=== PATIENT | female | born 1940 | race Caucasian/White ===

== ENCOUNTER → 2017-10-01 | Day surgery (SDC) | payer OTHER ==
[2017-09-22 15:29] VITALS: Ht 163.8 cm; Wt 81.8 kg
[~2017-10-01] VITALS: Ht 163.8 cm; Wt 81.8 kg
[~2017-10-01] MED LIST: DEXAMETHASONE SOD INJ 4 MG/ML VIAL ONE; LIDOCAINE HCL 1% MPF 5 ML VIAL ONE; MELO-83 PO; MULT-506 PO; OXYB5TAB21 PO; RANI150T3 PO; VITA1TAB4 PO; VITBC PO
--- NOTE | 2017-10-01 08:01 | History & Physical Bridge - [place] ---
H&P Re-Evaluation Bridge Note: I have examined the patient, reviewed the History & Physical and in the interval since the performance of the History & Physical I have noted the following changes of clinical significance: No changes noted
--- NOTE | 2017-10-01 08:16 | Discharge Instructions-SurgCtr ---
Discharge Instructions Date of Service Oct 01, 2017. Visit Reason for Visit: Spinal Stenosis Discharge Discharge Diagnosis / Problem: same Discharge Goals Goal(s): Improve function Activity Recommendations Activity Limitations: resume your previous activity Anesthesia . Post Anesthesia Instructions: If you have had General Anesthesia or IV Sedation: * Do not drive today. * Resume driving when surgeon permits. * Do not make important decisions or sign legal documents today. * Call surgeon for: 1. Temperature elevations greater than 101 degrees F. 2. Uncontrollable pain. 3. Excessive bleeding. 4. Persistent nausea and vomiting. 5. Medication intolerance (nausea, vomiting or rash). * For nausea and vomiting use only clear liquids such as: tea, soda, bouillon until nausea subsides, then gradually increase diet as tolerated. * If you have any concerns or questions, call your surgeon's office. If physician is unavailable and it is an emergency, call 911 or go to the nearest emergency room. . Diet Recommendations Home Diet: no limitations Procedures Procedures Performed: L3-4 Epidural Steroid Injection Pending Studies Studies pending at discharge: no Medical Emergencies . Who to Call and When: Medical Emergencies: If at any time you feel your situation is an emergency, please call 911 immediately. . Non-Emergent Contact Non-Emergency issues call your: Primary Care Provider . . "Provider Documentation" section prepared by Efrain Pierson. .
--- NOTE | 2017-10-01 08:17 | [facility] Post Operative Brief Note ---
Immediate Operative Summary Operative Date Oct 01, 2017. Pre-Operative Diagnosis SPINAL STENOSIS Post-Operative Diagnosis SAME Procedure(s) Performed L3-[address] Phi ROGERS Junior Recruiter Surgeon(s) NONE Estimated Blood Loss 0 ML Findings Consistent with Post-Op Diagnosis Specimens NONE Drains None Anesthesia Type Local
[2017-10-01 08:18] VITALS: TEMP 36.3
[2017-10-01 08:35] VITALS: BP 168/84; PULSE 76; O2SAT 96
--- NOTE | 2017-10-01 10:42 | OPERATIVE REPORT ---
DATE OF OPERATION: 10/01/2017 PREOPERATIVE DIAGNOSIS: Stenosis, lumbar spine, L3-L4. POSTOPERATIVE DIAGNOSIS: Stenosis, lumbar spine L3-L4. PROCEDURE: Epidural steroid, L3-L4. DESCRIPTION OF PROCEDURE: Patient was taken to minor procedure room and placed prone, scrubbed, prepped and draped sterile. A 22-gauge Tuohy needle advanced to the epidural space at L3-L4. Air acceptance technique employed. 2 mL of dexamethasone injected without incident. There were no complications. She was discharged home. I attest to the content of the Intraoperative Record and any orders documented therein. Any exception s are noted below.
== END | disposition home or self-care (01) ==
LOC: X.SURG 06:44
PROVIDERS: ATTEND Orthopaedic Surgery Orthopaedic Surgery of the Spine
DX: M48.061 Spinal stenosis, lumbar region without neurogenic claudication (principal)

== ENCOUNTER → 2017-10-28 | Outpatient (CLI) | payer OTHER ==
[~2017-10-28] MED LIST changes: -DEXAMETHASONE SOD INJ 4 MG/ML VIAL ONE; -LIDOCAINE HCL 1% MPF 5 ML VIAL ONE
--- NOTE | 2017-10-28 10:26 | DIAGNOSTIC IMAGING REPORT ---
CHEST 2 VIEWS ROUTINE HISTORY: 77 years-old Female pat preoperative exam. No acute chest complaints COMPARISON: None available TECHNIQUE: PA and lateral views of the chest FINDINGS: Cardiomediastinal and hilar silhouettes are within normal limits. Calcification of the aorta. There is no pneumothorax, pleural effusion, focal airspace consolidation or overt pulmonary edema. Moderate sized hiatal hernia. Bones of the chest appear grossly intact. IMPRESSION: 1. No acute process. 2. Moderate sized hiatal hernia. The above report was generated using voice recognition software. It may contain grammatical, syntax or spelling errors. Electronically signed by: Myke French M.D. 10/28/2017 10:25 AM Dictated Date/Time: 10/28/2017 10:23 AM
[2017-10-28 10:39] LABS: BASO % 0.5 %; BASO ABS # 0.03 K/uL (0-0.2); EOS % 1.4 %; EOS ABS # 0.08 K/uL (0-0.5); HEMATOCRIT 36.2 % (37-47); HEMOGLOBIN 11.9 g/dL (12.0-16.0); IG# 0.01 K/uL (0.00-0.02); LYMPH % 30.4 %; LYMPH ABS # 1.73 K/uL (1.2-3.4); MEAN CELL VOLUME 86.8 fL (80-100); MEAN CORPUSCULAR HEMOGLOBIN 28.5 pg (25-34); MEAN CORPUSCULAR HGB CONC 32.9 g/dl (32-36); MONO % 5.4 %; MONO ABS # 0.31 K/uL (0.11-0.59); NEUT % 62.1 %; NEUT ABS # 3.54 K/uL (1.4-6.5); PLATELET COUNT 297 K/uL (130-400); RED CELL DISTRIBUTION WIDTH CV 13.6 % (11.5-14.5); RED CELL DISTRIBUTION WIDTH SD 43.3 fL (36.4-46.3)
[2017-10-28 10:44] LABS: INR 0.9 (0.9-1.1); PTT PATIENT 25.3 SECONDS (21.0-31.0)
[2017-10-28 10:47] LABS: BLOOD UREA NITROGEN 16 mg/dl (7-18); CALCIUM 8.7 mg/dl (8.5-10.1); CARBON DIOXIDE 28 mmol/L (21-32); GLUCOSE 97 mg/dl (70-99); SODIUM 140 mmol/L (136-145)
== END | disposition home or self-care (01) ==
LOC: C.CPL 09:12
PROVIDERS: ATTEND Orthopaedic Surgery Orthopaedic Surgery of the Spine
DX: Z01.810 Encounter for preprocedural cardiovascular examination (principal); Z01.811 Encounter for preprocedural respiratory examination; Z01.812 Encounter for preprocedural laboratory examination; K44.9 Diaphragmatic hernia without obstruction or gangrene

== ENCOUNTER 2021-10-25 11:11 | Observation (INO) ==
--- NOTE | 2021-09-18 11:50 | PAT Medication Instructions ---
Medication Instructions Date of Service September 18, 2021 Home Medications Medication Instructions Recorded multivitamin (Daily-Riley) 1 tab PO QAM #60 tabs 11/15/17 multivitamin (Daily-Riley) 1 tab PO QAM meloxicam 15 mg tablet 15 mg PO DAILY PRN acetaminophen 325 mg capsule (Tylenol) 325 mg PO Q8H PRN duloxetine 20 mg capsule,delayed release 20 mg PO BID gabapentin 600 mg tablet 300 mg PO HS ASK your surgeon for instructions meloxicam 15 mg tablet 15 mg PO DAILY PRN DO NOT take the morning of surgery multivitamin (Daily-Riley) 1 tab PO QAM Take morning of surgery With a small sip of water, OTHERWISE NOTHING TO EAT OR DRINK AFTER MIDNIGHT: acetaminophen 325 mg capsule (Tylenol) 325 mg PO Q8H PRN(if needed) duloxetine 20 mg capsule,delayed release 20 mg PO BID Take evening before surgery acetaminophen 325 mg capsule (Tylenol) 325 mg PO Q8H PRN(if needed) duloxetine 20 mg capsule,delayed release 20 mg PO BID gabapentin 600 mg tablet 300 mg PO HS Other Notes If you have any questions please call us at [phone] or [phone] or [phone] or [phone]
--- NOTE | 2021-09-24 08:52 | Anesthesiology Consultation ---
Date of Service September 24, 2021 Assessment & Plan (1) Encounter for pre-operative examination: Chart Review Chart Review: Acceptable Risk for Surgery (pending preop Covid testing results ) and Patient seen in Pre Admission Testing Per PAT appt on 09/24/21, patient denies any recent travel or large group activities. No known Covid positive exposures or Covid related symptoms. No known Covid infection in the past 90 days. Pt is vaccinated for Covid. Preop Covid testing scheduled 10/23/21 = will await results. Educated on importance of self quarantining, social distancing and wearing mask in public for the patient one week prior to surgery and after Covid testing done L3-4 laminectomy and fusion 11/12/17= Done under GA with Grade 2-3 view with MAC 3.0. ETT #7.0. Atraumatic. Smooth IV induction. Teaching & Discussion Pre-Anesthesia Teaching/Discussion Notes: Instructed NPO after midnight before surgery,except medications with 15 cc of water. Medication instructions provided according to the [facility] guidelines. History Surgery Operation Date: 10/25/21 11:20 Proposed Procedures p Left Anterior Total Hip Arthroplasty - Indra Piedra DO Height/Weight Height: 5 ft 2.5 in Weight: 77.9 kg Allergies Allergy/AdvReac Type Severity Reaction Status Date / Time No Known Allergies Allergy Verified 09/13/21 14:23 Medications Home Medications Medication Instructions Recorded Confirmed Last Taken multivitamin (Daily-Riley) 1 tab PO QAM #60 tabs 11/15/17 09/13/21 Unknown meloxicam 15 mg tablet 15 mg PO DAILY PRN Pain 03/12/20 09/13/21 Unknown acetaminophen 325 mg capsule 325 mg PO Q8H PRN Pain 09/13/21 09/13/21 Unknown (Tylenol) duloxetine 20 mg capsule,delayed 20 mg PO BID 09/13/21 09/13/21 Unknown release gabapentin 600 mg tablet 300 mg PO HS 09/13/21 09/13/21 Unknown clotrimazole See Rx Instructions .Route .COMPLEX 09/24/21 09/24/21 Unknown hydrocortisone 2.5 % topical See Rx Instructions .Route 09/24/21 09/24/21 Unknown ointment .COMPLEX PRN Rash nystatin 100,000 unit/mL oral See Rx Instructions .Route .COMPLEX 09/24/21 09/24/21 Unknown suspension Past Medical History Medical History (Updated 09/25/21 @ 08:33 by Lin Guerra PA-C) Chronic back pain Lumbar area- hx of lumbar fusion Gait instability Uses cane to ambulate - secondary to hip vs lumbar back pain GERD (gastroesophageal reflux disease) Well controlled and stable Lumbar facet joint syndrome Lumbar postlaminectomy syndrome Lumbar radiculopathy R L4-5 Myofascial pain Follows with pain management Thrush Oral thrush x 3 weeks (secondary to previous abx use). Following with PCP- using Nystatin rinse, clotrimazole lozenge, and salt water rinses- thrush slowly improving Pt will call if not resolved by DOS Urinary bladder incontinence Exercise / Class Metabolic Activity II 4-5 Yardwork/Stairs/Walk up hill (one flight of stairs- no chest pain or SOB ) Past Family History Family History Other No known health problems Past Surgical History Surgical History History of bilateral tubal ligation History of cataract surgery R/L History of colonoscopy History of tonsillectomy S/P lumbar fusion L2-4 Dr. Pierson 2018 Past Anesthesia History No Hx of Anesthesia Complications and No Family Hx of Anesthesia Complications History of PONV No Hx of PONV and No Hx of Motion Sickness Social History Smoking Status: Former smoker tobacco type: cigarettes Smoking cigarettes per day: 1ppd x 20 years Do You Dip or Chew Tobacco: No Smoking End Date: QUIT 1969 Hx Alcohol Use: No Alcohol type: wine alcohol intake frequency: holidays/special occasions only Hx Substance Use: No substance use type: other Substance Use Type Other:: CBD OIL (RARELY) Last Used Substance: Unknown Review of Systems Patient denies chest pain, shortness of breath, dyspnea on exertion, cough, wheezing, palpitations. No hx of seizures, stroke, VA, apnea/snoring. No hx of blood clots or blood transfusions Physical Exam Vital Signs VITALS BP 159/89 P 84 TEMP 98.4 SP02 95% RESP 16 Constitutional no acute distress ENMT Mouth: no TMJ clicking Thyromental Distance: > or= 3.5 Finger Breadths (3.5) Mallampati Class: III Upper and lower full dentures Neck neck extension not limited Respiratory normal respiratory effort; no respiratory distress Auscultation: lungs clear to auscultation bilaterally; no wheezes Cardiovascular Rate/Rhythm: regular rate and regular rhythm Heart Sounds: no murmur Vessels: no carotid bruit Musculoskeletal Spine: no pain with cervical ROM Extremities: extremities normal to inspection Psychiatric Orientation: alert Lab Results Anesthesia Preop Results Results Anesthesia Widget: WBC 6.98 K/ul (4.8-10.8) 09/24/21 Hgb 13.2 g/dl (12.0-16.0) 09/24/21 Hct 38.8 % (34.1-44.9) 09/24/21 Plt 293 K/uL (130-400) 09/24/21 Na 139 mmol/L (136-145) 09/24/21 K 3.9 mmol/L (3.5-5.1) 09/24/21 Cl 107 mmol/L (98-107) 09/24/21 CO2 25 mmol/L (21-32) 09/24/21 BUN 22 mg/dl (6-23) 09/24/21 Creat 0.62 mg/dl (0.6-1.2) 09/24/21 Glucose Level 100 mg/dl (70-99(Fasting)) H 09/24/21 PT 10.3 Seconds (9.0-12.0) 09/24/21 PTT 27.2 Seconds (21.0-31.0) 09/24/21 INR 1.0 (0.9-1.1) 09/24/21 Blood Type O Positive 09/24/21 Antibody Screen NEGATIVE 09/24/21 Testing Electrocardiogram Date: 09/24/21 Findings: + NSR @ (74bpm ) Normal EKG per cardio Chest X-Ray Date: 09/24/21 Findings: + NAD
--- NOTE | 2021-10-24 08:58 | History & Physical Report ---
Date of Service October 24, 2021 Assessment & Plan (1) Osteoarthritis of left hip: We will proceed with a left anterior total hip arthroplasty. Postoperatively she will be started on aspirin for DVT prophylaxis and kept overnight in the hospital for postoperative medical management. She plans to use [facility] physical therapy upon discharge. History of Present Illness Chief Complaint: Osteoarthritis of the left hip. Primary Care Provider: Efrain Carrasco MD Rebekah is an 81-year-old female who has been having a longstanding history of increasing and debilitating left hip pain. She has been treated with injections in the past, which offer her no real symptomatic relief. She has been using a cane just because the hip has been bothering her too much. Most of the pain is in the groin and radiates down to her thigh. She has had multiple x-rays, which do demonstrate severe osteoarthritis of the hip. After failing conservative treatment, she has elected to proceed with a left total hip arthroplasty. Allergies Allergy/AdvReac Type Severity Reaction Status Date / Time No Known Allergies Allergy Verified 09/13/21 14:23 Home Medications Medication Instructions Recorded Confirmed Type multivitamin (Daily-Riley tablet) 1 tab PO QAM #60 tabs 11/15/17 09/13/21 Rx meloxicam 15 mg tablet 15 mg PO DAILY PRN Pain 03/12/20 09/13/21 History acetaminophen 325 mg capsule 325 mg PO Q8H PRN Pain 09/13/21 09/13/21 History (Tylenol) duloxetine 20 mg capsule,delayed 20 mg PO BID 09/13/21 09/13/21 History release gabapentin 600 mg tablet 300 mg PO HS 09/13/21 09/13/21 History clotrimazole See Rx Instructions .Route .COMPLEX 09/24/21 09/24/21 History hydrocortisone 2.5 % topical See Rx Instructions .Route 09/24/21 09/24/21 History ointment .COMPLEX PRN Rash nystatin 100,000 unit/mL oral See Rx Instructions .Route .COMPLEX 09/24/21 09/24/21 History suspension Past Med/Surg History Medical History Chronic back pain Lumbar area- hx of lumbar fusion Gait instability Uses cane to ambulate - secondary to hip vs lumbar back pain GERD (gastroesophageal reflux disease) Well controlled and stable Lumbar facet joint syndrome Lumbar postlaminectomy syndrome Lumbar radiculopathy R L4-5 Myofascial pain Follows with pain management Thrush Oral thrush x 3 weeks (secondary to previous abx use). Following with PCP- using Nystatin rinse, clotrimazole lozenge, and salt water rinses- thrush slowly improving Pt will call if not resolved by DOS Urinary bladder incontinence Surgical History History of bilateral tubal ligation History of cataract surgery R/L History of colonoscopy History of tonsillectomy S/P lumbar fusion L2-4 Dr. Pierson 2018 Family History Other No known health problems Social History Smoking Status: Former smoker Cigarettes Per Day: 1ppd x 20 years; Second Hand Exposure: No; Hx Alcohol Use: No Hx Substance Use: No Preferred Language: Danish Communication Ability: Effective Visual Impairment: No Limitations Hearing Ability: Normal Foundry Molder Required: No Beliefs That Will Affect Care: None Current Living Situation: Alone current occupational status: retired Feels Safe at Home: Yes Assistive Devices: Cane, Denture - Upper, Denture - Lower and Glasses Review of Systems All systems reviewed & are unremarkable except as noted in HPI & below. Physical Exam On physical examination of the left hip, she has significant pain with range of motion of her hip. Her pain is mostly in her groin.. Constitutional WD/WN, vitals as above Eyes PERRL, conjunctivae normal, anicteric sclerae ENMT external ear and nose normal, oropharynx normal Neck trachea midline, no thyromegaly Respiratory normal respiratory effort, lungs clear to auscultation Cardiovascular RRR, no murmur, no edema Gastrointestinal (Abdomen) normal bowel sounds, soft, nontender, no hepatosplenomegaly Skin no rashes, warm and dry Psychiatric A+Ox3, euthymic affect Results & Data Results & Data Laboratory Results . Diagnostic Findings X-rays of the left hip show advanced osteoarthritis with joint space narrowing, osteophyte formation, and [id number] articulation. PG Care Time/CCT Total # of Minutes Spent Total Time Spent with Patient: Total time spent is greater than 50% in coordination of care (as documented) at patient's floor/unit and/or counseling patient: Coding Level of Care Code None Diagnoses Osteoarthritis of left hip M16.12
[~2021-10-25 11:11] MED LIST changes: +ACETAMINOPHEN 500 MG TAB PO SCH; +BUPIVACAINE 0.5 % 5 MG/1 ML PF 10ML VIAL ONE; +GABAPENTIN 300 MG CAP PO SCH; +Ketorolac (*for OR use only*) 30 MG, dexAMETHasone 4 MG, KETAMINE HCL (**OR use only) 1... INFIL SCH; +LR 500ML BOLUS, THEN 15ML/HR IV SCH; +LR 60ML/HR IV SCH; -MELO-83 PO; -MULT-506 PO; -OXYB5TAB21 PO; -RANI150T3 PO; +TRANEXAMIC ACID 1,000 MG **IV Intra-op IV SCH; +TRANEXAMIC ACID 1,000 MG **IV Pre-op IV SCH; -VITA1TAB4 PO; -VITBC PO; +ceFAZolin 2000MG 2,000 MG/15 ML SYR IV SCH; +dexAMETHasone 4 MG TAB PO SCH
--- NOTE | 2021-10-25 13:12 | History & Physical Bridge Note ---
Date of Service October 25, 2021 History & Physical Bridge Note I have examined the patient, reviewed the History & Physical and in the interval since the performance of the History & Physical I have noted the following changes of clinical significance: no changes noted
[2021-10-25] MEDS ORDERED: ePHEDrine sulfate 50 MG/ML AMP IV PRN (13:43)
[2021-10-25] MEDS ORDERED: ATROPINE SULFATE 0.1 MG/ML 10ML SYR IV PRN (13:43)
[2021-10-25] MEDS ORDERED: fentaNYL citrate 100 MCG/2 ML VIAL IV PRN (13:43)
[2021-10-25] MEDS ORDERED: ONDANSETRON INJ 2 MG/ML 2 ML VIAL IV PRN ×2 (13:43→18:18)
[2021-10-25] MEDS ORDERED: fentaNYL citrate 100 MCG/2 ML VIAL ONE (13:59)
[2021-10-25] MEDS ORDERED: MIDAZOLAM HCL 1 MG/ML 2ML VIAL ONE (14:04)
[2021-10-25] MEDS ORDERED: ORTHO JOINT ANESTHETIC ONE (14:10)
[2021-10-25] MEDS ORDERED: LIDOCAINE 2% MPF LOCAL 5 ML VIAL INFIL ONE (14:52)
[2021-10-25] MEDS ORDERED: PROPOFOL IV EMULSION 10 MG/ML 20 ML VIAL IV ONE ×2 (14:52→15:57)
[2021-10-25] MEDS ORDERED: ePHEDrine sulfate 50 MG/ML SYR ONE (15:57)
[2021-10-25] MEDS ORDERED: ONDANSETRON INJ 2 MG/ML 2 ML VIAL ONE (15:57)
--- NOTE | 2021-10-25 16:10 | Operative Report ---
PG Post Operative Report Pre & Post Diagnosis Operation Date: 10/25/21 14:15 Pre-Op Diagnosis: Osteoarthritis of left hip Post-Op Diagnosis: Osteoarthritis of left hip I identified the patient and participated in the time-out.: Yes Procedure Operation Date: 10/25/21 14:15 Actual Procedures p Left Anterior Total Hip Arthroplasty(Left) - Indra Piedra DO Surgeon Indra Piedra DO Transcript Clerk Indra Boucher PA-C Estimated Blood Loss 250 Findings Consistent with Post-Op Diagnosis Specimens Left femoral head Description of Procedure Implants used I used a ZimmerBiomet total hip arthroplasty system with a size 5 Standard offset Avenir Complete stem, a 52 mm G7 cup with a 25mm screw, an E1 polyethylene liner, a 36 mm ceramic head with a 0 neck. Rebekah arrived at the hospital for the above procedure. She was seen in the preoperative holding area and the operative extremity was identified and signed. She was given a spinal anesthetic, a preoperative antibiotic, and TXA. She was then taken back to the operating room and laid on the table in the supine position. She was given basic sedation. The operative leg was secured to a Puristst leg positioner. The hip was then prepped and draped in sterile fashion. A timeout was done and the patient and the operative extremity was properly identified. An anterior approach was used. Dissection was taken down through the fascia and the tensor muscle belly was retracted laterally and the rectus was retracted medially. The circumflex vessels were identified and ligated. The capsule was then incised and tagged for later repair. The femoral neck was then cut and the femoral head was removed. The acetabulum was exposed. Time was spent doing a complete circumferential labral release. Sequential reaming of the acetabulum up to a size 51 reamer was done. Final reamings were done under fluoroscopy to ensure appropriate version. A Biomet 52 mm G7 cup was then impacted into place. A single 25 mm screw was placed. The E1 polyethylene liner was then snapped into place. Surrounding soft tissues were then injected with 100 cc of an orthopedic pain control cocktail. The proximal femur was then exposed. Sequential broaching up to a size 5 broach was done. Off that broach a size 36 head with a 0 neck was trialed. The hip was reduced and fluoroscopic images showed anatomic alignment of the implants in acceptable length. The broach was removed. The final size 5 Avenir Complete stem was then impacted into place. A ceramic 36 mm head with a 0 neck was then impacted onto the stem and the hip was reduced. Final fluoroscopic images showed anatomic alignment of the hip. The capsule was then closed with #1 Vicryl suture. A dilute betadyne lavage was then done for 3 minutes. The joint was then irrigated with normal saline solution. The fascia was closed with #1 PDS suture. Skin was closed with 2-0 Vicryl, zaire, and a Silverlon dressing. She was then transferred to a hospital bed and taken to the post anesthesia care unit in stable condition. She tolerated the procedure well. Indra Boucher PA-C, was present for the entire procedure. He was critical for patient positioning, prepping, draping, retraction exposure, wound closure and application of sterile dressing. I attest to the content of the Intraoperative Record and any orders documented therein. Any exceptions are noted below.
--- NOTE | 2021-10-25 16:23 | Fluoroscopy Report ---
FL hip LT 1V CLINICAL HISTORY: Left anterior hip arthroplasty. COMPARISON STUDY: None. FLUOROSCOPY TIME: 25 seconds. FINDINGS: A single fluoroscopic spot image of the left hip demonstrates a left total hip arthroplasty . The hardware appears intact. No fracture or dislocation. IMPRESSION: Fluoroscopic assistance provided for left total hip arthroplasty. ACT 112: Negative or not required by law. Electronically signed by: Moreno Holliday M.D. 10/25/2021 4:22 PM
--- NOTE | 2021-10-25 17:59 | Anesthesiology Progress Note ---
Date of Service October 25, 2021 Anesthesia Post Procedure Vital Signs Vital Signs: Temp Pulse Resp BP Pulse Ox O2 Del Method 10/25/21 17:25 92 H 20 144/77 H 96 Room Air 10/25/21 16:55 81 23 124/63 97 Room Air 10/25/21 17:15 37.2 C 77 17 142/66 H 93 Room Air 10/25/21 17:05 37.2 C 82 30 H 131/70 95 Room Air 10/25/21 16:45 80 16 119/55 L 93 Room Air 10/25/21 16:35 36.7 C 80 13 120/73 94 Room Air 10/25/21 11:49 36.8 C 76 20 158/92 H 96 Room Air Transfer of Care Handoff Completed per policy Notes Mental Status: alert / awake / arousable Patient Amnestic to Procedure: Yes Nausea / Vomiting: adequately controlled Pain: adequately controlled Airway Patency, RR, SpO2: stable & adequate BP & HR: stable & adequate Hydration State: stable & adequate Neuraxial Anesthesia: was administered and sensory block is resolving Anesthetic Complications: no major complications apparent and Pt Satisfied with anesthetic care Notes: patient has a noted left eye subconjunctival hematoma. she has no pain or visual disturbance. no suspicion of a corneal abrasion. no treatment necessary.
[2021-10-25] MEDS ORDERED: bisacodyL 10 MG SUPP PR PRN (18:18)
[2021-10-25] MEDS ORDERED: oxyCODONE HCL IR 5 MG TAB (IMMEDIATE RELEASE) PO PRN (18:18)
[2021-10-25] MEDS ORDERED: MAGNESIUM HYDROXIDE SUSP 30 ML UDC PO PRN (18:18)
[2021-10-25] MEDS ORDERED: HYDROmorphone INJ 0.5 MG/0.5 ML SYR IV PRN (18:18)
[2021-10-25] MEDS ORDERED: HYDROCORTISONE 2.5% PRN (18:18)
[2021-10-25] MEDS ORDERED: METOCLOPRAMIDE HCL INJ 5 MG/ML 2 ML VIAL IV PRN (18:18)
[2021-10-25] MEDS ORDERED: NALOXONE HCL 0.4 MG/1 ML VIAL/CARP IV PRN (18:18)
--- NOTE | 2021-10-25 18:28 | XRay Report ---
AP PELVIS, CROSSTABLE LATERAL LEFT HIP History: Left total hip arthroplasty. Degenerative arthritis. Postop. FINDINGS: The patient is status post a left total hip arthroplasty. The hardware is intact. No fractu re or dislocation. Skin zaire are in place. IMPRESSION: Left total hip arthroplasty. No evidence for hardware complication. ACT 112: Negative or not required by law. Electronically signed by: Moreno Holliday M.D. 10/25/2021 6:27 PM
[2021-10-25] MEDS: SODIUM CHLORIDE 0.9% 1000ML 1,000 ML IV SCH (20:39)
[2021-10-25] MEDS: KETOROLAC TROMETHAMINE 15 MG/ML VIAL IV SCH (20:40)
[2021-10-25] MEDS: DULoxetine HCL 20 MG CAP PO SCH (20:44)
[2021-10-25] MEDS: NYSTATIN SUSP 500,000 U/5 ML UDC PO SCH (20:44)
[2021-10-25] MEDS: ASPIRIN 81 MG ECTAB PO SCH (20:44)
[2021-10-25] MEDS: DOCUSATE SODIUM 100 MG CAP PO SCH (20:44)
[2021-10-25] MEDS ORDERED: SENNA 8.6 MG TAB PO SCH (21:00)
[2021-10-25] MEDS: ACETAMINOPHEN 500 MG TAB PO SCH (21:00)
[2021-10-25] MEDS ORDERED: GABAPENTIN 300 MG CAP PO SCH (21:00)
[2021-10-25] MEDS: ceFAZolin 2000MG 2,000 MG/15 ML SYR IV SCH (22:14)
[2021-10-25] MEDS: CLOTRIMAZOLE 10 MG TROCHE BUCCAL SCH (22:14)
[2021-10-26] MEDS: KETOROLAC TROMETHAMINE 15 MG/ML VIAL IV SCH ×2 (02:16→08:40)
[2021-10-26] MEDS: ACETAMINOPHEN 500 MG TAB PO SCH (05:58)
[2021-10-26] MEDS: ceFAZolin 2000MG 2,000 MG/15 ML SYR IV SCH (05:58)
[2021-10-26] MEDS: CLOTRIMAZOLE 10 MG TROCHE BUCCAL SCH ×2 (06:02→12:22)
[2021-10-26] MEDS: SODIUM CHLORIDE 0.9% 1000ML 1,000 ML IV SCH (06:41)
[2021-10-26] MEDS ORDERED: dexAMETHasone 4 MG TAB PO SCH (08:00)
[2021-10-26] MEDS: ASPIRIN 81 MG ECTAB PO SCH (08:39)
[2021-10-26] MEDS: DOCUSATE SODIUM 100 MG CAP PO SCH (08:39)
[2021-10-26] MEDS: DULoxetine HCL 20 MG CAP PO SCH (08:40)
[2021-10-26] MEDS: NYSTATIN SUSP 500,000 U/5 ML UDC PO SCH (08:40)
[2021-10-26] MEDS ORDERED: MULTIVITAMIN TAB PO SCH (09:00)
[2021-10-26] MEDS ORDERED: NON-FORMULARY MEDICATION (Multivitamin [Daily-Vite] Tablet) PO SCH (09:00)
--- NOTE | 2021-10-26 11:34 | Orthopedic Progress Note ---
Date of Service October 26, 2021 Assessment & Plan (1) Status post left hip replacement: Overall she is doing fairly well. She was seen by physical therapy this morning for ambulation and range of motion exercises. She is on aspirin for DVT prophylaxis. [facility]. She will follow with orthopedics in 2 weeks. Heena Welch was seen and examined at bedside this morning. Overall she is doing fairly well. She is not having too much pain in the left hip. She was seen by physical therapy and it was a little slow and unsteady. She does live alone. She was hoping to go to rehab. She has no other complaints. . Review of Systems All systems reviewed & are unremarkable except as noted in HPI & below. Physical Exam On physical examination of the left hip, the dressing is clean and dry. Her leg is out full extension. She has active dorsiflexion plantarflexion of her left ankle. . Results & Data Results & Data Laboratory Results . Diagnostic Findings Postoperative x-rays of the left hip show the prosthesis to be in anatomic alignment without any evidence of fracture, education, or loosening . PG Care Time/CCT Total # of Minutes Spent Total Time Spent with Patient: Total time spent is greater than 50% in coordination of care (as documented) at patient's floor/unit and/or counseling patient: Coding Level of Care Code 81746 Post Operative Follow-Up Diagnoses Status post left hip replacement Z96.642
--- NOTE | 2021-10-26 11:36 | Discharge Summary ---
Date of Service October 26, 2021 Admission HPI (Per Admitting) Rebekah is an 81-year-old female who has been having a longstanding history of increasing and debilitating left hip pain. She has been treated with injections in the past, which offer her no real symptomatic relief. She has been using a cane just because the hip has been bothering her too much. Most of the pain is in the groin and radiates down to her thigh. She has had multiple x-rays, which do demonstrate severe osteoarthritis of the hip. After failing conservative treatment, she has elected to proceed with a left total hip arthroplasty. Admission Exam (Per Admitting) On physical examination of the left hip, she has significant pain with range of motion of her hip. Her pain is mostly in her groin.. Principal Diagnosis Same as "Discharge Diagnosis" noted below under Discharge Instructions. Discharge Exam On physical examination of the left hip, the dressing is clean and dry. Her leg is out full extension. She has active dorsiflexion plantarflexion of her left ankle. . Discharge Data Procedures Performed Operation Date: 10/25/21 14:15 Actual Procedures p Left Anterior Total Hip Arthroplasty(Left) - Indra Piedra DO Ordered Studies 10/25/21 14:15 FL hip LT 1V Routine Hospital Course (1) Status post left hip replacement: On October Rebekah arrived at [facility] and underwent a left hip replacement without complication..She had a spinal anesthetic was operatively she was started on aspirin for DVT prophylaxis and transferred to the general orthopedic floors. Her hospital course was uneventful. On postop day #1, her vital signs were stable and her pain was well controlled. She was able to participate well with physical therapy doing ambulation and range of motion exercises. [facility]. She will follow- up with orthopedics in 2 weeks. PG Care Time/CCT Total # of Minutes Spent Total Time Spent with Patient: Total time spent is greater than 50% in coordination of care (as documented) at patient's floor/unit and/or counseling patient: Discharge Plan Discharge Items Patient Disposition: Transfer Inpatient Rehab Fac Reason For Visit: DJD Left Hip Discharge Diagnosis: Left hip replacement Activity: Per Instructions section Non-emergency contact: Surgeon Call non-emergency contact if: your wound has increased redness and your wound has increased drainage Follow-up/Referrals: Efrain Carrasco MD [Primary Care Provider] - Diet: Regular Addtl Attending Provider Instructions: Activity and Therapy Recommendations: * If you are using [facility] then therapy will be provided at your home until they feel you have accomplished all of your goals. * If you are using [facility] then Physical Therapy will be provided until they feel you are ready to start Outpatient Physical Therapy. * If you are not using home therapy then Outpatient Physical Therapy should start about 3-5 days from your day of surgery. Therapy will last about 6-10 weeks * You were shown a series of exercises in the hospital. Do these exercises three times each day including the exercises you were shown in physical therapy. * Get up and walk several times each day.~ For the first four weeks, try not to stand or walk for more than one hour at a time. If you do stand or walk for more than one hour, you will not hurt anything, but your leg will likely swell.~~ * As you feel comfortable, you may change from the walker or crutches to a cane and~then to independent walking. Medications: * Narcotic You will likely be sent home from the hospital with a prescription for the narcotic pain medication that worked best throughout your stay. * Aspirin Most patients will be required to take Aspirin 81mg twice a day for 6 weeks after surgery. This is obtained [id number] and a prescription is not necessary. * Other medications may be prescribed for specific circumstances. If you have any questions, please call the office at . * Resume previous home medications unless otherwise instructed TEDs/Elastic Stockings: The white elastic stockings help limit swelling and prevent blood clots from forming in your legs. The more you wear them, the more they work. Wear them for six weeks. Dressing Care: Leave the Silverlon dressing in place for 7 days. After 7 days you may remove the dressing. If the incision is not draining then you may leave the zaire open to air. If there is a little bit of drainage or if the zaire are getting stuck on your clothing then cover the incision with a dry dressing. The zaire will be removed at your 2 week follow-up appointment. Showering: You may shower with the Silverlon dressing in place. Do not let the shower spray hit the dressing directly. Pat the Silverlon dressing dry. If the dressing becomes wet underneath, then simply remove the dressing. Keep the incision dry until you are 7 days out from the day of surgery. After 7 days you may remove the Silverlon dressing and shower with the zaire exposed. Let soapy water run over the zaire and pat them dry. Do not scrub or soak the incision. Things To Watch For: * Drainage from the incision site that occurs more than one week after your surgery. * Increased redness at the incision site. * Fever above 102 degrees Fahrenheit. * Unusual chest pain or shortness of breath. * Call [facility] at with any of the above problems Follow-Up Visit: Follow-up with Dr. Piedra's PA (Indra Boucher) 2-3 weeks after your day of surgery. He will remove your zaire and answer any questions. If you have any additional questions or concerns, Dr Piedra is usually in the office at the same time and will be available An appointment was probably scheduled when you signed-up for surgery in the office. If you have any questions call Office Instructions: More detailed instructions as well as Frequently Asked Questions were provided in a folder by our office when you signed-up for surgery. Please review these instructions when you get home. If you have any further questions or concerns, please feel free to call the office at [phone] Pending Studies at Discharge: No Stand-Alone Forms: My [facility], Smoking Cessation Skilled Items Patient informed of condition?: Yes DNR: No Discharge Level of Care: Acute rehab Communicable Disease: No Discharge Prognosis: Improving Lines: None Urinary Catheter: No Medications and DC Order Prescriptions: New oxycodone-acetaminophen 5-325 mg tablet 1 tab PO Q6H PRN (Reason: pain) Qty: 30 0RF aspirin 81 mg Tablet,Delayed Release (Dr/Ec) 81 mg PO BID 42 Days Qty: 84 0RF Continued meloxicam 15 mg tablet 15 mg PO DAILY PRN (Reason: Pain) multivitamin [Daily-Riley] Tablet 1 tab PO QAM Qty: 60 0RF gabapentin 600 mg tablet 300 mg PO HS duloxetine [Cymbalta] 20 mg Capsule,Delayed Release(Dr/Ec) 20 mg PO BID acetaminophen [Tylenol] 325 mg Capsule 325 mg PO Q8H PRN (Reason: Pain) nystatin 100,000 unit/mL Suspension See Rx Instructions .ROUTE .COMPLEX Rx Instructions: Swish and spit four times daily for thrush hydrocortisone 2.5 % Ointment See Rx Instructions .ROUTE .COMPLEX PRN (Reason: Rash) Rx Instructions: Uses PRN in groin area for rash clotrimazole See Rx Instructions .ROUTE .COMPLEX Rx Instructions: 1 lozenge five times daily Discharge Orders: Discharge Order (Routine); Ordered 10/26/21 Ordered By: Indra Piedra Admission Data Admit Date/Time: 10/25/21 16:29 Attending Provider: Indra Piedra Admit Provider: Indra Piedra Primary Care Provider: Efrain Carrasco Other Providers: [facility]
== END 2021-10-26 13:47 ==
LOC: 3E 11:11 → ASU 11:11

== ENCOUNTER 2023-06-01 12:08 | Inpatient (IN) ==
--- NOTE | 2023-06-01 12:31 | Emergency Department Note ---
History of Present Illness General Chief complaint: Chest Pain Stated complaint: chest pain, new onset afib Time Seen by Provider: 06/01/23 12:10 History of Present Illness 83-year-old female presents emergency department from [facility] office in which she was there because she has had cough cold congestion symptoms. Patient reportedly was found to be in a rapid heart rate possibly atrial fibrillation. Patient states that she was coughing up black sputum. Patient denies vomiting. Patient denies current chest pain or shortness of breath. Patient denies fever. There are no other mitigating or alleviating factors. Patient states that the cough started a few days prior. Home Medications Medication Instructions Recorded Confirmed Type multivitamin (Daily-Riley tablet) 1 tab PO QAM #60 tabs 11/15/17 01/28/23 Rx hydrocortisone 2.5 % topical See Rx Instructions .Route 09/24/21 01/28/23 History ointment .COMPLEX PRN Rash gabapentin 600 mg tablet 300 mg (1/2 x 600 mg) PO HS #45 11/18/21 01/28/23 Rx tabs cyclobenzaprine 5 mg tablet 5 mg PO TID PRN 01/01/23 01/28/23 History amlodipine 2.5 mg-benazepril 10 mg 1 cap PO DAILY 01/06/23 01/28/23 History capsule famotidine 20 mg tablet 20 mg PO DAILY 01/06/23 01/28/23 History meloxicam 15 mg tablet 15 mg PO DAILY Pain 01/06/23 01/28/23 History oxybutynin chloride 5 mg tablet 5 mg PO BID 01/06/23 01/28/23 History ranitidine HCl 150 mg capsule 150 mg PO DAILY 01/06/23 01/28/23 History tramadol 37.5 mg-acetaminophen 325 1 tab PO BID PRN 01/28/23 01/28/23 History mg tablet Allergies Allergy/AdvReac Type Severity Reaction Status Date / Time No Known Allergies Allergy Verified 01/28/23 14:42 Past Med/Surg History Medical History Spinal stenosis of lumbar region Leg length discrepancy Thrush Oral thrush x 3 weeks (secondary to previous abx use). Following with PCP- using Nystatin rinse, clotrimazole lozenge, and salt water rinses- thrush slowly improving Pt will call if not resolved by DOS Urinary bladder incontinence Myofascial pain Follows with pain management Gait instability Uses cane to ambulate - secondary to hip vs lumbar back pain Lumbar facet joint syndrome Lumbar postlaminectomy syndrome Lumbar radiculopathy R L4-5 Chronic back pain Lumbar area- hx of lumbar fusion GERD (gastroesophageal reflux disease) Well controlled and stable Surgical History S/P lumbar fusion L2-4 Dr. 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 Required: No Beliefs That Will Affect Care: None marital status: Single Current Living Situation: Alone current occupational status: retired Feels Safe at Home: Yes Assistive Devices: Cane, Raised Toilet Seat and Walker Review of Systems Constitutional: + body aches Respiratory: + cough Physical Exam Vital Signs Vital Signs - 24 hr 06/01/23 12:10 06/01/23 12:10 06/01/23 12:10 Temperature 36.4 C Temperature Source Oral Pulse Rate 133 H Pulse Rate [Apical] Pulse Rate from SpO2 Sensor Respiratory Rate 18 Respiratory Effort / Characteristics Non-Labored Spontaneous Respiratory Depth Normal Respiratory Pattern Regular Blood Pressure 157/89 H Blood Pressure [Right Arm] Blood Pressure Mean 111 Blood Pressure Mean [Right Arm] Blood Pressure Position Sitting Pulse Oximetry 91 91 Oxygen Delivery Method Room Air Room Air Room Air Sepsis Recent Fever Within 48 Hours No Sepsis New/Unexplained Change in Mental Status N/A Sepsis Action Taken by Nursing No Action Required 06/01/23 12:10 06/01/23 12:36 06/01/23 12:36 Temperature Temperature Source Pulse Rate 145 H 121 H Pulse Rate [Apical] Pulse Rate from SpO2 Sensor 109 H Respiratory Rate 26 H Respiratory Effort / Characteristics Respiratory Depth Respiratory Pattern Blood Pressure Blood Pressure [Right Arm] Blood Pressure Mean Blood Pressure Mean [Right Arm] Blood Pressure Position Pulse Oximetry 91 93 Oxygen Delivery Method Room Air Sepsis Recent Fever Within 48 Hours Sepsis New/Unexplained Change in Mental Status Sepsis Action Taken by Nursing 06/01/23 12:40 06/01/23 12:50 06/01/23 13:00 Temperature Temperature Source Pulse Rate 144 H 83 88 Pulse Rate [Apical] Pulse Rate from SpO2 Sensor 148 H 96 H 97 H Respiratory Rate 17 15 19 Respiratory Effort / Characteristics Respiratory Depth Respiratory Pattern Blood Pressure Blood Pressure [Right Arm] Blood Pressure Mean Blood Pressure Mean [Right Arm] Blood Pressure Position Pulse Oximetry 85 L 95 96 Oxygen Delivery Method Sepsis Recent Fever Within 48 Hours Sepsis New/Unexplained Change in Mental Status Sepsis Action Taken by Nursing 06/01/23 13:10 06/01/23 13:13 06/01/23 13:14 Temperature Temperature Source Pulse Rate 90 99 H Pulse Rate [Apical] 97 H Pulse Rate from SpO2 Sensor 85 101 H Respiratory Rate 17 18 18 Respiratory Effort / Characteristics Non-Labored Spontaneous Respiratory Depth Normal Respiratory Pattern Regular Blood Pressure Blood Pressure [Right Arm] 126/103 H Blood Pressure Mean Blood Pressure Mean [Right Arm] 110 Blood Pressure Position Pulse Oximetry 98 95 97 Oxygen Delivery Method Room Air Sepsis Recent Fever Within 48 Hours Sepsis New/Unexplained Change in Mental Status Sepsis Action Taken by Nursing 06/01/23 13:14 06/01/23 13:20 06/01/23 13:30 Temperature Temperature Source Pulse Rate 108 H 95 H Pulse Rate [Apical] Pulse Rate from SpO2 Sensor 102 H 108 H Respiratory Rate 17 28 H Respiratory Effort / Characteristics Respiratory Depth Respiratory Pattern Blood Pressure 126/103 H Blood Pressure [Right Arm] Blood Pressure Mean 108 Blood Pressure Mean [Right Arm] Blood Pressure Position Pulse Oximetry 96 89 L Oxygen Delivery Method Sepsis Recent Fever Within 48 Hours Sepsis New/Unexplained Change in Mental Status Sepsis Action Taken by Nursing 06/01/23 13:37 06/01/23 13:37 06/01/23 13:40 Temperature Temperature Source Pulse Rate 108 H 106 H Pulse Rate [Apical] Pulse Rate from SpO2 Sensor 93 H 111 H Respiratory Rate 18 24 Respiratory Effort / Characteristics Respiratory Depth Respiratory Pattern Blood Pressure 139/80 Blood Pressure [Right Arm] Blood Pressure Mean 93 Blood Pressure Mean [Right Arm] Blood Pressure Position Pulse Oximetry 95 95 Oxygen Delivery Method Sepsis Recent Fever Within 48 Hours Sepsis New/Unexplained Change in Mental Status Sepsis Action Taken by Nursing 06/01/23 13:46 06/01/23 13:46 06/01/23 13:50 Temperature Temperature Source Pulse Rate 113 H 105 H 102 H Pulse Rate [Apical] Pulse Rate from SpO2 Sensor 108 H 113 H Respiratory Rate 20 20 22 Respiratory Effort / Characteristics Respiratory Depth Respiratory Pattern Blood Pressure 124/68 Blood Pressure [Right Arm] Blood Pressure Mean 96 Blood Pressure Mean [Right Arm] Blood Pressure Position Pulse Oximetry 96 96 97 Oxygen Delivery Method Sepsis Recent Fever Within 48 Hours Sepsis New/Unexplained Change in Mental Status Sepsis Action Taken by Nursing 06/01/23 13:58 06/01/23 13:58 06/01/23 14:00 Temperature Temperature Source Pulse Rate 74 85 Pulse Rate [Apical] Pulse Rate from SpO2 Sensor 86 84 Respiratory Rate 23 21 Respiratory Effort / Characteristics Respiratory Depth Respiratory Pattern Blood Pressure 111/71 154/85 H Blood Pressure [Right Arm] Blood Pressure Mean 97 108 Blood Pressure Mean [Right Arm] Blood Pressure Position Pulse Oximetry 90 96 Oxygen Delivery Method Sepsis Recent Fever Within 48 Hours Sepsis New/Unexplained Change in Mental Status Sepsis Action Taken by Nursing GENERAL: Patient is awake alert in no acute distress patient is resting comfortably and showing no signs of anxiety EYES: The conjunctivae are clear. The pupils are round and reactive. EARS, NOSE, MOUTH AND THROAT: The nose is without any evidence of any deformity. Mucous membranes are moist. Tongue is midline. NECK: The neck is nontender and supple. RESPIRATORY: Normal respiratory effort is noted there is no evidence of wheezing rhonchi or rales CARDIOVASCULAR: Tachycardic GASTROINTESTINAL: The abdomen is soft. Abdomen is nontender. BACK: No midline tenderness or or step-off noted range of motion in flexion extension as well as rotation no signs of muscle spasm noted MUSCULOSKELETAL/EXTREMITIES: There is no evidence of gross deformity full range of motion is noted in the hips and shoulders. SKIN: There is no obvious evidence of any rash. There are no petechiae, pallor or cyanosis noted. NEUROLOGIC: Patient is awake alert and oriented x3 strength is symmetric Course Reevaluation(s) Reevaluation #1: Patient was started on IV Cardizem was given 2 boluses of IV Cardizem and a Cardizem drip. Patient is hemodynamically stable her heart rate on telemetry is in 5 blood pressures greater than 150 systolic Time: 14:44 Administered Medications Diltiazem HCl 125 mg/ Dextrose 125 mls @ 5 mls/hr IV .Q24H [facility]; Protocol Stop: 07/01/23 13:44 Last Admin: 06/01/23 13:55 Dose: 5 mg/hr, 5 mls/hr Documented By: TESSY Co-signed By: LAN Discontinued Medications Diltiazem HCl (Diltiazem Hcl 5 Mg/Ml 5 Ml Vial) 10 mg IV NOW STA Stop: 06/01/23 12:29 Last Admin: 06/01/23 12:43 Dose: 10 mg Documented By: CA Co-signed By: LAN Diltiazem HCl (Diltiazem Hcl 5 Mg/Ml 5 Ml Vial) 20 mg IV NOW STA Stop: 06/01/23 13:40 Last Admin: 06/01/23 13:55 Dose: 20 mg Documented By: TESSY Co-signed By: LAN Critical Care Time Critical Care Time: Yes Total Critical Care Time: 40 I have personally spent greater than 40 minutes of critical care time in the direct management of this patient. This includes bedside care, interpretation of diagnostic studies, and testing, discussion with consultants, patient, and family members, and other required patient management activities. These minutes are in excess of all separately billable procedures. Medical Decision Making Medical Records Attestation: I reviewed the patient's medical records. Home Medications Current Medication List: was personally reviewed by me Laboratory Data Attestation: I reviewed the patient's lab results. 06/01/23 12:40 06/01/23 12:40 Lab Results 06/01/23 06/01/23 Range/Units 12:40 Unknown WBC 15.06 H (4.8-10.8) K/ul RBC 4.59 (4.20-5.40) M/uL Hgb 12.5 (12.0-16.0) g/dl Hct 37.9 (37.0-47.0) % MCV 82.6 (80.0-100.0) fL MCH 27.2 (25.0-34.0) pg MCHC 33.0 (32.0-36.0) g/dL RDW Std Deviation 38.9 (36.4-46.3) fL RDW Coeff of Lisa 13.1 (11.5-14.5) % Plt Count 328 (130-400) K/uL MPV 10.7 (9.4-12.4) fL Immature Gran % (Auto) 0.7 % Neut % (Auto) 89.6 % Lymph % (Auto) 5.2 % Moca % (Auto) 4.2 % Eos % (Auto) 0.0 % Baso % (Auto) 0.3 % Neut # (Auto) 13.50 H (1.40-6.50) K/uL Lymph # (Auto) 0.79 L (1.20-3.40) K/uL Moca # (Auto) 0.63 H (0.11-0.59) K/uL Eos # (Auto) 0.00 (0.00-0.50) K/uL Baso # (Auto) 0.04 (0.00-0.20) K/uL Immature Gran # (Auto) 0.10 (0.01-0.20) K/uL Platelet Estimate Normal (Normal) PT 10.9 (9.0-12.0) Seconds INR 1.0 (0.9-1.1) APTT 22 (21-31) Seconds PTT Ratio 0.8 Sodium 138 (136-145) mmol/L Potassium 3.8 (3.5-5.1) mmol/L Chloride 103 (98-107) mmol/L Carbon Dioxide 23 (21-32) mmol/L Anion Gap 12 H (3-11) BUN 33 H (6-23) mg/dl Creatinine 0.86 (0.6-1.2) mg/dl Est Cr Clr Drug Dosing 46.3 ml/min Est GFR ( Amer) 71.9 ml/min Est GFR (Non-Af Amer) 62.0 ml/min BUN/Creatinine Ratio 38.4 H (10-20) Glucose 130 H (70-99(Fasting)) mg/dl Lactate 2.2 H* (0.4-2.0) mmol/L Calcium 9.3 (8.6-10.3) mg/dl Total Bilirubin 0.7 (0.2-1.0) mg/dl AST 11 L (13-39) U/L ALT 7 (7-52) U/L Alkaline Phosphatase 73 (34-104) U/L Troponin I High Sens 18.0 H (0-14) pg/ml Total Protein 7.1 (6.0-8.3) gm/dl Albumin 4.0 (3.4-5.0) gm/dl Globulin 3.1 (2.5-4.0) gm/dl Albumin/Globulin Ratio 1.3 (0.9-2) SARS-CoV-2 (PCR) NEGATIVE (Negative) Influenza Type A (PCR) Negative (Neg) Influenza Type B (PCR) Negative (Neg) RSV (RT-PCR) Negative (Neg) Imaging Data Attestation: I personally reviewed and interpreted this imaging study as follows: My Impression: Chest x-ray interpreted by me negative for infiltrate Radiologist's Impression: Chest X-Ray 06/01/23 12:10 SINGLE VIEW CHEST CLINICAL HISTORY: Atypical chest pain FINDINGS: An AP, portable, upright chest radiograph is compared to study dated 09/24/2021. A hiatal hernia is noted. The heart is enlarged noting atherosclerotic calcification of the thoracic aorta. The pulmonary vasculature is noncongested. Chronic interstitial thickening is similar to previous. There is bibasilar scarring/atelectasis. The lungs and pleural spaces are otherwise clear. No pneumothorax is seen. The skeletal structures are osteopenic. The bony thorax is grossly intact. Arthritic change is noted in the shoulders. Fusion hardware is partially visualized in the lumbar spine. IMPRESSION: 1. Cardiomegaly with no active disease in the chest. 2. Hiatal hernia. ACT 112: Negative or not required by law. Electronically signed by: Thuan Gold M.D. 06/01/2023 12:44 PM ECG Data Attestation: I personally reviewed and interpreted this ECG as follows: Additional Comments: EKG interpreted by me sinus tachycardia rate of 120, left bundle branch block, PACs, versus atrial fib with a rate of 120. There is no obvious ST segment elevation, there is a normal axis EKG #2 interpreted by me atrial fibrillation rate of 119, left bundle branch block, no obvious ST segment elevation or depression, left axis deviation is present MDM Narrative Medical decision making differential diagnosis includes bronchitis, upper respiratory tract infection, pneumonia, cardiac dysrhythmia, rapid A-fib, COVID, influenza Plan is to check labs, EKG, chest x-ray, give IV Cardizem I did review the report that solo had sent over regarding the patient's presentation to their office and their EKG with possible A-fib with a rate of 135 Impression & Plan Atrial fibrillation with rapid ventricular response Discharge Plan Visit Data Chief Complaint: Chest Pain Stated Complaint: chest pain, new onset afib ED Provider: David Villanueva Discharge Problem: Atrial fibrillation with rapid ventricular response Patient Disposition: Admitted As Inpatient Forms Stand Alone Forms: [facility] Prescriptions Prescriptions: No Action oxybutynin chloride 5 mg tablet 5 mg PO BID amlodipine-benazepril 2.5-10 mg capsule 1 cap PO DAILY famotidine 20 mg tablet 20 mg PO DAILY ranitidine HCl 150 mg capsule 150 mg PO DAILY meloxicam 15 mg tablet 15 mg PO DAILY tramadol-acetaminophen 37.5-325 mg tablet 1 tab PO BID PRN gabapentin 600 mg tablet 300 mg PO HS Qty: 45 1RF cyclobenzaprine 5 mg tablet 5 mg PO TID PRN multivitamin [Daily-Riley] Tablet 1 tab PO QAM Qty: 60 0RF hydrocortisone 2.5 % Ointment See Rx Instructions .ROUTE .COMPLEX PRN (Reason: Rash) Rx Instructions: Uses PRN in groin area for rash Referrals Referrals: Efrain Carrasco MD [Primary Care Provider] -
[2023-06-01] MEDS: dilTIAZem HCl 5 MG/ML 5 ML VIAL IV STA ×2 (12:43→13:55)
--- NOTE | 2023-06-01 12:46 | XRay Report ---
SINGLE VIEW CHEST CLINICAL HISTORY: Atypical chest pain FINDINGS: An AP, portable, upright chest radiograph is compared to study dated 09/24/2021. A hiatal he rnia is noted. The heart is enlarged noting atherosclerotic calcification of the thoracic aorta. The pulmonary vasculature is noncongested. Chronic interstitial thickening is similar to previous. There is bibasilar scarring/atelectasis. The lungs and pleural spaces are otherwise clear. No pneumothorax is seen. The skeletal structures are osteopenic. The bony thorax is grossly intact. Arthritic change is noted in the shoulders. Fusion hardware is partially visualized in the lumbar spine. IMPRESSION: 1. Cardiomegaly with no active disease in the chest. 2. Hiatal hernia. ACT 112: Negative or not required by law. Electronically signed by: Thuan Gold M.D. 06/01/2023 12:44 PM
[2023-06-01 13:21] LABS: Albumin Globulin Ratio 1.3 (0.9-2); BUN Creatinine Ratio 38.4 (10-20); Bilirubin,Total 0.7 mg/dl (0.2-1.0); Calcium 9.3 mg/dl (8.6-10.3); Creatinine Clr Calc Pharmacy 46.3 ml/min; Est GFR (African American) 71.9 ml/min; Globulin 3.1 gm/dl (2.5-4.0); Potassium 3.8 mmol/L (3.5-5.1); Total Protein 7.1 gm/dl (6.0-8.3)
[2023-06-01 13:26] LABS: Influenza A virus by PCR Negative (Neg); Influenza B virus by PCR Negative (Neg); RSV by PCR Negative (Neg); SARS CoV2 RNA(COVID-19) Ceph NEGATIVE (Negative)
[2023-06-01 13:28] LABS: Partial Thromboplastin Ratio 0.8; Partial Thromboplastin Time 22 Seconds (21-31); Prothrombin Time 10.9 Seconds (9.0-12.0)
[2023-06-01 13:34] LABS: Hematocrit (blood only) 37.9 % (37.0-47.0); Hemoglobin 12.5 g/dl (12.0-16.0); Mean Corpuscular Hemoglobin 27.2 pg (25.0-34.0); Mean Corpuscular Volume 82.6 fL (80.0-100.0); RDW Coefficient of Variation 13.1 % (11.5-14.5); RDW Standard Deviation 38.9 fL (36.4-46.3); Red Blood Count 4.59 M/uL (4.20-5.40); White Blood Count 15.06 K/ul (4.8-10.8)
[2023-06-01 13:40] LABS: Basophils # (auto) 0.04 K/uL (0.00-0.20); Basophils % (auto) 0.3 %; Immature Granulocytes % (auto) 0.7 %; Lymphocytes # (auto) 0.79 K/uL (1.20-3.40); Lymphocytes % (auto) 5.2 %; Mean Platelet Volume 10.7 fL (9.4-12.4); Monocytes # (auto) 0.63 K/uL (0.11-0.59); Monocytes % (auto) 4.2 %; Neutrophils % (auto) 89.6 %; Platelet Count 328 K/uL (130-400); Platelet Estimate Normal (Normal)
[2023-06-01] MEDS: dilTIAZem HCL 125 MG in DEXTROSE 5% 100 ML IV SCH (13:55)
--- NOTE | 2023-06-01 13:59 | Electrocardiogram Report ---
Test Reason : Blood Pressure : / mmHG Vent. Rate : 120 BPM Atrial Rate : 120 BPM P-R Int : 180 ms QRS Dur : 128 ms QT Int : 350 ms P-R-T Axes : 000 -09 174 degrees QTc Int : 494 ms Probable Sinus tachycardia with Premature supraventricular complexes and with occasional Premature ve ntricular complexes Left bundle branch block Abnormal ECG When compared with ECG of 24-SEP-2021 09:08, Premature ventricular complexes are now Present Premature supraventricular complexes are now Present Vent. rate has increased BY 46 BPM Left bundle branch block is now Present Confirmed by Mo Pearce ([id number]) on 06/01/2023 1:58:58 PM Referred By: Confirmed By:Mo Pearce
--- NOTE | 2023-06-01 14:05 | Electrocardiogram Report ---
Test Reason : Blood Pressure : / mmHG Vent. Rate : 119 BPM Atrial Rate : 000 BPM P-R Int : 000 ms QRS Dur : 130 ms QT Int : 310 ms P-R-T Axes : 000 -15 164 degrees QTc Int : 436 ms Atrial fibrillation with rapid ventricular response Left bundle branch block Abnormal ECG When compared with ECG of 01-JUN-2023 12:14, (unconfirmed) Atrial fibrillation has replaced Sinus rhythm Confirmed by Mo Pearce ([id number]) on 06/01/2023 2:04:42 PM Referred By: REFERRED SELF Confirmed By:Mo Pearce
--- NOTE | 2023-06-01 15:11 | History & Physical Report ---
Date of Service June 01, 2023 Assessment & Plan (1) Atrial fibrillation with rapid ventricular response: Plan: This is an 83 y/o female with HTN, urinary incontinence, and lumbar radiculopathy who was referred to the ED today from her PCP office after she was found to be in afib with RVR. Pt denies prior cardiac history including no prior history of atrial fibrillation to her knowledge. Her symptoms of MIRANDA seemed to start 2-3 days ago when she had one day of productive cough with black sputum. CTA negative for PE but shows ?bronchiolitis. Initially responded to 10 mg of dilitiazem with improved rate in the ED but then rate rebounded to the 120s so ED provider started patient on a diltiazem drip and referred patient for admission. - Admit to PCU - Continue diltiazem gtt, which pt is currently on - upon my assessment, pt is still in atrial fibrillation but rate in the 90s - [id number] Score of 4 so will start pt on a heparin gtt - Check ECHO (last outpatient in 2018) - Troponin minimally elevated on initial assessment, will repeat this afternoon - likely demand from the afib w/ RVR - Check TSH, Mg - Consult cardiology - will make pt NPO after midnight pending their evaluation (2) Spinal stenosis of lumbar region: Plan: Chronic, stable Continue outpatient regimen (3) Essential hypertension: Plan: Chronic, stable Hold outpatient regimen for now since on diltiazem gtt (4) GERD (gastroesophageal reflux disease): Plan: CT concerning for mild esophagitis - will change outpatient H2RA to a PPI Consider outpatient GI follow-up (5) Urinary bladder incontinence: Plan: Chronic, stable - follows with urology Continue outpatient med Plan Pt seen and reviewed with collaborating physician, Dr. Holly. Plan of care discussed and as outlined above. Code Status: Full Code DVT Prophylaxis: starting heparin gtt Phi Rhoades PA-C History of Present Illness Chief Complaint: sent from PCP office for new-onset atrial fibrillation with RVR Primary Care Provider: Efrain Carrasco MD This is an 83 y/o female with HTN, urinary incontinence, and lumbar radiculopathy who was referred to the ED today from her PCP office after she was found to be in afib with RVR. Pt presented to her PCP office with a complaint of cough productive of black sputum and mild MIRANDA so an EKG was completed with mentioned abnormality. Pt reports being in her usual state of health until three days ago when she developed a barking cough and choking sensation. She reports coughing up sputum all day that "looked like tar" but no bright blood. The cough resolved by the next day but she then developed a constant sharp pain under her right ribs that radiates across her lower chest to her left ribs. No other chest pain. She also developed dyspnea with even mild exertion such as walking from one room to another in her home. This is severe enough that she has to stop and rest to catch her breath. She denies palpitations, lightheadedness or syncope. She has noted orthopnea, has not been sleeping due to the pain. Notes fatigue but denies weakness or falls. She denies any prior history of atrial fibrillation or any other cardiac issues, has not seen cardiology before. Allergies Allergy/AdvReac Type Severity Reaction Status Date / Time No Known Allergies Allergy Verified 06/01/23 15:35 Home Medications Medication Instructions Recorded Confirmed Type amlodipine 2.5 mg-benazepril 10 mg 1 cap PO DAILY 01/06/23 06/01/23 History capsule famotidine 20 mg tablet 20 mg PO DAILY 01/06/23 06/01/23 History meloxicam 15 mg tablet 15 mg PO DAILY Pain 01/06/23 06/01/23 History oxybutynin chloride 5 mg tablet 5 mg PO BID 01/06/23 06/01/23 History alendronate 70 mg tablet 70 mg PO WK 06/01/23 06/01/23 History baclofen 10 mg tablet 5 mg PO BID Pain 06/01/23 06/01/23 History gabapentin 300 mg capsule 300 mg PO HS 06/01/23 06/01/23 History lifitegrast 5 % eye drops in a 1 drp ophthalmic (eye) AMPM PRN 06/01/23 06/01/23 History dropperette (Xiidra) NEEDED Past Med/Surg History Medical History (Updated 06/01/23 @ 17:01 by Karie Rhoades PA-C) Essential hypertension Spinal stenosis of lumbar region Leg length discrepancy Thrush Oral thrush x 3 weeks (secondary to previous abx use). Following with PCP- using Nystatin rinse, clotrimazole lozenge, and salt water rinses- thrush slowly improving Pt will call if not resolved by DOS Urinary bladder incontinence Myofascial pain Follows with pain management Gait instability Uses cane to ambulate - secondary to hip vs lumbar back pain Lumbar facet joint syndrome Lumbar postlaminectomy syndrome Lumbar radiculopathy R L4-5 Chronic back pain Lumbar area- hx of lumbar fusion GERD (gastroesophageal reflux disease) Well controlled and stable Surgical History S/P lumbar fusion L2-4 Dr. Pierson 2017 History of bilateral tubal ligation History of colonoscopy History of tonsillectomy History of cataract surgery R/L Family History (Updated 06/01/23 @ 15:55 by Karie Rhoades PA-C) Other No known health problems Denies family history of Diabetes Coronary heart disease Cancer Stroke Social History (Updated 06/01/23 @ 15:56 by Karie Rhoades PA-C) Smoking Status: Former smoker Cigarettes Per Day: 1ppd x 48 yrs; Smoking End Date: 2011; Second Hand Exposure: No; Do You Dip or Chew Tobacco: No; Tobacco Cessation Education Requested by Patient: No Hx Alcohol Use: No Hx Substance Use: No Preferred Language: Swedish Communication Ability: Effective Visual Impairment: No Limitations Hearing Ability: Normal Screener Perfumer Required: No Beliefs That Will Affect Care: None marital status: Single Current Living Situation: Alone current occupational status: retired Other Information That Helps Us Care for You: No Feels Safe at Home: Yes Safety Concerns: Feels Safe At This Time Assistive Devices: Cane, Denture - Upper, Denture - Lower and Glasses Review of Systems Review of Systems: All systems reviewed & are unremarkable except as noted in HPI & below Constitutional: + fatigue and + anorexia; no fever, no c hills and no sweats Eyes: no diplopia Ear, Nose, Mouth, Throat: + sore throat; no nasal congestion and n o nasal discharge Respiratory: + cough, + dyspnea on exertion and + spu georgiana production Cardiovascular: as per Subjective / HPI; no lightheadedness, no syncope and no edema Gastrointestinal: no abdominal pain, no nausea, no vomiting, no diarrhea/loose stools and no blood in stools Genitourinary: + urinary incontinence (chronic); no dys uria, no urinary frequency and no hematuria Musculoskeletal: + back pain Integumentary: no rash and no yellowing of the skin Neurologic: no generalized weakness, no dizziness and no headache(s) Physical Exam Physical Exam: General: awake, alert, NAD HEENT: PERRL, no scleral icterus, moist oral mucosa Neck: trachea midline Heart: irregularly irregular, rate ~96 Lungs: clear but diminished at the bases Abdomen: soft, NT, +BS Extremities: no pedal edema, radial pulses equal bilaterally Skin: no jaundice Neurologic: moving all extremities, no focal deficits, no confusion or dysarthria Results & Data Results & Data Vital Signs (Past 12 Hours) Vital Signs Temp Pulse Pulse Resp BP BP Pulse Ox 06/01/23 14:50 92 H 17 167/82 H 96 06/01/23 14:41 98 H 16 159/99 H 93 06/01/23 14:40 78 18 137/85 98 06/01/23 14:21 84 19 145/84 H 97 06/01/23 14:20 78 18 96 06/01/23 14:11 88 18 170/85 H 94 06/01/23 14:10 68 23 94 06/01/23 14:03 75 19 154/85 H 96 06/01/23 14:00 85 21 154/85 H 96 06/01/23 13:58 111/71 06/01/23 13:58 74 23 90 06/01/23 13:50 102 H 22 97 06/01/23 13:46 105 H 20 124/68 96 06/01/23 13:46 113 H 20 96 06/01/23 13:40 106 H 24 95 06/01/23 13:37 108 H 18 95 06/01/23 13:37 139/80 06/01/23 13:30 95 H 28 H 89 L 06/01/23 13:20 108 H 17 96 06/01/23 13:14 126/103 H 06/01/23 13:14 99 H 18 97 06/01/23 13:13 97 H 18 126/103 H 95 06/01/23 13:10 90 17 98 06/01/23 13:00 88 19 96 06/01/23 12:50 83 15 95 06/01/23 12:40 144 H 17 85 L 06/01/23 12:36 121 H 26 H 93 06/01/23 12:36 145 H 06/01/23 12:10 91 06/01/23 12:10 91 06/01/23 12:10 36.4 C 133 H 18 157/89 H 91 06/01/23 12:10 O2 Del Method 06/01/23 14:50 Room Air 06/01/23 14:41 Room Air 06/01/23 14:40 Room Air 06/01/23 14:21 Room Air 06/01/23 14:20 Room Air 06/01/23 14:11 Room Air 06/01/23 14:10 Room Air 06/01/23 14:03 06/01/23 14:00 06/01/23 13:58 06/01/23 13:58 06/01/23 13:50 06/01/23 13:46 06/01/23 13:46 06/01/23 13:40 06/01/23 13:37 06/01/23 13:37 06/01/23 13:30 06/01/23 13:20 06/01/23 13:14 06/01/23 13:14 06/01/23 13:13 Room Air 06/01/23 13:10 06/01/23 13:00 06/01/23 12:50 06/01/23 12:40 06/01/23 12:36 06/01/23 12:36 06/01/23 12:10 Room Air 06/01/23 12:10 Room Air 06/01/23 12:10 Room Air 06/01/23 12:10 Room Air Laboratory Results Laboratory Results - last 24 hr 06/01/23 06/01/23 06/01/23 12:40 14:43 Unknown WBC 15.06 H RBC 4.59 Hgb 12.5 Hct 37.9 MCV 82.6 MCH 27.2 MCHC 33.0 RDW Std Deviation 38.9 RDW Coeff of Lisa 13.1 Plt Count 328 MPV 10.7 Immature Gran % (Auto) 0.7 Neut % (Auto) 89.6 Lymph % (Auto) 5.2 Parke % (Auto) 4.2 Eos % (Auto) 0.0 Baso % (Auto) 0.3 Neut # (Auto) 13.50 H Lymph # (Auto) 0.79 L Parke # (Auto) 0.63 H Eos # (Auto) 0.00 Baso # (Auto) 0.04 Immature Gran # (Auto) 0.10 Platelet Estimate Normal PT 10.9 INR 1.0 APTT 22 PTT Ratio 0.8 Sodium 138 Potassium 3.8 Chloride 103 Carbon Dioxide 23 Anion Gap 12 H BUN 33 H Creatinine 0.86 Est Cr Clr Drug Dosing 46.3 Est GFR ( Amer) 71.9 Est GFR (Non-Af Amer) 62.0 BUN/Creatinine Ratio 38.4 H Glucose 130 H Lactate 2.2 H* Pending Calcium 9.3 Total Bilirubin 0.7 AST 11 L ALT 7 Alkaline Phosphatase 73 Troponin I High Sens 18.0 H Total Protein 7.1 Albumin 4.0 Globulin 3.1 Albumin/Globulin Ratio 1.3 SARS-CoV-2 (PCR) NEGATIVE Influenza Type A (PCR) Negative Influenza Type B (PCR) Negative RSV (RT-PCR) Negative Diagnostic Findings Chest X-Ray 06/01/23 12:10 SINGLE VIEW CHEST CLINICAL HISTORY: Atypical chest pain FINDINGS: An AP, portable, upright chest radiograph is compared to study dated 09/24/2021. A hiatal hernia is noted. The heart is enlarged noting atherosclerotic calcification of the thoracic aorta. The pulmonary vasculature is noncongested. Chronic interstitial thickening is similar to previous. There is bibasilar scarring/atelectasis. The lungs and pleural spaces are otherwise clear. No pneumothorax is seen. The skeletal structures are osteopenic. The bony thorax is grossly intact. Arthritic change is noted in the shoulders. Fusion hardware is partially visualized in the lumbar spine. IMPRESSION: 1. Cardiomegaly with no active disease in the chest. 2. Hiatal hernia. ACT 112: Negative or not required by law. Electronically signed by: Thuan Gold M.D. 06/01/2023 12:44 PM Chest CTA 06/01/23 13:34 CT ANGIOGRAPHY OF THE CHEST, PULMONARY EMBOLUS PROTOCOL CLINICAL HISTORY: Shortness of breath. COMPARISON STUDY: Chest radiograph September 24, 2021 and chest radiograph performed earlier today. TECHNIQUE: Following IV administration of 104 mL of Optiray, helical axial images of the chest were obtained utilizing the pulmonary embolus protocol. Maximal intensity projections and sagittal and coronal reformats were viewed on an independent 3D workstation. IV contrast was administered without complication. Automated exposure control was utilized for the study. A dose lowering technique was utilized adhering to the principles of ALARA. CT DOSE: 426.15 mGy.cm FINDINGS: No pulmonary emboli are identified. There is no pneumothorax. Small left and trace right pleural effusions are present. Subpleural opacities favor atelectasis. A few tiny nodules within the right upper lobe measure up to 5 mm. No acute fractures within the bony thorax are noted. There is mild cardiomegaly and moderate coronary artery calcification. Trace pericardial fluid is noted. A large hiatal hernia with intrathoracic stomach is noted. There is wall thickening of the distal esophagus with mild adjacent stranding. Visualized portions of the upper abdomen are unremarkable. IMPRESSION: 1. No pulmonary emboli identified. 2. Large hiatal hernia with intrathoracic stomach. Mild wall thickening of the distal esophagus with adjacent stranding favors esophagitis. 3. Small left and trace right pleural effusions. 4. A few small right upper lobe nodules which measure up to 5 mm. These favor a mild infectious process such as bronchiolitis. A chest CT in 6 months to ensure resolution is recommended. ACT 112: Negative or not required by law. Electronically signed by: Orlin Patten M.D. 06/01/2023 3:57 PM Medications Administered Diltiazem HCl 125 mg/ Dextrose 125 mls @ 5 mls/hr IV .Q24H [facility]; Protocol Stop: 07/01/23 13:44 Last Admin: 06/01/23 13:55 Dose: 5 mg/hr, 5 mls/hr Documented By: TESSY Co-signed By: LAN Discontinued Medications Diltiazem HCl (Diltiazem Hcl 5 Mg/Ml 5 Ml Vial) 10 mg IV NOW STA Stop: 06/01/23 12:29 Last Admin: 06/01/23 12:43 Dose: 10 mg Documented By: CA Co-signed By: LAN Diltiazem HCl (Diltiazem Hcl 5 Mg/Ml 5 Ml Vial) 20 mg IV NOW STA Stop: 06/01/23 13:40 Last Admin: 06/01/23 13:55 Dose: 20 mg Documented By: TESSY Co-signed By: LAN Supervising Physician Co-Signing Physician Notes Patient was seen and examined independently at bedside. Chart reviewed. Case discussed with Karie Rhoades PA-C and agree with the documentation above. In summary, this is a 83 year old female sent from the PCP office for newly diagnosed A fib with RVR. Started on cardizem drip and bolus with improvement. Labs reviewed, CXR and CTA chest reviewed personally. No PE, no PNA, electrolytes normal, TSH normal. WBC 15. Trop minimally elevated. Admit to PCU on tele on cardizem drip, start on heparin drip, get echo, follow up on TSH. Patient has converted to NSR during my encounter. Will start on lopressor. Can likely discontinue cardizem drip if remains in NSR. Noted to have hypertension per RN for which will resume lisinopril. Cardio consulted for further recommendations. On exam General: Lying comfortably in bed, not in distress, on room air HEENT: EOMI, BRAYDON, MMM Chest: Clear breath sounds bilaterally, no wheezes or crackles CVS: Regular, normal heart rate Abdomen: Soft, non tender, not distended, normal bowel sounds Neuro: Awake, alert, oriented, conversing well, non focal Extremities: No cyanosis, clubbing or edema (2) Spinal stenosis of lumbar region Neurogenic claudication status: with neurogenic claudication Qualified Code(s): M48.062 - Spinal stenosis, lumbar region with neurogenic claudication (4) GERD (gastroesophageal reflux disease) Esophagitis bleeding: unspecified whether hemorrhage Esophagitis presence: with esophagitis Qualified Code(s): K21.00 - Gastro-esophageal reflux disease with esophagitis, without bleeding (5) Urinary bladder incontinence Urinary Incontinence type: urinary incontinence without sensory awareness Qualified Code(s): N39.42 - Incontinence without sensory awareness
[2023-06-01] MEDS: OPTIRAY 350 500ml IV ONE (15:17)
--- NOTE | 2023-06-01 15:59 | CT Scan Report ---
CT ANGIOGRAPHY OF THE CHEST, PULMONARY EMBOLUS PROTOCOL CLINICAL HISTORY: Shortness of breath. COMPARISON STUDY: Chest radiograph September 24, 2021 and chest radiograph performed earlier today. TECHNIQUE: Following IV administration of 104 mL of Optiray, helical axial images of the chest were o btained utilizing the pulmonary embolus protocol. Maximal intensity projections and sagittal and cor onal reformats were viewed on an independent 3D workstation. IV contrast was administered without co mplication. Automated exposure control was utilized for the study. A dose lowering technique was ut ilized adhering to the principles of ALARA. CT DOSE: 426.15 mGy.cm FINDINGS: No pulmonary emboli are identified. There is no pneumothorax. Small left and trace right p leural effusions are present. Subpleural opacities favor atelectasis. A few tiny nodules within the r ight upper lobe measure up to 5 mm. No acute fractures within the bony thorax are noted. There is mil d cardiomegaly and moderate coronary artery calcification. Trace pericardial fluid is noted. A large hiatal hernia with intrathoracic stomach is noted. There is wall thickening of the distal esophagus w ith mild adjacent stranding. Visualized portions of the upper abdomen are unremarkable. IMPRESSION: 1. No pulmonary emboli identified. 2. Large hiatal hernia with intrathoracic stomach. Mild wall thickening of the distal esophagus with adjacent stranding favors esophagitis. 3. Small left and trace right pleural effusions. 4. A few small right upper lobe nodules which measure up to 5 mm. These favor a mild infectious proce ss such as bronchiolitis. A chest CT in 6 months to ensure resolution is recommended. ACT 112: Negative or not required by law. Electronically signed by: Orlin Patten M.D. 06/01/2023 3:57 PM
[2023-06-01] MEDS ORDERED: Heparin IV Adult Wt-Based Low-Dose *NO* INITIAL Bolus Protocol IV STA (16:21)
[2023-06-01] MEDS: HEPARIN SODIUM/DEXTROSE 25,000 UNITS/500 ML BAG IV SCH (17:10)
[2023-06-01 17:19] LABS: Magnesium 2.4 mg/dl (1.7-2.4)
[2023-06-01 17:25] LABS: Troponin I High Sensitivity 27.2 pg/ml (0-14)
[2023-06-01 17:34] LABS: Thyroid Stimulating Hormone 0.627 uIu/ml (0.300-4.500)
[2023-06-01] MEDS ORDERED: ACETAMINOPHEN 325 MG TAB PO PRN (17:57)
[2023-06-01] MEDS ORDERED: hydrALAZINE HCL 20 MG/ML VIAL IV PRN (19:49)
--- OUTSIDE RECORDS SUMMARY | 2023-06-01 20:02 | External Medical Summary | Summary of Care ---
Author Name Unknown Organization [facility] Address [address] [place] [address] Phone [phone] Care Team Providers Care Bar Host/Hostess Name Role Phone Danilo CHARLES MD, Efrain Wheeler Primary Care Provider [phone] Reason for Visit * Reason Onset Date Comments FYI 04/24/2023 Encounter Details Date Type Department Care Team (Late st Contact Info) Description 04/24/2023 Telephone Orthopaedics Spine Surgery, [facility] [address] [facility] [place] [address] Bandar Baker MD [address] [place] [address] Allergies No known active allergiesdocumented as of this encounter (statuses as of 04/24/2023) Medications Medication Sig Dispensed Refills Start Date End Date Status MULTIVITAMIN/MINERA L FORMULA OR TABS 30 0 12/24/2001 Active zoster vac recomb adjuvanted (SHINGRIX) 50 MCG/0.5ML injection Inject 0.5 mL into a large muscle now and repeat dose in 60 to 180 days 1 Each 1 12/09/2018 Active Gabapentin 300 MG Oral Capsule (Neurontin) Take 1 Capsule by mouth at bedtime. 0 Active Clotrimazole 1 % External Cream (Lotrimin) 0 09/24/2021 Active Fluticasone Propionate 50 MCG/ACT Nasal Suspension (Flonase)Indication s:Dysfunction of left eustachian tube Administer 2 Sprays into each nostril in the morning. 16 g 3 03/07/2022 Active Xiidra 5 % Ophthalmic Solution (Lifitegrast) Instill into eye. 0 Acti ve amLODIPine Besy-Benazepril HCl 2.5-10 MG Oral Capsule (Lotrel) TAKE 1 CAPSULE BY MOUTH EVERY DAY IN THE MORNING Strength: 2.5-10 MG 90 Capsule 1 06/25/2022 Active Alendronate Sodium 70 MG Oral Tablet (Fosamax)Indication s:Age related osteoporosis, unspecified pathological fracture presence Take 1 Tablet by mouth once a week. with 8 oz. water 30 minutes before first meal of the day. Remain upright for 30 min after taking tablet. 12 Tablet 3 07/11/2022 Active Fesoterodine Fumarate ER 8 MG Oral Tablet Extended Release 24 Hour (Toviaz) Take 1 Tablet by mouth in the morning. 30 Tablet 3 08/12/2022 Active Additional Information Patient not taking.Reported on 01/20/2023 B-12 500 MCG Oral Tablet Take by mouth. 0 Active Oxybutynin Chloride 5 MG Oral Tablet (Ditropan) Take 0.5 Tablets by mouth 2 times a day in the morning and at bedtime. 90 Tablet 3 09/20/2022 Active Incontinence Supplies Dispense one large box or container, medium weight incontinence pad. Use as instructed. 24 Each 11 11/17/2022 Active Meloxicam 15 MG Oral Tablet (Mobic) TAKE 1 TABLET BY MOUTH EVERY DAY IN THE MORNING FOR PAIN 90 Tablet 0 02/23/2023 Active Fluconazole 150 MG Oral Tablet (Diflucan) 1 tab every 5 days 3 Tablet 0 03/25/2023 Active Famotidine 20 MG Oral Tablet (Pepcid)Indications :Hoarseness of voice TAKE 1 TABLET BY MOUTH EVERYDAY AT BEDTIME 90 Tablet 1 04/08/2023 Active Baclofen 10 MG Oral Tablet (Lioresal)Indicatio ns:Acute right-sided low back pain with right-sided sciatica 1/2 to 1 tablet by mouth as needed for pain 3 x daily 30 Tablet 0 04/08/2023 Active Nystatin 893141 UNIT/ML Mouth/Throat Suspension Take by mouth 4 times a day. .COMPLEX Strength: 100,000 UNIT/ML 60 mL 1 04/07/2023 Active documented as of this encounter (statuses as of 04/24/2023) Active Problems Problem Noted Date Diagnosed Date HTN, goal below 140/90 11/08/2021 Trochanteric bursitis 12/09/2018 BMI 35-39 ISOLATED (SEE ACTUAL BMI) 08/20/2009 Overview: Per Obesity Protocol, #19 ADVANCE DIRECTIVE INFORMATION 10/24/2004 Overview: No, Advance Directive brochure given to patient. documented as of this encounter (statuses as of 04/24/2023) Resolved Problems Problem Noted Date Diagnosed Date Resolved Date 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 Overview: villous tissue repeat colonoscopy in 6 months Esophagitis 02/10/2019 Overview: ICD-10 update of inactive term documented as of this encounter (statuses as of 04/24/2023) Immunizations Name Administration Dates Next Due COVID-19 mRNA, LNP-s, No Pre serve, 2-Dose Series (Moderna) 05/03/2020,04/04/2020 COVID-19, mRNA, LNP-s, PF, B ooster, 100mcg/0.5mg (Moderna) 06/10/2021,01/08/2021 H1N1 2009 Influenza, IM 03/22/2009 HEP A - Hepatitis A (Adult > 18 yrs) 03/14/2008, 10/19/2007 Pneumococcal Conjugate Vacc, 13 Valent (Prevnar) 05/08/2014 Pneumococcal Polysaccharide PPV23 (Pneumovax) 06/19/2006 Season Influenza, Quad, PF, Adjuvanted, 65+ Yrs, IM (FLUAD) 01/24/2020 Seasonal Influenza, PF, 6 M & above, IM , (FluLaval or Fluzone) 12/09/2018,11/24/2017,02/09/2017 Seasonal Influenza, Quadriva lent Hd (Fluzone Hd) 11/13/2022,11/08/2021,11/27/2020 Seasonal Influenza, Quadriva lent, No Preserve, IM 12/22/2015,12/23/2014 Seasonal Influenza, Split, I IV3, With Preserve, Inj 12/10/2013,11/20/2012,11/22/2011,12/17,01/27/2009,12/16/2007,12/23/2006 ,12/31/2005 TD, Preservative Free 09/19/2009 TDAP (age 10 and older)(Boostrix) 10/09/2021 Varicella Zoster Vaccine (Adult) 06/02/2007 documented as of this encounter Social History Tobacco Use Types Packs/Day Years Used Date Smoking Tobacco: Former Cigarettes 1 20 1 - 12/16/1996 Smokeless Tobacco: Never Alcohol Use Standard Drinks/Week Comments Not Currently 0 (1 standard drink = 0.6 oz pur e alcohol) PHQ-2 Answer Date Recorded PHQ Adult Total Score 0 08/13/2022 Hunger Vital Sign Answer Date Recorded Within the past 12 months, y ou worried that your food would run out before you got the money to buy more. Never true 08/14/19 23 Within the past 12 months, t he food you bought just didn't last and you didn't have money to get more. Never true 08/13/2022 Sex and Gender Information Value Date Recorded Sex Assigned at Female 02/23/2019 9:03 AM EST Gender Identity Female 02/23/2019 9:03 AM EST Sexual Orientation Straight 08/06/2021 10 :19 AM EDT Job Start Date Occupation Industry Not on file Not on file Not on file documented as of this encounter Miscellaneous Notes * Telephone Encounter - Gudelia Castanon LPN - 04/24/2023 2:51 PM EST New Referring physician:Lola Christopher HPI: Back Which side extremity: right side, had left hip replacement Injury and date:no Onset, progress and duration: several yrs Balance problems:walker or cane for stability Bladder or bowel disturbances:no Hand dominance for cervical and hand function:right Workman compensation/ Litigation/ Recreation Attendant Supervisor: Spine investigations done and date: Xray:02/18/2019 MRI:07/27/2017 CT scan: EMG/ NCV:no Spine treatment so far: Medications: meloxicam, gabapentin,baclofen Physical therapy within last year:no Chiropractor therapy:no Brace use:yes Pain management and Spinal epidural injections:[facility] in the past Dr. Smith and Dr. Boss Spine surgery - Surgeon and year:Dr. 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 documented in this encounter Plan of Treatment Upcoming Encounters Date Type Department Care Team (Late st Contact Info) Description 05/01/2023 1:30 PM EST Office Visit Orthopaedics Spine Surgery, [facility] Maguire [address] [place] [address] Bandar Baker MD [address] [place] [address] 05/27/2023 10:15 AM EDT Telemedicine Urology Noah Ramos [address] [place] [address] Ronan Cain MD [address] [place] [address] 7, Telemed [facility] Urology Ex Rm [address] [place] [address] 08/24/2023 10:30 AM EDT Nurse Only Ancillary [facility] [address] [facility] [place] [address] Im, Nurse Annual Wellness [facility] [address] [place] [address] 09/24/2023 8:40 AM EDT Office Visit Family Practice [facility] [place] [address] [facility] [place] [address] DaniloEfrain earl III, MD [address] [facility] [place] [address] Health Maintenance Due Date Last Done Comments Albumin/Creatinine Ratio 1958 Zoster Vaccines (2 of 3) 07/28/2007 06/02/2007 GFR 11/03/2022 11/03/2021, 10/08, 04/12/2018, Additional history exists Depression Screening 08/14/2023 08/13/2022 DXA Scan 09/03/2028 09/03/2021, 08/08, 05/01/2014, Additional history exists DTaP,Tdap,and Td Vaccines (2 - Td or Tdap) 10/10/2031 10/09/2021, 09/19/2009, 09/04/1999 Pneumococcal Vaccine: 65+ Years Completed 05/08/2014, 06/19/2006 Influenza Vaccine (FLU shot) Completed 09/2022, 11/08/2021, 11/27/2020, Additional history exists COVID-19 Vaccine Completed 12/02/2022, 06/2021, 01/08/2021, Additional history exists GARDASIL-HPV IMMUNIZATION SERIES Aged Out No longer eligible based on patient's age to complete this topic Hepatitis B Aged Out No longer eligi ble based on patient's age to complete this topic MENINGOCOCCAL (MENACTRA/MENVEO) Aged Out No longer eligible based on patient's age to complete this topic documented as of this encounter Medical Devices Not on filedocumented as of this encounter Advance Directives Documents on File Type Date Recorded Patient Auto Brake Technician Expl anation Power of Recreation Attendant Supervisor 05/23/2021 POWER OF A TTORNEY Care Teams Bar Host/Hostess Relationship Specialty Start Date End Date Efrain Carrasco III, MD [address] [place] [address] PCP - General 12/20/99 documented as of this encounter
--- OUTSIDE RECORDS SUMMARY | 2023-06-01 20:02 | External Medical Summary | Summary of Care ---
Author Name Unknown Organization [facility] Address [address] [place] [address] Phone [phone] Care Team Providers Care Bark Press Operator Name Role Phone Danilo CHARLES MD, John E Primary Care Provider [phone] Encounter Details Date Type Department Care Team (Late st Contact Info) Description 03/25/2023 8:40 AM EST Office Visit Family Practice [facility] [address] [facility] [place] [address] Efrain Carrasco III, MD [address] [place] [address] HTN, goal below 140/90*; Abnormal ankle brachial index (PAULA); Thrush Allergies No known active allergiesdocumented as of this encounter (statuses as of 03/29/2023) Medications Medication Sig Dispensed Refills Start Date End Date Status MULTIVITAMIN/MINE RAL FORMULA OR TABS 30 0 12/24/2001 Active [...] Active Fluticasone Propionate 50 MCG/ACT Nasal Suspension (Flonase)Indicati ons:Dysfunction of left eustachian tube Administer 2 Sprays into each nostril in the morning. 16 g 3 03/07/2022 Active Xiidra 5 % Ophthalmic Solution (Lifitegrast) Instill into eye. 0 Acti ve amLODIPine Besy-Benazepril HCl 2.5-10 MG Oral Capsule (Lotrel) TAKE 1 CAPSULE BY MOUTH EVERY DAY IN THE MORNING Strength: 2.5-10 MG 90 Capsule 1 06/25/2022 Active Alendronate Sodium 70 MG Oral Tablet (Fosamax)Indicati ons:Age related osteoporosis, unspecified pathological fracture presence Take 1 Tablet by mouth once a week. with 8 oz. water 30 minutes before first meal of the day. Remain upright for 30 min after taking tablet. 12 Tablet 3 07/11/2022 Active Famotidine 20 MG Oral Tablet (Pepcid)Indicatio ns:Hoarseness of voice Take 1 Tablet by mouth at bedtime. 90 Tablet 1 08/05/2022 Active Additional Information Patient not taking.Reported on 01/20/2023 Fesoterodine Fumarate ER 8 MG Oral Tablet Extended Release 24 Hour (Toviaz) Take 1 Tablet by mouth in the morning. 30 Tablet 3 08/12/2022 Active Additional Information Patient not taking.Reported on 01/20/2023 B-12 500 MCG Oral Tablet Take by mouth. 0 Active Baclofen 10 MG Oral Tablet (Lioresal)Indicat ions:Acute right-sided low back pain with right-sided sciatica 1/2 to 1 tablet by mouth as needed for pain 3 x daily 30 Tablet 0 09/17/2022 Active Oxybutynin Chloride 5 MG Oral Tablet [...] FOR PAIN 90 Tablet 0 02/23/2023 Active Nystatin 093741 UNIT/ML Mouth/Throat Suspension .COMPLEX Strength: 100,000 UNIT/ML 60 mL 1 03/25/2023 Active Fluconazole 150 MG Oral Tablet (Diflucan) 1 tab every 5 days 3 Tablet 0 03/25/2023 Active predniSONE 10 MG Oral Tablet (Deltasone)Indica tions:Spinal stenosis of lumbar region, unspecified whether neurogenic claudication present Take 5 tabs for 2 days, 4 tabs for 2 days, 3 tabs for 2 days, 2 tabs for 2 days 1 tab for 2 days 30 Tablet 0 01/22/2023 4 Discontinue d(Patient preference/ discontinua tion) Doxycycline Hyclate 100 MG Oral CapsuleIndication s:Cellulitis of foot Take 1 Capsule by mouth in the morning and 1 Capsule before bedtime. Until gone.. 20 Capsule 0 01/22/2023 4 Discontinue d(Patient preference/ discontinua tion) Nystatin 002714 UNIT/ML Mouth/Throat Suspension .COMPLEX Strength: 100,000 UNIT/ML 60 mL 1 02/09/2023 4 Discontinue d(Refill) documented as of this encounter (statuses as of 03/29/2023) Active Problems Problem Noted Date Diagnosed Date HTN, goal below 140/90 11/08/2021 Trochanteric bursitis 12/09/2018 BMI 35-39 ISOLATED (SEE ACTUAL BMI) 08/20/2009 Overview: Per Obesity Protocol, #19 ADVANCE DIRECTIVE INFORMATION 10/24/2004 Overview: No, Advance Directive brochure given to patient. documented as of this encounter (statuses as of 03/29/2023) Resolved Problems Problem Noted Date Diagnosed Date Resolved Date 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 Overview: villous tissue repeat colonoscopy in 6 months Esophagitis 02/10/2019 Overview: ICD-10 update of inactive term documented as of this encounter (statuses as of 03/29/2023) Immunizations Name Administration Dates Next Due COVID-19 [...] Date Smoking Tobacco: Former Cigarettes 1 20 Q uit: 12/16/1996 Smokeless Tobacco: Never Tobacco Cessation:Counseling Given: Not Answered Alcohol Use Standard Drinks/Week Comments Not Currently [...] on file documented as of this encounter Last Filed Vital Signs Vital Sign Reading Time Taken Comments Blood Pressure 132/79 03/25/2023 8:34 AM EST Pulse 80 03/25/2023 8:34 AM EST Temperature 37.7 C (99.9 F) 03/25/2023 8:34 AM ES T Respiratory Rate 16 03/25/2023 8:34 AM EST Oxygen Saturation - - Inhaled Oxygen Concentration - - Weight 74.4 kg (164 lb) 03/25/2023 8:34 AM EST Height - - Body Mass Index 29.06 09/17/2022 9:43 AM EDT documented in this encounter Progress Notes * Danilo CHARLES, Efrain Wheeler MD - 03/25/2023 9:04 AM EST Subjective: Rebekah Leiva is a 83 year old female. No chief complaint on file. HPI: Follow up hypertension history of thrush given nystatin last month seems to help symptoms somehas a hoarseness a burning sensation back of her throat also had ankle brachial reflexes done suggesting significant problems in her right extremity does have chronic back pain seeing spinal surgery some days she can have no issues with walking others pain radiating down her right leg denies chest pain shortness of breath no bleeding urine or bowels PMH: Patient Active Problem List Diagnosis Code ADVANCE DIRECTIVE INFORMATION BMI 35-39 ISOLATED (SEE ACTUAL BMI) E66.9 Trochanteric bursitis M70.60 HTN, goal below 140/90 I10 Current Outpatient Medications Medication Sig Dispense Refill Nystatin 928977 UNIT/ML Mouth/Throat Suspension .COMPLEX Strength: 100,000 UNIT/ML 60 mL 1 Fluconazole 150 MG Oral Tablet (Diflucan) 1 tab every 5 days 3 Tablet 0 MULTIVITAMIN/MINERAL FORMULA OR TABS 30 0 zoster vac recomb adjuvanted (SHINGRIX) 50 MCG/0.5ML injection Inject 0.5 mL into a large muscle now and repeat dose in 60 to 180 days 1 Each 1 Gabapentin 300 MG Oral Capsule (Neurontin) Take 1 Capsule by mouth at bedtime. Clotrimazole 1 % External Cream (Lotrimin) Fluticasone Propionate 50 MCG/ACT Nasal Suspension (Flonase) Administer 2 Sprays into each nostril in the morning. 16 g 3 Xiidra 5 % Ophthalmic Solution (Lifitegrast) Instill into eye. amLODIPine Besy-Benazepril HCl 2.5-10 MG Oral Capsule (Lotrel) TAKE 1 CAPSULE BY MOUTH EVERY DAY INTHE MORNING Strength: 2.5-10 MG 90 Capsule 1 Alendronate Sodium 70 MG Oral Tablet (Fosamax) Take 1 Tablet by mouth once a week. with 8 oz. water30 minutes before first meal of the day. Remain upright for 30 min after taking tablet. 12 Tablet 3 Famotidine 20 MG Oral Tablet (Pepcid) Take 1 Tablet by mouth at bedtime. (Patient not taking: Reported on 01/20/2023) 90 Tablet 1 Fesoterodine Fumarate ER 8 MG Oral Tablet Extended Release 24 Hour (Toviaz) Take 1 Tablet by mouth in the morning. (Patient not taking: Reported on 01/20/2023) 30 Tablet 3 B-12 500 MCG Oral Tablet Take by mouth. Baclofen 10 MG Oral Tablet (Lioresal) 1/2 to 1 tablet by mouth as needed for pain 3 x daily 30 Tablet 0 Oxybutynin Chloride 5 MG Oral Tablet (Ditropan) Take 0.5 Tablets by mouth 2 times a day in the morning and at bedtime. 90 Tablet 3 Incontinence Supplies Dispense one large box or container, medium weight incontinence pad. Use as instructed. 24 Each 11 Meloxicam 15 MG Oral Tablet (Mobic) TAKE 1 TABLET BY MOUTH EVERY DAY IN THE MORNING FOR PAIN 90 Tablet 0 No current facility-administered medications for this visit. Review of patient's allergies indicates: No Known Allergies Past Medical History: Diagnosis Date Benign neoplasm of colon 08/28/06 villous tissue repeat colonoscopy in 6 months Benign neoplasm of colon 12/27/10 one polyp. 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 path--adenomatous tissue--repeat in 3 yrs COLONOSCOPY, DIAGNOSTIC (RECTUM) 03/19/2001 Colonoscopy Transverse colon polyps, polypectomy. Tubular adenoma x 2. Negative for malignancy. COLONOSCOPY, DIAGNOSTIC (RECTUM) 01/18/2014 adenomatous polyp, repeat 5 yrs/COLONOSCOPY FLEXIBLE PROXIMAL DIAGNOSTIC performed by Jacky Otoole MD at ENDOSCOPY [facility] COLONOSCOPY, DIAGNOSTIC (RECTUM) 01/25/2019 adenomatous polyps, diverticulosis/COLONOSCOPY FLEXIBLE PROXIMAL DIAGNOSTIC performed by Jacky Otoole MD at ENDOSCOPY [facility] LUMBAR / SACRAL EPIDURAL, SINGLE LEVEL 08/24/2017 INJECTION TRANSFORAMINAL EPIDURAL LUMBAR OR SACRAL performed by Alcon Nye, at OR [facility] MAMMOGRAM - BILATERAL 07/07/2006 birad code 1, negative [place] TOTAL HIP ARTHROPLASTY Left 10/2021 REMOVE CATARACT, INSERT LENS PROSTH 08/20/[address] CHO REMOVE CATARACT, INSERT LENS PROSTH REMOVE TONSILS & ADENOIDS, UNDER 12 Tonsillectomy/Adenoids,<12 Y/O SPINAL FUSION, LUMBAR, COMBINED 2018 L234 Objective: The patient is a 83 year old female BP 132/79 | Pulse 80 | Temp 37.7 C (99.9 F) | Resp 16 | Wt 74.4 kg (164 lb) | BMI 29.06 kg/m | BSA 1.82 m General: alert, healthy, and no distress Eye Exam: PERRLA, extraocular movements intact, conjunctiva are pink and non- injected, sclera clear Oropharynx: no exudate, no erythema, lips, buccal mucosa, and tongue normal, and mucous membranes are moist Heart: regular rate & rhythm, no murmur, and no gallops Lungs: lungs clear to auscultation Extremities: no edema, no clubbing, no cyanosis ASSESSMENT: I10 HTN, goal below 140/90 (primary encounter diagnosis) R68.89 Abnormal ankle brachial index (PAULA) B37.0 Thrush PLAN: Repeat ankle-brachial index refill nystatin will also add Diflucan need follow- up ENT possibly EGD if symptoms persisting RSV vaccine discussed CBC lipids comprehensive panel pending Follow up in 6 month(s). Efrain Carrasco III, MD * Bushra Lu RN - 03/25/2023 8:32 AM EST Pt has residual symptoms from thrush. Voice hoarseness and bumps on back of tongue. Lower back tightness. Hard to walk 7 or8 out of 10. documented in this encounter Plan of Treatment Upcoming Encounters Date Type Department Care Team (Late st Contact Info) Description 03/30/2023 11:30 AM EST Imaging Vascular Lab, [facility] 2nd Floor, [place] [address] [facility] [place] [address] 04/07/2023 3:00 PM EST Imaging Radiology [facility] 1st [facility], [place] [address] [facility] [place] [address] 05/01/2023 1:30 PM EST Office Visit Orthopaedics Spine Surgery, Juvenal CoelloeNoah [address] [place] [address] Bandar Baker MD [address] [place] [address] 05/27/2023 10:15 AM EDT Telemedicine Urology Noah Ramos [address] [place] [address] Ronan Cain MD [address] [place] [address] 7, Telemed [facility] Urology Ex Rm [address] [facility] [place] [address] 08/24/2023 10:30 AM EDT Nurse Only Ancillary [facility] [place] [address] [facility] [place] [address] Im, Nurse Annual Wellness [facility] [address] [facility] [place] [address] 09/24/2023 8:40 AM EDT Office Visit Family Practice [facility] [place] [address] [facility] [place] [address] Efrain Carrasco III, MD [address] [facility] [place] [address] Scheduled Orders Name Type Priority Associated Diagnoses Orde r Schedule 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) Medical Imaging Routine Abnormal ankle brachial index (PAULA) Ordered: 03/25/2023 Health Maintenance Due Date Last Done Comments [...] Not on filedocumented as of this encounter Visit Diagnoses Diagnosis HTN, goal below 140/90- Primary Unspecified essential hypertension Abnormal ankle brachial index (PAULA) Thrush Candidiasis of mouth documented in this encounter Advance Directives Documents on File Type Date Recorded 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
--- OUTSIDE RECORDS SUMMARY | 2023-06-01 20:02 | External Medical Summary | Summary of Care ---
Author Name Unknown Organization [facility] Address [address] [place] [address] Phone [phone] Care Team Providers Care Law Firm Administrator Name Role Phone Danilo CHARLES MD, John E Primary Care Provider [phone] Encounter Details Date Type Department Care Team (Late st Contact Info) Description 03/25/2023 8:40 AM EST Office Visit Family Practice [facility] [address] [place] [address] Efrain Carrasco III, MD [address] [place] [address] HTN, goal below 140/90*; Abnormal ankle brachial index (PAULA); Thrush Allergies No known active allergiesdocumented as of this encounter (statuses as of 04/09/2023) Medications Medication Sig Dispensed Refills Start Date End Date Status MULTIVITAMIN/MIN ERAL FORMULA OR TABS 30 0 2 Active zoster vac recomb adjuvanted (SHINGRIX) 50 MCG/0.5ML injection Inject 0.5 mL into a large muscle now and repeat dose in 60 to 180 days 1 Each 1 9 Active Gabapentin 300 MG Oral Capsule (Neurontin) Take 1 Capsule by mouth at bedtime. 0 Active Clotrimazole 1 % External Cream (Lotrimin) 0 2 Active Fluticasone Propionate 50 MCG/ACT Nasal Suspension (Flonase)Indicat ions:Dysfunction of left eustachian tube Administer 2 Sprays into each nostril in the morning. 16 g 3 2 Active Xiidra 5 % Ophthalmic Solution (Lifitegrast) Instill into eye. 0 Active amLODIPine Besy-Benazepril HCl 2.5-10 MG Oral Capsule (Lotrel) TAKE 1 CAPSULE BY MOUTH EVERY DAY IN THE MORNING Strength: 2.5-10 MG 90 Capsule 1 3 Active Alendronate Sodium 70 MG Oral Tablet (Fosamax)Indicat ions:Age related osteoporosis, unspecified pathological fracture presence Take 1 Tablet by mouth once a week. with 8 oz. water 30 minutes before first meal of the day. Remain upright for 30 min after taking tablet. 12 Tablet 3 3 Active Fesoterodine Fumarate ER 8 MG Oral Tablet Extended Release 24 Hour (Toviaz) Take 1 Tablet by mouth in the morning. 30 Tablet 3 3 Active Additional Information Patient not taking.Reported on 01/20/2023 B-12 500 MCG Oral Tablet Take by mouth. 0 Active Oxybutynin Chloride 5 MG Oral Tablet (Ditropan) Take 0.5 Tablets by mouth 2 times a day in the morning and at bedtime. 90 Tablet 3 3 Active Incontinence Supplies Dispense one large box or container, medium weight incontinence pad. Use as instructed. 24 Each 11 3 Active Meloxicam 15 MG Oral Tablet (Mobic) TAKE 1 TABLET BY MOUTH EVERY DAY IN THE MORNING FOR PAIN 90 Tablet 0 3 Active Fluconazole 150 MG Oral Tablet (Diflucan) 1 tab every 5 days 3 Tablet 0 4 Active Famotidine 20 MG Oral Tablet (Pepcid)Indicati ons:Hoarseness of voice Take 1 Tablet by mouth at bedtime. 90 Tablet 1 3 04/08/19 24 Discontinued Baclofen 10 MG Oral Tablet (Lioresal)Indica tions:Acute right-sided low back pain with right-sided sciatica 1/2 to 1 tablet by mouth as needed for pain 3 x daily 30 Tablet 0 3 04/07/19 24 Discontinued(Re fill) predniSONE 10 MG Oral Tablet (Deltasone)Indic ations:Spinal stenosis of lumbar region, unspecified whether neurogenic claudication present Take 5 tabs for 2 days, 4 tabs for 2 days, 3 tabs for 2 days, 2 tabs for 2 days 1 tab for 2 days 30 Tablet 0 3 03/25/19 24 Discontinued(Pa tient preference/disc ontinuation) Doxycycline Hyclate 100 MG Oral CapsuleIndicatio ns:Cellulitis of foot Take 1 Capsule by mouth in the morning and 1 Capsule before bedtime. Until gone.. 20 Capsule 0 3 03/25/19 24 Discontinued(Pa tient preference/disc ontinuation) Nystatin 086957 UNIT/ML Mouth/Throat Suspension .COMPLEX Strength: 100,000 UNIT/ML 60 mL 1 3 03/25/19 24 Discontinued(Re fill) Nystatin 595483 UNIT/ML Mouth/Throat Suspension .COMPLEX Strength: 100,000 UNIT/ML 60 mL 1 4 04/07/19 24 Discontinued(Re fill) documented as of this encounter (statuses as of 04/09/2023) Active Problems Problem Noted Date Diagnosed Date HTN, goal below 140/90 11/08/2021 Trochanteric bursitis 12/09/2018 BMI 35-39 ISOLATED (SEE ACTUAL BMI) 08/20/2009 Overview: Per Obesity Protocol, #19 ADVANCE DIRECTIVE INFORMATION 10/24/2004 Overview: No, Advance Directive brochure given to patient. documented as of this encounter (statuses as of 04/09/2023) Resolved Problems Problem Noted Date Diagnosed Date Resolved Date 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 Overview: villous tissue repeat colonoscopy in 6 months Esophagitis 02/10/2019 Overview: ICD-10 update of inactive term documented as of this encounter (statuses as of 04/09/2023) Immunizations Name Administration Dates Next Due COVID-19 [...] documented in this encounter Progress Notes * Efrain Carrasco III, MD - 03/25/2023 9:04 AM EST Subjective: [...] Outpatient Medications Medication Sig Dispense Refill Nystatin 537183 UNIT/ML Mouth/Throat Suspension .COMPLEX Strength: 100,000 UNIT/ML [...] 5 yrs/COLONOSCOPY FLEXIBLE PROXIMAL DIAGNOSTIC performed by Jcaky Otoole MD at ENDOSCOPY [facility] COLONOSCOPY, DIAGNOSTIC (RECTUM) 01/25/2019 adenomatous polyps, diverticulosis/COLONOSCOPY FLEXIBLE PROXIMAL DIAGNOSTIC performed by Jacky Otoole MD at ENDOSCOPY [facility] LUMBAR / SACRAL EPIDURAL, SINGLE LEVEL 08/24/2017 INJECTION TRANSFORAMINAL EPIDURAL LUMBAR OR SACRAL performed by Alcon Nye DO at OR [facility] MAMMOGRAM - BILATERAL 07/07/2006 birad code 1, negative NE TOTAL HIP ARTHROPLASTY Left 10/2021 REMOVE CATARACT, [...] out of 10. documented in this encounter Miscellaneous Notes * Result Encounter Note - Efrain Carrasco III, MD - 03/30/2023 12:41 PM EST Calcific changes blood vessels right lower leg but overall circulation seems okay no medication changes * Result Encounter Note - Efrain Carrasco III, MD - 03/30/2023 12:40 PM EST Calcific changes in the right lower extremity artery but blood flow seems good no medication changes documented in this encounter Plan of Treatment Upcoming Encounters Date Type Department Care Team (Late st Contact Info) Description 05/01/2023 1:30 PM EST Office Visit Orthopaedics Spine Surgery, Noah Maguire [address] [place] [address] [place] [address] Bandar Baker MD [address] [place] [address] [place] [address] 05/27/2023 10:15 AM EDT Telemedicine Urology Noah Ramos [address] [place] [address] [place] [address] Ronan Cain MD [address] [place] [address] [place] [address] 7, Telemed [facility] Urology Ex Rm [address] [place] [address] 08/24/2023 10:30 AM EDT [facility] [place] [address] [facility] [place] [address] Im, Nurse Annual Wellness [facility] [address] [place] [address] 09/24/2023 8:40 AM EDT Office Visit Family Practice [facility] [address] [place], [place] [address] Efrain Carrasco III, MD [address] [place] [address] Health Maintenance Due Date Last Done Comments [...] Not on filedocumented as of this encounter Procedures Procedure Name Priority Date/Time Associated Diagnosis Comments 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) Routine 03/30/2023 12:10 PM EST Abnormal ankle brachial index (PAULA) documented in this encounter Results * 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) (03/30/2023 12:10 PM EST) Anatomical Region Laterality Modality Extremity, Ankle, Vascular, Lower Extremity, Fito t Ultrasound Impressions 03/30/2023 12:28 PM EST : PAULA at rest is calcific on the right and 1.0 on the left. For the right lower extremity: The actual ankle brachial index could not be calculated due to medial calcinosis. Lower extremity Doppler Evaluation is normal at rest with no evidence of significant arterial occlusive disease. Great toe pressure is 132. PPG tracing of the great toe has good amplitude. For the left lower extremity: Lower extremity Doppler Evaluation is normal at rest with no evidence of significant arterial occlusive disease. Great toe pressure is 92. PPG tracing of the great toe has good amplitude. Narrative 03/30/2023 12:28 PM EST VASCULAR LAB RESULTS DATE OF EXAMINATION: 03/30/23 INDICATION: ab paula This is an interpretation of an exam performed at [facility]. PHYSICIAN REPORT: ANKLE BRACHIAL INDEX OF THE LOWER EXTREMITIES Immediately before proceeding with the vascular lab procedure reported below, the identity of the patient, the correct exam and the correct procedural site were identified. Continuous wave doppler and appropriate size pressure cuffs were utilized during the examination. Findings: The right and left brachial artery blood pressures are 172 mmHg and 172 mmHg respectively. On the right, the posterior tibial artery waveform is triphasic and has an amplitude which is excellent. . The right dorsalis pedis artery waveform is triphasic and has an amplitude which is good. The right peroneal artery waveform is monophasic and has an amplitude which is decreased. The tibial pressures were non-compressible. On the left, the posterior tibial artery waveform is triphasic and has an amplitude which is excellent. . The left dorsalis pedis artery waveform is triphasic and has an amplitude which is excellent. . The left peroneal artery waveform is biphasic and has an amplitude which is good. The tibial pressures range from 172 mmHg to non-compressible. Efrain Carrasco III, MD RAD VASCULAR documented in this encounter Visit Diagnoses Diagnosis HTN, goal below 140/90- Primary Unspecified essential hypertension Abnormal ankle brachial index (PAULA) Thrush Candidiasis of mouth documented in this encounter Advance Directives Documents on File Type Date Recorded Patient Ratings Analyst Expl anation Power of Electrical Drafter 05/23/2021 POWER OF A TTORNEY Care Teams Law Firm Administrator Relationship Specialty Start Date End Date Efrain Carrasco III, MD [address] [facility] [address] PCP - General 12/20/99 documented as of this encounter"
--- OUTSIDE RECORDS SUMMARY | 2023-06-01 20:02 | External Medical Summary | Summary of Care ---
Author Name Unknown Organization [facility] Address [address] [place] [facility] [place] [address] Phone [phone] Care Team Providers Care Pediatric Geneticist Name Role Phone Danilo CHARLES MD, Caitlin Wheeler Primary Care Provider [phone] Reason for Visit * Reason Comments Follow Up Encounter Details Date Type Department Care Team (Late st Contact Info) Description 05/27/2023 10:15 AM EDT Telemedicine Urology Noah Ramos [address] [place] [address] [place] [address] Ronan Cain MD [address] [place] [address] [place] [address] 7, Telemed [facility] Urology Ex Rm [address] [place] [address] Urinary incontinence without sensory awareness* Allergies No known active allergiesdocumented as of this encounter (statuses as of 05/27/2023) Medications Medication Sig Dispensed Refills Start Date End Date Status MULTIVITAMIN/MINE RAL FORMULA OR TABS 30 0 2 Active [...] taking tablet. 12 Tablet 3 3 Active B-12 500 MCG Oral Tablet Take by [...] 4 Active Famotidine 20 MG Oral Tablet (Pepcid)Indicatio ns:Hoarseness of voice TAKE 1 TABLET BY MOUTH EVERYDAY AT BEDTIME 90 Tablet 1 4 Active Baclofen 10 MG Oral Tablet (Lioresal)Indicat ions:Acute right-sided low back pain with right-sided sciatica 1/2 to 1 tablet by mouth as needed for pain 3 x daily 30 Tablet 0 4 Active Nystatin 776760 UNIT/ML Mouth/Throat Suspension Take by mouth 4 times a day. .COMPLEX Strength: 100,000 UNIT/ML 60 mL 1 4 Active methylPREDNISolon e 4 MG Oral Tablet Therapy Pack (Medrol Dosepack) follow package directions 21 Tablet 0 4 Active Fesoterodine Fumarate ER 8 MG Oral Tablet Extended Release 24 Hour (Toviaz) Take 1 Tablet by mouth in the morning. 30 Tablet 3 3 05/27/19 24 Discontinued documented as of this encounter (statuses as of 05/27/2023) Active Problems Problem Noted Date Diagnosed Date HTN, goal below 140/90 11/08/2021 Trochanteric bursitis 12/09/2018 BMI 35-39 ISOLATED (SEE ACTUAL BMI) 08/20/2009 Overview: Per Obesity Protocol, #19 ADVANCE DIRECTIVE INFORMATION 10/24/2004 Overview: No, Advance Directive brochure given to patient. documented as of this encounter (statuses as of 05/27/2023) Resolved Problems Problem Noted Date Diagnosed Date Resolved Date 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 Overview: villous tissue repeat colonoscopy in 6 months Esophagitis 02/10/2019 Overview: ICD-10 update of inactive term documented as of this encounter (statuses as of 05/27/2023) Immunizations Name Administration Dates Next Due COVID-19 [...] on file documented as of this encounter Progress Notes * Ronan Cain MD - 05/27/2023 10:55 AM EDT [id number] PCP: CAITLIN CEDILLO III [place] [address] [phone] Patient location: CLINIC. I was in a different facility from the patient. After connecting through televideo, patient was verified with two unique identifiers. Patient (or authorized legal account manager sales representative) was then informed that this was a Telemedicine visit and being conducted confidentially over secure lines. My office door was closed. No one else was in the room with me. Patient acknowledged consent and understanding of privacy and security of the Telemedicine visit, and gave permission to have a telemedicine presenter stay in the room in order to assist with the history and to conduct the exam as needed. I informed the patient that I have reviewed their record in [facility] and presented the opportunity for them to ask any questions regarding the visit today. The patient agreed to participate. Rebekah Leiva is a 83 year old female, who presents for 6 month f/u of her voiding. She is usinga single safety pad, pleased with her voiding. It seems she is on monotherapy with oxybutynin provided by PMD. She is not using Toviaz. She denies hematuria or UTI since her last visits. She is late for visit due to mechanical difficulties with her car and its mud flap coming loose on the drive in. Urinary incontinence: Presented to Urology April 2022. Patient is being seen for urinary incontinence. Problem has been present for years. Severity is high. Problem is about the same. Urinary incontinence is without awareness. They are using 2 pads a day, soaked. They have used oxybutynin, stopped. Symptoms improved with solifenacin 10 mg. Unimproved with caffeine cessation. Patient notes chronic back issues. Cystoscopy July 2022 demonstrates no stress urinary incontinence, trabeculated bladder. Myrbetriq added July 2022 - overly expensive. Toviaz substituted with improvement at 8 mg, stopped. Currently using oxybutynin with good effect.. Current Outpatient Medications Medication Sig Dispense Refill MULTIVITAMIN/MINERAL FORMULA OR TABS 30 0 zoster [...] min after taking tablet. 12 Tablet 3 Fesoterodine Fumarate ER 8 MG Oral Tablet Extended Release 24 Hour (Toviaz) Take 1 Tablet by mouth in the morning. (Patient not taking: Reported on 01/20/2023) 30 Tablet 3 B-12 500 MCG Oral Tablet Take by mouth. Oxybutynin Chloride 5 MG Oral Tablet (Ditropan) [...] THE MORNING FOR PAIN 90 Tablet 0 Fluconazole 150 MG Oral Tablet (Diflucan) 1 tab every 5 days 3 Tablet 0 Famotidine 20 MG Oral Tablet (Pepcid) TAKE 1 TABLET BY MOUTH EVERYDAY AT BEDTIME 90 Tablet 1 Baclofen 10 MG Oral Tablet (Lioresal) 1/2 to 1 tablet by mouth as needed for pain 3 x daily 30 Tablet 0 Nystatin 192986 UNIT/ML Mouth/Throat Suspension Take by mouth 4 times a day. .COMPLEX Strength: 100,000 UNIT/ML 60 mL 1 methylPREDNISolone 4 MG Oral Tablet Therapy Pack (Medrol Dosepack) follow package directions 21 Tablet 0 No current facility-administered medications for this visit. Review of patient's allergies indicates: No Known Allergies Social History: Social History Tobacco Use Smoking status: Former Current packs/day: 0.00 Average packs/day: 1 pack/day for 20.0 years (20.0 ttl pk-yrs) Types: Cigarettes Start date: 12/16/1976 Quit date: 12/16/1996 Years since quittin.4 Smokeless tobacco: Never Substance Use Topics Alcohol use: Not Currently Vaping/E-Cigarette Use Vaping/E-Cigarette Use Never User Vaping/E-Cigarette Substances Nicotine No Other No Flavoring No THC No Cannabidiol (CBD) No Vaping/E-Cigarette Devices Disposable No Pre-filled or Refillable Cartridge No Refillable Tank No Pre-filled Pod No Family History Problem Relation Age of Onset No Past Hx Father Mental Disorder Mother suicide Cancer Brother lymphoma No Known Problems Son Past Surgical History: Procedure Laterality Date COLONOSCOPY [...] performed by Jacky Otoole MD at ENDOSCOPY [facility] COLONOSCOPY, DIAGNOSTIC (RECTUM) 01/25/2019 adenomatous polyps, diverticulosis/COLONOSCOPY FLEXIBLE PROXIMAL DIAGNOSTIC performed by Jacky Otoole MD at ENDOSCOPY [facility] LUMBAR / SACRAL EPIDURAL, SINGLE LEVEL 08/24/2017 INJECTION TRANSFORAMINAL EPIDURAL LUMBAR OR SACRAL performed by Alcon Nye DO at OR [facility] MAMMOGRAM - BILATERAL 07/07/2006 birad code 1, negative ME TOTAL HIP ARTHROPLASTY Left 10/2021 REMOVE CATARACT, INSERT LENS PROSTH 08/20/[address] CHO REMOVE CATARACT, INSERT LENS PROSTH REMOVE TONSILS & ADENOIDS, UNDER 12 Tonsillectomy/Adenoids,<11 Y/O SPINAL FUSION, LUMBAR, COMBINED 2018 L234 Past Medical History: Diagnosis Date Benign neoplasm of colon 08/28/06 villous tissue repeat colonoscopy in 6 months Benign neoplasm of colon 12/27/10 one polyp. 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 Constitutional: General: She is not in acute distress. Appearance: Normal appearance. She is not ill-appearing or toxic-appearing. HENT: Head: Normocephalic and atraumatic. Right Ear: External ear normal. Left Ear: External ear normal. Nose: Nose normal. Mouth/Throat: Mouth: Mucous membranes are moist. Eyes: Extraocular Movements: Extraocular movements intact. Pulmonary: Effort: Pulmonary effort is normal. No respiratory distress. Abdominal: General: There is no distension. Skin: Coloration: Skin is not pale. Neurological: Mental Status: She is alert and oriented to person, place, and time. Psychiatric: Behavior: Behavior normal. Thought Content: Thought content normal. Impression/Plan: 83 yo female with improved LUTS. Patient is satisfied with her current voiding. Has refills be of primary care physician. We are quite pleased with her improvement. Patient is offered 6-12 month follow-up, opts for the former. Patient vocalizes good understanding of the treatment plan. Above content is personally reviewed. Ronan Cain MD 10:55 AM 05/27/2023 documented in this encounter Nursing Notes * Brittney Montelongo LPN - 05/27/2023 10:49 AM EDT 6 month ret. Patient presents alone. Symptoms improved. Taking oxybutynin documented in this encounter Plan of Treatment Upcoming Encounters Date Type Department Care Team (Late st Contact Info) Description 08/24/2023 10:30 AM EDT Nurse Only Ancillary [facility] [address] [facility] [place] [address] Im, Nurse Annual Wellness [facility] [address] [place] [address] 09/24/2023 8:40 AM EDT Office Visit Family Practice [facility] [place] [address] [place] [address] TelfairCaitlin earl III, MD [address] [facility] [place] [address] 11/24/2023 10:30 AM EDT Office Visit Urology, [facility] [address] [place] [address] Ronan Cain MD [address] [facility] [place] [address] [place] [address] Health Maintenance Due Date Last Done Comments [...] as of this encounter Visit Diagnoses Diagnosis Urinary incontinence without sensory awareness- Primary Incontinence without sensory awareness documented in this encounter Advance Directives Documents on File Type Date Recorded Patient Spa Coordinator Expl anation Power of Outpatient Dietitian 05/23/2021 POWER OF A TTORNEY Care Teams Pediatric Geneticist Relationship Specialty Start Date End Date Caitlin Cedillo III, MD [address] [place] [address] PCP - General 12/20/99 documented as of this encounter
--- OUTSIDE RECORDS SUMMARY | 2023-06-01 20:02 | External Medical Summary | Summary of Care ---
Author Name Unknown Organization [facility] Address [address] [place] [address] Phone [phone] Care Team Providers Care Technical Systems Architect Name Role Phone Danilo CHARLES MD, Efrain Wheeler Primary Care Provider [phone] Encounter Details Date Type Department Care Team (Latest Contact Info) Description 01/14/2023 2:35 PM EST - 01/14/2023 11:59 PM EST Hospital Encounter Radiology Film File [address] [place] [address] Discharge Disposition: Home - Self Care Allergies No known active allergiesdocumented as of this encounter (statuses as of 05/08/2023) Medications Medication Sig Dispensed Refills Start Date [...] as instructed. 24 Each 11 11/17/2022 Active documented as of this encounter (statuses as of 05/08/2023) Active Problems Problem Noted Date Diagnosed Date HTN, goal below 140/90 11/08/2021 Trochanteric bursitis 12/09/2018 BMI 35-39 ISOLATED (SEE ACTUAL BMI) 08/20/2009 Overview: Per Obesity Protocol, #19 ADVANCE DIRECTIVE INFORMATION 10/24/2004 Overview: No, Advance Directive brochure given to patient. documented as of this encounter (statuses as of 05/08/2023) Resolved Problems Problem Noted Date Diagnosed Date Resolved Date 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 Overview: villous tissue repeat colonoscopy in 6 months Esophagitis 02/10/2019 Overview: ICD-10 update of inactive term documented as of this encounter (statuses as of 05/08/2023) Immunizations Name Administration Dates Next Due COVID-19 [...] on file documented as of this encounter Plan of Treatment Upcoming Encounters Date Type Department Care Team (Late st Contact Info) Description 05/27/2023 10:15 AM EDT Telemedicine Urology Noah Ramos [address] [place] [address] [place] [address] Ronan Cain MD [address] [place] [address] [place] [address] 7, Telemed [facility] Urology Ex Rm [address] [place] [address] 08/24/2023 10:30 AM EDT Nurse Only Ancillary [facility] Lizz [address] [place] [address] Im, Nurse Annual Wellness [address] [place] [address] 09/24/2023 8:40 AM EDT Office Visit Family Practice [facility] [address] [place] [address] Efrain Carrasco III, MD [address] [facility] [place] [address] Health Maintenance Due Date Last Done Comments [...] Procedure Name Priority Date/Time Associated Diagnosis Comments RADIOLOGY EXAM - GENERAL RAD (IMAGES ONLY,NO REPORT) Routine 01/14/2023 2:35 PM EST documented in this encounter Results * RADIOLOGY EXAM - GENERAL RAD (IMAGES ONLY,NO REPORT) (01/14/2023 2:35 PM EST) 01/14/2023 2:32 PM EST Narrative Scheduling, Silent - 05/07/2023 12:45 PM EST This is an imaging study not interpreted or resulted by a [facility] or [address] contracted radiologist. Bandar Baker MD RADIOLOGY (RAD GENERAL) documented in this encounter Advance Directives Documents on File Type Date Recorded Patient Passenger Flagman Expl anation Power of Lead Enterprise Architect 05/23/2021 POWER OF A TTORNEY Care Teams Technical Systems Architect Relationship Specialty Start Date End Date Efrain Carrasco III, MD [address] [place] [address] PCP - General 12/20/99 documented as of this encounter
--- OUTSIDE RECORDS SUMMARY | 2023-06-01 20:02 | External Medical Summary | Summary of Care ---
Author Name Unknown Organization [facility] Address [address] [place] [address] Phone [phone] Care Team Providers Care Laboratory Apparatus Glass Grinder Name Role Phone Danilo CHARLES MD, John E Primary Care Provider [phone] Reason for Visit * Reason Onset Date Comments Medication Problem 04/07/2023 Encounter Details Date Type Department Care Team (Late st Contact Info) Description 04/07/2023 Telephone Family Practice [facility] [address] [facility] [place] [address] Efrain Carrasco III, MD 200 [place] [address] Medication Problem Allergies No known active allergiesdocumented as of this encounter (statuses as of 04/07/2023) Medications Medication Sig Dispensed Refills Start Date [...] 5 days 3 Tablet 0 03/25/2023 Active Nystatin 997811 UNIT/ML Mouth/Throat Suspension Take by mouth 4 times a day. .COMPLEX Strength: 100,000 UNIT/ML 60 mL 1 04/07/2023 Active Nystatin 456747 UNIT/ML Mouth/Throat Suspension .COMPLEX Strength: 100,000 UNIT/ML 60 mL 1 03/25/2023 4 Discontinue d(Refill) documented as of this encounter (statuses as of 04/07/2023) Active Problems Problem Noted Date Diagnosed Date HTN, goal below 140/90 11/08/2021 Trochanteric bursitis 12/09/2018 BMI 35-39 ISOLATED (SEE ACTUAL BMI) 08/20/2009 Overview: Per Obesity Protocol, #19 ADVANCE DIRECTIVE INFORMATION 10/24/2004 Overview: No, Advance Directive brochure given to patient. 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 Please send new Rx. documented in this encounter Plan of Treatment Upcoming Encounters Date Type Department Care Team (Late st Contact Info) Description 04/07/2023 3:00 PM EST Imaging Radiology [address], [address] [place] [address] 05/01/2023 1:30 PM EST Office Visit Orthopaedics Spine Surgery, [address], [place] [address] [place] [address] Bandar Baker MD [address] [place] [place] [address] 05/27/2023 10:15 AM EDT Telemedicine Urology [place] [address] [place] [address] [place] [address] Ronan Cain MD [address] [place] [address] [place] [address] 7, Telemed [facility] Urology [address] [place] [address] 08/24/2023 10:30 AM EDT Nurse Only Ancillary [facility] [address] [facility] [place] [address] Im, Nurse Annual Wellness [facility] [address] [facility] [place] [address] 09/24/2023 8:40 AM EDT Office Visit Family Practice [facility] [place] [address] [facility] [place] [address] Efrain Carrasco III, MD [address] [facility] [place] [address] Health Maintenance Due Date Last Done Comments [...] Documents on File Type Date Recorded Patient Cashier Host/Hostess Expl anation Power of Stone Gang Sawyer 05/23/2021 POWER OF A TTORNEY Care Teams Laboratory Apparatus Glass Grinder Relationship Specialty Start Date End Date Efrain Carrasco III, MD 200 [place] [address] PCP - General 12/20/99 documented as of this encounter
--- OUTSIDE RECORDS SUMMARY | 2023-06-01 20:02 | External Medical Summary | Summary of Care ---
Author Name Unknown Organization [facility] [address] [address] Phone [phone] Care Team Providers Care Adhesive Bandage Making Operator Name Role Phone Danilo CHARLES MD, Efrain Wheeler Primary Care Provider [phone] Encounter Details Date Type Department Care Team (Late st Contact Info) Description 01/14/2023 Orders Only Orthopaedics Spine Surgery, [place] [address] [place] [address] Bandar Baker MD [address] [place] [id number] Allergies No known active allergiesdocumented as of this encounter (statuses as of 05/07/2023) Medications Medication Sig Dispensed Refills Start Date [...] as of this encounter (statuses as of 05/07/2023) Active Problems Problem Noted Date Diagnosed Date HTN, goal below 140/90 11/08/2021 Trochanteric bursitis 12/09/2018 BMI 35-39 ISOLATED (SEE ACTUAL BMI) 08/20/2009 Overview: Per Obesity Protocol, #19 ADVANCE DIRECTIVE INFORMATION 10/24/2004 Overview: No, Advance Directive brochure given to patient. 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: villous tissue repeat colonoscopy in 6 months Esophagitis 02/10/2019 Overview: ICD-10 update of inactive term documented as of this encounter (statuses as of 05/07/2023) Immunizations Name Administration Dates Next Due COVID-19 [...] [address] [place] [address] [place] [address] Ronan Cain MD [address] [place] [address] [place] [address] 7, Telemed [facility] Urology [address] [place] [address] 08/24/2023 10:30 AM EDT Nurse Only Ancillary [facility] 200 [facility] [place] [address] Im, Nurse Annual Wellness [facility] [address] [facility] [place] [address] 09/24/2023 8:40 AM EDT Office Visit Family Practice [facility] [place] [address] [facility] [place] [address] Efrain Carrasco III, MD 200 [facility] [place] [address] Health Maintenance Due Date Last Done Comments [...] interpreted or resulted by a [facility] or [facility] contracted radiologist. Bandar Baker MD RADIOLOGY (RAD GENERAL) documented in this encounter Advance Directives Documents on File Type Date Recorded Patient Foreign Student Adviser Teacher Expl anation Power of Sales Project Engineer 05/23/2021 POWER OF A TTORNEY Care Teams Adhesive Bandage Making Operator Relationship Specialty Start Date End Date Efrain Carrasco III, MD 200 [facility] [address] PCP - General 12/20/99 documented as of this encounter
--- OUTSIDE RECORDS SUMMARY | 2023-06-01 20:02 | External Medical Summary | Summary of Care ---
Author Name Unknown Organization [facility] Address [address] [place] [address] Phone [phone] Care Team Providers Care Director Long Term Care Name Role Phone Danilo CHARLES MD, John E Primary Care Provider [phone] Reason for Visit * Reason Onset Date Comments Medication Problem 04/07/2023 Encounter Details Date Type Department Care Team (Late st Contact Info) Description 04/07/2023 Telephone Family Practice [facility] 200 [place] [address] Efrain Carrasco III, MD 200 [place] [address] Medication Problem Allergies No known active allergiesdocumented as of this encounter (statuses as of 04/10/2023) Medications Medication Sig Dispensed Refills Start Date [...] 5 days 3 Tablet 0 4 Active Nystatin 376811 UNIT/ML Mouth/Throat Suspension Take by mouth 4 times a day. .COMPLEX Strength: 100,000 UNIT/ML 60 mL 1 4 Active Famotidine 20 MG Oral Tablet (Pepcid)Indicati ons:Hoarseness of voice Take 1 Tablet by mouth at bedtime. 90 Tablet 1 3 04/08/19 24 Discontinued Baclofen 10 MG Oral Tablet (Lioresal)Indica tions:Acute right-sided low back pain with right-sided sciatica 1/2 to 1 tablet by mouth as needed for pain 3 x daily 30 Tablet 0 3 04/07/19 24 Discontinued(Re fill) Nystatin 544324 UNIT/ML Mouth/Throat Suspension .COMPLEX Strength: 100,000 UNIT/ML 60 mL 1 4 04/07/19 24 Discontinued(Re fill) documented as of this encounter (statuses as of 04/10/2023) Active Problems Problem Noted Date Diagnosed Date HTN, goal below 140/90 11/08/2021 Trochanteric bursitis 12/09/2018 BMI 35-39 ISOLATED (SEE ACTUAL BMI) 08/20/2009 Overview: Per Obesity Protocol, #19 ADVANCE DIRECTIVE INFORMATION 10/24/2004 Overview: No, Advance Directive brochure given to patient. 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 Please send new Rx. documented in this encounter Plan of Treatment Upcoming Encounters Date Type Department Care Team (Late st Contact Info) Description 05/01/2023 1:30 PM EST Office Visit Orthopaedics Spine Surgery, [place] [address] [place] [id number] Bandar Baker MD [address] [place] [address] [place] [address] 05/27/2023 10:15 AM EDT Telemedicine Urology [place] [address] [place] [address] [place] [address] Ronan Cain MD [address] [place] [address] [place] [address] 7, Telemed [facility] Urology [address] [place] [address] 08/24/2023 10:30 AM EDT Nurse Only Ancillary [facility] [address] [place] [address] Im, Nurse Annual Wellness [facility] [address] [place] [address] 09/24/2023 8:40 AM EDT Office Visit Family Practice [facility] [address] [facility] [place] [address] ComalEfrain earl III, MD [address] [facility] [place] [address] Health Maintenance Due Date Last Done Comments [...] Documents on File Type Date Recorded Patient Storage Consultant Expl anation Power of Chief Service Dispatcher 05/23/2021 POWER OF A TTORNEY Care Teams Director Long Term Care Relationship Specialty Start Date End Date Efrain Carrasco III, MD [address] [place] [address] PCP - General 12/20/99 documented as of this encounter
--- OUTSIDE RECORDS SUMMARY | 2023-06-01 20:02 | External Medical Summary | Summary of Care ---
Author Name Unknown Organization [facility] Address [address] [place] [facility] [place] [address] Phone [phone] Care Team Providers Care Junior Accounting Clerk Name Role Phone Mamadou CHARLES MD, John E Primary Care Provider [phone] Reason for Visit * Reason Comments eRx-Medication Refill Encounter Details Date Type Department Care Team (Late st Contact Info) Description 04/06/2023 Refill Family Practice [facility] [address] [facility] [place] [address] Caitlin Cedillo III, MD [address] [facility] [place] [address] Hoarseness of voice; Acute right-sided low back pain with right-sided sciatica Allergies No known active allergiesdocumented as of this encounter (statuses as of 04/08/2023) Medications Medication Sig Dispensed Refills Start Date [...] MG Oral Tablet (Pepcid)Indicati ons:Hoarseness of voice TAKE 1 TABLET BY MOUTH EVERYDAY AT BEDTIME 90 Tablet 1 4 Active Baclofen 10 MG Oral Tablet (Lioresal)Indica tions:Acute right-sided low back pain with right-sided sciatica 1/2 to 1 tablet by mouth as needed for pain 3 x daily 30 Tablet 0 4 Active Famotidine 20 MG Oral Tablet (Pepcid)Indicati ons:Hoarseness of voice Take 1 Tablet by mouth at bedtime. 90 Tablet 1 3 04/08/19 24 Discontinued Baclofen 10 MG Oral Tablet (Lioresal)Indica tions:Acute right-sided low back pain with right-sided sciatica 1/2 to 1 tablet by mouth as needed for pain 3 x daily 30 Tablet 0 3 04/07/19 24 Discontinued(Re fill) Nystatin 019090 UNIT/ML Mouth/Throat Suspension .COMPLEX Strength: 100,000 UNIT/ML 60 mL 1 4 04/07/19 24 Discontinued(Re fill) documented as of this encounter (statuses as of 04/08/2023) Active Problems Problem Noted Date Diagnosed Date HTN, goal below 140/90 11/08/2021 Trochanteric bursitis 12/09/2018 BMI 35-39 ISOLATED (SEE ACTUAL BMI) 08/20/2009 Overview: Per Obesity Protocol, #19 ADVANCE DIRECTIVE INFORMATION 10/24/2004 Overview: No, Advance Directive brochure given to patient. 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: villous tissue repeat colonoscopy in 6 months Esophagitis 02/10/2019 Overview: ICD-10 update of inactive term documented as of this encounter (statuses as of 04/08/2023) Immunizations Name Administration Dates Next Due COVID-19 [...] encounter Miscellaneous Notes * Telephone Encounter - Caitlin Cedillo III, MD - 04/08/2023 7:21 AM ESTSigned Prescriptions: Disp Refills Famotidine 20 MG Oral Tablet (Pepcid) 90 Tab*1 Sig: TAKE 1 TABLET BY MOUTH EVERYDAY AT BEDTIMEAuthorizing Provider: CAITLIN CEDILLO III Baclofen 10 MG Oral Tablet (Lioresal) 30 Tab*0 Si/2 to 1 tablet by mouth as needed for pain 3 x dailyAuthorizing Provider: MAMADOU III, CAITLIN E * Telephone Encounter - Caitlin Cedillo III, MD - 04/08/2023 7:21 AM ESTSigned Prescriptions: Disp Refills Famotidine 20 MG Oral Tablet (Pepcid) 90 Tab*1 Sig: TAKE 1 TABLET BY MOUTH EVERYDAY AT BEDTIMEAuthorizing Provider: CAITLIN CEDILLO III Baclofen 10 MG Oral Tablet (Lioresal) 30 Tab*0 Si/2 to 1 tablet by mouth as needed for pain 3 x dailyAuthorizing Provider: CAITLIN CEDILLO III * Telephone Encounter - Isaura Albrecht [facility] - 04/07/2023 5:03 PM EST Pending Prescriptions: Disp Refills Famotidine 20 MG Oral Tablet (Pepcid) 90 Tab*1 Sig: TAKE 1 TABLET BY MOUTH EVERYDAY AT BEDTIME Baclofen 10 MG Oral Tablet (Lioresal) 30 Tab*0 Si/2 to 1 tablet by mouth as needed for pain 3 x daily * Telephone Encounter - Cyn Roland LPN - 04/07/2023 2:24 PM EST Pending Prescriptions: Disp Refills Famotidine 20 MG Oral Tablet (Pepcid) 90 Tab*1 Sig: TAKE 1 TABLET BY MOUTH EVERYDAY AT BEDTIME Baclofen 10 MG Oral Tablet (Lioresal) 30 Tab*0 Si/2 to 1 tablet by mouth as needed for pain 3 x daily * Telephone Encounter - Lynnette Meyer, ERNESTO - 04/07/2023 12:40 PM EST Did you pend patient's preferred pharmacy and medication before forwarding?yes Pharmacy: [id number] Pending Prescriptions: Disp Refills Famotidine 20 MG Oral Tablet (Pepcid) [Ph*90 Tab*1 Sig: TAKE 1 TABLET BY MOUTH EVERYDAY AT BEDTIME Baclofen 10 MG Oral Tablet (Lioresal) 30 Tab*0 Si/2 to 1 tablet by mouth as needed for pain 3 x daily Last Visit: 07/09/2022 (in office), Visit date not found (telemedicine) Next Visit: Visit date not found If no future appointments scheduled, and last appointment is greater than a year ago, please schedule patient for a follow-up appointment Last date the medication was ordered: 09/17/22, 08/05/22 Is this request for a controlled substance?No Urine Drug Screen:No results found for this or any previous visit. Patient Phone Numbers Labs: Lab Results Component Value Date/Time CREAT 0.8 11/03/2021 06:05 AM CREAT 0.79 04/12/2018 12:00 AM CREAT 0.8 09/21/2009 10:21 AM POTASSIUM 4.8 11/03/2021 06:05 AM POTASSIUM 4.0 10/28/2017 12:00 AM POTASSIUM 4.4 09/21/2009 10:21 AM LDLCALC 167 (H) 05/08/2014 10:18 AM LDLDIRECT NOT APPLICABLE 05/08/2014 10:18 AM ALT 10 08/27/2022 11:21 AM ALT 10 09/21/2009 10:21 AM documented in this encounter Plan of Treatment Upcoming Encounters Date Type Department Care Team (Late st Contact Info) Description 05/01/2023 1:30 PM EST Office Visit Orthopaedics Spine Surgery, [place] [address] [place] [address] Bandar Baker MD [address] [place] [address] 05/27/2023 10:15 AM EDT Telemedicine Urology [place] [address] [address] [place] [address] Ronan Cain MD [address] [place] [address] [place] [address] 7, Telemed [facility] Urology [address] [place] [address] 08/24/2023 10:30 AM EDT Nurse Only Ancillary [facility] [address] [place] [address] Im, Nurse Annual Wellness [facility] 200 [facility] [place] [address] 09/24/2023 8:40 AM EDT Office Visit Family Practice [facility] [place] [address] [facility] [place] [address] Mamadou Caitlin CHARLES MD [address] [facility] [place] [address] Health Maintenance Due Date Last Done Comments [...] as of this encounter Visit Diagnoses Diagnosis Hoarseness of voice Dysphonia Acute right-sided low back pain with right-sided sciatica documented in this encounter Advance Directives Documents on File Type Date Recorded Patient Complex Care Nurse Practitioner Expl anation Power of Director Compensation 05/23/2021 POWER OF A TTORNEY Care Teams Junior Accounting Clerk Relationship Specialty Start Date End Date Caitlin Cedillo III, MD 200 [place] [place] [address] PCP - General 12/20/99 documented as of this encounter
--- OUTSIDE RECORDS SUMMARY | 2023-06-01 20:02 | External Medical Summary | Summary of Care ---
Author Name Unknown Organization [facility] Address [address] [facility] [address] Phone [phone] Care Team Providers Care Marine Geologist Name Role Phone Danilo CHARLES MD, Efrain Wheeler Primary Care Provider [phone] Encounter Details Date Type Department Care Team (Late st Contact Info) Description 01/14/2023 Orders Only Orthopaedics Spine Surgery, [place] [address] [place] [address] Bandar Baker MD [address] [place] [id number] Allergies No known active allergiesdocumented as of [...] [address] [place] [address] Ronan Cain MD [address] [place] [address] [place] [address] 7, Telemed [facility] Urology [address] [place] [address] 08/24/2023 10:30 AM EDT Nurse Only Ancillary [facility] [address] [facility] [place] [address] Im, Nurse Annual Wellness [facility] [address] [facility] [place] [address] 09/24/2023 8:40 AM EDT Office Visit Family Practice [facility] [place] [address] [facility] [place] [address] Efrain Carrasco III, MD [address] [facility] [place] [address] Health Maintenance Due Date Last Done Comments [...] Date/Time Associated Diagnosis Comments RADIOLOGY EXAM - MRI (IMAGES ONLY, NO REPORT) Routine 01/14/2023 2:15 PM EST documented in this encounter Results * RADIOLOGY EXAM - MRI (IMAGES ONLY, NO REPORT) (01/14/2023 2:15 PM EST) 01/14/2023 2:14 PM EST Narrative Scheduling, Silent - 05/07/2023 12:44 PM EST This is an imaging study not interpreted or resulted by a [facility] or [facility] contracted radiologist. Bandar Baker MD RAD MRI-MRA documented in this encounter Advance Directives Documents on File Type Date Recorded Patient Building Energy Retrofit Technician Expl anation Power of Rn Oncology Clinical 05/23/2021 POWER OF A TTORNEY Care Teams Marine Geologist Relationship Specialty Start Date End Date Efrain Carrasco III, MD 200 [facility] [place] [address] PCP - General 12/20/99 documented as of this encounter
--- OUTSIDE RECORDS SUMMARY | 2023-06-01 20:02 | External Medical Summary | Summary of Care ---
Author Name Unknown Organization [facility] Address [address] [place] [address] Phone [phone] Care Team Providers Care Field Kiln Burner Name Role Phone Danilo CHARLES MD, Efrain Wheeler Primary Care Provider [phone] Encounter Details Date Type Department Care Team (Late st Contact Info) Description 05/01/2023 Patient Reported Data Patient Survey Ortho OBERD Allergies No known active allergiesdocumented as of this encounter (statuses as of 05/01/2023) Medications Medication Sig Dispensed Refills Start Date [...] daily 30 Tablet 0 04/08/2023 Active Nystatin 277466 UNIT/ML Mouth/Throat Suspension Take by mouth 4 times a day. .COMPLEX Strength: 100,000 UNIT/ML 60 mL 1 04/07/2023 Active documented as of this encounter (statuses as of 05/01/2023) Active Problems Problem Noted Date Diagnosed Date HTN, goal below 140/90 11/08/2021 Trochanteric bursitis 12/09/2018 BMI 35-39 ISOLATED (SEE ACTUAL BMI) 08/20/2009 Overview: Per Obesity Protocol, #19 ADVANCE DIRECTIVE INFORMATION 10/24/2004 Overview: No, Advance Directive brochure given to patient. 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: villous tissue repeat colonoscopy in 6 months Esophagitis 02/10/2019 Overview: ICD-10 update of inactive term documented as of this encounter (statuses as of 05/01/2023) Immunizations Name Administration Dates Next Due COVID-19 [...] [address] [place] [address] Bandar aBker MD [address] [place] [place] [address] 05/27/2023 10:15 AM EDT Telemedicine Urology [place] [address] [place] [address] [place] [address] Ronan Cain MD [address] [place] [address] [place] [address] 7, Telemed [facility] Urology [address] [place] [address] 08/24/2023 10:30 AM EDT Nurse Only Ancillary [facility] [place] [place] [address] [place] [address] Im, Nurse Annual Wellness [facility] [address] [place] [address] 09/24/2023 8:40 AM EDT Office Visit [facility] [address] [place] [address] Efrain Carrasco III, MD [facility] [place] [address] Health Maintenance Due Date Last Done Comments [...] Documents on File Type Date Recorded Patient Messenger Office Expl anation Power of Permanent Waver 05/23/2021 POWER OF A TTORNEY Care Teams Field Kiln Burner Relationship Specialty Start Date End Date Efrain Carrasco III, MD [address] [place] [address] PCP - General 12/20/99 documented as of this encounter
--- OUTSIDE RECORDS SUMMARY | 2023-06-01 20:02 | External Medical Summary | Summary of Care ---
Author Name Unknown Organization [facility] Address [address] [place] [address] Phone [phone] Care Team Providers Care Horologist Name Role Phone Danilo CHARLES MD, Efrain Wheeler Primary Care Provider [phone] Reason for Referral * Evaluate & Treat - Unlimited Visits (Within 10 days (routine)) - Pending Review Specialty Diagnoses / Procedures Referred By Jovani sanchez Referred To Contact Physical Therapy / Physical Medicine And Rehab Diagnoses Back pain of lumbar region with sciatica History of lumbar fusion Lumbar radiculopathy Bandar Baker MD [address] [place] [address] Referral ID Status Reason Start Date Expiration Date Visits Requested Visits Authorized [id number] Pending Review Specialty Services Required 05/01/[phone] Question Answer Referral Priority Within 10 days (routine) Where should this appointment be scheduled? Ted Comments Plan: Back core strengthening, stretching, ROM, conditioning, lower extremity strengthening as needed, topicals as needed 2 x a week for 6 weeks Modalities for pain relief Reason for Visit * Reason Comments Follow Up Right sided lower ba ck pain * Evaluate & Treat - Unlimited Visits (Within 3 days (urgent)) - Authorized Specialty Diagnoses / Procedures Referred By Jovani t Referred To Contact Neuro/Ortho Surgery - Spine. / Neurological Surgery Diagnoses Spinal stenosis of lumbar region, unspecified whether neurogenic claudication present Candi Lola [facility] [address] [place] [address] Referral ID Status Reason Start Date Expiration Date Visits Requested Visits Authorized [id number] Authorized Specialty Services Required 3 [phone] Encounter Details Date Type Department Care Team (Late st Contact Info) Description 05/01/2023 1:30 PM EST Office Visit Orthopaedics Spine Surgery, Noah Maguire [address] [place] [address] Bandar Baker MD [address] [place] [address] Back pain of lumbar region with sciatica*; History of lumbar fusion; Lumbar radiculopathy Allergies No known active allergiesdocumented as of [...] daily 30 Tablet 0 04/08/2023 Active Nystatin 960866 UNIT/ML Mouth/Throat Suspension Take by mouth 4 times a day. .COMPLEX Strength: 100,000 UNIT/ML 60 mL 1 04/07/2023 Active methylPREDNISolone 4 MG Oral Tablet Therapy Pack (Medrol Dosepack) follow package directions 21 Tablet 0 05/01/2023 Active documented as of this encounter (statuses [...] money to buy more. Never true 08/14/19 Within the past 12 months, t he [...] as of this encounter Progress Notes * Bandar Baker MD - 05/01/2023 2:26 PM EST Date of service: 05/01/2023 CHIEF COMPLAINT: Rebekah Leiva is a 83 year old female presents with complaints/concerns of Persistent low back pain with lower extremity radiculopathy. These have been longstanding symptoms. Patient has tried number of conservative measures but nothing recently. She denies any acute progressive neurological deficit, bowel bladder disturbances consult symptoms. New Referring physician:Lola Christopher HPI: Back Which side extremity: right side, had left hip replacement Injury and date:no Onset, progress and duration: several yrs Balance problems:walker or cane for stability Bladder or bowel disturbances:no Hand dominance for cervical and hand function:right Workman compensation/ Litigation/ Director Of Religious Activities: Spine investigations done and date: Xray:02/18/2019 MRI:07/27/2017 CT scan: EMG/ NCV:no Spine treatment so far: Medications: meloxicam, gabapentin,baclofen Physical therapy within last year:none 2021 in the summer Chiropractor therapy:no Brace use:yes Pain management and Spinal epidural injections:[facility] in the past Dr. Smith and Dr. Boss Spine surgery - Surgeon and year:Dr. 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 The past medical, surgical, medication, family and social history was reviewed and is documented elsewhere in the chart. ROS: Negative except as outlined in HPI Vitals: There were no vitals taken for this visit. There is no height or weight on file to calculate BMI. Physical Exam: General: alert, healthy and no distress. The general appearance appears normal. Cardiovascular system: Vascularity grossly preserved Spine evaluation Cervical, thoracic and lumbar spine: No paraspinal swelling. No deformity. Neurological examination: Motor power upper extremities - Bilateral shoulder abductors, elbow flexors, triceps, wrist flexorsand extensors and intrinsic muscles of the hand is 5/5. Motor power lower extremities - Bilateral hip flexors, knee extensors, ankle dorsiflexors, plantar flexors, EHL/EDL, FHL/FDL is 5/5. The deep tendon reflexes - Bilateral Biceps, triceps, brachioradialis, Patellar tendon, Achilles tendon are 2+ Sensation are grossly preserved bilaterally in upper extremities. Sensation are grossly preserved bilaterally in the lower extremities. Radiological imaging: I independently reviewed the relevant radiological imaging including x-rays ordered at this visit and discussed it with the patient X-rays of the lumbar spine including dynamic view show stable lumbar fusion construct. There are presence of degenerative changes. There is diffuse osteopenia. Assessment & Plan: Pt is a 83 year old female here for the following problems/concerns: Lumbar back pain Lumbar radiculopathy Concern for osteoporosis Lumbar fusion Medical comorbidities We discussed the diagnosis, the natural history and the treatment options. Based on the findings various treatment options including the risks, benefits and alternatives were discussed. Patient is neurologically stable but has chronic symptoms in relation to her back. She does not need any urgent spine intervention and is not a candidate for a major elective spine intervention. Conservative measures recommended-physical therapy ordered Can continue follow-up with pain management Modalities of pain relief including role of back brace discussed Patient encouraged to discuss about evaluation treatment of osteoporosis with her primary care. Additional recommendations: Activity modification as tolerated Pain medications as per the primary care. The patient expressed understanding and agreement to the plan. Complexity of decision making: I spent 45 minutes on 05/01/2023 in preparation, delivery and documentation of the care provided to the patient, excluding any time spent on the performance of the procedure are separately billable service. Bandar Baker MD This chart was completed in part utilizing [employer] Voice Recognition Software. Grammatical errors, random word insertions, prounoun errors and incomplete sentences are an occasional consequence of this system due to software limitations, ambient noise, and hardware issues. Any formal questions or concerns about the content, text, or information contained within the body of this dictation should be directly addressed to the provider for clarification. documented in this encounter Nursing Notes * Cami Wiggins LPN - 05/01/2023 2:00 PM EST New Referring physician:Lola Christopher HPI: Back Which side extremity: right side, had left hip replacement Injury and date:no Onset, progress and duration: several yrs Balance problems:walker or cane for stability Bladder or bowel disturbances:no Hand dominance for cervical and hand function:right Workman compensation/ Litigation/ Director Of Religious Activities: Spine investigations done and date: Xray:02/18/2019 MRI:07/27/2017 CT scan: EMG/ NCV:no Spine treatment so far: Medications: meloxicam, gabapentin,baclofen Physical therapy within last year:none 2021 in the summer Chiropractor therapy:no Brace use:yes Pain management and Spinal epidural injections:[facility] in the past Dr. Smith and Dr. Boss Spine surgery - Surgeon and year:Dr. 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 documented in this encounter Plan of Treatment Upcoming Encounters Date Type Department Care Team (Late st Contact Info) Description 05/27/2023 10:15 AM EDT Telemedicine Urology Noah Ramos [address] [place] [address] Ronan Cain MD [address] [place] [address] 7, Telemed [facility] Urology [address] [place] [address] 08/24/2023 10:30 AM EDT Nurse Only Ancillary [facility] [address] [facility] [place] [address] Im, Nurse Annual Wellness [facility] [address] [facility] [place] [address] 09/24/2023 8:40 AM EDT Office Visit Family Practice [facility] [address] [facility] [place] [address] Efrain Carrasco III, MD [address] [facility] [place] [address] Pending Results Name Type Priority Associated Diagnoses Date /Time XR L SPINE COMPLETE Medical Imaging Routine Back pain of lumbar region with sciatica 05/01/2023 2:23 PM EST Scheduled Referrals Name Type Priority Associated Diagnoses Orde r Schedule PHYSICAL THERAPY REFERRAL OP Referral Within 10 days (routine) Back pain of lumbar region with sciatica History of lumbar fusion Lumbar radiculopathy Ordered: 05/01/2023 Health Maintenance Due Date Last Done Comments [...] as of this encounter Visit Diagnoses Diagnosis Back pain of lumbar region with sciatica- Primary History of lumbar fusion Lumbar radiculopathy Thoracic or lumbosacral neuritis or radiculitis, unspecified documented in this encounter Advance Directives Documents on File Type Date Recorded Patient Dry Man Expl anation Power of Director Of Religious Activities 05/23/2021 POWER OF A TTORNEY Care Teams Horologist Relationship Specialty Start Date End Date Efrain Carrasco III, MD [address] [place] [address] PCP - General 12/20/99 documented as of this encounter
--- OUTSIDE RECORDS SUMMARY | 2023-06-01 20:02 | External Medical Summary | Summary of Care ---
Author Name Unknown Organization [facility] Address [address] [place] [address] Phone [phone] Care Team Providers Care Registered Nurse Bone Marrow Transplant Name Role Phone Danilo CHARLES MD, Efrain Wheeler Primary Care Provider [phone] Encounter Details Date Type Department Care Team (Latest Contact Info) Description 05/01/2023 2:11 PM EST - 05/01/2023 11:59 PM EST Hospital Encounter Orthopaedics, [facility] [place] [place] [address] [place], [place] [id number] Arrived Discharge Disposition: Home - Self Care Allergies No known active allergiesdocumented as of this encounter (statuses as of 05/02/2023) Medications Medication Sig Dispensed Refills Start Date [...] daily 30 Tablet 0 04/08/2023 Active Nystatin 294880 UNIT/ML Mouth/Throat Suspension Take by mouth 4 times a day. .COMPLEX Strength: 100,000 UNIT/ML 60 mL 1 04/07/2023 Active methylPREDNISolone 4 MG Oral Tablet Therapy Pack (Medrol Dosepack) follow package directions 21 Tablet 0 05/01/2023 Active documented as of this encounter (statuses as of 05/02/2023) Active Problems Problem Noted Date Diagnosed Date HTN, goal below 140/90 11/08/2021 Trochanteric bursitis 12/09/2018 BMI 35-39 ISOLATED (SEE ACTUAL BMI) 08/20/2009 Overview: Per Obesity Protocol, #19 ADVANCE DIRECTIVE INFORMATION 10/24/2004 Overview: No, Advance Directive brochure given to patient. 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 Overview: villous tissue repeat colonoscopy in 6 months Esophagitis 02/10/2019 Overview: ICD-10 update of inactive term documented as of this encounter (statuses as of 05/02/2023) Immunizations Name Administration Dates Next Due COVID-19 [...] [address] [place] [address] Ronan Cain MD [address] [place] [address] 7, Telemed [facility] Urology [address] [place] [address] 08/24/2023 10:30 AM EDT Nurse Only Ancillary [facility] [address] [place] [address] [place] [address] Im, Nurse Annual Wellness [facility] [address] [place] [address] 09/24/2023 8:40 AM EDT Office Visit Family Practice [facility] [address] [facility] [place] [address] Efrain Carrasco III, MD [address] [facility] [place] [address] Pending Results Name Type Priority Associated Diagnoses Date /Time XR L SPINE COMPLETE Medical Imaging Routine Back pain of lumbar region with sciatica 05/01/2023 2:23 PM EST Health Maintenance Due Date Last Done Comments [...] Documents on File Type Date Recorded Patient Review Assistant Expl anation Power of Competitive Shopper 05/23/2021 POWER OF A TTORNEY Care Teams Registered Nurse Bone Marrow Transplant Relationship Specialty Start Date End Date Efrain Carrasco III, MD [address] [place] [address] PCP - General 12/20/99 documented as of this encounter
--- OUTSIDE RECORDS SUMMARY | 2023-06-01 20:02 | External Medical Summary | Summary of Care ---
Author Name Unknown Organization [facility] Address [address] [place] [address] Phone [phone] Care Team Providers Care Seed Technician Name Role Phone Danilo CHARLES MD, Efrain Wheeler Primary Care Provider [phone] Encounter Details Date Type Department Care Team (Latest Contact Info) Description 01/14/2023 2:15 PM EST - 01/14/2023 2:34 PM EST Hospital Encounter Radiology Film [place] [address] [place] [address] Discharge Disposition: Home - Self [...] [address] [place] [address] Ronan Cain MD [address] [place] [address] 7, Telemed [facility] Urology [address] [place] [address] 08/24/2023 10:30 AM EDT Nurse Only Ancillary [facility] [place] [address] [place] [address] Im, Nurse Annual Wellness [address] [place] [address] 09/24/2023 8:40 AM EDT Office Visit Family Practice [facility] [address] [place] [address] Efrain Carrasco III, MD [address] [facility] [place] [address] Health Maintenance Due Date Last Done Comments [...] study not interpreted or resulted by a [facility] or [facility] [place] contracted radiologist. Bandar Baker MD RAD MRI-MRA documented in this encounter Advance Directives Documents on File Type Date Recorded Patient Banjo Repair Person Expl anation Power of Vector Control Specialist 05/23/2021 POWER OF A TTORNEY Care Teams Seed Technician Relationship Specialty Start Date End Date Efrain Carrasco III, MD [address] [facility] [place] [address] PCP - General 12/20/99 documented as of this encounter
--- OUTSIDE RECORDS SUMMARY | 2023-06-01 20:03 | External Medical Summary | Summary of Care ---
Author Name Unknown Organization [facility] Address [address] [place] [address] Phone [phone] Care Team Providers Care Client Hr Manager Name Role Phone Danilo CHARLES MD, John E Primary Care Provider [phone] Reason for Visit * Reason Onset Date Comments Medication Refill 02/09/2023 Encounter Details Date Type Department Care Team (Late st Contact Info) Description 02/09/2023 Refill Family Practice [facility] [address] [place] [address] Efrain Carrasco III, MD [address] [place] [address] Allergies No known active allergiesdocumented as of this encounter (statuses as of 02/09/2023) Medications Medication Sig Dispensed Refills Start Date [...] 11/17/2022 Active Meloxicam 15 MG Oral Tablet TAKE 1 TABLET BY MOUTH EVERY DAY IN THE MORNING FOR PAIN 90 Tablet 0 11/21/2022 Active predniSONE 10 MG Oral Tablet (Deltasone)Indica tions:Spinal stenosis of lumbar region, unspecified whether neurogenic claudication present Take 5 tabs for 2 days, 4 tabs for 2 days, 3 tabs for 2 days, 2 tabs for 2 days 1 tab for 2 days 30 Tablet 0 01/22/2023 Active Doxycycline Hyclate 100 MG Oral CapsuleIndication s:Cellulitis of foot Take 1 Capsule by mouth in the morning and 1 Capsule before bedtime. Until gone.. 20 Capsule 0 01/22/2023 Active Nystatin 552073 UNIT/ML Mouth/Throat Suspension .COMPLEX Strength: 100,000 UNIT/ML 60 mL 1 02/09/2023 Active Nystatin 384000 UNIT/ML Mouth/Throat Suspension .COMPLEX Strength: 100,000 UNIT/ML 60 mL 1 09/17/2022 3 Discontinue d(Refill) documented as of this encounter (statuses as of 02/09/2023) Active Problems Problem Noted Date Diagnosed Date HTN, goal below 140/90 11/08/2021 Trochanteric bursitis 12/09/2018 BMI 35-39 ISOLATED (SEE ACTUAL BMI) 08/20/2009 Overview: Per Obesity Protocol, #19 ADVANCE DIRECTIVE INFORMATION 10/24/2004 Overview: No, Advance Directive brochure given to patient. 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 Overview: villous tissue repeat colonoscopy in 6 months Esophagitis 02/10/2019 Overview: ICD-10 update of inactive term documented as of this encounter (statuses as of 02/09/2023) Immunizations Name Administration Dates Next Due COVID-19 mRNA, LNP-s, No Pre serve, 2-Dose Series (Moderna) 05/03/2020,04/04/2020 COVID-19, mRNA, LNP-s, PF, B ooster, 100mcg/0.5mg (Moderna) 06/10/2021,01/08/2021 H1N1 2009 Influenza, IM 03/22/2009 HEP A - Hepatitis A (Adult > 18 yrs) 03/14/2008, 10/19/2007 Pneumococcal Conjugate Vacc, 13 Valent (Prevnar) 05/08/2014 Pneumococcal Polysaccharide PPV23 (Pneumovax) 06/19/2006 SEASONAL INFLUENZA, PF, 6 M & Above, IM , (FLULAVAL or FLUZONE) 12/09/2018,11/24/2017,02/09/2017 Season Influenza, Quad, PF, Adjuvanted, 65+ Yrs, IM (FLUAD) 01/24/2020 Seasonal Influenza, Quadriva lent Hd (Fluzone Hd) [...] file Not on file Not on file Travel History Travel Start Travel End [place] 01/13/2023 01/15/2023 documented as of this encounter Miscellaneous Notes * Telephone Encounter - Lola Christopher PA-C - 02/09/2023 2:04 PM ESTSigned Prescriptions: Disp Refills Nystatin 513723 UNIT/ML Mouth/Throat Suspe*60 mL 1 Sig: .COMPLEX Strength: 100,000 UNIT/ML Authorizing Provider: LOLA CHRISTOPHER * Telephone Encounter - Cyn Roland LPN - 02/09/2023 10:05 AM EST Pending Prescriptions: Disp Refills Nystatin 090407 UNIT/ML Mouth/Throat Suspe*60 mL 1 Sig: .COMPLEX Strength: 100,000 UNIT/ML * Telephone Encounter - Quin Ko CPhT - 02/09/2023 7:53 AM EST Did you pend patient's preferred pharmacy and medication before forwarding?yes Pharmacy: [id number] [address] [place] [address] Pending Prescriptions: Disp Refills Nystatin 079097 UNIT/ML Mouth/Throat Susp*60 mL 1 Sig: .COMPLEX Strength: 100,000 UNIT/ML Last Visit: 01/20/2023 (in office), Visit date not found (telemedicine) Next Visit: 03/25/2023 If no future appointments scheduled, and last appointment is greater than a year ago, please schedule patient for a follow-up appointment Last date the medication was ordered: 09.17.22 Is this request for a controlled substance?No [...] 8:40 AM EST Office Visit Family Practice [facility] [place] [address] [facility] [place] [address] Efrain Carrasco III, MD [address] [facility] [place] [address] 05/01/2023 1:30 PM EST Office Visit Orthopaedics Spine Surgery, Noah Maguire [address] [place] [address] Bandar Baker MD [address] [place] [address] 05/27/2023 10:15 AM EDT Telemedicine Urology Noah Ramos [address] [place] [address] Ronan Cain MD [address] [place] [address] 7, Telemed [facility] Urology [address] [place] [address] 08/24/2023 10:30 AM EDT Nurse Only Ancillary [facility] [place] [address] [place] [address] Im, Nurse Annual Wellness [facility] [address] [place] [address] Health Maintenance Due Date Last Done Comments [...] Documents on File Type Date Recorded Patient Manufacturing Quality Technician Expl anation Power of Middle School French Teacher 05/23/2021 POWER OF A TTORNEY Care Teams Client Hr Manager Relationship Specialty Start Date End Date Efrain Carrasco III, MD [address] [place] [address] PCP - General 12/20/99 documented as of this encounter
--- OUTSIDE RECORDS SUMMARY | 2023-06-01 20:03 | External Medical Summary | Summary of Care ---
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 12 Tablet 3 3 Active Famotidine 20 MG Oral Tablet (Pepcid)Indicatio ns:Hoarseness of voice Take 1 Tablet by mouth at bedtime. 90 Tablet 1 3 Active Additional Information Patient not taking.Reported [...] 3 x daily 30 Tablet 0 3 Active Oxybutynin Chloride 5 MG Oral Tablet (Ditropan) Take 0.5 Tablets by mouth 2 times a day in the morning and at bedtime. 90 Tablet 3 3 Active Incontinence Supplies Dispense one large box or container, medium weight incontinence pad. Use as instructed. 24 Each 11 3 Active predniSONE 10 MG Oral Tablet (Deltasone)Indica tions:Spinal stenosis of lumbar region, unspecified whether neurogenic claudication present Take 5 tabs for 2 days, 4 tabs for 2 days, 3 tabs for 2 days, 2 tabs for 2 days 1 tab for 2 days 30 Tablet 0 3 Active Doxycycline Hyclate 100 MG Oral CapsuleIndication s:Cellulitis of foot Take 1 Capsule by mouth in the morning and 1 Capsule before bedtime. Until gone.. 20 Capsule 0 3 Active Nystatin 135778 UNIT/ML Mouth/Throat Suspension .COMPLEX Strength: 100,000 UNIT/ML 60 mL 1 3 Active Meloxicam 15 MG Oral Tablet (Mobic) TAKE 1 TABLET BY MOUTH EVERY DAY IN THE MORNING FOR PAIN 90 Tablet 0 3 Active Meloxicam 15 MG Oral Tablet TAKE 1 TABLET BY MOUTH EVERY DAY IN THE MORNING FOR PAIN 90 Tablet 0 3 02/24/20 23 Discontinued documented as of this encounter (statuses as of 02/23/2023) Active Problems Problem Noted Date Diagnosed Date HTN, goal below 140/90 11/08/2021 Trochanteric bursitis 12/09/2018 BMI 35-39 ISOLATED (SEE ACTUAL BMI) 08/20/2009 Overview: Per Obesity Protocol, #19 ADVANCE DIRECTIVE INFORMATION 10/24/2004 Overview: No, Advance Directive brochure given to patient. documented as of this encounter (statuses as of 02/23/2023) Resolved Problems Problem Noted Date Diagnosed Date Resolved Date 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 Overview: villous tissue repeat colonoscopy in 6 months Esophagitis 02/10/2019 Overview: ICD-10 update of inactive term documented as of this encounter (statuses as of 02/23/2023) Immunizations Name Administration Dates Next Due COVID-19 [...] encounter Miscellaneous Notes * Telephone Encounter - Helene Johnson [facility] - 02/23/2023 5:18 AM EST Patient will be contacted in 11/21 encounter regarding needing OV and/or lab work. 1 refill approved. Thank you, Brad PayneD. Clinical Pharmacist [facility] ([facility]) (formerly Telepharmacy) 02/23/2023, 5:18 AM * Telephone Encounter - Helene Johnson [facility] - 02/23/2023 5:18 AM ESTSigned Prescriptions: Disp Refills Meloxicam 15 MG Oral Tablet (Mobic) 90 Tab*0 Sig: TAKE 1 TABLET BY MOUTH EVERY DAY IN THE MORNING FOR PAIN Authorizing Provider: CAITLIN CEDILLO III Ordering User: HELENE JOHNSON documented in this encounter Plan of Treatment Upcoming Encounters Date Type Department Care Team (Late st Contact Info) Description 03/25/2023 8:40 AM EST Office Visit Family Practice [facility] [address] [place], [place] [address] Caitlin Cedillo III, MD [address], [place] [address] 05/01/2023 1:30 PM EST Office Visit Orthopaedics Spine Surgery[address], [place] [address] [place] [address] [place] [address] Bandar Baker MD [address] [place] [address] [place] [address] 05/27/2023 10:15 AM EDT Telemedicine Urology [place] [address] [place] [address] [place] [address] Ronan Cain MD [address] [place] [address] [place] [address] 7, Telemed [facility] Urology [address] [place] [address] 08/24/2023 10:30 AM EDT Nurse Only [facility] [employer] [address] [place] [address] Im, Nurse Annual Wellness [facility] [address] [place] [address] Health Maintenance Due Date Last Done Comments [...] Documents on File Type Date Recorded Patient Warp Splitter Expl anation Power of Apartment Locator 05/23/2021 POWER OF A TTORNEY Care Teams Hydroelectric Machinery Mechanic Helper Relationship Specialty Start Date End Date Caitlin Cedillo III, MD [address] [place] [address] PCP - General 12/20/99 documented as of this encounter
[2023-06-01] MEDS: oxyBUTYnin chloride 5 MG TAB PO SCH (20:50)
[2023-06-01] MEDS: lisinopril 10 MG TAB PO SCH (20:50)
[2023-06-01] MEDS: GABAPENTIN 300 MG CAP PO SCH (20:51)
[2023-06-01] MEDS: PANTOprazole 40 MG TAB PO SCH (20:51)
[2023-06-01] MEDS: BACLOFEN 10 MG TAB PO SCH (20:51)
[2023-06-01] MEDS: METOPROLOL TARTRATE 25 MG TAB PO SCH (20:52)
[2023-06-01 23:37] LABS: ANTI-Xa, UFH(UnfractionatedHep 0.22 IU/ml (0.3-0.7)
[2023-06-02] MEDS: MELOXICAM 7.5 MG TAB PO SCH (07:38)
[2023-06-02 07:48] LABS: ANTI-Xa, UFH(UnfractionatedHep 0.29 IU/ml (0.3-0.7)
[2023-06-02] MEDS: STAT IV Infusion **Titration per Protocol STA (08:37)
--- NOTE | 2023-06-02 08:40 | Cardiology Consultation ---
Date of Consultation June 02, 2023 Assessment & Plan (1) Atrial fibrillation with rapid ventricular response: (2) Essential hypertension: (3) History of melena: Plan Assessment: 83 year-old female presented from PCP office for new onset atrial fibrillation in the setting of possible GI bleed. Spontaneously converted to NSR last evening. No prior cardiac history to date. Plan: 1. A-fib with RVR: -new onset, spontaneously converted last evening. -No prior history of Afib or other cardiac disease per patient. -Patient has had recent acute cough with "black" sputum production and reports multiple loose bowels. GI has seen patient today for concerns of melena and a drop in Hemoglobin. -Review of telemetry demonstrates no recurrence of A-fib. -Echocardiogram does not show significant dilation of left atrium to suggest this has been longstanding. -Normal LVEF, with presence of mild valvular disease. No new/acute wall motion abnormalities -Very mild troponin elevation with peak of 27.2 likely demand driven due to tachycardia and new anemia. -Continue Metoprolol Tartrate 12.5mg PO BID with close monitoring on telemetry. -Heparin gtt has been placed on hold due to drop in HgB and melena with plans for GI to take for further investigation. Ok to proceed. Recommend cautious IV fluid resuscitation in the setting of valvular disease and recent Afib event -CHADS-VASC score of 4 (age, gender, HTN) with recommendation for oral AC therapy to be considered post GI work up, and HgB stabilization. 2. HTN -Low normal today. Denies any dizziness, lightheadedness or pre-syncopal symptoms. -Continue Lisinopril 10mg Daily and Metoprolol tartrate 12.5mg BID as this is not likely to contribute to hypotension 3. Melena -Decline in H/H. -patient being followed by GI with plans for endoscopy, ok to proceed for further evaluation. Case has been discussed with Dr. Pretty. Further recommendations regarding plan of care as per his assessment. I spent a total of 40 minutes on the date of service in preparation, delivery, documentation of the care provided to the patient excluding any time spent in the performance of separately billed services. EDIN Byrne [facility] Supervising Physician Co-Signing Physician Notes Patient was seen and personally examined. Chart, medications, telemetry reviewed. Agree with and personally reviewed assessment and plan by advanced provider as above. Additional 20 minutes of evaluation time in chart review, documentation performed Patient is an 83-year-old female who sought evaluation for symptoms of malaise fatigue transient cough productive of dark black material. On presentation was found to be in atrial fibrillation with left bundle branch block and was referred for inpatient management. Patient has spontaneously converted to sinus rhythm with resolve of related related left bundle branch block EKG with deep T wave inversions across the precordial leads possibly secondary to rate, stress mediated concerns. Echocardiogram with preserved wall motion and an overall LV systolic function Presenting symptoms now appear to be consistent with melena and hematochezia wit h worsening symptoms of exacerbated by IV heparin now discontinued GI workup in progress Plan as above continue low-dose metoprolol tartrate Will follow as GI evaluation proceed History of Present Illness Reason for Consultation: New onset A-fib with rvr Requesting Physician: Ted tello Attending Physician: Lul Son MD History of Present Illness HPI: Patient is a 83 year-old female with PMHx significant for HTN and chronic lumbar stenosis that was sent to the ED after initial evaluation at her PCP office yesterday. patient had contacted her PCP with concerns of harsh persistent cough 4 days ago in which she reports that she was coughing up "chucks of black stuff", but denies any other symtoms. She states that the cough resolved one day later, but she has significant epigastic pain and well as bilateral rib pain that she attributed to coughing and therefore was seen as a acute visit. EKG obtained while at PCP office demonstrated Atrial fibrillation with RVR as well as evidence of what is likely a rate dependent left BBB. She denies any prior cardiac history, denies chest pain, pressure or palptiations. Denies shortness of breath or any near syncopal symptoms. patient denies any family history of cardiac disease. Patient was given a bolus of IV cardizem, placed on a cardizem gtt and also heparin gtt, fortunately spontaneously converted a short while later. Further discussion with patient revealed that she has been has recently passed several large, loose stools on thursday and GI is reporting melena. Initial HgB was 12.5 and is now 10.0. Heparin gtt was discontinued per primary team/GI and patient was made NPO for endoscopic evaluation. Review of telemetry demonstrates SB/SR with occasional PAC's rates 50-90's. Allergies Allergy/AdvReac Type Severity Reaction Status Date / Time No Known Allergies Allergy Verified 06/01/23 15:35 Home Medications Medication Instructions Recorded Confirmed Type amlodipine 2.5 mg-benazepril 10 mg 1 cap PO DAILY 01/06/23 06/01/23 History capsule famotidine 20 mg tablet 20 mg PO DAILY 01/06/23 06/01/23 History meloxicam 15 mg tablet 15 mg PO DAILY Pain 01/06/23 06/01/23 History oxybutynin chloride 5 mg tablet 5 mg PO BID 01/06/23 06/01/23 History alendronate 70 mg tablet 70 mg PO WK 06/01/23 06/01/23 History baclofen 10 mg tablet 5 mg PO BID Pain 06/01/23 06/01/23 History gabapentin 300 mg capsule 300 mg PO HS 06/01/23 06/01/23 History lifitegrast 5 % eye drops in a 1 drp ophthalmic (eye) AMPM PRN 06/01/23 06/01/23 History dropperette (Xiidra) NEEDED Patient History Medical History (Updated 06/02/23 @ 11:45 by EDIN Burgess) Essential hypertension Spinal stenosis of lumbar region Leg length discrepancy Thrush Oral thrush x 3 weeks (secondary to previous abx use). Following with PCP- using Nystatin rinse, clotrimazole lozenge, and salt water rinses- thrush slowly improving Pt will call if not resolved by DOS Urinary bladder incontinence Myofascial pain Follows with pain management Gait instability Uses cane to ambulate - secondary to hip vs lumbar back pain Lumbar facet joint syndrome Lumbar postlaminectomy syndrome Lumbar radiculopathy R L4-5 Chronic back pain Lumbar area- hx of lumbar fusion GERD (gastroesophageal reflux disease) Well controlled and stable Surgical History S/P lumbar fusion L2-4 Dr. Pierson 2017 History of bilateral tubal ligation History of colonoscopy History of tonsillectomy History of cataract surgery R/L Family History (Updated 06/01/23 @ 15:55 by Karie Rhoades PA-C) Other No known health problems Denies family history of Diabetes Coronary heart disease Cancer Stroke Social History (Updated 06/01/23 @ 15:56 by Karie Rhoades PA-C) Smoking Status: Former smoker Cigarettes Per Day: 1ppd x 48 yrs; Smoking End Date: 2011; Second Hand Exposure: No; Do You Dip or Chew Tobacco: No; Tobacco Cessation Education Requested by Patient: No Hx Alcohol Use: No Hx Substance Use: No Preferred Language: Scottish Communication Ability: Effective Visual Impairment: No Limitations Hearing Ability: Normal Faa Certified Powerplant Mechanic Required: No Beliefs That Will Affect Care: None marital status: Single Current Living Situation: Alone current occupational status: retired Other Information That Helps Us Care for You: No Feels Safe at Home: Yes Safety Concerns: Feels Safe At This Time Assistive Devices: Bedside Commode, Cane and Walker Review of Systems Review of Systems: All systems reviewed & are unremarkable except as noted in HPI & below Physical Exam Constitutional: well developed and well nourished; no acute distress Neck: normal visual inspection and trachea midline Respiratory: normal respiratory effort, lungs clear to auscultation no respiratory distress and no cough Cardiovascular: Rate/Rhythm: regular rate and + bradycardic (rates 50) Heart Sounds: normal S1, normal S2 and + murmur (+1/6 systolic ) Vessels: dorsalis pedis pulses present; no JVD Extremities: no edema Skin: no rashes, warm and dry Psychiatric: A+Ox3, euthymic affect Results & Data Vital Signs (Past 12 Hours) Vital Signs Temp Pulse Pulse Resp BP BP Pulse Ox 06/02/23 08:00 78 06/02/23 07:32 36.4 C L 49 L 18 115/66 96 06/02/23 02:37 36.6 C 55 L 18 94/55 L 96 06/02/23 00:00 74 06/01/23 23:29 36.6 C 62 18 93/58 L 95 O2 Del Method 06/02/23 08:00 06/02/23 07:32 Room Air 06/02/23 02:37 Room Air 06/02/23 00:00 06/01/23 23:29 Room Air Laboratory Results Cardiac Enzymes 06/01/23 06/01/23 06/02/23 Range/Units 12:40 14:44 05:55 AST 11 L (13-39) U/L Troponin I High Sens 18.0 H 27.2 H 22.9 H (0-14) pg/ml Coagulation 06/01/23 Range/Units 12:40 PT 10.9 (9.0-12.0) Seconds APTT 22 (21-31) Seconds CBC 06/01/23 06/02/23 Range/Units 12:40 05:55 WBC 15.06 H 10.10 (4.8-10.8) K/ul RBC 4.59 3.60 L (4.20-5.40) M/uL Hgb 12.5 10.0 L (12.0-16.0) g/dl Hct 37.9 29.9 L (37.0-47.0) % Plt Count 328 350 (130-400) K/uL Neut # (Auto) 13.50 H (1.40-6.50) K/uL Lymph # (Auto) 0.79 L (1.20-3.40) K/uL Eagle # (Auto) 0.63 H (0.11-0.59) K/uL Eos # (Auto) 0.00 (0.00-0.50) K/uL Baso # (Auto) 0.04 (0.00-0.20) K/uL Comprehensive Metabolic Panel 06/01/23 06/02/23 Range/Units 12:40 05:55 Sodium 138 135 L (136-145) mmol/L Potassium 3.8 3.3 L (3.5-5.1) mmol/L Chloride 103 103 (98-107) mmol/L Carbon Dioxide 23 26 (21-32) mmol/L BUN 33 H 34 H (6-23) mg/dl Creatinine 0.86 0.95 (0.6-1.2) mg/dl Glucose 130 H 97 (70-99(Fasting)) mg/dl Calcium 9.3 8.2 L (8.6-10.3) mg/dl AST 11 L (13-39) U/L ALT 7 (7-52) U/L Alkaline Phosphatase 73 (34-104) U/L Total Protein 7.1 (6.0-8.3) gm/dl Albumin 4.0 (3.4-5.0) gm/dl Intake and Output 06/01/23 06/02/23 06/02/23 22:59 06:59 14:59 Intake Total 248.234 / 340.817 92.583 / 340.817 307.50 / 307.50 Output Total 0 / 0 Balance 248.234 / 340.817 92.583 / 340.817 307.50 / 307.50 Intake: IV 48.234 / 140.817 92.583 / 140.817 307.50 / 307.50 Heparin Sodium/Dextrose 25,000 23.567 / 93.567 70 / 93.567 109.75 / 109.75 units In 500 ml @ 750 UNITS/HR 15 mls/hr IV .Q24H [facility] Rx#: [id number] PANTOprazole 80 mg In Dextrose 120 / 120 5% 100 ml @ 480 mls/hr IV NOW ONE Rx#:[id number] dilTIAZem HCL 125 mg In 24.667 / 47.250 22.583 / 47.250 77.75 / 77.75 Dextrose 5% 100 ml @ 5 MG/HR 5 mls/hr IV .Q24H [facility] Rx#: [id number] Oral 200 / 200 Output: Urine 0 / 0 Other: Other Intake Source npo # Unmeasured Voids 1 Weight 69.8 kg 69.7 kg Weight Measurement Method Built in [facility] Diagnostic Findings Echocardiogram today Moderate LVH No regional wall motion abnormalities LVEF 55-60% No hemodynamically significant Moderate calcification of aortic valve with mild restriction mobility mild to moderate AI Trace MR Trace TR No suggestion on Pulmonary HTN
[2023-06-02 08:57] LABS: BUN Creatinine Ratio 35.8 (10-20); Calcium 8.2 mg/dl (8.6-10.3); Creatinine Clr Calc Pharmacy 40.3 ml/min; Est GFR (African American) 63.7 ml/min; Magnesium 2.3 mg/dl (1.7-2.4); Potassium 3.3 mmol/L (3.5-5.1)
[2023-06-02] MEDS: DOXYCYCLINE HYCLATE 100 MG CAP PO SCH (09:03)
[2023-06-02 09:06] LABS: Hematocrit (blood only) 29.9 % (37.0-47.0); Mean Corpuscular Hemoglobin 27.8 pg (25.0-34.0); Mean Corpuscular Hgb Conc 33.4 g/dL (32.0-36.0); Mean Corpuscular Volume 83.1 fL (80.0-100.0); Mean Platelet Volume 11.1 fL (9.4-12.4); Platelet Count 350 K/uL (130-400); RDW Coefficient of Variation 13.2 % (11.5-14.5)
[2023-06-02 10:19] LABS: Troponin I High Sensitivity 22.9 pg/ml (0-14)
[2023-06-02] MEDS: POTASSIUM CHLORIDE CRTAB 20 MEQ TABCR PO ONE (10:27)
[2023-06-02] MEDS ORDERED: PANTOPRAZOLE BOLUS/DRIP IV STA (10:36)
[2023-06-02] MEDS ORDERED: SODIUM CHLORIDE 0.9% 250 ML IV PRN (10:38)
--- NOTE | 2023-06-02 10:45 | Gastrointestinal Consultation ---
Date of Consultation June 02, 2023 Assessment & Plan (1) History of melena: (2) Hiatal hernia: Plan 1. PPI drip and Bolus (already initiated). 2. NPO x chips/sips for now, none after midnight. 3. Continue to hold anticoagulation. 4. Will review cardiology consult when completed. 5. If no cardiology contraindications to EGD, will go forward w EGD tomorrow morning. If increasingly rapid bleeding and further significant drop in Hb/Hct then will consider urgent EGD in the interim. Supervising Physician Co-Signing Physician Notes Attg add: I interviewed examined pt, reviewed chart and labs. Pt with h/o large HH. dark stool on ac with hgb drop. Plan EGD tomorrow. History of Present Illness Reason for Consultation: Melena Requesting Physician: Dr. Son Attending Physician: Lul Son MD History of Present Illness Ms. Rebekah Leiva is an 83-year-old female patient of Dr. Carrasco with a history of HTN, lumbar spine stenosis, GERD who presented yesterday for cough. On arrival was in A-fib with RVR which spontaneously resolved. Heparin was started yesterday today GI is consulted for melena. She reports passing several large, loose BMs on Thursday (3 days ago) but denies nausea, vomiting. Initially, she denies abd pain but later admits for epigastric discomfort today, "pain across the lower ribs." She reports having taken about 2 doses/day of an NSAID for a few weeks, most recently about 2 weeks ago. She was taking the NSAID for pain associated w thrush. Hb was 12 5 on arrival, is 10.0. BUN is mildly elevated at 34. Nursing documents that she was incontinence of several large black tarry bowel movements this morning. CR is normal at 0.9. Heparin was immedicately stopped. CT of the chest showed a large hiatal hernia. She was unaware that she had a HH. She hasn't had typical HH symptoms of lower chest discomfort after eating a large meal. No prior EGDs. Most recent colonoscopy a few years ago - "normal." Allergies Allergy/AdvReac Type Severity Reaction Status Date / Time No Known Allergies Allergy Verified 06/01/23 15:35 Home Medications Medication Instructions Recorded Confirmed Type amlodipine 2.5 mg-benazepril 10 mg 1 cap PO DAILY 01/06/23 06/01/23 History capsule famotidine 20 mg tablet 20 mg PO DAILY 01/06/23 06/01/23 History meloxicam 15 mg tablet 15 mg PO DAILY Pain 01/06/23 06/01/23 History oxybutynin chloride 5 mg tablet 5 mg PO BID 01/06/23 06/01/23 History alendronate 70 mg tablet 70 mg PO WK 06/01/23 06/01/23 History baclofen 10 mg tablet 5 mg PO BID Pain 06/01/23 06/01/23 History gabapentin 300 mg capsule 300 mg PO HS 06/01/23 06/01/23 History lifitegrast 5 % eye drops in a 1 drp ophthalmic (eye) AMPM PRN 06/01/23 06/01/23 History dropperette (Xiidra) NEEDED Patient History Medical History (Updated 06/02/23 @ 11:45 by EDIN Burgess) Essential hypertension Spinal stenosis of lumbar region Leg length discrepancy Thrush Oral thrush x 3 weeks (secondary to previous abx use). Following with PCP- using Nystatin rinse, clotrimazole lozenge, and salt water rinses- thrush slowly improving Pt will call if not resolved by DOS Urinary bladder incontinence Myofascial pain Follows with pain management Gait instability Uses cane to ambulate - secondary to hip vs lumbar back pain Lumbar facet joint syndrome Lumbar postlaminectomy syndrome Lumbar radiculopathy R L4-5 Chronic back pain Lumbar area- hx of lumbar fusion GERD (gastroesophageal reflux disease) Well controlled and stable Surgical History S/P lumbar fusion L2-4 Dr. Pierson 2017 History of bilateral tubal ligation History of colonoscopy History of tonsillectomy History of cataract surgery R/L Family History (Updated 06/01/23 @ 15:55 by Karie Rhoades PA-C) Other No known health problems Denies family history of Diabetes Coronary heart disease Cancer Stroke Social History (Updated 06/01/23 @ 15:56 by Karie Rhoades PA-C) Smoking Status: Former smoker Cigarettes Per Day: 1ppd x 48 yrs; Second Hand Exposure: No; Do You Dip or Chew Tobacco: No; Hx Alcohol Use: No Hx Substance Use: No Preferred Language: Danish Communication Ability: Effective Visual Impairment: No Limitations Hearing Ability: Normal Analysis Mgr Required: No Beliefs That Will Affect Care: None marital status: Single Current Living Situation: Alone current occupational status: retired Feels Safe at Home: Yes Assistive Devices: Bedside Commode, Cane and Walker Review of Systems Review of Systems: ROS: Gen: + weakness -improved since admission, Denies fevers, weight loss Eyes: No eye redness, or pain, no recent vision changes Resp: + SOB, no cough -improved since admission Cardio: No palpitations/irregular beats, no chest pain GI: + melena; No abdominal pain, no nausea/vomiting : Denies pain on urination Skin: No jaundice, itching or new rashes Physical Exam Constitutional: + thin, well groomed and comfortable appears fatigued but is awake, alert, oriented. Tells me that she makes her own decisions, signs her own consents and that she thinks EGD is a good idea. Eyes: PERRL, conjunctivae normal, anicteric sclerae ENMT: external ear and nose normal, oropharynx normal Neck: trachea midline, no thyromegaly Respiratory: normal respiratory effort, lungs clear to auscultation Cardiovascular: RRR, no murmur, no edema currently in NSR, rate about 60; no mumurs Gastrointestinal (Abdomen): + epigastric tenderness, soft, non tende r, no palpable masses. Skin: pale, no jaundice or rashes Neurologic: PERRL, EOMI, accommodation nl, no face palsy, no dysarthria Psychiatric: A+Ox3, euthymic affect Lymphatic: no cervical or axillary lymphadenopathy Results & Data Vital Signs (Past 12 Hours) Vital Signs Temp Pulse Pulse Resp BP BP Pulse Ox 06/02/23 08:00 78 06/02/23 07:32 36.4 C L 49 L 18 115/66 96 06/02/23 02:37 36.6 C 55 L 18 94/55 L 96 06/02/23 00:00 74 06/01/23 23:29 36.6 C 62 18 93/58 L 95 O2 Del Method 06/02/23 08:00 06/02/23 07:32 Room Air 06/02/23 02:37 Room Air 06/02/23 00:00 06/01/23 23:29 Room Air Laboratory Results 06/02/23 06/02/23 06/02/23 Range/Units 07:51 05:55 05:49 WBC 10.10 (4.8-10.8) K/ul RBC 3.60 L (4.20-5.40) M/uL Hgb 10.0 L (12.0-16.0) g/dl Hct 29.9 L (37.0-47.0) % MCV 83.1 (80.0-100.0) fL MCH 27.8 (25.0-34.0) pg MCHC 33.4 (32.0-36.0) g/dL RDW Std Deviation 40.0 (36.4-46.3) fL RDW Coeff of Lisa 13.2 (11.5-14.5) % Plt Count 350 (130-400) K/uL MPV 11.1 (9.4-12.4) fL Immature Gran % (Auto) % Neut % (Auto) % Lymph % (Auto) % Glasscock % (Auto) % Eos % (Auto) % Baso % (Auto) % Neut # (Auto) (1.40-6.50) K/uL Lymph # (Auto) (1.20-3.40) K/uL Glasscock # (Auto) (0.11-0.59) K/uL Eos # (Auto) (0.00-0.50) K/uL Baso # (Auto) (0.00-0.20) K/uL Immature Gran # (Auto) (0.01-0.20) K/uL Platelet Estimate (Normal) PT (9.0-12.0) Seconds INR (0.9-1.1) APTT (21-31) Seconds PTT Ratio Heparin Anti-Xa, Unfract 0.29 L (0.3-0.7) IU/ml Sodium 135 L (136-145) mmol/L Potassium 3.3 L (3.5-5.1) mmol/L Chloride 103 (98-107) mmol/L Carbon Dioxide 26 (21-32) mmol/L Anion Gap 6 (3-11) BUN 34 H (6-23) mg/dl Creatinine 0.95 (0.6-1.2) mg/dl Est Cr Clr Drug Dosing 40.3 ml/min Est GFR ( Amer) 63.7 ml/min Est GFR (Non-Af Amer) 55.0 ml/min BUN/Creatinine Ratio 35.8 H (10-20) Glucose 97 (70-99(Fasting)) mg/dl Lactate (0.4-2.0) mmol/L Calcium 8.2 L (8.6-10.3) mg/dl Magnesium 2.3 (1.7-2.4) mg/dl Total Bilirubin (0.2-1.0) mg/dl AST (13-39) U/L ALT (7-52) U/L Alkaline Phosphatase (34-104) U/L Troponin I High Sens 22.9 H (0-14) pg/ml Total Protein (6.0-8.3) gm/dl Albumin (3.4-5.0) gm/dl Globulin (2.5-4.0) gm/dl Albumin/Globulin Ratio (0.9-2) Procalcitonin 0.08 (0-0.5) ng/ml TSH (0.300-4.500) uIu/ml SARS-CoV-2 (PCR) (Negative) Influenza Type A (PCR) (Neg) Influenza Type B (PCR) (Neg) RSV (RT-PCR) (Neg) 06/01/23 06/01/23 06/01/23 Range/Units Unknown 22:52 14:44 WBC (4.8-10.8) K/ul RBC (4.20-5.40) M/uL Hgb (12.0-16.0) g/dl Hct (37.0-47.0) % MCV (80.0-100.0) fL MCH (25.0-34.0) pg MCHC (32.0-36.0) g/dL RDW Std Deviation (36.4-46.3) fL RDW Coeff of Lisa (11.5-14.5) % Plt Count (130-400) K/uL MPV (9.4-12.4) fL Immature Gran % (Auto) % Neut % (Auto) % Lymph % (Auto) % Glasscock % (Auto) % Eos % (Auto) % Baso % (Auto) % Neut # (Auto) (1.40-6.50) K/uL Lymph # (Auto) (1.20-3.40) K/uL Glasscock # (Auto) (0.11-0.59) K/uL Eos # (Auto) (0.00-0.50) K/uL Baso # (Auto) (0.00-0.20) K/uL Immature Gran # (Auto) (0.01-0.20) K/uL Platelet Estimate (Normal) PT (9.0-12.0) Seconds INR (0.9-1.1) APTT (21-31) Seconds PTT Ratio Heparin Anti-Xa, Unfract 0.22 L (0.3-0.7) IU/ml Sodium (136-145) mmol/L Potassium (3.5-5.1) mmol/L Chloride (98-107) mmol/L Carbon Dioxide (21-32) mmol/L Anion Gap (3-11) BUN (6-23) mg/dl Creatinine (0.6-1.2) mg/dl Est Cr Clr Drug Dosing ml/min Est GFR ( Amer) ml/min Est GFR (Non-Af Amer) ml/min BUN/Creatinine Ratio (10-20) Glucose (70-99(Fasting)) mg/dl Lactate (0.4-2.0) mmol/L Calcium (8.6-10.3) mg/dl Magnesium 2.4 (1.7-2.4) mg/dl Total Bilirubin (0.2-1.0) mg/dl AST (13-39) U/L ALT (7-52) U/L Alkaline Phosphatase (34-104) U/L Troponin I High Sens 27.2 H (0-14) pg/ml Total Protein (6.0-8.3) gm/dl Albumin (3.4-5.0) gm/dl Globulin (2.5-4.0) gm/dl Albumin/Globulin Ratio (0.9-2) Procalcitonin (0-0.5) ng/ml TSH 0.627 (0.300-4.500) uIu/ml SARS-CoV-2 (PCR) NEGATIVE (Negative) Influenza Type A (PCR) Negative (Neg) Influenza Type B (PCR) Negative (Neg) RSV (RT-PCR) Negative (Neg) 06/01/23 06/01/23 Range/Units 14:43 12:40 WBC 15.06 H (4.8-10.8) K/ul RBC 4.59 (4.20-5.40) M/uL Hgb 12.5 (12.0-16.0) g/dl Hct 37.9 (37.0-47.0) % MCV 82.6 (80.0-100.0) fL MCH 27.2 (25.0-34.0) pg MCHC 33.0 (32.0-36.0) g/dL RDW Std Deviation 38.9 (36.4-46.3) fL RDW Coeff of Lisa 13.1 (11.5-14.5) % Plt Count 328 (130-400) K/uL MPV 10.7 (9.4-12.4) fL Immature Gran % (Auto) 0.7 % Neut % (Auto) 89.6 % Lymph % (Auto) 5.2 % Glasscock % (Auto) 4.2 % Eos % (Auto) 0.0 % Baso % (Auto) 0.3 % Neut # (Auto) 13.50 H (1.40-6.50) K/uL Lymph # (Auto) 0.79 L (1.20-3.40) K/uL Glasscock # (Auto) 0.63 H (0.11-0.59) K/uL Eos # (Auto) 0.00 (0.00-0.50) K/uL Baso # (Auto) 0.04 (0.00-0.20) K/uL Immature Gran # (Auto) 0.10 (0.01-0.20) K/uL Platelet Estimate Normal (Normal) PT 10.9 (9.0-12.0) Seconds INR 1.0 (0.9-1.1) APTT 22 (21-31) Seconds PTT Ratio 0.8 Heparin Anti-Xa, Unfract (0.3-0.7) IU/ml Sodium 138 (136-145) mmol/L Potassium 3.8 (3.5-5.1) mmol/L Chloride 103 (98-107) mmol/L Carbon Dioxide 23 (21-32) mmol/L Anion Gap 12 H (3-11) BUN 33 H (6-23) mg/dl Creatinine 0.86 (0.6-1.2) mg/dl Est Cr Clr Drug Dosing 46.3 ml/min Est GFR ( Amer) 71.9 ml/min Est GFR (Non-Af Amer) 62.0 ml/min BUN/Creatinine Ratio 38.4 H (10-20) Glucose 130 H (70-99(Fasting)) mg/dl Lactate 1.0 2.2 H* (0.4-2.0) mmol/L Calcium 9.3 (8.6-10.3) mg/dl Magnesium (1.7-2.4) mg/dl Total Bilirubin 0.7 (0.2-1.0) mg/dl AST 11 L (13-39) U/L ALT 7 (7-52) U/L Alkaline Phosphatase 73 (34-104) U/L Troponin I High Sens 18.0 H (0-14) pg/ml Total Protein 7.1 (6.0-8.3) gm/dl Albumin 4.0 (3.4-5.0) gm/dl Globulin 3.1 (2.5-4.0) gm/dl Albumin/Globulin Ratio 1.3 (0.9-2) Procalcitonin (0-0.5) ng/ml TSH (0.300-4.500) uIu/ml SARS-CoV-2 (PCR) (Negative) Influenza Type A (PCR) (Neg) Influenza Type B (PCR) (Neg) RSV (RT-PCR) (Neg) Diagnostic Findings CTA Chest: 1. No pulmonary emboli identified. 2. Large hiatal hernia with intrathoracic stomach. Mild wall thickening of the distal esophagus with adjacent stranding favors esophagitis. 3. Small left and trace right pleural effusions. 4. A few small right upper lobe nodules which measure up to 5 mm. These favor a mild infectious process such as bronchiolitis. A chest CT in 6 months to ensure resolution is recommended.
[2023-06-02] MEDS: NSS + 20MEQ KCL 20 MEQ/1,000 ML BAG IV SCH (10:57)
[2023-06-02] MEDS: PANTOprazole 80 MG in DEXTROSE 5% 100 ML IV ONE (10:57)
[2023-06-02] MEDS: PANTOprazole 40 MG in DEXTROSE 5% MINI-B 100 ML IV SCH (10:58)
--- NOTE | 2023-06-02 13:09 | Electrocardiogram Report ---
Test Reason : Blood Pressure : / mmHG Vent. Rate : 060 BPM Atrial Rate : 060 BPM P-R Int : 150 ms QRS Dur : 084 ms QT Int : 520 ms P-R-T Axes : 040 -06 052 degrees QTc Int : 520 ms Normal sinus rhythm Minimal voltage criteria for LVH, may be normal variant T wave abnormality, consider anterior ischemia Prolonged QT Abnormal ECG When compared with ECG of 01-JUN-2023 13:40, Sinus rhythm has replaced Atrial fibrillation Vent. rate has decreased BY 59 BPM Left bundle branch block is no longer Present Confirmed by Mo Pearce ([id number]) on 06/02/2023 1:09:00 PM Referred By: REFERRED SELF Confirmed By:Mo Pearce
--- NOTE | 2023-06-02 15:43 | Hospitalist Progress Note ---
Date of Service June 02, 2023 Assessment & Plan (1) Atrial fibrillation with rapid ventricular response: Plan: This is an 83 y/o female with HTN, urinary incontinence, and lumbar radiculopathy who was referred to the ED today from her PCP office after she was found to be in afib with RVR. Pt denies prior cardiac history including no prior history of atrial fibrillation to her knowledge. Her symptoms of MIRANDA seemed to start 2-3 days ago when she had one day of productive cough with black sputum. CTA negative for PE but shows ?bronchiolitis. Initially responded to 10 mg of dilitiazem with improved rate in the ED but then rate rebounded to the 120s so ED provider started patient on a diltiazem drip and referred patient for admission. Melena Acute GI bleed Meloxicam discontinued Monitor H&H Transfuse PRBCs as needed Blood consent obtained IV heparin discontinued Started on IV protonix ggt NPO , IV fluids Appreciate GI Input Likely EGD tomorrow A-fib RVR Spontaneously converted to sinus Likely secondary to above Normal TSH --ECHO: Left ventricle is normal in size. Moderate concentric LVH with septal motion is consistent with postoperative state. No regional wall motion abnormalities noted. EF 55 to 60%. Grade 1 diastolic dysfunction. Aortic valve is trileaflet, moderately calcified with minimal restriction mobility. Mild to moderate aortic regurgitation. Trace tricuspid regurgitation and mitral regurgitation. Continue metoprolol with holding parameters Anticoagulation discontinued due to bradycardia Monitor and replete electrolytes as needed Appreciate cardiology input Hypokalemia Replete electrolytes as needed Monitor Mild troponin elevation Likely demand ischemia secondary to tachycardia, melena Monitor (2) Spinal stenosis of lumbar region: Plan: Chronic, stable Continue outpatient regimen (3) Essential hypertension: Plan: Chronic, stable Hold amlodipine as BP low (4) GERD (gastroesophageal reflux disease): Plan: CT concerning for mild esophagitis Currently on Protonix drip as above (5) Urinary bladder incontinence: Plan: Chronic, stable - follows with urology Continue home meds Plan DVT Px SCDs Re: Melena CODE STATUS Full code Admission and Anticipated Discharge Date Admission Date: June 01, 2023 Subjective Patient is seen and examined at bedside Had a large bowel movement with melena this morning Reported dizziness after the episode States cough, abdominal pain resolved Admits to have dyspnea on exertion and has generalized weakness No other complaints Denies any chest pain, nausea, vomiting Review of Systems Review of Systems: All systems reviewed & are unremarkable except as noted in Subjective Physical Exam Physical Exam: Physical Exam: Vitals signs as noted above General Appearance:Elderly, no apparent distress Head: normocephalic, Atraumatic Eyes: normal inspection, EOMI Neck: supple, Trachea midline Respiratory/Chest:Decreased breath sounds, CTA, No accessory muscle use Cardiovascular: S1, S2, +bradycardia, + murmur Abdomen/GI:Soft, Non tender, Bowel sounds present Extremities/Musculoskeletal:normal inspection, no edema Neurologic/Psych:AAOX3, grossly no focal neurological deficits Skin: normal color, warm Results & Data Results & Data Vital Signs (Past 12 Hours) Vital Signs Temp Pulse Resp BP BP Pulse Ox O2 Del Method 06/02/23 15:27 36.9 C 54 L 18 115/59 L 96 Room Air 06/02/23 12:00 53 L 06/02/23 11:18 36.5 C 51 L 18 91/46 L 96 Room Air 06/02/23 08:00 78 06/02/23 07:32 36.4 C L 49 L 18 115/66 96 Room Air Laboratory Results Short CBC 06/02/23 Range/Units 05:55 WBC 10.10 (4.8-10.8) K/ul Hgb 10.0 L (12.0-16.0) g/dl Hct 29.9 L (37.0-47.0) % Plt Count 350 (130-400) K/uL BMP 06/02/23 05:55 Sodium 135 L Potassium 3.3 L Chloride 103 Carbon Dioxide 26 BUN 34 H Creatinine 0.95 Glucose 97 Calcium 8.2 L (2) Spinal stenosis of lumbar region Neurogenic claudication status: with neurogenic claudication Qualified Code(s): M48.062 - Spinal stenosis, lumbar region with neurogenic claudication (4) GERD (gastroesophageal reflux disease) Esophagitis presence: with esophagitis Esophagitis bleeding: unspecified whether hemorrhage Qualified Code(s): K21.00 - Gastro-esophageal reflux disease with esophagitis, without bleeding (5) Urinary bladder incontinence Urinary Incontinence type: urinary incontinence without sensory awareness Qualified Code(s): N39.42 - Incontinence without sensory awareness
[2023-06-02 15:49] LABS: Hematocrit (blood only) 30.7 % (37.0-47.0); Hemoglobin 10.1 g/dl (12.0-16.0)
[2023-06-02] MEDS: METOPROLOL TARTRATE 25 MG TAB PO SCH (20:24)
[2023-06-02 21:00] LABS: Hematocrit (blood only) 28.7 % (37.0-47.0); Hemoglobin 9.4 g/dl (12.0-16.0)
[2023-06-03 06:51] LABS: Hematocrit (blood only) 27.1 % (37.0-47.0); Mean Corpuscular Hemoglobin 27.2 pg (25.0-34.0); Mean Corpuscular Hgb Conc 33.2 g/dL (32.0-36.0); Mean Corpuscular Volume 81.9 fL (80.0-100.0); Mean Platelet Volume 10.3 fL (9.4-12.4); Platelet Count 279 K/uL (130-400); RDW Coefficient of Variation 13.1 % (11.5-14.5); Red Blood Count 3.31 M/uL (4.20-5.40); White Blood Count 6.09 K/ul (4.8-10.8)
[2023-06-03 07:25] LABS: BUN Creatinine Ratio 35.4 (10-20); Calcium 7.8 mg/dl (8.6-10.3); Creatinine Clr Calc Pharmacy 46.7 ml/min; Est GFR (African American) 76.2 ml/min; Est GFR (Non-African American) 65.7 ml/min; Magnesium 2.1 mg/dl (1.7-2.4)
--- NOTE | 2023-06-03 08:20 | History & Physical Report ---
Date of Service June 03, 2023 Assessment & Plan Admission and Anticipated Discharge Date Admission Date: June 01, 2023 History of Present Illness Primary Care Provider: Efrain Carrasco MD anemia, melena CV: RRR Resp: CTA Abd: soft A/p: EGD Allergies Allergy/AdvReac Type Severity Reaction Status Date / Time No Known Allergies Allergy Verified 06/01/23 15:35 Home Medications Medication Instructions Recorded Confirmed Type amlodipine 2.5 mg-benazepril 10 mg 1 cap PO DAILY 01/06/23 06/01/23 History capsule famotidine 20 mg tablet 20 mg PO DAILY 01/06/23 06/01/23 History meloxicam 15 mg tablet 15 mg PO DAILY Pain 01/06/23 06/01/23 History oxybutynin chloride 5 mg tablet 5 mg PO BID 01/06/23 06/01/23 History alendronate 70 mg tablet 70 mg PO WK 06/01/23 06/01/23 History baclofen 10 mg tablet 5 mg PO BID Pain 06/01/23 06/01/23 History gabapentin 300 mg capsule 300 mg PO HS 06/01/23 06/01/23 History lifitegrast 5 % eye drops in a 1 drp ophthalmic (eye) AMPM PRN 06/01/2305/08 History dropperette (Xiidra) NEEDED Past Med/Surg History Medical History (Updated 06/02/23 @ 11:45 by EDIN Burgess) Essential hypertension Spinal stenosis of lumbar region Leg length discrepancy Thrush Oral thrush x 3 weeks (secondary to previous abx use). Following with PCP- using Nystatin rinse, clotrimazole lozenge, and salt water rinses- thrush slowly improving Pt will call if not resolved by DOS Urinary bladder incontinence Myofascial pain Follows with pain management Gait instability Uses cane to ambulate - secondary to hip vs lumbar back pain Lumbar facet joint syndrome Lumbar postlaminectomy syndrome Lumbar radiculopathy R L4-5 Chronic back pain Lumbar area- hx of lumbar fusion GERD (gastroesophageal reflux disease) Well controlled and stable Surgical History S/P lumbar fusion L2-4 Dr. Pierson 2017 History of bilateral tubal ligation History of colonoscopy History of tonsillectomy History of cataract surgery R/L Family History (Updated 06/01/23 @ 15:55 by Karie Rhoades PA-C) Other No known health problems Denies family history of Diabetes Coronary heart disease Cancer Stroke Social History (Updated 06/01/23 @ 15:56 by Karie Rhoades PA-C) Smoking Status: Former smoker Cigarettes Per Day: 1ppd x 48 yrs; Second Hand Exposure: No; Do You Dip or Chew Tobacco: No; Hx Alcohol Use: No Hx Substance Use: No Preferred Language: Namibian Communication Ability: Effective Visual Impairment: No Limitations Hearing Ability: Normal Rug Measurer Required: No Beliefs That Will Affect Care: None marital status: Single Current Living Situation: Alone current occupational status: retired Feels Safe at Home: Yes Assistive Devices: Bedside Commode, Cane and Walker Results & Data Results & Data Vital Signs (Past 12 Hours) Vital Signs Temp Pulse Pulse Resp BP Pulse Ox O2 Del Method 06/03/23 07:18 36.5 C 51 L 18 113/71 97 Room Air 06/03/23 02:46 36.5 C 50 L 18 125/60 96 Room Air 06/03/23 00:00 57 L 06/02/23 22:47 36.5 C 62 18 119/64 94 Room Air
--- NOTE | 2023-06-03 08:20 | Anesthesiology Consultation ---
Date of Service June 03, 2023 Assessment & Plan Consults Requested medical & cardiac Pulmonary History Surgery Operation Date: 06/03/23 16:30 Proposed Procedures p Esophagogastroduodenoscopy Dr Griggs - James Dong MD Height/Weight Height: 5 ft 2 in Weight: 69.6 kg Allergies Allergy/AdvReac Type Severity Reaction Status Date / Time No Known Allergies Allergy Verified 06/01/23 15:35 Medications Home Medications Medication Instructions Recorded Confirmed Last Taken amlodipine 2.5 mg-benazepril 10 mg 1 cap PO DAILY 01/06/23 06/01/23 05/31/23 capsule famotidine 20 mg tablet 20 mg PO DAILY 01/06/23 06/01/23 05/31/23 meloxicam 15 mg tablet 15 mg PO DAILY Pain 01/06/23 06/01/23 05/31/23 oxybutynin chloride 5 mg tablet 5 mg PO BID 01/06/23 06/01/23 05/31/23 alendronate 70 mg tablet 70 mg PO WK 06/01/23 06/01/23 05/31/23 baclofen 10 mg tablet 5 mg PO BID Pain 06/01/23 06/01/23 05/31/23 gabapentin 300 mg capsule 300 mg PO HS 06/01/23 06/01/23 05/31/23 lifitegrast 5 % eye drops in a 1 drp ophthalmic (eye) AMPM PRN 06/01/23 06/01/23 Unknown dropperette (Xiidra) NEEDED Active Medications Generic Name Dose Route Start Last Admin Trade Name Freq PRN Reason Stop Dose Admin Baclofen 5 mg 06/01/23 21:00 06/03/23 07:46 Baclofen 10 Mg Tab PO 07/01/23 20:59 5 mg BID JAYDEN Administration Gabapentin 300 mg 06/01/23 21:00 06/02/23 20:24 Gabapentin 300 Mg Cap PO 07/01/23 20:59 300 mg HS JAYDEN Administration Heparin Sodium/Dextrose 25,000 units in 500 mls @ 15 mls/hr 06/01/23 17:00 06/02/23 07:10 Heparin Sodium/Dextrose IV 07/01/23 16:59 750 units/hr .Q24H JAYDEN 15 mls/hr Titration Protocol 750 UNITS/HR Potassium Chloride/Sodium Chloride 20 meq in 1,000 mls @ 125 mls/hr 06/02/23 10:45 06/03/23 06:11 Normal Saline W/20 Meq Kcl IV 07/02/23 10:44 100 mls/hr .Q8H JAYDEN Administration Protocol Pantoprazole Sodium 40 mg/ 100 mls @ 20 mls/hr 06/02/23 11:00 06/03/23 06:13 Dextrose IV 07/02/23 10:59 8 mg/hr Q5H JAYDEN 20 mls/hr Administration 8 MG/HR Meloxicam 15 mg 06/02/23 09:00 06/02/23 07:38 Meloxicam 7.5 Mg Tab PO 07/02/23 08:59 15 mg DAILY JAYDEN Administration Metoprolol Tartrate 12.5 mg 06/02/23 21:00 06/02/23 20:24 Metoprolol Tartrate 25 Mg Tab PO 07/02/23 20:59 Not Given BID JAYDEN Oxybutynin Chloride 5 mg 06/01/23 21:00 06/03/23 07:47 Oxybutynin Chloride 5 Mg Tab PO 07/01/23 20:59 5 mg BID JAYDEN Administration Past Medical History Medical History (Updated 06/02/23 @ 11:45 by EDIN Burgess) Essential hypertension Spinal stenosis of lumbar region Leg length discrepancy Thrush Oral thrush x 3 weeks (secondary to previous abx use). Following with PCP- using Nystatin rinse, clotrimazole lozenge, and salt water rinses- thrush slowly improving Pt will call if not resolved by DOS Urinary bladder incontinence Myofascial pain Follows with pain management Gait instability Uses cane to ambulate - secondary to hip vs lumbar back pain Lumbar facet joint syndrome Lumbar postlaminectomy syndrome Lumbar radiculopathy R L4-5 Chronic back pain Lumbar area- hx of lumbar fusion GERD (gastroesophageal reflux disease) Well controlled and stable Past Family History Family History (Updated 06/01/23 @ 15:55 by Karie Rhoades PA-C) Other No known health problems Denies family history of Diabetes Coronary heart disease Cancer Stroke Past Surgical History Surgical History S/P lumbar fusion L2-4 Dr. Pierson 2017 History of bilateral tubal ligation History of colonoscopy History of tonsillectomy History of cataract surgery R/L Social History Smoking Status: Former smoker tobacco type: cigarettes Smoking cigarettes per day: 1ppd x 48 yrs Do You Dip or Chew Tobacco: No Smoking End Date: 2011 Hx Alcohol Use: No Alcohol type: wine alcohol intake frequency: holidays/special occasions only Hx Substance Use: No substance use type: other Substance Use Type Other:: CBD OIL (RARELY) Last Used Substance: Unknown Physical Exam Vital Signs Last Vital Signs Temp 36.5 C 06/03/23 07:18 Pulse 51 L 06/03/23 07:18 Resp 18 06/03/23 07:18 BP 113/71 06/03/23 07:18 Pulse Ox 97 06/03/23 07:18 O2 Del Method Room Air 06/03/23 07:18 Testing Laboratory Results 06/03/23 06:13 06/03/23 06:13 PT 10.9 Seconds (9.0-12.0) 06/01/23 12:40 INR 1.0 (0.9-1.1) 06/01/23 12:40 APTT 22 Seconds (21-31) 06/01/23 12:40 Blood Type O Positive 06/02/23 11:33 Antibody Screen NEGATIVE 06/02/23 11:33 06/01/23 13:17 Aerobic Blood Culture - Preliminary Blood No growth in Aerobic bottle after 24 hours. Anaerobic Blood Culture - Preliminary No growth in Anaerobic bottle after 24 hours. 06/01/23 13:11 Aerobic Blood Culture - Preliminary Blood No growth in Aerobic bottle after 24 hours. Anaerobic Blood Culture - Preliminary No growth in Anaerobic bottle after 24 hours.
[2023-06-03] MEDS: PROPOFOL IV EMULSION 10 MG/ML 20 ML VIAL IV ONE (10:40)
[2023-06-03] MEDS: LIDOCAINE 2% 2 ML VIAL/AMP(20MG/ML) INFIL ONE (10:40)
--- NOTE | 2023-06-03 10:42 | Cardiology Progress Note ---
Date of Service June 03, 2023 Assessment & Plan (1) Atrial fibrillation with rapid ventricular response: (2) Essential hypertension: (3) History of melena: Plan Assessment: 83 year-old female presented from PCP office for new onset atrial fibrillation in the setting of possible GI bleed. Spontaneously converted to NSR last evening. No prior cardiac history to date. Plan: 1. A-fib with RVR: -new onset, spontaneously converted on night of admission (06/01/23) -No prior history of A-fib or other cardiac disease per patient. -Patient has had recent acute cough with "black" sputum production and reports multiple loose bowels. GI has seen patient today for concerns of melena and a drop in Hemoglobin. -Review of telemetry continues to demonstrate no recurrence of A-fib. -Echocardiogram does not show significant dilation of left atrium to suggest this has been longstanding. -Normal LVEF, with presence of mild valvular disease. No new/acute wall motion abnormalities -Very mild troponin elevation with peak of 27.2 likely demand driven due to tachycardia and new anemia. -Continue Metoprolol Tartrate 12.5mg PO BID with close monitoring on telemetry. -AC therapy remains on hold. Awaiting endoscopy results. -CHADS-VASC score of 4 (age, gender, HTN) with recommendation for oral AC therapy to be considered post GI work up, and HgB stabilization. -Once patient is stable from a primary and GI standpoint. would recommend OP follow up with cardiology in 3-4 weeks. 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 Resting EKG does shows non-specific T wave changes which may be suggestive of other cardiac disease involvement and should be considered for ischemic work up if appropriate. 2. HTN -Low normal today. Denies any dizziness, lightheadedness or pre-syncopal symptoms. 3. Melena -H/H with continued decline 9.0/27.1. -patient being followed by GI with plans for endoscopy today, awaiting results. Case has been discussed with Dr. Pretty. Further recommendations regarding plan of care as per his assessment. I spent a total of 30 minutes on the date of service in preparation, delivery, documentation of the care provided to the patient excluding any time spent in the performance of separately billed services. EDIN Byrne [facility] Admission and Anticipated Discharge Date Admission Date: June 01, 2023 Supervising Physician Co-Signing Physician Notes Patient seen and examined, chart, medications, telemetry reviewed. Management and care discussed in detail with advanced provider please review above note. Patient is an 83-year-old female admitted with symptoms of cough versus vomiting productive of black tarry material/hematochezia Found to be in atrial fibrillation during initial assessment and referred for further evaluation. Patient with left bundle branch block configuration with elevated heart rates. Patient spontaneously converted to sinus rhythm with medications Results of EGD from today were reviewed noting extensive erosive esophagitis. Patient with history of meloxicam and nonsteroidal use due to chronic back pain Plan: 1.Paroxysmal atrial fibrillation without recurrence. Patient has not received any additional beta-renetta having been held last night and this morning. Plan on continuing metoprolol as metoprolol succinate 12.5 mg daily Due to extensive erosive esophagitis and bleeding phenomena would not initiate anticoagulation unless atrial fibrillation recurs. Likely incited by acute illness. Will need cardiology reassessment post discharge 2. Hypertension: Patient on combination therapy with Lotrel (amlodipine/benazepril. Currently on hold. Would resume amlodipine if blood pressure increases. 3. Rate related left bundle branch block with abnormal EKG on conversion to sinus rhythm. Depending clinical course consider ischemic evaluation post hospital discharge no indications at this time Subjective 06/03/23: Patient seen and examined today at bedside. She has just returned from her endoscopic procedure. Labs, diagnostics, vitals and documentation reviewed. Patient states she is feeling well overall. Awaiting results of endoscopy. Denies any chest pain, pressure, palpitations, shortness of breath, PND, pre-sy ncope, syncope or edema. Review of telemetry demonstrates SB/SR rates 50's to 60's. No acute events overnight. Review of Systems Review of Systems: All systems reviewed & are unremarkable except as noted in HPI & below Physical Exam Constitutional: well developed and well nourished; no acute distress Neck: normal visual inspection and trachea midline Respiratory: normal respiratory effort, lungs clear to auscultation no respiratory distress and no cough Cardiovascular: Rate/Rhythm: regular rate and + bradycardic (rates 50) Heart Sounds: normal S1, normal S2 and + murmur (+1/6 systolic ) Vessels: dorsalis pedis pulses present; no JVD Extremities: no edema Skin: no rashes, warm and dry Psychiatric: A+Ox3, euthymic affect Results & Data Vital Signs (Past 12 Hours) Vital Signs Temp Pulse Pulse Pulse Resp BP Pulse Ox 06/03/23 09:28 53 L 18 106/67 97 06/03/23 09:14 55 L 18 118/56 L 94 06/03/23 08:59 68 16 102/58 L 94 06/03/23 08:20 36.3 C L 60 16 130/60 98 06/03/23 07:18 36.5 C 51 L 18 113/71 97 06/03/23 02:46 36.5 C 50 L 18 125/60 96 06/03/23 00:00 57 L 06/02/23 22:47 36.5 C 62 18 119/64 94 O2 Del Method 06/03/23 09:28 Room Air 06/03/23 09:14 Room Air 06/03/23 08:59 Room Air 06/03/23 08:20 Room Air 06/03/23 07:18 Room Air 06/03/23 02:46 Room Air 06/03/23 00:00 06/02/23 22:47 Room Air Laboratory Results CBC 06/02/23 06/02/23 06/03/23 Range/Units 15:28 20:26 06:13 WBC 6.09 (4.8-10.8) K/ul RBC 3.31 L (4.20-5.40) M/uL Hgb 10.1 L 9.4 L 9.0 L (12.0-16.0) g/dl Hct 30.7 L 28.7 L 27.1 L (37.0-47.0) % Plt Count 279 (130-400) K/uL Comprehensive Metabolic Panel 06/03/23 Range/Units 06:13 Sodium 133 L (136-145) mmol/L Potassium 4.0 D (3.5-5.1) mmol/L Chloride 108 H (98-107) mmol/L Carbon Dioxide 20 L (21-32) mmol/L BUN 29 H (6-23) mg/dl Creatinine 0.82 (0.6-1.2) mg/dl Glucose 93 (70-99(Fasting)) mg/dl Calcium 7.8 L (8.6-10.3) mg/dl Intake and Output 06/02/23 06/03/23 06/03/23 22:59 06:59 14:59 Intake Total 1222.334 / 3085.834 1181.000 / 3085.834 Output Total 200 / 200 Balance 1022.334 / 2885.834 1181.000 / 2885.834 Intake: IV 1122.334 / 2610.834 1181.000 / 2610.834 Nss + 20Meq KCl 20 meq In 1,000 936.667 / 1923.334 986.667 / 1923.334 ml @ 125 mls/hr IV .Q8H JAYDEN Rx #:[id number] PANTOprazole 40 mg In Dextrose 185.667 / 380.000 194.333 / 380.000 5% Mini-B 100 ml @ 8 MG/HR 20 mls/hr IV Q5H JAYDEN Rx#:[id number] Oral 100 / 475 Output: Urine 200 / 200 Other: # Unmeasured Voids 1 Weight 69.7 kg 69.6 kg 69.6 kg Patient Weight 06/04/23 06:59 Weight 69.6 kg
--- NOTE | 2023-06-03 10:55 | GI REPORT ---
Patient Name: Rebekah Leiva Procedure Date: 06/03/2023 10:42 AM Date of : 1940 Admit Type: Inpatient Age: 83 Gender: Female Attending MD: James Dong MD, Procedure: Upper GI endoscopy Providers: James Dong MD Referring MD: Lul Son Md Indications: Melena Medicines: See the Anesthesia note for documentation of the administered medications Complications: No immediate complications. Estimated Blood Loss: Estimated blood loss: none. Procedure: Pre-Anesthesia Assessment: - ASA Grade Assessment: III - A patient with severe systemic disease. After obtaining informed consent, the endoscope was passed under direct vision. Throughout the procedure, the patient's blood pressure, pulse, and oxygen saturations were monitored continuously. The Endoscope was introduced through the mouth, and advanced to the second part of duodenum. The upper GI endoscopy was accomplished without difficulty. The patient tolerated the procedure well. Findings: There was diffuse circumferential ulceration of the mid and distal esophagus. The mid and distal esophagus was covered in exudate. No esophageal mass was seen. The GE junction was at 30 cm. There was a large hiatal hernia, involving half of the stomach. The stomach mucosa was normal. The duodenum was normal. Impression: Necrotizing esophagitis, Stage 0. Large hiatal hernia. Recommendation: Discharge pt to floor. Will discuss anticoagulation with primary service. PPI twice daily. Soft diet. Pt will need follow up EGD 6 weeks to rule out mass, stricture. James Dong M.D. James Dong MD 06/03/2023 10:55:05 AM This report has been signed electronically. Note Initiated On: 06/03/2023 10:42 AM Number of Addenda: 0 I attest to the content of the Intraoperative Record and orders documented therein, exceptions below {[id number]}
--- NOTE | 2023-06-03 15:05 | Anesthesiology Progress Note ---
Date of Service June 03, 2023 Anesthesia Post Procedure Vital Signs Vital Signs: Temp Pulse Pulse Pulse Resp BP Pulse Ox 06/03/23 11:33 50 L 06/03/23 10:59 36.6 C 49 L 18 130/62 98 06/03/23 09:28 53 L 18 106/67 97 06/03/23 09:14 55 L 18 118/56 L 94 06/03/23 08:59 68 16 102/58 L 94 06/03/23 08:20 36.3 C L 60 16 130/60 98 06/03/23 07:18 36.5 C 51 L 18 113/71 97 06/03/23 02:46 36.5 C 50 L 18 125/60 96 06/03/23 00:00 57 L 06/02/23 22:47 36.5 C 62 18 119/64 94 06/02/23 19:20 37 C 55 L 18 101/58 L 95 06/02/23 17:38 06/02/23 16:00 52 L 06/02/23 15:27 36.9 C 54 L 18 115/59 L 96 O2 Del Method O2 Del Method 06/03/23 11:33 06/03/23 10:59 Room Air 06/03/23 09:28 Room Air 06/03/23 09:14 Room Air 06/03/23 08:59 Room Air 06/03/23 08:20 Room Air 06/03/23 07:18 Room Air 06/03/23 02:46 Room Air 06/03/23 00:00 06/02/23 22:47 Room Air 06/02/23 19:20 Room Air 06/02/23 17:38 Room Air 06/02/23 16:00 Room Air 06/02/23 15:27 Room Air Pain Intensity Bilateral Abdomen: Pain Intensity: 8 Transfer of Care Handoff Completed per policy Notes Mental Status: alert / awake / arousable and participated in evaluation Nausea / Vomiting: adequately controlled Pain: adequately controlled Airway Patency, RR, SpO2: stable & adequate BP & HR: stable & adequate Hydration State: stable & adequate Anesthetic Complications: no major complications apparent and Pt Satisfied with anesthetic care
--- NOTE | 2023-06-03 15:29 | Hospitalist Progress Note ---
Date of Service June 03, 2023 Assessment & Plan (1) Atrial fibrillation with rapid ventricular response: Plan: This is an 83 y/o female with HTN, urinary incontinence, and lumbar radiculopathy who was referred to the ED today from her PCP office after she was found to be in afib with RVR. Pt denies prior cardiac history including no prior history of atrial fibrillation to her knowledge. Her symptoms of MIRANDA seemed to start 2-3 days ago when she had one day of productive cough with black sputum. CTA negative for PE but shows ?bronchiolitis. Initially responded to 10 mg of dilitiazem with improved rate in the ED but then rate rebounded to the 120s so ED provider started patient on a diltiazem drip and referred patient for admission. Necrotizing Esophagitis with GI bleed Acute blood loss anemia Melena due to above --S/P EGD:Necrotizing esophagitis, Large hiatal hernia. Meloxicam discontinued Monitor H&H Transfuse PRBCs as needed IV heparin discontinued Continue protonix BID Appreciate GI Input Advance to GI soft diet as able Will need repeat EGD in 6 weeks to rule out mass, stricture A-fib RVR Spontaneously converted to sinus Likely secondary to above Normal TSH --ECHO: Left ventricle is normal in size. Moderate concentric LVH with septal motion is consistent with postoperative state. No regional wall motion abnormalities noted. EF 55 to 60%. Grade 1 diastolic dysfunction. Aortic valve is trileaflet, moderately calcified with minimal restriction mobility. Mild to moderate aortic regurgitation. Trace tricuspid regurgitation and mitral regurgitation. Monitor and replete electrolytes as needed Appreciate cardiology input No anticoagulation due to GI bleed Plan to continue metoprolol 12.5 mg daily per cardiology Hypokalemia Replete electrolytes as needed Monitor Mild troponin elevation Likely demand ischemia secondary to tachycardia, melena Monitor (2) Spinal stenosis of lumbar region: Plan: Chronic, stable Continue outpatient regimen (3) Essential hypertension: Plan: Chronic, stable Lotrel (amlodipine/benazepril) on hold Plan to resume amlodipine as able Monitor BP (4) GERD (gastroesophageal reflux disease): Plan: CT concerning for mild esophagitis Continue PPI as above (5) Urinary bladder incontinence: Plan: Chronic, stable - follows with urology Continue home meds Plan DVT Px SCDs Re: Melena CODE STATUS Full code Disposition PT OT prior to discharge Admission and Anticipated Discharge Date Admission Date: June 01, 2023 Subjective Patient is seen and examined at bedside States feeling tired and has generalized weakness No recurrence of melena today Reports some dyspnea on exertion Denies any chest pain, nausea, vomiting, abdominal pain Discussed with GI today Review of Systems Review of Systems: All systems reviewed & are unremarkable except as noted in Subjective Physical Exam Physical Exam: Physical Exam: Vitals signs as noted above General Appearance:Elderly, no apparent distress Head: normocephalic, Atraumatic Eyes: normal inspection, EOMI Neck: supple, Trachea midline Respiratory/Chest:Decreased breath sounds, CTA, No accessory muscle use Cardiovascular: S1, S2, +bradycardia, + murmur Abdomen/GI:Soft, Non tender, Bowel sounds present Extremities/Musculoskeletal:normal inspection, no edema Neurologic/Psych:AAOX3, grossly no focal neurological deficits Skin: normal color, warm Results & Data Results & Data Vital Signs (Past 12 Hours) Vital Signs Temp Pulse Pulse Resp BP Pulse Ox O2 Del Method 06/03/23 15:19 36.6 C 63 18 149/76 H 96 Room Air 06/03/23 11:33 50 L 06/03/23 10:59 36.6 C 49 L 18 130/62 98 Room Air 06/03/23 09:28 53 L 18 106/67 97 Room Air 06/03/23 09:14 55 L 18 118/56 L 94 Room Air 06/03/23 08:59 68 16 102/58 L 94 Room Air 06/03/23 08:20 36.3 C L 60 16 130/60 98 Room Air 06/03/23 07:18 36.5 C 51 L 18 113/71 97 Room Air Laboratory Results Short CBC 06/02/23 06/02/23 06/03/23 Range/Units 15:28 20:26 06:13 WBC 6.09 (4.8-10.8) K/ul Hgb 10.1 L 9.4 L 9.0 L (12.0-16.0) g/dl Hct 30.7 L 28.7 L 27.1 L (37.0-47.0) % Plt Count 279 (130-400) K/uL BMP 06/03/23 06:13 Sodium 133 L Potassium 4.0 D Chloride 108 H Carbon Dioxide 20 L BUN 29 H Creatinine 0.82 Glucose 93 Calcium 7.8 L (2) Spinal stenosis of lumbar region Neurogenic claudication status: with neurogenic claudication Qualified Code(s): M48.062 - Spinal stenosis, lumbar region with neurogenic claudication (4) GERD (gastroesophageal reflux disease) Esophagitis presence: with esophagitis Esophagitis bleeding: unspecified whether hemorrhage Qualified Code(s): K21.00 - Gastro-esophageal reflux disease with esophagitis, without bleeding (5) Urinary bladder incontinence Urinary Incontinence type: urinary incontinence without sensory awareness Qualified Code(s): N39.42 - Incontinence without sensory awareness
--- NOTE | 2023-06-03 16:08 | Electrocardiogram Report ---
Test Reason : Blood Pressure : / mmHG Vent. Rate : 052 BPM Atrial Rate : 052 BPM P-R Int : 166 ms QRS Dur : 082 ms QT Int : 502 ms P-R-T Axes : 047 008 057 degrees QTc Int : 466 ms Sinus bradycardia Otherwise normal ECG When compared with ECG of 02-JUN-2023 05:19, QT has shortened Confirmed by Mo Pearce ([id number]) on 06/03/2023 4:08:13 PM Referred By: REFERRED SELF Confirmed By:Mo Pearce
[2023-06-03] MEDS: METOPROLOL SUCC 25MG EXT REL TAB PO SCH (16:35)
[2023-06-03] MEDS: PANTOprazole 40 MG in SYRINGE 0 ML IV SCH (21:00)
[2023-06-04 06:52] LABS: Hematocrit (blood only) 29.4 % (37.0-47.0); Hemoglobin 9.7 g/dl (12.0-16.0); Mean Corpuscular Hemoglobin 27.2 pg (25.0-34.0); Mean Corpuscular Volume 82.4 fL (80.0-100.0); Mean Platelet Volume 10.4 fL (9.4-12.4); Platelet Count 320 K/uL (130-400); RDW Coefficient of Variation 13.1 % (11.5-14.5); RDW Standard Deviation 39.2 fL (36.4-46.3); Red Blood Count 3.57 M/uL (4.20-5.40); White Blood Count 5.88 K/ul (4.8-10.8)
[2023-06-04 07:17] LABS: BUN Creatinine Ratio 22.1 (10-20); Calcium 8.2 mg/dl (8.6-10.3); Creatinine Clr Calc Pharmacy 49.7 ml/min; Est GFR (African American) 82.2 ml/min; Est GFR (Non-African American) 70.9 ml/min; Potassium 4.2 mmol/L (3.5-5.1)
[2023-06-04] MEDS: MAGNESIUM SULFATE / D5W 1 GM/100 ML BAG IV ONE (12:48)
--- NOTE | 2023-06-04 13:37 | Cardiology Progress Note ---
Date of Service June 04, 2023 Assessment & Plan (1) Atrial fibrillation with rapid ventricular response: (2) Essential hypertension: (3) History of melena: Plan Assessment: 83 year-old female presented from PCP office for new onset atrial fibrillation in the setting of possible GI bleed. Spontaneously converted to NSR last evening. No prior cardiac history to date. Plan: 1. A-fib with RVR: -new onset, spontaneously converted on night of admission (06/01/23) -No prior history of A-fib or other cardiac disease per patient. -Patient has had recent acute cough with "black" sputum production and reports multiple loose bowels. GI has seen patient for concerns of melena and a drop in Hemoglobin. and proceeded with endoscopy which showed significant gastritis and also evidence of a large hiatal hernia. -Review of telemetry continues to demonstrate no recurrence of A-fib, although there is evidence of what appears to be PAT at 0046 lasting 20 seconds, Asymptomatic. -Echocardiogram does not show significant dilation of left atrium to suggest this has been longstanding. -Normal LVEF, with presence of mild valvular disease. No new/acute wall motion abnormalities -Very mild troponin elevation with peak of 27.2 likely demand driven due to tachycardia and new anemia. -Currently on Metoprolol succinate 12.5mg QD, will discuss telemetry findings with Dr. Pretty today to determine if we add Amiodarone or give consideration to other anti-arrhythmic given new PAT episodes. There is concern for recurrence of A-fib and given the nature of her GI disease, can not tolerate AC therapy for high risk of bleed. -CHADS-VASC score of 4 (age, gender, HTN); however, given Endoscopy results, not a candidate to restart AC therapy for bleeding risk. -Once patient is stable from a primary and GI standpoint. would recommend OP follow up with cardiology in 3-4 weeks. 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 Resting EKG does shows non-specific T wave changes which may be suggestive of other cardiac disease involvement and should be considered for ischemic work up if a ppropriate. 2. HTN -At target today. Denies any dizziness, lightheadedness or pre-syncopal symptoms. 3. Melena -H/H remains below normal, but stable post procedure with no recurrence of melena -patient being followed by GI Case has been discussed with Dr. Pretty. Further recommendations regarding plan of care as per his assessment. I spent a total of 30 minutes on the date of service in preparation, delivery, documentation of the care provided to the patient excluding any time spent in the performance of separately billed services. EDIN Byrne [facility] Admission and Anticipated Discharge Date Admission Date: June 01, 2023 Supervising Physician Co-Signing Physician Notes Patient was seen and examined, chart, medications telemetry reviewed. Assessment and plan as above with additional findings notable for transient wide-complex tachycardia while ambulating this morning. Findings reflect rate related left bundle branch block superimposed on paroxysmal atrial arrhythmia atrial fibrillation versus atrial tachycardia. Contraindications to anticoagulation remain Plan: Initiate oral amiodarone with 200 mg twice per day, discontinue metoprolol succinate daily EKG with maintain telemetry additional 24 to 48-hour Subjective 06/04/23: Patient seen and examined in follow up. Resting comfortably in bed, offers no complaints. Denies any chest pain, pressure, palpitations, no shortness of breath, PND, no pre-syncope, syncope or edema. Review of telemetry demonstrates SR with PVC's Rate 60-70's. There was notation of a 20 second run of what appears to be atrial tachycardia at 00:46am Patient states that she was awake, but was asymptomatic. H/H remains stable. Electrolytes stable. Review of Systems Review of Systems: All systems reviewed & are unremarkable except as noted in HPI & below Physical Exam Constitutional: well developed and well nourished; no acute distress Neck: normal visual inspection and trachea midline Respiratory: normal respiratory effort, lungs clear to auscultation no respiratory distress and no cough Cardiovascular: Rate/Rhythm: regular rate and + bradycardic (rates 50) Heart Sounds: normal S1, normal S2 and + murmur (+1/6 systolic ) Vessels: dorsalis pedis pulses present; no JVD Extremities: no edema Skin: no rashes, warm and dry Psychiatric: A+Ox3, euthymic affect Results & Data Vital Signs (Past 12 Hours) Vital Signs Temp Pulse Resp BP Pulse Ox O2 Del Method 06/04/23 11:33 36.7 C 59 L 20 115/64 98 Room Air 06/04/23 08:00 63 06/04/23 07:54 36.5 C 67 20 144/72 H 96 Room Air 06/04/23 04:00 36.7 C 60 18 133/72 98 Room Air Laboratory Results CBC 06/04/23 Range/Units 06:11 WBC 5.88 (4.8-10.8) K/ul RBC 3.57 L (4.20-5.40) M/uL Hgb 9.7 L (12.0-16.0) g/dl Hct 29.4 L (37.0-47.0) % Plt Count 320 (130-400) K/uL Comprehensive Metabolic Panel 06/04/23 Range/Units 06:11 Sodium 136 (136-145) mmol/L Potassium 4.2 (3.5-5.1) mmol/L Chloride 109 H (98-107) mmol/L Carbon Dioxide 23 (21-32) mmol/L BUN 17 (6-23) mg/dl Creatinine 0.77 (0.6-1.2) mg/dl Glucose 92 (70-99(Fasting)) mg/dl Calcium 8.2 L (8.6-10.3) mg/dl Intake and Output 06/03/23 06/04/23 06/04/23 22:59 06:59 14:59 Intake Total 120 / 2246.683 150 / 2246.683 Balance 120 / 2246.683 150 / 2246.683 Intake: Oral 120 / 750 150 / 750 Other: # Unmeasured Voids 1 Weight 69.5 kg
--- NOTE | 2023-06-04 16:02 | Hospitalist Progress Note ---
Date of Service June 04, 2023 Assessment & Plan (1) Atrial fibrillation with rapid ventricular response: Plan: This is an 83 y/o female with HTN, urinary incontinence, and lumbar radiculopathy who was referred to the ED today from her PCP office after she was found to be in afib with RVR. Pt denies prior cardiac history including no prior history of atrial fibrillation to her knowledge. Her symptoms of MIRANDA seemed to start 2-3 days ago when she had one day of productive cough with black sputum. CTA negative for PE but shows ?bronchiolitis. Initially responded to 10 mg of dilitiazem with improved rate in the ED but then rate rebounded to the 120s so ED provider started patient on a diltiazem drip and referred patient for admission. Necrotizing Esophagitis with GI bleed Acute blood loss anemia Melena due to above --S/P EGD:Necrotizing esophagitis, Large hiatal hernia. Meloxicam discontinued Transfuse PRBCs as needed IV heparin discontinued Continue Protonix BID Appreciate GI Input Advance to GI soft diet today Will need repeat EGD in 6 weeks to rule out mass, stricture Monitor CBC A-fib RVR Spontaneously converted to sinus Paroxysmal atrial tachycardia with block Likely secondary to above Normal TSH --ECHO: Left ventricle is normal in size. Moderate concentric LVH with septal motion is consistent with postoperative state. No regional wall motion abnormalities noted. EF 55 to 60%. Grade 1 diastolic dysfunction. Aortic valve is trileaflet, moderately calcified with minimal restriction mobility. Mild to moderate aortic regurgitation. Trace tricuspid regurgitation and mitral regurgitation. Monitor and replete electrolytes as needed Appreciate cardiology input No anticoagulation due to GI bleed Plan to continue metoprolol 12.5 mg daily per cardiology Cardiology plans to initiate antiarrhythmic Amiodarone Vs Sotalol Hypokalemia Replete electrolytes as needed Monitor Mild troponin elevation Likely demand ischemia secondary to tachycardia, melena Monitor (2) Spinal stenosis of lumbar region: Plan: Chronic, stable Continue outpatient regimen (3) Essential hypertension: Plan: Chronic, stable Lotrel (amlodipine/benazepril) on hold Plan to resume amlodipine as able Monitor BP (4) GERD (gastroesophageal reflux disease): Plan: CT concerning for mild esophagitis Continue PPI as above (5) Urinary bladder incontinence: Plan: Chronic, stable - follows with urology Continue home meds Plan DVT Px SCDs Re: Melena CODE STATUS Full code Disposition PT OT prior to discharge Admission and Anticipated Discharge Date Admission Date: June 01, 2023 Subjective Patient is seen and examined at bedside Subjectively feels a lot better today Dizziness resolved No recurrence of melena Had paroxysmal atrial tachycardia while having PT today Discussed with cardiology today Denies any chest pain, nausea, vomiting, abdominal pain Review of Systems Review of Systems: All systems reviewed & are unremarkable except as noted in Subjective Physical Exam Physical Exam: Physical Exam: Vitals signs as noted above General Appearance:Elderly, no apparent distress Head: normocephalic, Atraumatic Eyes: normal inspection, EOMI Neck: supple, Trachea midline Respiratory/Chest:Decreased breath sounds, CTA, No accessory muscle use Cardiovascular: S1, S2, +bradycardia, + murmur Abdomen/GI:Soft, Non tender, Bowel sounds present Extremities/Musculoskeletal:normal inspection, no edema Neurologic/Psych:AAOX3, grossly no focal neurological deficits Skin: normal color, warm Results & Data Results & Data Vital Signs (Past 12 Hours) Vital Signs Temp Pulse Resp BP Pulse Ox O2 Del Method 06/04/23 15:57 36.7 C 59 L 18 168/81 H 96 Room Air 06/04/23 11:33 36.7 C 59 L 20 115/64 98 Room Air 06/04/23 08:00 63 06/04/23 07:54 36.5 C 67 20 144/72 H 96 Room Air 06/04/23 04:00 36.7 C 60 18 133/72 98 Room Air Laboratory Results Short CBC 06/04/23 Range/Units 06:11 WBC 5.88 (4.8-10.8) K/ul Hgb 9.7 L (12.0-16.0) g/dl Hct 29.4 L (37.0-47.0) % Plt Count 320 (130-400) K/uL BMP 06/04/23 06:11 Sodium 136 Potassium 4.2 Chloride 109 H Carbon Dioxide 23 BUN 17 Creatinine 0.77 Glucose 92 Calcium 8.2 L (2) Spinal stenosis of lumbar region Neurogenic claudication status: with neurogenic claudication Qualified Code(s): M48.062 - Spinal stenosis, lumbar region with neurogenic claudication (4) GERD (gastroesophageal reflux disease) Esophagitis presence: with esophagitis Esophagitis bleeding: unspecified whether hemorrhage Qualified Code(s): K21.00 - Gastro-esophageal reflux disease with esophagitis, without bleeding (5) Urinary bladder incontinence Urinary Incontinence type: urinary incontinence without sensory awareness Qualified Code(s): N39.42 - Incontinence without sensory awareness
[2023-06-04] MEDS: AMIODARONE 200 MG TAB PO SCH (16:28)
[2023-06-05 06:40] LABS: BUN Creatinine Ratio 15.7 (10-20); Calcium 8.5 mg/dl (8.6-10.3); Creatinine Clr Calc Pharmacy 42.9 ml/min; Est GFR (Non-African American) 59.5 ml/min; Potassium 4.5 mmol/L (3.5-5.1)
--- NOTE | 2023-06-05 07:32 | Hospitalist Progress Note ---
Date of Service June 05, 2023 Assessment & Plan (1) Atrial fibrillation with rapid ventricular response: (2) Spinal stenosis of lumbar region: (3) Essential hypertension: (4) GERD (gastroesophageal reflux disease): (5) Urinary bladder incontinence: Plan Ms. Leiva is an 83 y/o female with HTN, urinary incontinence, and lumbar radiculopathy who was referred to the ED today from her PCP office after she was found to be in afib with RVR. Pt denies prior cardiac history including no prior history of atrial fibrillation to her knowledge. Her symptoms of MIRANDA seemed to start 2-3 days ago when she had one day of productive cough with black sputum. CTA negative for PE but shows ?bronchiolitis. Initially responded to 10 mg of dilitiazem with improved rate in the ED but then rate rebounded to the 120s so ED provider started patient on a diltiazem drip and referred patient for admission. Patient found to have necrotizing esophagitis on EGD and continued on protonix with stable hgb since. Course complicated by a fib and a tachy prompting initiation of amiodarone on 06/03. #Necrotizing Esophagitis with GI bleed #Acute blood loss anemia stable #Melena due to above --S/P EGD:Necrotizing esophagitis, Large hiatal hernia. Meloxicam discontinued Transfuse PRBCs as needed IV heparin discontinued Continue Protonix BID Appreciate GI Input Tolerating advanced diet, continue Will need repeat EGD in 6 weeks to rule out mass, stricture Monitor CBC in am #Paroxysmal A-fib with RVR #Paroxysmal atrial tachycardia with block Likely secondary to above Normal TSH --ECHO: Left ventricle is normal in size. Moderate concentric LVH with septal motion is consistent with postoperative state. No regional wall motion abnormalities noted. EF 55 to 60%. Grade 1 diastolic dysfunction. Aortic valve is trileaflet, moderately calcified with minimal restriction mobility. Mild to moderate aortic regurgitation. Trace tricuspid regurgitation and mitral regurgitation. Monitor and replete electrolytes as needed Appreciate cardiology input No anticoagulation Metoprolol discontinued 06/03 and amiodarone 200mg BID started Continue monitoring, appreciate cardiology recommendations Monitor for 24 more hours on amiodarone with likely dispo tomorrow #Hypokalemia Replete electrolytes as needed Monitor #Mild troponin elevation Likely demand ischemia secondary to tachycardia, melena Monitor #Spinal stenosis Chronic, stable Continue outpatient regimen #HTN Chronic, stable Lotrel (amlodipine/benazepril) on hold Plan to resume amlodipine as able Monitor BP #Urinary incontinence Chronic, stable - follows with urology Continue home meds DVT Px SCDs Re: Melena CODE STATUS Full code Disposition PT OT:dispo home Admission and Anticipated Discharge Date Admission Date: June 01, 2023 Subjective NAEO Denies any acute concerns---notes that she ate an orange follow by diffuse pain--discussed dietary choices like high acid foods will likely exacerbate symptoms Patient denies any chest pain or palpitations at this time Physical Exam Constitutional: WD/WN, vitals as above Respiratory: normal respiratory effort, lungs clear to auscultation Cardiovascular: RRR, no murmur, no edema Gastrointestinal (Abdomen): normal bowel sounds, soft, nontender, no hepatosplenomegaly Results & Data Results & Data Vital Signs (Past 12 Hours) Vital Signs Temp Pulse Pulse Resp BP BP Pulse Ox 06/05/23 07:22 56 L 06/05/23 03:02 36.9 C 58 L 18 123/65 95 06/05/23 00:00 59 L 06/04/23 23:19 37.0 C 69 18 161/80 H 94 06/04/23 19:33 37.2 C 69 16 127/75 95 O2 Del Method 06/05/23 07:22 06/05/23 03:02 Room Air 06/05/23 00:00 06/04/23 23:19 Room Air 06/04/23 19:33 Room Air Laboratory Results Short CBC 06/05/23 Range/Units 05:53 WBC Cancelled Hgb Cancelled Hct Cancelled Plt Count Cancelled BMP 06/05/23 05:53 Sodium 136 Potassium 4.5 Chloride 106 Carbon Dioxide 26 BUN 14 Creatinine 0.89 Glucose 95 Calcium 8.5 L Medications Administered Home Medications Medication Instructions Recorded Confirmed Last Taken amlodipine 2.5 mg-benazepril 10 mg 1 cap PO DAILY 01/06/23 06/01/23 05/31/23 capsule famotidine 20 mg tablet 20 mg PO DAILY 01/06/23 06/01/23 05/31/23 meloxicam 15 mg tablet 15 mg PO DAILY Pain 01/06/23 06/01/23 05/31/23 oxybutynin chloride 5 mg tablet 5 mg PO BID 01/06/23 06/01/23 05/31/23 alendronate 70 mg tablet 70 mg PO WK 06/01/23 06/01/23 05/31/23 baclofen 10 mg tablet 5 mg PO BID Pain 06/01/23 06/01/23 05/31/23 gabapentin 300 mg capsule 300 mg PO HS 06/01/23 06/01/23 05/31/23 lifitegrast 5 % eye drops in a 1 drp ophthalmic (eye) AMPM PRN 06/01/23 06/01/23 Unknown dropperette (Xiidra) NEEDED Active Medications Generic Name Dose Route Start Last Admin Trade Name Freq PRN Reason Stop Dose Admin Amiodarone HCl 200 mg 06/04/23 17:00 06/04/23 16:28 Amiodarone 200 Mg Tab PO 07/04/23 16:59 200 mg BIDM JAYDEN Administration Baclofen 5 mg 06/01/23 21:00 06/04/23 20:15 Baclofen 10 Mg Tab PO 07/01/23 20:59 5 mg BID JAYDEN Administration Gabapentin 300 mg 06/01/23 21:00 06/04/23 20:15 Gabapentin 300 Mg Cap PO 07/01/23 20:59 300 mg HS JAYDEN Administration Pantoprazole Sodium 40 mg/ 10 mls @ 5 mls/min 06/03/23 21:00 06/04/23 20:16 Syringe IV 07/03/23 20:59 5 mls/min BID JAYDEN Administration Meloxicam 15 mg 06/02/23 09:00 06/02/23 07:38 Meloxicam 7.5 Mg Tab PO 07/02/23 08:59 15 mg DAILY JAYDEN Administration Oxybutynin Chloride 5 mg 06/01/23 21:00 06/04/23 20:14 Oxybutynin Chloride 5 Mg Tab PO 07/01/23 20:59 5 mg BID JAYDEN Administration (2) Spinal stenosis of lumbar region Neurogenic claudication status: with neurogenic claudication Qualified Code(s): M48.062 - Spinal stenosis, lumbar region with neurogenic claudication (4) GERD (gastroesophageal reflux disease) Esophagitis bleeding: unspecified whether hemorrhage Esophagitis presence: with esophagitis Qualified Code(s): K21.00 - Gastro-esophageal reflux disease with esophagitis, without bleeding (5) Urinary bladder incontinence Urinary Incontinence type: urinary incontinence without sensory awareness Qualified Code(s): N39.42 - Incontinence without sensory awareness
[2023-06-05 07:41] LABS: Hematocrit (blood only) 30.2 % (37.0-47.0); Mean Corpuscular Hemoglobin 27.2 pg (25.0-34.0); Mean Corpuscular Hgb Conc 33.1 g/dL (32.0-36.0); Mean Corpuscular Volume 82.1 fL (80.0-100.0); Mean Platelet Volume 10.2 fL (9.4-12.4); Platelet Count 342 K/uL (130-400); RDW Coefficient of Variation 12.9 % (11.5-14.5); RDW Standard Deviation 38.5 fL (36.4-46.3); Red Blood Count 3.68 M/uL (4.20-5.40)
--- NOTE | 2023-06-05 12:23 | Cardiology Progress Note ---
Date of Service June 05, 2023 Assessment & Plan (1) Atrial fibrillation with rapid ventricular response: (2) Essential hypertension: (3) History of melena: Plan Assessment: 83 year-old female presented from PCP office for new onset atrial fibrillation in the setting of possible GI bleed. Spontaneously converted to NSR last evening. No prior cardiac history to date. Plan: 1. A-fib with RVR: -new onset, spontaneously converted on night of admission (06/01/23). Transient atrial arrhythmia as noted with a rate induced Left BBB noted on telemetry yesterday with ambulation. patient was started on Amiodarone and beta renetta discontinued. patient is tolerating well and no further events on telemetry. -No prior history of A-fib or other cardiac disease per patient. -Patient has had recent acute cough with "black" sputum production and reports multiple loose bowels. GI has seen patient for concerns of melena and a drop in Hemoglobin. and proceeded with endoscopy which showed significant gastritis and also evidence of a large hiatal hernia. -Echocardiogram does not show significant dilation of left atrium to suggest this has been longstanding. -Normal LVEF, with presence of mild valvular disease. No new/acute wall motion abnormalities -Very mild troponin elevation with peak of 27.2 likely demand driven due to tachycardia and new anemia. - There is concern for recurrence of A-fib and given the nature of her GI disease, can not tolerate AC therapy for high risk of bleed. -CHADS-VASC score of 4 (age, gender, HTN); however, given Endoscopy results, not a candidate to restart AC therapy for bleeding risk. -Once patient is stable from a primary and GI standpoint. would recommend OP follow up with cardiology in 3-4 weeks. 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 Resting EKG does shows non-specific T wave changes which may be suggestive of other card iac disease involvement and should be considered for ischemic work up if appropriate. 2. HTN -At target today. Denies any dizziness, lightheadedness or pre-syncopal symptoms. 3. Melena -H/H remains below target; improved today/ stable post procedure with no recurrence of melena -patient being followed by GI Case has been discussed with Dr. Pretty. Further recommendations regarding plan of care as per his assessment. I spent a total of 30 minutes on the date of service in preparation, delivery, documentation of the care provided to the patient excluding any time spent in the performance of separately billed services. EDIN Byrne [facility] Admission and Anticipated Discharge Date Admission Date: June 01, 2023 Supervising Physician Co-Signing Physician Notes Patient was seen and examined, chart, medications telemetry reviewed. Assessment and plan as above No cardiac complaints. Did once again experience reflux symptoms and burning after eating fresh orange last night. Now resolved. No further arrhythmias. Patient ambulatory in room without difficulty. EKG without QT prolongation and tolerating initially onset of amiodarone to control atrial arrhythmias. Anticoagulation continues to be relatively contraindicated Plan repeat EKG in a.m., maintain telemetry additional 24 hours Subjective 06/05/23: Patient seen and examined today in follow up. She is resting comfortably and offers no complaints. States that she got to eat pancakes for breakfast and feels really well. Denies any chest pain, pressure, palpitations, no shortness of breath, PND, pre- syncope, syncope or edema. Review of telemetry shows SR with occ. PVC and PAC. No acute events overnight. Patient was started on Amiodarone yesterday after notation of a transient wide- complex tachycardia. Further discussion with Dr. Pretty show a rate related left bundle branch block superimposed on a paroxysmal atrial arrhythmia. Consideration for Atrial fibrillation vs Atrial tachycardia. Patient is not a candidate for AC therapy given her recent endoscopy findings. Review of Systems Review of Systems: All systems reviewed & are unremarkable except as noted in HPI & below Physical Exam Constitutional: well developed and well nourished; no acute distress Neck: normal visual inspection and trachea midline Respiratory: normal respiratory effort, lungs clear to auscultation no respiratory distress and no cough Cardiovascular: Rate/Rhythm: regular rate and + bradycardic (rates 50) Heart Sounds: normal S1, normal S2 and + murmur (+1/6 systolic ) Vessels: dorsalis pedis pulses present; no JVD Extremities: no edema Skin: no rashes, warm and dry Psychiatric: A+Ox3, euthymic affect Results & Data Vital Signs (Past 12 Hours) Vital Signs Temp Pulse Pulse Resp BP BP Pulse Ox 06/05/23 11:40 37.0 C 67 18 154/87 H 96 06/05/23 07:41 36.8 C 65 18 132/71 95 06/05/23 07:22 56 L 06/05/23 03:02 36.9 C 58 L 18 123/65 95 O2 Del Method 06/05/23 11:40 Room Air 06/05/23 07:41 Room Air 06/05/23 07:22 06/05/23 03:02 Room Air Laboratory Results CBC 06/05/23 06/05/23 Range/Units 05:53 07:17 WBC Cancelled 5.40 RBC Cancelled 3.68 L Hgb Cancelled 10.0 L Hct Cancelled 30.2 L Plt Count Cancelled 342 Comprehensive Metabolic Panel 06/05/23 Range/Units 05:53 Sodium 136 (136-145) mmol/L Potassium 4.5 (3.5-5.1) mmol/L Chloride 106 (98-107) mmol/L Carbon Dioxide 26 (21-32) mmol/L BUN 14 (6-23) mg/dl Creatinine 0.89 (0.6-1.2) mg/dl Glucose 95 (70-99(Fasting)) mg/dl Calcium 8.5 L (8.6-10.3) mg/dl Intake and Output 06/04/23 06/05/23 06/05/23 22:59 06:59 14:59 Intake Total 240 / 880 300 / 880 Output Total 200 / 300 Balance 40 / 580 300 / 580 Intake: Oral 240 / 780 300 / 780 Output: Urine 200 / 300 Other: # Unmeasured Voids 1 Weight 69.1 kg Weight Measurement Method Built in [facility]
--- NOTE | 2023-06-05 16:07 | Electrocardiogram Report ---
Test Reason : Blood Pressure : / mmHG Vent. Rate : 060 BPM Atrial Rate : 060 BPM P-R Int : 168 ms QRS Dur : 092 ms QT Int : 420 ms P-R-T Axes : 041 -02 052 degrees QTc Int : 420 ms Normal sinus rhythm Nonspecific T wave abnormality Abnormal ECG When compared with ECG of 03-JUN-2023 05:18, Non-specific change in ST segment in Anterior leads T wave inversion more evident in Anterior leads Confirmed by Mo Pearce ([id number]) on 06/05/2023 4:07:31 PM Referred By: REFERRED SELF Confirmed By:Mo Pearce
--- NOTE | 2023-06-05 16:18 | Electrocardiogram Report ---
Test Reason : Blood Pressure : / mmHG Vent. Rate : 060 BPM Atrial Rate : 060 BPM P-R Int : 176 ms QRS Dur : 084 ms QT Int : 462 ms P-R-T Axes : 040 -10 029 degrees QTc Int : 462 ms Poor data quality, interpretation may be adversely affected Normal sinus rhythm Moderate voltage criteria for LVH, may be normal variant Nonspecific ST and T wave abnormality Abnormal ECG When compared with ECG of 04-JUN-2023 16:16, (unconfirmed) Nonspecific T wave abnormality, improved in Lateral leads Confirmed by Mo Pearec ([id number]) on 06/05/2023 4:17:47 PM Referred By: REFERRED SELF Confirmed By:Mo Pearce
[2023-06-06 06:54] LABS: Hematocrit (blood only) 29.4 % (37.0-47.0); Hemoglobin 9.8 g/dl (12.0-16.0); Mean Corpuscular Hgb Conc 33.3 g/dL (32.0-36.0); Platelet Count 358 K/uL (130-400); RDW Standard Deviation 37.9 fL (36.4-46.3); Red Blood Count 3.63 M/uL (4.20-5.40); White Blood Count 6.47 K/ul (4.8-10.8)
[2023-06-06 07:51] LABS: BUN Creatinine Ratio 14.3 (10-20); Calcium 8.4 mg/dl (8.6-10.3); Est GFR (African American) 67.1 ml/min; Est GFR (Non-African American) 57.9 ml/min; Potassium 4.1 mmol/L (3.5-5.1)
--- NOTE | 2023-06-06 10:57 | Cardiology Progress Note ---
Date of Service June 06, 2023 Assessment & Plan (1) Atrial fibrillation with rapid ventricular response: (2) Essential hypertension: (3) History of melena: Plan Assessment: 83 year-old female presented from PCP office for new onset atrial fibrillation in the setting of possible GI bleed. Spontaneously converted to NSR last evening. No prior cardiac history to date. Plan: 1. A-fib with RVR: -new onset, spontaneously converted on night of admission (06/01/23). Transient atrial arrhythmia as noted with a rate induced Left BBB noted on telemetry yesterday with ambulation. patient was started on Amiodarone and beta renetta discontinued. patient is tolerating well and no further events on telemetry. -No prior history of A-fib or other cardiac disease per patient. -Patient has had recent acute cough with "black" sputum production and reports multiple loose bowels. GI has seen patient for concerns of melena and a drop in Hemoglobin. and proceeded with endoscopy which showed significant gastritis and also evidence of a large hiatal hernia. -Echocardiogram does not show significant dilation of left atrium to suggest this has been longstanding. -Normal LVEF, with presence of mild valvular disease. No new/acute wall motion abnormalities -Very mild troponin elevation with peak of 27.2 likely demand driven due to tachycardia and new anemia. - There is concern for recurrence of A-fib and given the nature of her GI disease, can not tolerate AC therapy for high risk of bleed. -CHADS-VASC score of 4 (age, gender, HTN); however, given Endoscopy results, not a candidate to restart AC therapy for bleeding risk. -Once patient is stable from a primary and GI standpoint. would recommend OP follow up with cardiology in 3-4 weeks. 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 Resting EKG does shows non-specific T wave changes which may be suggestive of other card iac disease involvement and should be considered for ischemic work up if appropriate. 2. HTN -At target today. Denies any dizziness, lightheadedness or pre-syncopal symptoms. 3. Melena -H/H remains below target; improved today/ stable post procedure with no recurrence of melena -patient being followed by GI 06/06/2023 Still with salvos of atrial tachycardia/atrial fibrillation Will increase amiodarone 200 mg 3 times daily Add low-dose beta-renetta with metoprolol succinate 12.5 mg daily first this morning EKG in a.m. No evidence of active bleeding and patient comfortable Will check nocturnal oximetry Admission and Anticipated Discharge Date Admission Date: June 01, 2023 Subjective Patient was seen and examined, chart, medications, telemetry reviewed. Still with salvos of wide-complex tachycardia representing atrial fibrillation/atrial tachycardia with aberrant conduction and early a.m. hours Patient asymptomatic denies chest pains, dizziness or lightheadedness No QT prolongation on EKG Physical Exam Constitutional: well developed and well nourished; no acute distress Neck: normal visual inspection and trachea midline Respiratory: normal respiratory effort, lungs clear to auscultation no respiratory distress and no cough Cardiovascular: Rate/Rhythm: regular rate and + bradycardic (rates 50) Heart Sounds: normal S1, normal S2 and + murmur (+1/6 systolic ) Vessels: dorsalis pedis pulses present; no JVD Extremities: no edema Skin: no rashes, warm and dry Psychiatric: A+Ox3, euthymic affect Results & Data Vital Signs (Past 12 Hours) Vital Signs Temp Pulse Pulse Resp BP BP Pulse Ox 06/06/23 08:00 70 06/06/23 08:00 37.1 C 70 18 112/64 94 06/06/23 03:25 36.8 C 65 18 127/75 96 06/05/23 23:27 71 06/05/23 23:16 36.3 C L 75 17 125/71 95 O2 Del Method 06/06/23 08:00 06/06/23 08:00 Room Air 06/06/23 03:25 Room Air 06/05/23 23:27 06/05/23 23:16 Room Air
[2023-06-06] MEDS: METOPROLOL SUCC 25MG EXT REL TAB PO SCH (12:29)
[2023-06-06] MEDS: AMIODARONE 200 MG TAB PO SCH (12:29)
--- NOTE | 2023-06-06 14:32 | Hospitalist Progress Note ---
Date of Service June 06, 2023 Assessment & Plan (1) Atrial fibrillation with rapid ventricular response: (2) Spinal stenosis of lumbar region: (3) Essential hypertension: (4) GERD (gastroesophageal reflux disease): (5) Urinary bladder incontinence: Plan Ms. Leiva is an 83 y/o female with HTN, urinary incontinence, and lumbar radiculopathy who was referred to the ED today from her PCP office after she was found to be in afib with RVR. Pt denies prior cardiac history including no prior history of atrial fibrillation to her knowledge. Her symptoms of MIRANDA seemed to start 2-3 days ago when she had one day of productive cough with black sputum. CTA negative for PE but shows ?bronchiolitis. Initially responded to 10 mg of dilitiazem with improved rate in the ED but then rate rebounded to the 120s so ED provider started patient on a diltiazem drip and referred patient for admission. Patient found to have necrotizing esophagitis on EGD and continued on protonix with stable hgb since. Course complicated by a fib and a tachy prompting initiation of amiodarone on 06/03. Patient with episodic tachycardia on tele. #Necrotizing Esophagitis with GI bleed #Acute blood loss anemia stable #Melena due to above --S/P EGD:Necrotizing esophagitis, Large hiatal hernia. Meloxicam discontinued Transfuse PRBCs as needed IV heparin discontinued Continue Protonix BID Appreciate GI Input Tolerating advanced diet, continue Will need repeat EGD in 6 weeks to rule out mass, stricture Monitor CBC in am #Paroxysmal A-fib with RVR #Paroxysmal atrial tachycardia with block Likely secondary to above Normal TSH --ECHO: Left ventricle is normal in size. Moderate concentric LVH with septal motion is consistent with postoperative state. No regional wall motion abnormalities noted. EF 55 to 60%. Grade 1 diastolic dysfunction. Aortic valve is trileaflet, moderately calcified with minimal restriction mobility. Mild to moderate aortic regurgitation. Trace tricuspid regurgitation and mitral regurgitation. Monitor and replete electrolytes as needed Appreciate cardiology input No anticoagulation Metoprolol discontinued 06/03 and amiodarone 200mg BID started; however still will a tach -Amiodarone increased to 200mg TID -Metoprolol 12.5 daily started -Close monitoring for bradycardia -Overnight pulse ox Continue monitoring, appreciate cardiology recommendations #Hypokalemia Replete electrolytes as needed Monitor #Mild troponin elevation Likely demand ischemia secondary to tachycardia, melena Monitor #Spinal stenosis Chronic, stable Continue outpatient regimen #HTN Chronic, stable Lotrel (amlodipine/benazepril) on hold Plan to resume amlodipine as able Monitor BP #Urinary incontinence Chronic, stable - follows with urology Continue home meds DVT Px SCDs Re: Melena CODE STATUS Full code Disposition PT OT:dispo home Admission and Anticipated Discharge Date Admission Date: June 01, 2023 Subjective Episodic tachycardia overnight Denies palpitations or other acute concerns Physical Exam Constitutional: WD/WN, vitals as above Respiratory: normal respiratory effort, lungs clear to auscultation Cardiovascular: RRR, no murmur, no edema Gastrointestinal (Abdomen): normal bowel sounds, soft, nontender, no hepatosplenomegaly Results & Data Results & Data Vital Signs (Past 12 Hours) Vital Signs Temp Pulse Pulse Resp BP BP Pulse Ox 06/06/23 11:39 36.7 C 76 20 101/67 95 06/06/23 08:00 70 06/06/23 08:00 37.1 C 70 18 112/64 94 06/06/23 03:25 36.8 C 65 18 127/75 96 O2 Del Method 06/06/23 11:39 Room Air 06/06/23 08:00 06/06/23 08:00 Room Air 06/06/23 03:25 Room Air Laboratory Results Short CBC 06/06/23 Range/Units 06:20 WBC 6.47 (4.8-10.8) K/ul Hgb 9.8 L (12.0-16.0) g/dl Hct 29.4 L (37.0-47.0) % Plt Count 358 (130-400) K/uL BMP 06/06/23 06:20 Sodium 138 Potassium 4.1 Chloride 106 Carbon Dioxide 29 BUN 13 Creatinine 0.91 Glucose 94 Calcium 8.4 L Medications Administered Home Medications Medication Instructions Recorded Confirmed Last Taken amlodipine 2.5 mg-benazepril 10 mg 1 cap PO DAILY 01/06/23 06/01/23 05/31/23 capsule famotidine 20 mg tablet 20 mg PO DAILY 01/06/23 06/01/23 05/31/23 meloxicam 15 mg tablet 15 mg PO DAILY Pain 01/06/23 06/01/23 05/31/23 oxybutynin chloride 5 mg tablet 5 mg PO BID 01/06/23 06/01/23 05/31/23 alendronate 70 mg tablet 70 mg PO WK 06/01/23 06/01/23 05/31/23 baclofen 10 mg tablet 5 mg PO BID Pain 06/01/23 06/01/23 05/31/23 gabapentin 300 mg capsule 300 mg PO HS 06/01/23 06/01/23 05/31/23 lifitegrast 5 % eye drops in a 1 drp ophthalmic (eye) AMPM PRN 06/01/23 06/01/23 Unknown dropperette (Xiidra) NEEDED Active Medications Generic Name Dose Route Start Last Admin Trade Name Freq PRN Reason Stop Dose Admin Amiodarone HCl 200 mg 06/06/23 14:00 06/06/23 12:29 Amiodarone 200 Mg Tab PO 07/06/23 13:59 200 mg TID JAYDEN Administration Baclofen 5 mg 06/01/23 21:00 06/06/23 07:46 Baclofen 10 Mg Tab PO 07/01/23 20:59 5 mg BID JAYDEN Administration Gabapentin 300 mg 06/01/23 21:00 06/05/23 20:20 Gabapentin 300 Mg Cap PO 07/01/23 20:59 300 mg HS JAYDEN Administration Pantoprazole Sodium 40 mg/ 10 mls @ 5 mls/min 06/03/23 21:00 06/06/23 09:56 Syringe IV 07/03/23 20:59 5 mls/min BID JAYDEN Administration Meloxicam 15 mg 06/02/23 09:00 06/02/23 07:38 Meloxicam 7.5 Mg Tab PO 07/02/23 08:59 15 mg DAILY JAYDEN Administration Metoprolol Succinate 12.5 mg 06/06/23 11:30 06/06/23 12:29 Metoprolol Succ 25mg Ext Rel Tab PO 07/06/23 11:29 12.5 mg QAM JAYDEN Administration Oxybutynin Chloride 5 mg 06/01/23 21:00 06/06/23 07:46 Oxybutynin Chloride 5 Mg Tab PO 07/01/23 20:59 5 mg BID JAYDEN Administration (2) Spinal stenosis of lumbar region Neurogenic claudication status: with neurogenic claudication Qualified Code(s): M48.062 - Spinal stenosis, lumbar region with neurogenic claudication (4) GERD (gastroesophageal reflux disease) Esophagitis presence: with esophagitis Esophagitis bleeding: unspecified whether hemorrhage Qualified Code(s): K21.00 - Gastro-esophageal reflux disease with esophagitis, without bleeding (5) Urinary bladder incontinence Urinary Incontinence type: urinary incontinence without sensory awareness Qualified Code(s): N39.42 - Incontinence without sensory awareness
[2023-06-06] MEDS: GABAPENTIN 300 MG CAP PO SCH (20:32)
[2023-06-07 07:45] LABS: Hematocrit (blood only) 30.1 % (37.0-47.0); Hemoglobin 9.5 g/dl (12.0-16.0); Mean Corpuscular Hemoglobin 26.2 pg (25.0-34.0); Mean Corpuscular Hgb Conc 31.6 g/dL (32.0-36.0); Mean Corpuscular Volume 82.9 fL (80.0-100.0); Mean Platelet Volume 9.9 fL (9.4-12.4); Platelet Count 351 K/uL (130-400); RDW Coefficient of Variation 12.9 % (11.5-14.5); RDW Standard Deviation 39.3 fL (36.4-46.3); Red Blood Count 3.63 M/uL (4.20-5.40); White Blood Count 5.53 K/ul (4.8-10.8)
[2023-06-07 08:02] LABS: BUN Creatinine Ratio 17.6 (10-20); Calcium 8.6 mg/dl (8.6-10.3); Est GFR (African American) 72.9 ml/min; Est GFR (Non-African American) 62.9 ml/min; Magnesium 1.9 mg/dl (1.7-2.4); Potassium 4.2 mmol/L (3.5-5.1)
--- NOTE | 2023-06-07 08:42 | Cardiology Progress Note ---
Date of Service June 07, 2023 Assessment & Plan (1) Atrial fibrillation with rapid ventricular response: (2) Essential hypertension: (3) History of melena: Plan Assessment: 83 year-old female presented from PCP office for new onset atrial fibrillation in the setting of possible GI bleed. Spontaneously converted to NSR last evening. No prior cardiac history to date. Plan: 1. A-fib with RVR: -new onset, spontaneously converted on night of admission (06/01/23). Transient atrial arrhythmia as noted with a rate induced Left BBB noted on telemetry yesterday with ambulation. patient was started on Amiodarone and beta renetta discontinued. patient is tolerating well and no further events on telemetry. -No prior history of A-fib or other cardiac disease per patient. -Patient has had recent acute cough with "black" sputum production and reports multiple loose bowels. GI has seen patient for concerns of melena and a drop in Hemoglobin. and proceeded with endoscopy which showed significant gastritis and also evidence of a large hiatal hernia. -Echocardiogram does not show significant dilation of left atrium to suggest this has been longstanding. -Normal LVEF, with presence of mild valvular disease. No new/acute wall motion abnormalities -Very mild troponin elevation with peak of 27.2 likely demand driven due to tachycardia and new anemia. - There is concern for recurrence of A-fib and given the nature of her GI disease, can not tolerate AC therapy for high risk of bleed. -CHADS-VASC score of 4 (age, gender, HTN); however, given Endoscopy results, not a candidate to restart AC therapy for bleeding risk. -Once patient is stable from a primary and GI standpoint. would recommend OP follow up with cardiology in 3-4 weeks. 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 Resting EKG does shows non-specific T wave changes which may be suggestive of other card iac disease involvement and should be considered for ischemic work up if appropriate. 2. HTN -At target today. Denies any dizziness, lightheadedness or pre-syncopal symptoms. 3. Melena -H/H remains below target; improved today/ stable post procedure with no recurrence of melena -patient being followed by GI 06/06/2023 Still with salvos of atrial tachycardia/atrial fibrillation Will increase amiodarone 200 mg 3 times daily Add low-dose beta-renetta with metoprolol succinate 12.5 mg daily first this morning EKG in a.m. No evidence of active bleeding and patient comfortable Will check nocturnal oximetry 06/07/2023 Atrial tachycardia/atrial fibrillation much improved patient asymptomatic. Currently remains with contraindication anticoagulation. Will readdress as an outpatient Plan: Stable for discharge on amiodarone 200 mg twice per day, metoprolol succinate 12.5 mg/day Follow-up cardiology 2 to 3 weeks, EKG in 1 week if appointment not scheduled Discussed in detail with patient Admission and Anticipated Discharge Date Admission Date: June 01, 2023 Subjective Patient looks and feels well this morning. No sense of tachyarrhythmias. Arrhythmias much improved on telemetry. No dizziness or lightheadedness. No bradycardia arrhythmia Physical Exam Constitutional: well developed and well nourished; no acute distress Neck: normal visual inspection and trachea midline Respiratory: normal respiratory effort, lungs clear to auscultation no respiratory distress and no cough Cardiovascular: Rate/Rhythm: regular rate and + bradycardic (rates 50) Heart Sounds: normal S1, normal S2 and + murmur (+1/6 systolic ) Vessels: dorsalis pedis pulses present; no JVD Extremities: no edema Skin: no rashes, warm and dry Psychiatric: A+Ox3, euthymic affect Results & Data Vital Signs (Past 12 Hours) Vital Signs Temp Pulse Pulse Pulse Resp BP Pulse Ox 06/07/23 08:00 60 06/07/23 05:37 62 06/07/23 03:00 36.4 C L 63 18 121/73 96 06/07/23 02:46 58 L 06/07/23 00:00 77 06/06/23 23:15 36.5 C 66 17 119/69 97 06/06/23 22:58 71 Pulse Ox O2 Del Method O2 Del Method 06/07/23 08:00 06/07/23 05:37 94 Room Air 06/07/23 03:00 Room Air 06/07/23 02:46 94 Room Air 06/07/23 00:00 06/06/23 23:15 Room Air 06/06/23 22:58 96 Room Air ECG Additional Comments: EKG 06/07/202307-Jun-2023 06:22:25 [facility] ROUTINE RETRIEVAL Sinus bradycardia with sinus arrhythmia Minimal voltage criteria for LVH, may be normal variant T wave abnormality, consider anterior ischemia QT corrected 477 abnormal ECG When compared with ECG of 06-JUN-2023 05:39, (unconfirmed) Nonspecific T wave abnormality, improved in Lateral leads
--- NOTE | 2023-06-07 10:53 | Discharge Summary ---
Discharge Summary Date of Service June 07, 2023 Notes For Next Care Provider Medication Changes From Visit Pantoprazole 40mg two times a day before breakfast and at bedtime Amiodarone 200mg two times a day with meals. Metoprolol Succinate 12.5mg daily, in the morning Admission HPI Per Admitting Provider This is an 83 y/o female with HTN, urinary incontinence, and lumbar radic ulopathy who was referred to the ED today from her PCP office after she was found to be in afib with RVR. Pt presented to her PCP office with a complaint of cough productive of black sputum and mild MIRANDA so an EKG was completed with mentioned abnormality. Pt reports being in her usual state of health until three days ago when she developed a barking cough and choking sensation. She reports coughing up sputum all day that "looked like tar" but no bright blood. The cough resolved by the next day but she then developed a constant sharp pain under her right ribs that radiates across her lower chest to her left ribs. No other chest pain. She also developed dyspnea with even mild exertion such as walking from one room to another in her home. This is severe enough that she has to stop and rest to catch her breath. She denies palpitations, lightheadedness or syncope. She has noted orthopnea, has not been sleeping due to the pain. Notes fatigue but denies weakness or falls. She denies any prior history of atrial fibrillation or any other cardiac issues, has not seen cardiology before. Admission Exam Per Admitting Provider General: awake, alert, NAD HEENT: PERRL, no scleral icterus, moist oral mucosa Neck: trachea midline Heart: irregularly irregular, rate ~96 Lungs: clear but diminished at the bases Abdomen: soft, NT, +BS Extremities: no pedal edema, radial pulses equal bilaterally Skin: no jaundice Neurologic: moving all extremities, no focal deficits, no confusion or dysarth Principal Dx & Hospital Course #1 = Principal Diagnosis (1) Atrial fibrillation with rapid ventricular response: (2) Spinal stenosis of lumbar region: (3) Essential hypertension: (4) GERD (gastroesophageal reflux disease): (5) Urinary bladder incontinence: Plan Ms. Leiva is an 83 y/o female with HTN, urinary incontinence, and lumbar radiculopathy who was referred to the ED today from her PCP office after she was found to be in afib with RVR. Pt denies prior cardiac history including no prior history of atrial fibrillation to her knowledge. Her symptoms of MIRANDA seemed to start 2-3 days ago when she had one day of productive cough with black sputum. CTA negative for PE but shows ?bronchiolitis. Initially responded to 10 mg of dilitiazem with improved rate in the ED but then rate rebounded to the 120s so ED provider started patient on a diltiazem drip and referred patient for admission. Patient found to have necrotizing esophagitis on EGD and continued on protonix with stable hgb since. Course complicated by a fib and a tachy prompting initiation of amiodarone on 06/03. Patient with episodic tachycardia on tele, prompting addition of metoprolol. On day of discharge, patient was in NSR, tolerating antiarrhymics, hgb stable at 9.5, no pain, palpitations or other acute concerns. #Necrotizing Esophagitis with GI bleed #Acute blood loss anemia stable #Melena due to above --S/P EGD:Necrotizing esophagitis, Large hiatal hernia. Meloxicam discontinued Transfuse PRBCs as needed IV heparin discontinued, AC held 2/2 bleed risk Continue Protonix BID PO upon discharge Appreciate GI Input Will need repeat EGD in 6 weeks to rule out mass, stricture #Paroxysmal A-fib with RVR #Paroxysmal atrial tachycardia with block Likely secondary to above Normal TSH --ECHO: Left ventricle is normal in size. Moderate concentric LVH with septal motion is consistent with postoperative state. No regional wall motion abnormalities noted. EF 55 to 60%. Grade 1 diastolic dysfunction. Aortic valve is trileaflet, moderately calcified with minimal restriction mobility. Mild to moderate aortic regurgitation. Trace tricuspid regurgitation and mitral regurgitation. Monitor and replete electrolytes as needed Appreciate cardiology input No anticoagulation Metoprolol discontinued 06/03 and amiodarone 200mg BID started; however still will a tach -Amiodarone increased to 200mg TID on 06/05-->discharged with BIDM per cardiology -Metoprolol 12.5 daily continued -Overnight pulse ox: negative Continue monitoring, appreciate cardiology recommendations #Hypokalemia Replete electrolytes as needed 4.2 on dc #Mild troponin elevation Likely demand ischemia secondary to tachycardia, melena Monitor #Spinal stenosis Chronic, stable Continue outpatient regimen #HTN Chronic, stable Lotrel (amlodipine/benazepril) resumed on dischagre #Urinary incontinence Chronic, stable - follows with urology Continue home meds Discharge Exam Constitutional WD/WN, vitals as above Respiratory normal respiratory effort, lungs clear to auscultation Cardiovascular RRR, no murmur, no edema Gastrointestinal (Abdomen) normal bowel sounds, soft, nontender, no hepatosplenomegaly Updated Medication List Medication Instructions Recorded Confirmed Type amlodipine 2.5 mg-benazepril 10 mg 1 cap PO DAILY 01/06/23 06/01/23 History capsule oxybutynin chloride 5 mg tablet 5 mg PO BID 01/06/23 06/01/23 History alendronate 70 mg tablet 70 mg PO WK 06/01/23 06/01/23 History baclofen 10 mg tablet 5 mg PO BID Pain 06/01/23 06/01/23 History gabapentin 300 mg capsule 300 mg PO HS 06/01/23 06/01/23 History lifitegrast 5 % eye drops in a 1 drp ophthalmic (eye) AMPM PRN 06/01/23 06/01/23 History dropperette (Xiidra) NEEDED amiodarone 200 mg tablet 200 mg PO BID #90 tabs 06/07/23 Rx metoprolol succinate 25 mg 12.5 mg (1/2 x 25 mg) PO QAM #30 06/07/23 Rx tablet,extended release 24 hr tabs pantoprazole 40 mg tablet,delayed 40 mg PO BID 30 days #60 tabs 06/07/23 Rx release Hospital Stay Data Consultations 06/01/23 15:02 ED Decision to Admit Stat 06/01/23 17:57 Consult Cardiology Routine 06/02/23 10:34 Consult Gastroenterology Routine Procedures Performed Operation Date: 06/03/23 16:30 Actual Procedures p Esophagogastroduodenoscopy - James Dong MD Diagnostic Imagining Performed 06/01/23 13:34 CT angio chest PE protocol Stat Pending Results Patient Have Any Pending Studies at Discharge: No Discharge Instructions Given to Patient (Per Discharging Provider) You were admitted for evaluation of black tarry stool. It was found on EGD that you had something called necrotizing esophagitis, or severe damage to the mucosa/lining of your esophagus. This is likely from and worsened by NSAIDS, like meloxicam. Please discontinue meloxicam and other NSAIDs (ibuprofen, naproxen) Tylenol is safe for pain management. Please trial a bland diet in the coming weeks to roaster helper in healing. Also, please continue the following: Pantoprazole 40mg two times a day before breakfast and at bedtime Your heart was also noted to be in a fast rhythm call atrial fibrillation. You were started on the following medications to help with hear rates. -Amiodarone 200mg two times a day with meals. -Metoprolol Succinate 12.5mg daily, in the morning Please follow up with GI for timing of repeat EGD to assess healing of your esophagus. Please follow up with Cardiology to discuss medications and further adjustments. Total Time Total Time Spent Total Time Spent (In Minutes): 45
--- NOTE | 2023-06-09 06:57 | Electrocardiogram Report ---
Test Reason : Blood Pressure : / mmHG Vent. Rate : 070 BPM Atrial Rate : 070 BPM P-R Int : 178 ms QRS Dur : 090 ms QT Int : 426 ms P-R-T Axes : 040 -13 066 degrees QTc Int : 460 ms Normal sinus rhythm Minimal voltage criteria for LVH, may be normal variant Anterior infarct , age undetermined Abnormal ECG When compared with ECG of 05-JUN-2023 07:23, Nonspecific T wave abnormality, worse in Lateral leads Confirmed by Cesar Penaloza ([id number]) on 06/09/2023 6:56:41 AM Referred By: REFERRED SELF Confirmed By:Cesar Penaloza
--- NOTE | 2023-06-10 12:46 | Electrocardiogram Report ---
Test Reason : Blood Pressure : / mmHG Vent. Rate : 058 BPM Atrial Rate : 058 BPM P-R Int : 176 ms QRS Dur : 074 ms QT Int : 486 ms P-R-T Axes : 087 -09 043 degrees QTc Int : 477 ms Sinus bradycardia with sinus arrhythmia Minimal voltage criteria for LVH, may be normal variant T wave abnormality, consider anterior ischemia Prolonged QT Abnormal ECG When compared with ECG of 06-JUN-2023 05:39, (unconfirmed) Nonspecific T wave abnormality, improved in Lateral leads Confirmed by Cesar Penaloza ([id number]) on 06/10/2023 12:45:54 PM Referred By: REFERRED SELF Confirmed By:Cesar Penaloza
== END 2023-06-07 12:45 | disposition home health service (06) | DRG 369 ==
LOC: ED 12:08 → SUATTDRO 15:07 → 2S 15:07

== ENCOUNTER 2024-01-08 21:21 | Observation (INO) ==
[2024-01-08] MEDS: ACETAMINOPHEN 500 MG TAB PO STA (21:31)
--- NOTE | 2024-01-08 21:31 | Emergency Department Note ---
History of Present Illness General Chief complaint: Hip Pain Stated complaint: Hip Pain Time Seen by Provider: 01/08/24 21:22 History of Present Illness This 83-year-old female presents ER complaining of severe left low back pain going down her left leg to her knee. Patient had a left hip replacement. She has a history of sciatica to the right leg. Patient denies fall, chest pain, dyspnea, numbness, tingling, localized weakness. Home Medications Medication Instructions Recorded Confirmed Type amlodipine 2.5 mg-benazepril 10 mg 1 cap PO DAILY 01/06/23 06/01/23 History capsule oxybutynin chloride 5 mg tablet 5 mg PO BID 01/06/23 06/01/23 History alendronate 70 mg tablet 70 mg PO WK 06/01/23 06/01/23 History baclofen 10 mg tablet 5 mg PO BID Pain 06/01/23 06/01/23 History gabapentin 300 mg capsule 300 mg PO HS 06/01/23 06/01/23 History lifitegrast 5 % eye drops in a 1 drp ophthalmic (eye) AMPM PRN 06/01/23 06/01/23 History dropperette (Xiidra) NEEDED amiodarone 200 mg tablet 200 mg PO BID #90 tabs 06/07/23 Rx metoprolol succinate 25 mg 12.5 mg (1/2 x 25 mg) PO QAM #30 06/07/23 Rx tablet,extended release 24 hr tabs Allergies Allergy/AdvReac Type Severity Reaction Status Date / Time No Known Allergies Allergy Verified 06/01/23 15:35 Past Med/Surg History Problem List (Updated 01/09/24 @ 01:53 by Lyudmila Merritt PA-C) Closed sacral fracture (Acute) Acute pain of left hip (Acute) Intractable low back pain (Acute) Hiatal hernia History of melena Essential hypertension Urinary bladder incontinence Atrial fibrillation with rapid ventricular response (Acute) Spinal stenosis of lumbar region Leg length discrepancy Status post left hip replacement (~10/2021) Encounter for pre-operative examination Sacroiliitis Rotator cuff arthropathy of right shoulder Right shoulder pain Myofascial pain Follows with pain management Left hip pain Gait instability Uses cane to ambulate - secondary to hip vs lumbar back pain Lumbar facet joint syndrome Lumbar radiculopathy (Chronic) R L4-5 Lumbar postlaminectomy syndrome (Chronic) Chronic back pain (Chronic) Lumbar area- hx of lumbar fusion GERD (gastroesophageal reflux disease) (Chronic) Well controlled and stable Medical History (Updated 01/09/24 @ 01:53 by Lyudmila Merritt PA-C) Thrush Oral thrush x 3 weeks (secondary to previous abx use). Following with PCP- using Nystatin rinse, clotrimazole lozenge, and salt water rinses- thrush slowly improving Pt will call if not resolved by DOS Surgical History (Updated 07/08/23 @ 00:08 by Edi Skelton) S/P lumbar fusion L2-4 Dr. Pierson 2018 History of bilateral tubal ligation History of colonoscopy History of tonsillectomy History of cataract surgery R/L Family History (Updated 06/01/23 @ 15:55 by Karie Rhoades PA-C) Other No known health problems Denies family history of Diabetes Coronary heart disease Cancer Stroke Social History (Updated 06/01/23 @ 15:56 by Karie Rhoades PA-C) Smoking Status: Former smoker Cigarettes Per Day: 1ppd x 48 yrs; Second Hand Exposure: No; Do You Dip or Chew Tobacco: No; Hx Alcohol Use: No Hx Substance Use: No Preferred Language: Swedish Communication Ability: Effective Visual Impairment: No Limitations Hearing Ability: Normal Cloth Presser Required: No Beliefs That Will Affect Care: None marital status: Single Current Living Situation: Alone current occupational status: retired Feels Safe at Home: Yes Assistive Devices: Bedside Commode, Cane and Walker Review of Systems A total of 10 systems reviewed and were otherwise negative Physical Exam Vital Signs Vital Signs - 24 hr 01/08/24 21:24 01/09/24 01:45 Temperature 36.5 C Temperature Source Oral Pulse Rate 83 Pulse Rate [Left Radial] 74 Pulse Rhythm [Left Radial] Regular Pulse Strength [Left Radial] Normal Respiratory Rate 20 20 Respiratory Effort / Characteristics Non-Labored Spontaneous Respiratory Depth Normal Respiratory Pattern Regular Blood Pressure 160/103 H Blood Pressure [Right Arm] 125/76 Blood Pressure Mean 122 Blood Pressure Mean [Right Arm] 92 Blood Pressure Position [Right Arm] Lying Pulse Oximetry 98 97 Oxygen Delivery Method Room Air Room Air Sepsis Recent Fever Within 48 Hours No Sepsis New/Unexplained Change in Mental Status No Sepsis Action Taken by Nursing No Action Required VITALS: Vitals are noted on the nurse's note and reviewed by myself. Vital signs stable. GENERAL: Pleasant patient, in no acute distress, nondiaphoretic, well-developed well-nourished. SKIN: Capillary reflex less than 2 seconds. HEENT: Normocephalic. PERRLA. EOMI. Nares patent. Mucous membranes moist. Neck is supple without nuchal rigidity. HEART: Regular rate and rhythm LUNGS: Clear to auscultation bilaterally without wheezes, rales or rhonchi. No retractions or accessory muscle use. ABDOMEN: Positive bowel sounds x 4. Normal tympanic percussion. Soft, nontender, without masses or organomegaly. Arthur sign negative. No guarding or rebound tenderness. no CVA tenderness MUSCULOSKELETAL: No gross musculoskeletal defects. No thoracic tenderness, lower lumbar tenderness. Pelvis stable, left hip increased pain with range of motion. Left femur knee tib-fib ankle foot nontender to palpation. Pedal pulses +2 equal and present bilaterally. NEURO: Patient was alert and oriented to person place and time. No focal neurological deficits. Course Administered Medications Discontinued Medications Acetaminophen (Acetaminophen 500 Mg Tab) 1,000 mg PO NOW STA Stop: 01/08/24 21:28 Last Admin: 01/08/24 21:31 Dose: 1,000 mg Documented By: GENE Amlodipine Besylate (Amlodipine Besylate 5 Mg Tab) 2.5 mg PO NOW ONE Stop: 01/08/24 23:52 Last Admin: 01/09/24 01:25 Dose: 2.5 mg Documented By: JACKIE Ketorolac Tromethamine (Ketorolac Tromethamine 15 Mg/Ml Vial) 10 mg IV NOW STA Stop: 01/08/24 23:21 Last Admin: 01/08/24 23:58 Dose: 10 mg Documented By: JACKIE Lidocaine (Lidocaine 5% 1 Patch) 1 patch TD NOW STA Stop: 01/09/24 00:14 Last Admin: 01/09/24 01:25 Dose: 1 patch Documented By: JACKIE Medical Decision Making Medical Records Attestation: I reviewed the patient's medical records. Home Medications Current Medication List: was personally reviewed by me Laboratory Data 01/09/24 00:10 01/09/24 00:10 Lab Results 01/09/24 Range/Units 00:10 WBC 8.86 (4.8-10.8) K/ul RBC 4.42 (4.20-5.40) M/uL Hgb 11.7 L (12.0-16.0) g/dl Hct 36.7 L (37.0-47.0) % MCV 83.0 (80.0-100.0) fL MCH 26.5 (25.0-34.0) pg MCHC 31.9 L (32.0-36.0) g/dL RDW Std Deviation 47.8 H (36.4-46.3) fL RDW Coeff of Lisa 15.9 H (11.5-14.5) % Plt Count 314 (130-400) K/uL MPV 9.8 (9.4-12.4) fL Immature Gran % (Auto) 0.3 % Neut % (Auto) 82.7 % Lymph % (Auto) 11.1 % [place] % (Auto) 5.1 % Eos % (Auto) 0.5 % Baso % (Auto) 0.3 % Neut # (Auto) 7.33 H (1.40-6.50) K/uL Lymph # (Auto) 0.98 L (1.20-3.40) K/uL [place] # (Auto) 0.45 (0.11-0.59) K/uL Eos # (Auto) 0.04 (0.00-0.50) K/uL Baso # (Auto) 0.03 (0.00-0.20) K/uL Immature Gran # (Auto) 0.03 (0.01-0.20) K/uL Sodium 140 (136-145) mmol/L Potassium 3.9 (3.5-5.1) mmol/L Chloride 108 H (98-107) mmol/L Carbon Dioxide 25 (21-32) mmol/L Anion Gap 7 (3-11) BUN 13 (6-23) mg/dl Creatinine 0.86 (0.6-1.2) mg/dl Est Cr Clr Drug Dosing 47.5 ml/min eGFR 66.57 BUN/Creatinine Ratio 15.1 (10-20) Glucose 103 H (70-99(Fasting)) mg/dl Calcium 9.0 (8.6-10.3) mg/dl Total Bilirubin 0.4 (0.2-1.0) mg/dl AST 19 (13-39) U/L ALT 14 (7-52) U/L Alkaline Phosphatase 52 (34-104) U/L Total Protein 6.3 (6.0-8.3) gm/dl Albumin 3.5 (3.4-5.0) gm/dl Globulin 2.8 (2.5-4.0) gm/dl Albumin/Globulin Ratio 1.3 (0.9-2) Imaging Data Attestation: I personally reviewed and interpreted this imaging study as follows: Radiologist's Impression: Lumbar Spine CT 01/08/24 21:27 CR Exam(s): CT L SPINE EXAM: CT Lumbar Spine Without Intravenous Contrast CLINICAL HISTORY: Reason for exam: severe LBP, leg leg pain. TECHNIQUE: Axial computed tomography images of the lumbar spine without intravenous contrast. CTDI is 38.58 mGy and DLP is 1115.17 mGy-cm. Automated exposure control was utilized for the study. A dose lowering technique was utilized adhering to the principles of ALARA. COMPARISON: Prior plain film images of the lumbar spine from February 18, 2019 and MRI of the lumbar spine from April 15, 2018 FINDINGS: Vertebrae: There are 5 lumbar type vertebral body is with a mild levoscoliosis normal lumbar lordosis. There is a remote fracture deformity of the L1 superior endplate. Patient is status post posterior decompression and fusion of L2, L3 and L4 with transpedicular screws and connecting rods in place. No evidence of surgical hardware complication. There is a fracture of the S3 segment. There are bilateral sacral ala insufficiency fractures. Discs/spinal canal/neural foramina: No acute findings. No spinal canal stenosis. Soft tissues: Hepatic steatosis. IMPRESSION: There is an S3 fracture with bilateral sacral ala insufficiency fractures. Recommend MRI of the sacrum for further evaluation. These fractures may be amenable to sacroplasty. No evidence of acute lumbar spine pathology. Communications: Verify Receipt Electronically signed by: Lakesha Romeor MD 01/09/24 01:50 AM [facility] Narrative Prior records/ancillary studies reviewed. Triage Nursing notes reviewed. Additional history obtained from nursing. The patient's history was concerning for back pain. Differential diagnosis: Etiologies such as musculoskeletal, disc herniation, fracture, aortic disease, metastatic disease, cord compression, discitis, infection, renal colic, gastrointestinal, acute exacerbation of chronic back pain, sciatica, cauda equina, as well as others were entertained. Physical findings: As above. No focal neurologic findings noted. Stable ER treatment provided: Tylenol p.o. On reassessment the patient felt better. Diagnostics interpreted by me: The labs Independently Interpreted by myself revealed mild stable anemia, mild hyperglycemia without DKA Imaging studies: Hip x-ray with no fracture, dislocation or effusion per my independent interpretation CT was reviewed and read by radiology as above Consultation: A consultation was placed with hospitalist. The case was discussed and diagnostics were reviewed. She will be evaluated for possible admission. This appears to be consistent with intractable hip and low back pain with sacral fracture. Patient did not feel comfortable going home. She is requesting admission. Medicine was consulted and the case is discussed. Patient will be evaluated for possible admission by the admitting team. The patient's physical examination and detailed history did not reveal any red flags for back pain such as those listed in the differential diagnosis. Therefore advanced diagnostics and consultations were felt to be unwarranted. By the evaluation outlined above emergent etiologies such as aortic disease, metastatic disease, infection, renal colic, gastrointestinal, cord compression, cauda equina, as well as others were deemed relatively unlikely. The pt informed about the findings as listed above. All questions were answered and pleased with the treatment. The chart was completed utilizing [employer] Speech voice recognition software. Grammatical errors, random word insertions, pronoun errors, and incomplete sentences are an occassional consequence of this system due to software limitations, ambient noise, and hardware issues. Any formal questions or concerns about the content, text, or information contained within the body of this dictation should be directly addressed to the physician assistant construction superintendent for clarification. Impression & Plan Intractable low back pain, Acute pain of left hip, Closed sacral fracture Discharge Plan Visit Data Chief Complaint: Hip Pain Stated Complaint: Hip Pain ED Provider: Jakob Lin ED Midlevel Provider: Lyudmila Merritt Discharge Problem: Intractable low back pain, Acute pain of left hip, Closed sacral fracture Patient Disposition: Admitted As Inpatient Condition: Good Forms Stand Alone Forms: [employer] Prescriptions Prescriptions: No Action oxybutynin chloride 5 mg tablet 5 mg PO BID amlodipine-benazepril 2.5-10 mg capsule 1 cap PO DAILY alendronate 70 mg tablet 70 mg PO WK Rx Instructions: SUNDAYS baclofen 10 mg tablet 5 mg PO BID gabapentin 300 mg Capsule 300 mg PO HS Rx Instructions: PER PT "NEED NEW SCRIPT". Xiidra 5 % Dropperette 1 drp OPHTHALMIC (EYE) AMPM PRN (Reason: NEEDED) Rx Instructions: administer approximately 12 hours apart amiodarone 200 mg Tablet 200 mg PO BID Qty: 90 0RF metoprolol succinate 25 mg Tablet Extended Release 24 Hr 12.5 mg PO QAM Qty: 30 0RF Referrals Referrals: Efrain Carrasco MD [Primary Care Provider] - Discharge Problem: Closed sacral fracture Qualifiers: Encounter type: initial encounter Zone of sacrum fracture: unspecified portion of sacrum Qualified Code(s): S32.10XA - Unspecified fracture of sacrum, initial encounter for closed fracture
[2024-01-08] MEDS ORDERED: oxyCODONE HCL IR 5 MG TAB (IMMEDIATE RELEASE) PO PRN (23:56)
[2024-01-08] MEDS ORDERED: MoRPHine SULFATE 2 MG/ML CARP IV PRN (23:56)
[2024-01-08] MEDS ORDERED: PROMETHAZINE 6.25 MG/50.25 ML BAG IV PRN (23:56)
[2024-01-08] MEDS ORDERED: ACETAMINOPHEN 325 MG TAB PO PRN (23:56)
[2024-01-08] MEDS: KETOROLAC TROMETHAMINE 15 MG/ML VIAL IV STA (23:58)
--- NOTE | 2024-01-09 00:32 | History & Physical Report ---
Date of Service January 09, 2024 Assessment & Plan (1) Closed sacral fracture: Plan: Patient denies trauma history. Hypertensive urgency Subconjunctival hemorrhage right possibly secondary to above PAF not on anticoagulation secondary to GI bleed valvular heart disease (moderate AR, trace MR/TR) chronic LBBB GERD, stable on PPI Mild anemia, hemoglobin drop from normal outpatient baseline hemoglobin last month past tobacco abuse OBS GMF Analgesia MRI lumbosacral spine Orthopedic spine consult Re: Sacral fractures Facilitate home BP meds and titrate as needed DVT prophylaxis. SCDs re: possible procedure, history GI bleed Full code Text document was generated using [employer] voice recognition software. It may contain grammatical or spelling errors. Kindly contact undersigned for clarification of any documentation item in question. History of Present Illness Chief Complaint: Left hip and back pain Primary Care Provider: Efrain Carrasco MD History obtained from patient and records. Medical history significant for PAF not on anticoagulation secondary to GI ble ed, valvular heart disease (moderate AR, trace MR/TR), chronic LBBB, GERD, chronic back pain, past tobacco abuse. 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 Home NSAID discontinued. Patient had sudden onset achy left-sided back pain going down the left leg without unusual weakness/numbness yesterday. No recollection of trauma. She woke up with a "pink" right eye. No eye drainage or pruritus. No headache or unusual blurred vision or cough symptoms. Denies unusual straining. Denies unusual chest pain or SOB. SBP 170s upon arrival at the ER. 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 Allergies Allergy/AdvReac Type Severity Reaction Status Date / Time No Known Allergies Allergy Verified 01/09/24 08:27 Home Medications Medication Instructions Recorded Confirmed Type amlodipine 2.5 mg-benazepril 10 mg 1 cap PO DAILY 01/06/23 06/01/23 History capsule oxybutynin chloride 5 mg tablet 5 mg PO BID 01/06/23 06/01/23 History alendronate 70 mg tablet 70 mg PO WK 06/01/23 06/01/23 History baclofen 10 mg tablet 5 mg PO BID Pain 06/01/23 06/01/23 History gabapentin 300 mg capsule 300 mg PO HS 06/01/23 06/01/23 History lifitegrast 5 % eye drops in a 1 drp ophthalmic (eye) AMPM PRN 06/01/23 06/01/23 History dropperette (Xiidra) NEEDED amiodarone 200 mg tablet 200 mg PO BID #90 tabs 06/07/23 Rx metoprolol succinate 25 mg 12.5 mg (1/2 x 25 mg) PO QAM #30 06/07/23 Rx tablet,extended release 24 hr tabs Past Med/Surg History Problem List (Updated 01/09/24 @ 01:53 by Lyudmila Merritt PA-C) Closed sacral fracture (Acute) Acute pain of left hip (Acute) Intractable low back pain (Acute) Hiatal hernia History of melena Essential hypertension Urinary bladder incontinence Atrial fibrillation with rapid ventricular response (Acute) Spinal stenosis of lumbar region Leg length discrepancy Status post left hip replacement (~10/2021) Encounter for pre-operative examination Sacroiliitis Rotator cuff arthropathy of right shoulder Right shoulder pain Myofascial pain Follows with pain management Left hip pain Gait instability Uses cane to ambulate - secondary to hip vs lumbar back pain Lumbar facet joint syndrome Lumbar radiculopathy (Chronic) R L4-5 Lumbar postlaminectomy syndrome (Chronic) Chronic back pain (Chronic) Lumbar area- hx of lumbar fusion GERD (gastroesophageal reflux disease) (Chronic) Well controlled and stable Medical History (Updated 01/09/24 @ 01:53 by Lyudmila Merritt PA-C) Thrush Oral thrush x 3 weeks (secondary to previous abx use). Following with PCP- using Nystatin rinse, clotrimazole lozenge, and salt water rinses- thrush slowly improving Pt will call if not resolved by DOS Surgical History (Updated 07/08/23 @ 00:08 by Edi Skelton) S/P lumbar fusion L2-4 Dr. Pierson 2017 History of bilateral tubal ligation History of colonoscopy History of tonsillectomy History of cataract surgery R/L Family History (Updated 06/01/23 @ 15:55 by Karie Rhoades PA-C) Other No known health problems Denies family history of Diabetes Coronary heart disease Cancer Stroke Social History (Updated 06/01/23 @ 15:56 by Karie Rhoades PA-C) Smoking Status: Never smoker Cigarettes Per Day: 1ppd x 48 yrs; Second Hand Exposure: No; Do You Dip or Chew Tobacco: No; Hx Alcohol Use: Yes Alcohol type: wine Alcohol Intake Frequency: 2-4 x/Month Hx Substance Use: No Preferred Language: Citizen Of [place] Communication Ability: Effective Visual Impairment: No Limitations Hearing Ability: Normal Cans Vacuum Tester Required: No Beliefs That Will Affect Care: None marital status: Single Current Living Situation: Alone current occupational status: retired Feels Safe at Home: Yes Safety Concerns: Feels Safe At This Time Assistive Devices: Cane Review of Systems Review of Systems: As per HPI, all other systems reviewed and negative Physical Exam Physical Exam: GENERAL: Comfortable, obese, pleasant, no respiratory distress SKIN: Pallor,, warm HEENT: Bespectacled, pale palpebral conjunctivae, subconjunctival hemorrhage, right; no ptosis, moist buccal mucosa NECK : Supple, no tenderness CHEST : CTA, no tenderness HEART : RRR, no obvious murmurs ABDOMEN: Some distention, nontender BACK : Low back tenderness, negative SLR EXTREMITIES : No LE swelling/tenderness, no other conspicuous deformities noted NEUROLOGIC : Coherent, no facial asymmetry, no other gross focality Results & Data Results & Data Vital Signs (Past 12 Hours) Vital Signs Temp Pulse Resp BP Pulse Ox O2 Del Method 01/08/24 21:24 36.5 C 83 20 160/103 H 98 Room Air Laboratory Results Laboratory Results WBC 8.86 K/ul (4.8-10.8) 01/09/24 00:10 RBC 4.42 M/uL (4.20-5.40) 01/09/24 00:10 Hgb 11.7 g/dl (12.0-16.0) L 01/09/24 00:10 Hct 36.7 % (37.0-47.0) L 01/09/24 00:10 MCV 83.0 fL (80.0-100.0) 01/09/24 00:10 MCH 26.5 pg (25.0-34.0) 01/09/24 00:10 MCHC 31.9 g/dL (32.0-36.0) L 01/09/24 00:10 RDW Std Deviation 47.8 fL (36.4-46.3) H 01/09/24 00:10 RDW Coeff of Lisa 15.9 % (11.5-14.5) H 01/09/24 00:10 Plt Count 314 K/uL (130-400) 01/09/24 00:10 MPV 9.8 fL (9.4-12.4) 01/09/24 00:10 Immature Gran % (Auto) 0.3 % 01/09/24 00:10 Neut % (Auto) 82.7 % 01/09/24 00:10 Lymph % (Auto) 11.1 % 01/09/24 00:10 [place] % (Auto) 5.1 % 01/09/24 00:10 Eos % (Auto) 0.5 % 01/09/24 00:10 Baso % (Auto) 0.3 % 01/09/24 00:10 Neut # (Auto) 7.33 K/uL (1.40-6.50) H 01/09/24 00:10 Lymph # (Auto) 0.98 K/uL (1.20-3.40) L 01/09/24 00:10 [place] # (Auto) 0.45 K/uL (0.11-0.59) 01/09/24 00:10 Eos # (Auto) 0.04 K/uL (0.00-0.50) 01/09/24 00:10 Baso # (Auto) 0.03 K/uL (0.00-0.20) 01/09/24 00:10 Immature Gran # (Auto) 0.03 K/uL (0.01-0.20) 01/09/24 00:10 Sodium 140 mmol/L (136-145) 01/09/24 00:10 Potassium 3.9 mmol/L (3.5-5.1) 01/09/24 00:10 Chloride 108 mmol/L (98-107) H 01/09/24 00:10 Carbon Dioxide 25 mmol/L (21-32) 01/09/24 00:10 Anion Gap 7 (3-11) 01/09/24 00:10 BUN 13 mg/dl (6-23) 01/09/24 00:10 Creatinine 0.86 mg/dl (0.6-1.2) 01/09/24 00:10 Est Cr Clr Drug Dosing 47.5 ml/min 01/09/24 00:10 eGFR 66.57 01/09/24 00:10 BUN/Creatinine Ratio 15.1 (10-20) 01/09/24 00:10 Glucose 103 mg/dl (70-99(Fasting)) H 01/09/24 00:10 Calcium 9.0 mg/dl (8.6-10.3) 01/09/24 00:10 Total Bilirubin 0.4 mg/dl (0.2-1.0) 01/09/24 00:10 AST 19 U/L (13-39) 01/09/24 00:10 ALT 14 U/L (7-52) 01/09/24 00:10 Alkaline Phosphatase 52 U/L (34-104) 01/09/24 00:10 Total Protein 6.3 gm/dl (6.0-8.3) 01/09/24 00:10 Albumin 3.5 gm/dl (3.4-5.0) 01/09/24 00:10 Globulin 2.8 gm/dl (2.5-4.0) 01/09/24 00:10 Albumin/Globulin Ratio 1.3 (0.9-2) 01/09/24 00:10 Impressions Hip/Pelvis X-Ray 01/08/24 21:27 Exam(s): XR PELVIS, XR LEFT HIP EXAM: XR Pelvis, 1 or 2 Views CLINICAL HISTORY: Reason for exam: pain. TECHNIQUE: Frontal view of the pelvis. COMPARISON: No relevant prior studies available. FINDINGS: Bones/joints: Moderate degenerative arthropathy of the right hip joint. Status post posterior decompression and fusion of the lumbar spine. No acute fracture. No dislocation. Soft tissues: Unremarkable. IMPRESSION: No evidence of acute pelvic pathology. EXAM: XR Left Hip With Pelvis When Performed, 2 or 3 Views CLINICAL HISTORY: Reason for exam: pain. TECHNIQUE: Two or three views of the left hip with pelvis when performed. COMPARISON: No relevant prior studies available. FINDINGS: Bones/joints: Moderate degenerative arthropathy of the right hip. There is a total left hip arthroplasty with expected postsurgical changes. No acute fracture. No dislocation. Soft tissues: Unremarkable. IMPRESSION: Status post left hip arthroplasty with expected postsurgical changes. Electronically signed by: Lakesha Romero MD 01/09/24 02:[address] 01/08/24 21:27 CR Exam(s): CT L SPINE EXAM: CT Lumbar Spine Without Intravenous Contrast CLINICAL HISTORY: Reason for exam: severe LBP, leg leg pain. TECHNIQUE: Axial computed tomography images of the lumbar spine without intravenous contrast. CTDI is 38.58 mGy and DLP is 1115.17 mGy-cm. Automated exposure control was utilized for the study. A dose lowering technique was utilized adhering to the principles of ALARA. COMPARISON: Prior plain film images of the lumbar spine from February 18, 2019 and MRI of the lumbar spine from April 15, 2018 FINDINGS: Vertebrae: There are 5 lumbar type vertebral body is with a mild levoscoliosis normal lumbar lordosis. There is a remote fracture deformity of the L1 superior endplate. Patient is status post posterior decompression and fusion of L2, L3 and L4 with transpedicular screws and connecting rods in place. No evidence of surgical hardware complication. There is a fracture of the S3 segment. There are bilateral sacral ala insufficiency fractures. Discs/spinal canal/neural foramina: No acute findings. No spinal canal stenosis. Soft tissues: Hepatic steatosis. IMPRESSION: There is an S3 fracture with bilateral sacral ala insufficiency fractures. Recommend MRI of the sacrum for further evaluation. These fractures may be amenable to sacroplasty. No evidence of acute lumbar spine pathology. Communications: Verify Receipt Electronically signed by: Lakesha Romero MD 01/09/24 01:50 AM (1) Closed sacral fracture Encounter type: initial encounter Zone of sacrum fracture: unspecified portion of sacrum Qualified Code(s): S32.10XA - Unspecified fracture of sacrum, initial encounter for closed fracture
[2024-01-09 00:33] LABS: Basophils # (auto) 0.03 K/uL (0.00-0.20); Basophils % (auto) 0.3 %; Eosinophils # (auto) 0.04 K/uL (0.00-0.50); Eosinophils % (auto) 0.5 %; Hematocrit (blood only) 36.7 % (37.0-47.0); Hemoglobin 11.7 g/dl (12.0-16.0); Immature Granulocytes # (auto) 0.03 K/uL (0.01-0.20); Immature Granulocytes % (auto) 0.3 %; Lymphocytes # (auto) 0.98 K/uL (1.20-3.40); Lymphocytes % (auto) 11.1 %; Mean Corpuscular Hemoglobin 26.5 pg (25.0-34.0); Mean Corpuscular Hgb Conc 31.9 g/dL (32.0-36.0); Mean Platelet Volume 9.8 fL (9.4-12.4); Monocytes # (auto) 0.45 K/uL (0.11-0.59); Monocytes % (auto) 5.1 %; Neutrophils # (auto) 7.33 K/uL (1.40-6.50); Neutrophils % (auto) 82.7 %; Platelet Count 314 K/uL (130-400); RDW Coefficient of Variation 15.9 % (11.5-14.5); RDW Standard Deviation 47.8 fL (36.4-46.3); Red Blood Count 4.42 M/uL (4.20-5.40); White Blood Count 8.86 K/ul (4.8-10.8)
[2024-01-09 00:43] LABS: Albumin Globulin Ratio 1.3 (0.9-2); Albumin Level 3.5 gm/dl (3.4-5.0); BUN Creatinine Ratio 15.1 (10-20); Bilirubin,Total 0.4 mg/dl (0.2-1.0); Creatinine Clr Calc Pharmacy 47.5 ml/min; Globulin 2.8 gm/dl (2.5-4.0); Potassium 3.9 mmol/L (3.5-5.1); Total Protein 6.3 gm/dl (6.0-8.3)
--- NOTE | 2024-01-09 01:02 | Emergency Department Note ---
ED Visit Note I was consulted by the Advanced Practice Provider. I personally made/approved the management plan and take responsibility for the patient management. I performed a substantive portion of the visit. This includes the aspects of: -History/Physical -MDM .
[2024-01-09] MEDS: amLODIPine BESYLATE 5 MG TAB PO ONE (01:25)
[2024-01-09] MEDS: LIDOCAINE 5% 1 PATCH TD STA (01:25)
--- NOTE | 2024-01-09 01:51 | CT Scan Report ---
Exam(s): CT L SPINE EXAM: CT Lumbar Spine Without Intravenous Contrast CLINICAL HISTORY: Reason for exam: severe LBP, leg leg pain. TECHNIQUE: Axial computed tomography images of the lumbar spine without intravenous contrast. CTDI is 38.58 mGy and DLP is 1115.17 mGy-cm. Automated exposure control was utilized for the study. A dose lowering technique was utilized adhering to the principles of ALARA. COMPARISON: Prior plain film images of the lumbar spine from February 18, 2019 and MRI of the lumbar spine from April 15, 2018 FINDINGS: Vertebrae: There are 5 lumbar type vertebral body is with a mild levoscoliosis normal lumbar lordosis. There is a remote fracture deformity of the L1 superior endplate. Patient is status post posterior decompression and fusion of L2, L3 and L4 with transpedicular screws and connecting rods in place. No evidence of surgical hardware complication. There is a fracture of the S3 segment. There are bilateral sacral ala insufficiency fractures. Discs/spinal canal/neural foramina: No acute findings. No spinal canal stenosis. Soft tissues: Hepatic steatosis. IMPRESSION: There is an S3 fracture with bilateral sacral ala insufficiency fractures. Recommend MRI of the sacrum for further evaluation. These fractures may be amenable to sacroplasty. No evidence of acute lumbar spine pathology. Communications: Verify Receipt Electronically signed by: Lakesha Romero MD 01/09/24 01:50 AM
--- NOTE | 2024-01-09 02:02 | XRay Report ---
Exam(s): XR PELVIS, XR LEFT HIP EXAM: XR Pelvis, 1 or 2 Views CLINICAL HISTORY: Reason for exam: pain. TECHNIQUE: Frontal view of the pelvis. COMPARISON: No relevant prior studies available. FINDINGS: Bones/joints: Moderate degenerative arthropathy of the right hip joint. Status post posterior decompression and fusion of the lumbar spine. No acute fracture. No dislocation. Soft tissues: Unremarkable. IMPRESSION: No evidence of acute pelvic pathology. EXAM: XR Left Hip With Pelvis When Performed, 2 or 3 Views CLINICAL HISTORY: Reason for exam: pain. TECHNIQUE: Two or three views of the left hip with pelvis when performed. COMPARISON: No relevant prior studies available. FINDINGS: Bones/joints: Moderate degenerative arthropathy of the right hip. There is a total left hip arthroplasty with expected postsurgical changes. No acute fracture. No dislocation. Soft tissues: Unremarkable. IMPRESSION: Status post left hip arthroplasty with expected postsurgical changes. Electronically signed by: Lakesha Romero MD 01/09/24 02:02 AM
[2024-01-09] MEDS ORDERED: ARTIFICIAL TEARS OP PRN (03:18)
--- OUTSIDE RECORDS SUMMARY | 2024-01-09 04:21 | External Medical Summary | Summary of Care ---
Author Name Unknown Organization [facility] Address [address] [place] [address] Phone [phone] Care Team Providers Care Third Rigger Name Role Phone Danilo CHARLES MD, Efrain Wheeler Primary Care Provider [phone] Reason for Visit * Reason Comments Follow Up Encounter Details Date Type Department Care Team (Late st Contact Info) Description 12/18/2023 10:00 AM EDT Office Visit Cardiology, [facility] [address] [facility] [address] [place] [id number] Lin Chew PA-C [address] [facility] [address] LBBB (left bundle branch block)*; Paroxysmal atrial fibrillation (HCC); HTN, goal below 140/90; Dyslipidemia, goal LDL below 100 Allergies No known active allergiesdocumented as of this encounter (statuses as of 01/04/2024) Medications Medication Sig Dispensed Refills Start Date End Date Status MULTIVITAMIN/MINERA L FORMULA OR TABS 30 0 12/24/2001 Active Xiidra 5 % Ophthalmic Solution (Lifitegrast) Instill into eye. Acti ve Incontinence Supplies Dispense one large box or container, medium weight incontinence pad. Use as instructed. 24 Each 11 11/17/2022 Active Gabapentin 300 MG Oral Capsule (Neurontin) Take 1 Capsule by mouth at bedtime. 90 Capsule 3 06/12/2023 Active Alendronate Sodium 70 MG Oral Tablet (Fosamax)Indication s:Age related osteoporosis, unspecified pathological fracture presence Take 1 Tablet by mouth once a week. with 8 oz. water 30 minutes before first meal of the day. Remain upright for 30 min after taking tablet. 13 Tablet 3 06/17/2023 Active amLODIPine Besy-Benazepril HCl 2.5-10 MG Oral Capsule (Lotrel) TAKE 1 CAPSULE BY MOUTH EVERY DAY IN THE MORNING Strength: 2.5-10 MG 90 Capsule 1 06/24/2023 Active Famotidine 20 MG Oral Tablet (Pepcid) Take 1 Tablet by mouth at bedtime. Active Cyclobenzaprine HCl 10 MG Oral Tablet (Flexeril) Take 1 Tablet by mouth 3 times a day as needed. Active Pantoprazole Sodium 40 MG Oral Tablet Delayed Release (Protonix) Take 1 Tablet by mouth in the morning and 1 Tablet in the evening. 180 Tablet 2 08/24/2023 Active Amiodarone HCl 200 MG Oral Tablet (Cordarone) Take 1 Tablet by mouth in the morning. 90 Tablet 3 09/16/2023 Active Metoprolol Succinate ER 25 MG Oral Tablet Extended Release 24 Hour (toPROL XL) Take 0.5 Tablets by mouth in the morning. 45 Tablet 3 09/16/2023 Active oxyBUTYnin Chloride 5 MG Oral Tablet (Ditropan) TAKE 0.5 TABLETS BY MOUTH 2 TIMES A DAY IN THE MORNING AND AT BEDTIME. 90 Tablet 3 10/07/2023 Active Clotrimazole 1 % External Cream (Lotrimin) Apply topically to affected area 2 times a day. Apply to lip edges 30 g 1 10/14/2023 Active Xiidra 5 % Ophthalmic Solution (Lifitegrast) Instill 1 Drop into eye in the morning and 1 Drop before bedtime. 5 Each 10 12/14/2023 Active Iron-Vitamin C 65-125 MG Oral Tablet (Vitron C) Take 1 Tablet by mouth in the morning. 30 Tablet 3 12/16/2023 Active Rosuvastatin Calcium 10 MG Oral Tablet (Crestor) Take 1 Tablet by mouth daily. 90 Tablet 3 12/18/2023 Active documented as of this encounter (statuses as of 01/04/2024) Active Problems Problem Noted Date Diagnosed Date Dyslipidemia, goal LDL below 100 01/04/2024 Chronic kidney disease, stage 3a 10/19/2023 Overview: Per CKD protocol LBBB (left bundle branch block) 06/17/2023 Paroxysmal atrial fibrillation 06/17/2023 HTN, goal below 140/90 11/08/2021 Trochanteric bursitis 12/09/2018 BMI 35-39 ISOLATED (SEE ACTUAL BMI) 08/20/2009 Overview: Per Obesity Protocol, #19 ADVANCE DIRECTIVE INFORMATION 10/24/2004 Overview: No, Advance Directive brochure given to patient. documented as of this encounter (statuses as of 01/04/2024) Resolved Problems Problem Noted Date Diagnosed Date Resolved Date 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 Overview: villous tissue repeat colonoscopy in 6 months Esophagitis 02/10/2019 Overview: ICD-10 update of inactive term documented as of this encounter (statuses as of 01/04/2024) Immunizations Name Administration Dates Next Due COVID-19 mRNA, LNP-s, No Pre serve, 2-Dose Series (Moderna) 05/03/2020,04/04/2020 COVID-19, MRNA-LNP, 23-24, P F, 30 MCG/0.3 mL, 12 YRS AND ABOVE, IM (PFIZER-Comirnat) 12/02/2022 COVID-19, mRNA, LNP-s, PF, B ooster, 100mcg/0.5mg (Moderna) 06/10/2021,01/08/2021 H1N1 2009 Influenza, IM 03/22/2009 HEP A - Hepatitis A (Adult > 18 yrs) 03/14/2008, 10/19/2007 Pneumococcal Conjugate Vacc, 13 Valent (Prevnar) 05/08/2014 Pneumococcal Polysaccharide PPV23 (Pneumovax) 06/19/2006 RSV Vac., Bivalent, Perfusio n F, Pf,0.5 Ml (Abrysvo) 04/10/2023 Season Influenza, Quad, PF, Adjuvanted, 65+ Yrs, IM (FLUAD) 01/24/2020 Seasonal Influenza Vac., MDV , IM, 0.5 mL (Fluzone) 12/10/2013,11/20/2012,11/22/2011,12/17,01/27/2009,12/16/2007,12/23/2006 ,12/31/2005 Seasonal Influenza, High Dos e, Trivalent, PF, IM (Fluzone HD) 11/14/2023 Seasonal Influenza, PF, 6 M & above, IM , (FluLaval or Fluzone) 12/09/2018,11/24/2017,02/09/2017 Seasonal Influenza, Quadriva lent Hd (Fluzone Hd) 11/13/2022,11/08/2021,11/27/2020 Seasonal Influenza, Quadriva lent, No Preserve, IM 12/22/2015,12/23/2014 TD, Preservative Free 09/19/2009 TDAP (age 10 and older)(Boostrix) 10/09/2021 Varicella Zoster Vaccine (Adult) 06/02/2007 Zoster Vaccine Recombinant (Shingrix) 10/14/2023 documented as of this encounter Social History Tobacco Use Types Packs/Day Years Used Date Smoking Tobacco: Former Cigarettes 1 20 1 - 12/16/1996 Smokeless Tobacco: Never Tobacco Cessation:Counseling Given: Not Answered Alcohol Use Standard Drinks/Week Comments Not Currently 0 (1 standard drink = 0.6 oz pur e alcohol) PHQ-2 Answer Date Recorded PHQ Adult Total Score 0 08/24/2023 Hunger Vital Sign Answer Date Recorded Within the past 12 months, y ou worried that your food would run out before you got the money to buy more. Never true 12/13/19 24 Within the past 12 months, t he food you bought just didn't last and you didn't have money to get more. Never true 12/13/2023 Childcare Answer Date Recorded Do you feel overwhelmed with taking care of a child, family member or friend? No 12/13/2023 Does your family need help f inding childcare? (Household - for ages 0-17 years) Not on file 12/13/2023 Clothing Answer Date Recorded Have you been unable to get clothing when it was really needed? No 12/13/2023 Is your family able to get c lothes or diapers when needed? (Household - for ages 0-17 years) Not on file 12/13/2023 Personal Safety Answer Date Recorded Do you feel unsafe or have concerns for your saf ety? No 12/13/2023 Do you have concerns for you r family's safety? (Household - for ages 0-17 years) Not on file 12/13/2023 Utilities Answer Date Recorded Do you have trouble paying y our heating, water, or electric bill? No 12/13/2023 Is your family able to pay t he heat, water, or electric bill? (Household - for ages 0-17 years) Not on file 12/13/2023 Does your family have access to good internet? (Household - for ages 0-17 years) Not on file 12/13/2023 Employment Status Answer Date Recorded Are you unemployed or without regular income? No 12/13/2023 Does the household have a re gular source of income? (Household - for ages 0-17 years) Not on file 12/13/2023 Social Connections Answer Date Recorded How often do you feel lonely or isolated from th ose around you? Rarely 12/13/2023 Financial Resource Strain Answer Date R ecorded Do you have any trouble payi ng for your medications, or do you think you might in the future? No 12/13/2023 Does your family have troubl e paying for medicine? (Household - for ages 0-17 years) Not on file 12/13/2023 Transportation Needs Answer Date Record ed Do you have trouble getting a ride to medical visits or work? (Adult - for ages 18 years and over) Not on file 12/13/2023 Does your family have a hard time getting a ride to doctors visits? (Household - for ages 0-17 years) Not on file 12/13/2023 Has lack of transportation k ept you from medical appointments, meetings, work, or from getting things needed for daily living? Check all that apply. No 12/13/2023 Do you (or your family) have trouble finding or paying for a ride (transportation)? (Household - for ages 0-17 years) Not on file 12/13/2023 Housing Stability Answer Date Recorded Do you currently live in a s helter or have no steady place to sleep at night? No 12/13/2023 Do you think you are at risk of becoming homeless? (Adult - for ages 18 years and over) Not on file 12/13/2023 Does your family worry about paying for your home or becoming homeless? (Household - for ages 0-17 years) Not on file 1 Are you homeless or worried that you might be in the future? No 12/13/2023 Are you (or your family) neptali eless or worried that you might be in the future? (Household - for ages 0-17 years) Not on file Food Insecurity Answer Date Recorded Do you need food for this week? No 12/13/2023 Are you able to get enough f ood for your family? (Household - for ages 0-17 years) Not on file 12/13/2023 Does your family need food t his week? (Household - for ages 0-17 years) Not on file 12/13/2023 Do you always have enough fo od for your family? (Household - for ages 0-17 years) Not on file 12/13/2023 Sex and Gender Information Value Date Recorded Sex Assigned at Female 02/23/2019 9:03 AM EST Gender Identity Female 02/23/2019 9:03 AM EST Sexual Orientation Straight 08/06/2021 10 :19 AM EDT Job Start Date Occupation Industry Not on file Not on file Not on file documented as of this encounter Last Filed Vital Signs Vital Sign Reading Time Taken Comments Blood Pressure 130/82 12/18/2023 9:59 AM EDT Pulse 78 12/18/2023 9:59 AM EDT Temperature - - Respiratory Rate - - Oxygen Saturation 97% 12/18/2023 9:59 AM EDT Inhaled Oxygen Concentration - - Weight 75.3 kg (166 lb) 12/18/2023 9:59 AM EDT Height - - Body Mass Index 29.41 08/24/2023 9:51 AM EDT documented in this encounter Patient Instructions * Patient Instructions* Lin Chew PA-C - 12/18/2023 10:20 AM EDT Start rosuvastatin (Crestor) 10 mg - 1 tablet daily (morning or night). I sent that to your pharmacy. Fasting blood work in about 3 months documented in this encounter Progress Notes * Lin Chew PA-C - 12/18/2023 10:10 AM EDT Images from the original note were not included. Cardiology F/U: History of Present Illness: Rebekah Leiva is a 83 year old female here today for routine cardiology follow-up. Last clinic evaluation approximately 3 months ago with the undersigned. History includes: GI bleed with Necrotizing esophagitis, Large hiatal hernia on EGD May 2023. Following with GI. PAF noted at time of GI bleed. Started on amiodarone and metoprolol. No anticoagulation given GI bleed. LBBB - new at time of afib RVR Patient presents today feeling well. Denies acute cardiac complaints or concerns. BP controlled. Taking meds as prescribed. No interim hospitalizations. No palpitations, dizziness, syncope or near syncope. No orthopnea, PND, or increased lower extremity edema. No fever, chills, cough, hematochezia, melena, or hemoptysis. Review of Systems: See HPI for pertinent positives. All others negative, other than those noted in HPI. Patient Active Problem List Diagnosis ADVANCE DIRECTIVE INFORMATION BMI 35-39 ISOLATED (SEE ACTUAL BMI) Trochanteric bursitis HTN, goal below 140/90 LBBB (left bundle branch block) Paroxysmal atrial fibrillation (HCC) Chronic kidney disease, stage 3a (HCC) Past Surgical History: Procedure Laterality Date COLONOSCOPY [...] performed by Jacky Otoole MD at ENDOSCOPY [facility] COLONOSCOPY, DIAGNOSTIC (RECTUM) 01/25/2019 adenomatous polyps, diverticulosis/COLONOSCOPY FLEXIBLE PROXIMAL DIAGNOSTIC performed by Jacky Otoole MD at ENDOSCOPY [facility] LUMBAR / SACRAL EPIDURAL, SINGLE LEVEL 08/24/2017 INJECTION TRANSFORAMINAL EPIDURAL LUMBAR OR SACRAL performed by Alcon Nye DO at OR [facility] MAMMOGRAM - BILATERAL 07/07/2006 birad code 1, negative [place] TOTAL HIP ARTHROPLASTY Left 10/2021 REMOVE CATARACT, INSERT LENS PROSTH 08/20/[address] CHO REMOVE CATARACT, INSERT LENS PROSTH REMOVE TONSILS & ADENOIDS, UNDER 12 Tonsillectomy/Adenoids,<12 Y/O SPINAL FUSION, LUMBAR, COMBINED 2018 L234 Family History: Family History Problem Relation Name Age of Onset No Past Hx Father Mental Disorder Mother suicide Cancer Brother lymphoma No Known Problems Son Social History: Social History Socioeconomic History Marital status: Spouse name: Not on file Number of children: Not on file Years of education: Not on file Highest education level: Not on file Occupational History Not on file Tobacco Use Smoking status: Former Current packs/day: 0.00 Average packs/day: 1 pack/day for 20.0 years (20.0 ttl pk-yrs) Types: Cigarettes Start date: 12/16/1976 Quit date: 12/16/1996 Years since quittin.0 Smokeless tobacco: Never Vaping Use Vaping status: Never Used Substance and Sexual Activity Alcohol use: Not Currently Drug use: Not Currently Types: Marijuana Comment: occasional marijuana use reported by patient. Sexual activity: Not Currently Other Topics Concern Not on file Social History Narrative Lives alone. No family in the area. Social Determinants of Health Financial Resource Strain: Low Risk (12/13/2023) Financial Resource Strain Do you have any trouble paying for your medications, or do you think you might in the future? (Adult - for ages 18 years and over): No Does your family have trouble paying for medicine? (Household - for ages 0-17 years): Not on file Food Insecurity: No Food Insecurity (12/13/2023) Food Insecurity Do you need food for this week? (Adult - for ages 18 years and over): No Are you able to get enough food for your family? (Household - for ages 0-17 years): Not on file Does your family need food this week? (Household - for ages 0-17 years): Not on file Do you always have enough food for your family? (Household - for ages 0-17 years): Not on file Transportation Needs: No Transportation Needs (12/13/2023) Transportation Needs Do you have trouble getting a ride to medical visits or work? (Adult - for ages 18 years and over):Not on file Does your family have a hard time getting a ride to doctors visits? (Household - for ages 0-17 years): Not on file Has lack of transportation kept you from medical appointments, meetings, work, or from getting things needed for daily living? Check all that apply. (Adult - for ages 18 years and over): No Do you (or your family) have trouble finding or paying for a ride (transportation)? (Household - for ages 0-17 years): Not on file Social Connections: Socially Integrated (12/13/2023) Social Connections How often do you feel lonely or isolated from those around you? (Adult - for ages 18 years and over): Rarely Housing Stability: Low Risk (12/13/2023) Housing Stability Do you currently live in a nursing home or have no steady place to sleep at night? (Adult - for ages 18 years and over): No Do you think you are at risk of becoming homeless? (Adult - for ages 18 years and over): Not on file Does your family worry about paying for your home or becoming homeless? (Household - for ages 0-17 years): Not on file Are you homeless or worried that you might be in the future? (Adult - for ages 18 years and over): No Are you (or your family) homeless or worried that you might be in the future? (Household - for ages0-17 years): Not on file Allergies: Patient has no known allergies. Medications: Current Outpatient Medications Medication Sig Dispense Refill MULTIVITAMIN/MINERAL FORMULA OR TABS 30 0 Xiidra 5 % Ophthalmic Solution (Lifitegrast) Instill into eye. Incontinence Supplies Dispense one large box or container, medium weight incontinence pad. Use as instructed. 24 Each 11 Gabapentin 300 MG Oral Capsule (Neurontin) Take 1 Capsule by mouth at bedtime. 90 Capsule 3 Alendronate Sodium 70 MG Oral Tablet (Fosamax) Take 1 Tablet by mouth once a week. with 8 oz. water30 minutes before first meal of the day. Remain upright for 30 min after taking tablet. 13 Tablet 3 amLODIPine Besy-Benazepril HCl 2.5-10 MG Oral Capsule (Lotrel) TAKE 1 CAPSULE BY MOUTH EVERY DAY INTHE MORNING Strength: 2.5-10 MG 90 Capsule 1 Famotidine 20 MG Oral Tablet (Pepcid) Take 1 Tablet by mouth at bedtime. Cyclobenzaprine HCl 10 MG Oral Tablet (Flexeril) Take 1 Tablet by mouth 3 times a day as needed. Pantoprazole Sodium 40 MG Oral Tablet Delayed Release (Protonix) Take 1 Tablet by mouth in the morning and 1 Tablet in the evening. 180 Tablet 2 Amiodarone HCl 200 MG Oral Tablet (Cordarone) Take 1 Tablet by mouth in the morning. 90 Tablet 3 Metoprolol Succinate ER 25 MG Oral Tablet Extended Release 24 Hour (toPROL XL) Take 0.5 Tablets by mouth in the morning. 45 Tablet 3 oxyBUTYnin Chloride 5 MG Oral Tablet (Ditropan) TAKE 0.5 TABLETS BY MOUTH 2 TIMES A DAY IN THE MORNING AND AT BEDTIME. 90 Tablet 3 Clotrimazole 1 % External Cream (Lotrimin) Apply topically to affected area 2 times a day. Apply tolip edges 30 g 1 Xiidra 5 % Ophthalmic Solution (Lifitegrast) Instill 1 Drop into eye in the morning and 1 Drop before bedtime. 5 Each 10 Iron-Vitamin C 65-125 MG Oral Tablet (Vitron C) Take 1 Tablet by mouth in the morning. 30 Tablet 3 Rosuvastatin Calcium 10 MG Oral Tablet (Crestor) Take 1 Tablet by mouth daily. 90 Tablet 3 No current facility-administered medications for this visit. OBJECTIVE/PHYSICAL EXAMINATION: BP 130/82 | Pulse 78 | Wt 75.3 kg (166 lb) | SpO2 97% | BMI 29.41 kg/m | BSA 1.83 m Blood pressure my repeat 150/76 General: no acute distress and stated age Eyes: conjunctiva are pink and non-injected, sclera clear Neck: normal jugular venous pulse, no hepatojugular reflux Chest: normal shape and normal respiratory effort Lungs: clear to auscultation and percussion Cardiac Exam: regular heart sounds, no murmurs, rubs, or gallops Abdomen: abdomen soft, non-tender, no abnormal masses and no hepatosplenomegaly Musculoskeletal: no gait disturbance, no weakness Extremities: no edema and no cyanosis Neuro: grossly normal exam Psych: appropriate affect and insight. Data: Nuclear stress test report reviewed dated Nov 2023: Interpretation Summary Perfusion images reveal a fixed anteroseptal perfusion defect consistent with underlying left bundle branch block without suggestion of superimposed ischemia. Gated SPECT imaging reveals normal myocardial thickening and wall motion. The left ventricular ejection fraction was calculated to be 68%. EKG performed September 2023 NSR LBBB QT/QTc 484/503 ms EKG performed June 27, 2023: NSR at 73 bmp LBBB QT/QTc for 32/475 milliseconds Compared with prior EKG, NSR has replaced atrial fibrillation Echocardiogram report reviewed dated 06/02/23 at [facility]: Latest Reference Range & Units 12/14/23 11:38 Triglycerides <=174 mg/dL 142 Cholesterol <200 mg/dL 286 (H) Non-HDL Cholesterol <=159 mg/dL 229 (H) HDL Cholesterol >49 mg/dL 57 LDL Cholesterol <=129 mg/dL 201 (H) (H): Data is abnormally high IMPRESSION: 83 year old female ICD-10-CM 1. LBBB (left bundle branch block) I44.7 2. Paroxysmal atrial fibrillation (HCC) I48.0 3. HTN, goal below 140/90 I10 4. Dyslipidemia, goal LDL below 100 E78.5 RECOMMENDATIONS/PLAN: Recent lipids reviewed. Significantly elevated. Recommend initiation of low dose starting with rosuvastatin 10 mg daily. Patient agreeable. Currently NSR on low dose metoprolol and amiodarone. AC contraindicated given recent significant GI bleed. If no recurrent GI bleeding and she has recurrent PAF, may need to consider anticoagulation. Recent nuclear stress test report reviewed, no inducible ischemia Patient Instructions Start rosuvastatin (Crestor) 10 mg - 1 tablet daily (morning or night). I sent that to your pharmacy. Fasting blood work in about 3 months Patient is being evaluated in the cardiology office for ongoing care/risk management for PAF; HTN; LBBB; dyslipidemia I spent a total of 30 minutes on the date of service in preparation, delivery, and documentation ofthe care provided to Rebekah Leiva excluding any time spent in the performance of separately billed services. The patient agrees to the above plan and will call with additional questions or concerns. ER with all emergencies advised. Follow-up: Return in about 6 months (around 06/17/2024). | Check-out note: Print instructions Fasting blood work in 3 months 6 month follow up Lin Chew PA-C Department of Cardiology This chart was completed in part utilizing [employer] Voice Recognition Software. Grammatical errors, random word insertions, prounoun errors, and incomplete sentences are an occasional consequence of this system due to software limitations, ambient noise, and hardware issues. Any formal questions or concerns about the content, text, or information contained within the body of this dictation should be directly addressed to the provider for clarification. documented in this encounter Nursing Notes * Gladis Little CMA - 12/18/2023 9:59 AM EDT Examination Room: 1 Name: Rebekah Leiva Date of : (1940) Reason for Visit: 3m Interim Hospitalization(s): none Problems/Concerns: denied Chest Pain/SOB: denied My [facility] is a way you can talk to your provider online through e-mail. Would you like to sign up? I can activate it for you? IN PROCESS Patient was instructed to not get up on the exam table until directed and assisted by their provider; patient is to remain seated in the chair/ wheelchair/ exam table for fall prevention and safety reasons. Patient is aware to have assistance to step down off exam table with personnel. Patient voiced full comprehension of instructions. documented in this encounter Plan of Treatment Upcoming Encounters Date Type Department Care Team (Late st Contact Info) Description 02/19/2024 8:00 AM EST Office Visit [facility], [facility] [address] [place] [id number] Nichole David PA-C [address] [place] [address] 06/15/2024 8:40 AM EDT Office Visit Family Practice [facility] [place] [address] [place] [address] Efrain Carrasco III, MD [address] [facility] [place] [address] 06/17/2024 8:30 AM EDT Office Visit Cardiology, [facility] [address] [place] [id number] Lin Chew PA-C [address] [place] [address] 08/24/2024 11:00 AM EDT Nurse Only Ancillary [facility] [address] [place] [address] Lizz, Nurse Annual Wellness [facility] [address] [facility] [address] [place] [address] Scheduled Orders Name Type Priority Associated Diagnoses Orde r Schedule COMPREHENSIVE METABOLIC PANEL Lab Routine LBBB (left bundle branch block) Paroxysmal atrial fibrillation (HCC) HTN, goal below 140/90 Dyslipidemia, goal LDL below 100 Expected: 03/19/2024, Expires: 12/17/2024 LIPID PANEL WITH DIRECT LDL IF TG IS HIGH Lab Routine LBBB (left bundle branch block) Paroxysmal atrial fibrillation (HCC) HTN, goal below 140/90 Dyslipidemia, goal LDL below 100 Expected: 03/19/2024, Expires: 12/17/2024 TSH WITH FREE T4 IF INDICATED Lab Routine LBBB (left bundle branch block) Paroxysmal atrial fibrillation (HCC) HTN, goal below 140/90 Dyslipidemia, goal LDL below 100 Expected: 03/19/2024, Expires: 12/17/2024 Health Maintenance Due Date Last Done Comments COVID-19 Vaccine ( season) 2023 12/02/2022, 06/10/2021, 01/08/2021, Additional history exists Zoster Vaccines (3 of 3) 12/09/2023 10/14/2023, 03/08/2007 GFR 03/18/2024 09/16/2023, 06/07, 11/03/2021, Additional history exists Adult Wellness Visit 08/23/2024 08/24/2023, 08/14/2022, 08/06/2021 Depression Screening 08/23/2024 08/24/2023 Albumin/Creatinine Ratio 09/15/2024 09/16/2023 CKD HGB USE SMARTSET [id number] 12/13/202412/13, 09/16/2023, 06/17/2023, Additional history exists CKD PHOS USE SMARTSET [id number] 12/13/2024 12/14/2023 DXA Scan 08/31/2025 09/01/2023, 08/08, 09/03/2021, Additional history exists DTap/Tdap Vaccines (2 - Td or Tdap) 10/10/2031 10/09/2021, 09/19/2009, 09/04/1999 Pneumococcal Vaccine: 65+ Years Completed 05/08/2014, 06/19/2006 Influenza Vaccine (FLU shot) Completed 09/2023, 11/13/2022, 11/08/2021, Additional history exists HPV (Gardasil) Vaccine Aged Out No lo nger eligible based on patient's age to complete this topic Hepatitis B Vaccine Aged Out No longe r eligible based on patient's age to complete this topic MENINGOCOCCAL (MENACTRA/MENVEO) Aged Out No longer eligible based on patient's age to complete this topic documented as of this encounter Medical Devices Not on filedocumented as of this encounter Visit Diagnoses Diagnosis LBBB (left bundle branch block)- Primary Other left bundle branch block Paroxysmal atrial fibrillation (HCC) Atrial fibrillation HTN, goal below 140/90 Unspecified essential hypertension Dyslipidemia, goal LDL below 100 Other and unspecified hyperlipidemia documented in this encounter Advance Directives Documents on File Type Date Recorded Patient Lidar Scientist Expl anation Power of Mushroom Laborer 05/23/2021 POWER OF A TTORNEY Care Teams Third Rigger Relationship Specialty Start Date End Date Efrain Carrasco III, MD [address] [place] [address] PCP - General 12/20/99 documented as of this encounter"
--- OUTSIDE RECORDS SUMMARY | 2024-01-09 04:21 | External Medical Summary | Summary of Care ---
Author Name Unknown Organization [facility] Address [address] [place] [address] Phone [phone] Care Team Providers Care Unstacker Name Role Phone Danilo CHARLES MD, John E Primary Care Provider [phone] Reason for Visit * Reason Comments eRx-Medication Refill Encounter Details Date Type Department Care Team (Late st Contact Info) Description 01/06/2024 Refill Family Practice [facility] [address] [facility] [place] [address] Caitlin Cedillo III, MD 200 [place] [address] Allergies No known active allergiesdocumented as of this encounter (statuses as of 01/06/2024) Medications Medication Sig Dispensed Refills Start Date End Date Status MULTIVITAMIN/MINE RAL FORMULA OR TABS 30 0 2 Active Xiidra 5 % Ophthalmic Solution (Lifitegrast) Instill into eye. Acti ve Incontinence Supplies Dispense one large box or container, medium weight incontinence pad. Use as instructed. 24 Each 11 3 Active Gabapentin 300 MG Oral Capsule (Neurontin) Take 1 Capsule by mouth at bedtime. 90 Capsule 3 4 Active Alendronate Sodium 70 MG Oral Tablet (Fosamax)Indicati ons:Age related osteoporosis, unspecified pathological fracture presence Take 1 Tablet by mouth once a week. with 8 oz. water 30 minutes before first meal of the day. Remain upright for 30 min after taking tablet. 13 Tablet 3 4 Active Famotidine 20 MG Oral Tablet (Pepcid) Take 1 Tablet by mouth at bedtime. Active Cyclobenzaprine HCl 10 MG Oral Tablet (Flexeril) Take 1 Tablet by mouth 3 times a day as needed. Active Pantoprazole Sodium 40 MG Oral Tablet Delayed Release (Protonix) Take 1 Tablet by mouth in the morning and 1 Tablet in the evening. 180 Tablet 2 4 Active Amiodarone HCl 200 MG Oral Tablet (Cordarone) Take 1 Tablet by mouth in the morning. 90 Tablet 3 4 Active Metoprolol Succinate ER 25 MG Oral Tablet Extended Release 24 Hour (toPROL XL) Take 0.5 Tablets by mouth in the morning. 45 Tablet 3 4 Active oxyBUTYnin Chloride 5 MG Oral Tablet (Ditropan) TAKE 0.5 TABLETS BY MOUTH 2 TIMES A DAY IN THE MORNING AND AT BEDTIME. 90 Tablet 3 4 Active Clotrimazole 1 % External Cream (Lotrimin) Apply topically to affected area 2 times a day. Apply to lip edges 30 g 1 4 Active Xiidra 5 % Ophthalmic Solution (Lifitegrast) Instill 1 Drop into eye in the morning and 1 Drop before bedtime. 5 Each 10 4 Active Iron-Vitamin C 65-125 MG Oral Tablet (Vitron C) Take 1 Tablet by mouth in the morning. 30 Tablet 3 4 Active Rosuvastatin Calcium 10 MG Oral Tablet (Crestor) Take 1 Tablet by mouth daily. 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 (Household - for ages [...] encounter Miscellaneous Notes * Telephone Encounter - Smitha [facility] - 01/06/2024 5:57 PM EDTSigned Prescriptions: Disp Refills amLODIPine Besy-Benazepril HCl 2.5-10 MG O*90 Cap*3 Sig: TAKE 1 CAPSULE BY MOUTH EVERY DAY IN THE MORNINGAuthorizing Provider: CAITLIN CEDILLO III User: SMITHA MARX documented in this encounter Plan of Treatment Upcoming Encounters Date Type Department Care Team (Late st Contact Info) Description 02/19/2024 8:00 AM EST Office Visit [facility], [address] [place] [address] Nichole David PA-C [address] [place] [address] 06/15/2024 8:40 AM EDT Office Visit Family Practice [facility] [address] [facility] [place] [address] Caitlin Cedillo III, MD [address] [facility] [place] [address] 06/17/2024 8:30 AM EDT Office Visit Cardiology, [facility] [address] [place] [address] Lin Chew PA-C [address] [place] [address] 08/24/2024 11:00 AM EDT Nurse Only Ancillary [facility] [address] [facility] [place] [address] [place], Nurse Annual Wellness [address] [facility] [place] [address] Health Maintenance Due Date Last Done Comments COVID-19 Vaccine ( season) 2023 12/02/2022, 06/10/2021, 01/08/2021, Additional history exists Zoster Vaccines (3 of 3) 12/09/2023 10/14/2023, 03/2 08/2007 GFR 03/18/2024 09/16/2023, 06/07, 11/03/2021, Additional history exists Adult Wellness Visit 08/23/2024 08/24/2023, 08/14/2022, 08/06/2021 Depression Screening 08/23/2024 08/24/2023 Albumin/Creatinine Ratio 09/15/2024 09/16/2023 CKD HGB USE SMARTSET 22929 12/13/202412/13, 09/16/2023, 06/17/2023, Additional history exists CKD PHOS USE SMARTSET 29580 12/13/2024 12/14/2023 DXA Scan 08/31/2025 09/01/2023, 08/08, [...] Documents on File Type Date Recorded Patient Resident Surgeon Expl anation Power of Frame Welder Cargo Utility Trailers 05/23/2021 POWER OF A TTORNEY Care Teams Unstacker Relationship Specialty Start Date End Date Caitlin Cedillo III, MD [address] [place] [address] PCP - General 12/20/99 documented as of this encounter
--- OUTSIDE RECORDS SUMMARY | 2024-01-09 04:22 | External Medical Summary | Summary of Care ---
Author Name Unknown Organization [facility] Address [address] [place] [address] Phone [phone] Care Team Providers Care Transportation Clerk Name Role Phone Danilo CHARLES MD, Efrain Wheeler Primary Care Provider [phone] Reason for Visit * Reason Onset Date Comments Test Results 11/12/2023 Encounter Details Date Type Department Care Team (Late st Contact Info) Description 11/12/2023 Telephone Cardiology, [facility] [address] [facility] [place] [address] Lin Chew PA-C [address] [facility] [address] Test Results Allergies No known active allergiesdocumented as of this encounter (statuses as of 11/12/2023) Medications Medication Sig Dispensed Refills Start Date [...] the morning. 45 Tablet 3 09/16/2023 Active Iron-Vitamin C 65-125 MG Oral Tablet (Vitron C) Take 1 Tablet by mouth in the morning. Active Rosuvastatin Calcium 10 MG Oral Tablet (Crestor)Indication s:Dyslipidemia, goal LDL below 100 Take 1 Tablet by mouth daily. 90 Tablet 3 09/28/2023 Active Additional Information Patient not taking.Reported on 10/14/2023 oxyBUTYnin Chloride 5 MG Oral Tablet (Ditropan) TAKE 0.5 TABLETS BY MOUTH 2 TIMES A DAY IN THE MORNING AND AT BEDTIME. 90 Tablet 3 10/07/2023 Active Clotrimazole 1 % External Cream (Lotrimin) Apply topically to affected area 2 times a day. Apply to lip edges 30 g 1 10/14/2023 Active Zoster Vac Recomb Adjuvanted 50 MCG/0.5ML Intramuscular Suspension Reconstituted (Shingrix) Inject 0.5 mL into a large muscle now and repeat dose in 60 to 180 days 1 Each 1 10/14/2023 Active documented as of this encounter (statuses as of 11/12/2023) Active Problems Problem Noted Date Diagnosed Date Chronic kidney disease, stage 3a 10/19/2023 Overview: Per CKD protocol LBBB (left bundle branch block) 06/17/2023 Paroxysmal atrial fibrillation 06/17/2023 HTN, goal below 140/90 11/08/2021 Trochanteric bursitis 12/09/2018 BMI 35-39 ISOLATED (SEE ACTUAL BMI) 08/20/2009 Overview: Per Obesity Protocol, #19 ADVANCE DIRECTIVE INFORMATION 10/24/2004 Overview: No, Advance Directive brochure given to patient. 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 Overview: villous tissue repeat colonoscopy in 6 months Esophagitis 02/10/2019 Overview: ICD-10 update of inactive term documented as of this encounter (statuses as of 11/12/2023) Immunizations Name Administration Dates Next Due COVID-19 mRNA, LNP-s, No Pre serve, 2-Dose Series (Moderna) 05/03/2020,04/04/2020 COVID-19, MRNA-LNP, 23-24, P F, 30 MCG/0.3 mL, 12 YRS AND ABOVE, IM (PFIZER-Comirnaty) 12/02/2022 COVID-19, mRNA, LNP-s, PF, B ooster, [...] lent, No Preserve, IM 12/22/2015,12/23/2014 Seasonal Influenza, Trivalen t, (IIV3), with Preserv, (Fluzone) 12/10/2013,11/20/2012,11/22/2011,12/17,01/27/2009,12/16/2007,12/23/2006 ,12/31/2005 TD, Preservative Free 09/19/2009 TDAP [...] money to get more. Never true 08/13/2022 Utilities Answer Date Recorded Do you have trouble paying y our heating, water, or electric bill? (Adult - for ages 18 years and over) Not on file 08/25/2023 Is your family able to pay t he heat, water, or electric bill? (Household - for ages 0-17 years) Not on file 08/25/2023 Does your family have access to good internet? (Household - for ages 0-17 years) Not on file 08/25/2023 Social Connections Answer Date Recorded How often do you feel lonely or isolated from those around you? (Adult - for ages 18 years and over) Not on file 08/25/2023 Sex and Gender Information Value Date Recorded Sex Assigned at Female 02/23/2019 9:03 AM EST Gender Identity Female 02/23/2019 9:03 AM EST Sexual Orientation Straight 08/06/2021 10 :19 AM EDT Job Start Date Occupation Industry Not on file Not on file Not on file documented as of this encounter Miscellaneous Notes * Telephone Encounter - Gladis Little CMA - 11/12/2023 8:33 AM EDT My g sent. * Telephone Encounter - Gladis Little CMA - 11/12/2023 8:33 AM EDT ----- Message from Lin Chew sent at 11/11/2023 4:21 PM EDT ----- Nuclear stress test results reviewed. No inducible ischemia. Fixed defect consistent with known LBBB. Normal wall motion. No concerning findings. No changes at this time. Keep follow up as scheduled documented in this encounter Plan of Treatment Upcoming Encounters Date Type Department Care Team (Late st Contact Info) Description 11/24/2023 10:30 AM EDT Office Visit Urology, [facility] [address] [place] [address] Ronan Cain MD [address] [place] [address] 12/14/2023 12:40 PM EDT Office Visit Family Practice [facility] [address] [place] [address] Efrain Carrasco III, MD [address] [facility] [address] [place] [address] 12/18/2023 10:00 AM EDT Office Visit Cardiology, [facility] [address] [place] [address] Lin Chew PA-C [address] [place] [address] 08/24/2024 11:00 AM EDT Nurse Only [place]illary [facility] [place] [address] [place], [place] [address] Lizz, Nurse Annual Wellness [facility] 200 [facility] [place] [address] Health Maintenance Due Date Last Done Comments CKD PHOS USE SMARTSET 49826 1957 COVID-19 Vaccine ( season) 2023 12/02/2022, 06/10/2021, 01/08/2021, Additional history exists Influenza Vaccine (FLU shot) (#1) 2023 11/13/2022, 11/08/2021, 11/27/2020, Additional history exists Zoster Vaccines (3 of 3) 12/09/2023 10/14/2023, 05/08 GFR 03/18/2024 09/16/2023, 06/07, 11/03/2021, Additional history exists Adult Wellness Visit 08/23/2024 08/24/2023, 08/14/2022, 08/06/2021 Depression Screening 08/23/2024 08/24/2023 Albumin/Creatinine Ratio 09/15/2024 09/16/2023 CKD HGB USE SMARTSET 44494 09/15/202409/15, 06/17/2023, 11/03/2021, Additional history exists DXA Scan 08/31/2025 09/01/2023, 08/08, 09/03/2021, Additional history exists DTap/Tdap Vaccines (2 - Td or Tdap) 10/10/2031 10/09/2021, 09/19/2009, 09/04/1999 Pneumococcal Vaccine: 65+ Years Completed 05/08/2014, 06/19/2006 HPV (Gardasil) Vaccine Aged Out No lo [...] Documents on File Type Date Recorded Patient Yield Improvement Engineer Expl anation Power of Dial Polisher 05/23/2021 POWER OF A TTORNEY Care Teams Transportation Clerk Relationship Specialty Start Date End Date Efrain Carrasco III, MD 200 [facility] [place] [address] PCP - General 12/20/99 documented as of this encounter
--- OUTSIDE RECORDS SUMMARY | 2024-01-09 04:22 | External Medical Summary | Summary of Care ---
Author Name Unknown Organization [facility] Address [address] [place] [address] Phone [phone] Care Team Providers Care Labor Relations Officer Name Role Phone Danilo CHARLES MD, Efrain Wheeler Primary Care Provider [phone] Encounter Details Date Type Department Care Team (Late st Contact Info) Description 11/11/2023 Orders Only Unspecified Department Lin Chew PA-C [address] [place] [id number] Allergies No known active allergiesdocumented as of this encounter (statuses as of 11/11/2023) Medications Medication Sig Dispensed Refills Start Date [...] as of this encounter (statuses as of 11/11/2023) Active Problems Problem Noted Date Diagnosed Date [...] as of this encounter (statuses as of 11/11/2023) Resolved Problems Problem Noted Date Diagnosed Date Resolved Date 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 Overview: villous tissue repeat colonoscopy in 6 months Esophagitis 02/10/2019 Overview: ICD-10 update of inactive term documented as of this encounter (statuses as of 11/11/2023) Immunizations Name Administration Dates Next Due COVID-19 [...] 11/24/2023 10:30 AM EDT Office Visit Urology, [facility] 132 [facility] [place] [address] Ronan Cain MD [address] [place] [address] 12/14/2023 12:40 PM EDT Office Visit Family Practice [facility] 200 [facility] [place] [address] Efrain Carrasco III, MD 200 [facility] [place] [address] 12/18/2023 10:00 AM EDT Office Visit Cardiology, [facility] 132 [facility] [place] [address] Lin Chew, PRINCESS 132 [facility] [place] [address] 08/24/2024 11:00 AM EDT Nurse Only Ancillary [facility] 200 [facility] [place] [address] Lizz, Nurse Annual Wellness [address] [facility] [place] [address] Health Maintenance Due Date Last Done Comments COVID-19 Vaccine (2022- season) 2023 12/02/2022, 06/10/2021, 01/08/2021, Additional history exists Influenza Vaccine (FLU shot) (#1) 2023 11/13/2022, 11/08/2021, 11/27/2020, Additional history exists Zoster Vaccines (3 of 3) 12/09/2023 10/14/2023, 05/08 GFR 03/18/2024 09/16/2023, 04, 11/03/2021, Additional history exists Adult Wellness Visit 08/23/2024 08/24/2023, 08/14/2022, 08/06/2021 Depression Screening 08/23/2024 08/24/2023 Albumin/Creatinine Ratio 09/15/2024 09/16/2023 DXA Scan 08/31/2025 09/01/2023, 08/08, 09/03/2021, Additional [...] Procedure Name Priority Date/Time Associated Diagnosis Comments NM MYOCARDIAL PERFUSION IMAGING SPECT MULTIPLE STUDIES WITH PHARMACOLOGIC INTERVENTION Routine 11/11/2023 7:45 AM EDT documented in this encounter Results * NM MYOCARDIAL PERFUSION IMAGING SPECT MULTIPLE STUDIES WITH PHARMACOLOGIC INTERVENTION (11/11/2023 7:45 AM EDT) 11/11/2023 7:45 AM EDT Lin Chew PA-C RAD NUCLEAR ME D Performing Organization Address City/State/[facility] Co or Phone Number [facility] [address] CARDIOLOGY documented in this encounter Advance Directives Documents on File Type Date Recorded Patient Grain Merchandiser Expl anation Power of Fashion Editor 05/23/2021 POWER OF A TTORNEY Care Teams Labor Relations Officer Relationship Specialty Start Date End Date Efrain Carrasco III, MD [address] [facility] [place] [address] PCP - General 12/20/99 documented as of this encounter
--- OUTSIDE RECORDS SUMMARY | 2024-01-09 04:22 | External Medical Summary | Summary of Care ---
Author Name Unknown Organization [facility] Address [address] [place] [address] Phone [phone] Care Team Providers Care Emergency Telecommunications Dispatcher Name Role Phone Danilo CHARLES MD, Efrain Wheeler Primary Care Provider [phone] Reason for Visit * Reason Onset Date Comments Appointment 09/16/2023 Encounter Details Date Type Department Care Team (Late st Contact Info) Description 09/16/2023 Telephone Cardiology, [facility] [address] [place] [address] [address] PA-C [address] [place] [address] Appointment Allergies No known active allergiesdocumented as of this encounter (statuses as of 12/16/2023) Medications Medication Sig Dispensed Refills Start Date [...] the morning. 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 NM MYOCARD PERF IMG SPECT MULT STUDIES WITH PHARM INTERV [37652.02] (Order [id number]) documented in this encounter Plan of Treatment Upcoming Encounters Date Type Department Care Team (Late st Contact Info) Description 12/18/2023 10:00 AM EDT Office Visit Cardiology, [facility] [address] [place] [address] Lin Chew PA-C [address] [place] [address] 02/19/2024 8:00 AM EST Office Visit Interventional [facility] Center, [facility] [address] [place] [address] Nichole David PA-C [address] [place] [address] 06/15/2024 8:40 AM EDT Office Visit Family Practice [address] [place] [address] Efrain Carrasco III, MD [address] [place] [address] [place] [address] 08/24/2024 11:00 AM EDT Nurse Only Ancillary [address] [place] [address] Lizz, Nurse Annual Wellness [address] [place] [address] Health Maintenance Due Date Last Done Comments COVID-19 Vaccine ( season) 2023 12/02/2022, 06/10/2021, 01/08/2021, Additional history exists Zoster Vaccines (3 of 3) 12/09/2023 10/14/2023, 05/08 GFR 03/18/2024 09/16/2023, 06/07, 11/03/2021, Additional history exists Adult Wellness Visit 08/23/2024 08/24/2023, 08/14/2022, 08/06/2021 Depression Screening 08/23/2024 08/24/2023 Albumin/Creatinine Ratio 09/15/2024 09/16/2023 CKD HGB USE SMARTSET 49168 12/13/202412/13, 09/16/2023, 06/17/2023, Additional history exists CKD PHOS USE SMARTSET 83720 12/13/2024 12/14/2023 DXA Scan 08/31/2025 09/01/2023, 08/08, [...] Documents on File Type Date Recorded Patient Marketing Intern Expl anation Power of Advanced Manufacturing Consultant 05/23/2021 POWER OF A TTORNEY Care Teams Emergency Telecommunications Dispatcher Relationship Specialty Start Date End Date Efrain Carrasco III, MD [address] [place], [place] [address] PCP - General 12/20/99 documented as of this encounter
--- OUTSIDE RECORDS SUMMARY | 2024-01-09 04:22 | External Medical Summary | Summary of Care ---
Author Name Unknown Organization [facility] Address [address] [place] [address] Phone [phone] Care Team Providers Care Coil Inspector Name Role Phone Danilo CHARLES MD, Caitlin Wheeler Primary Care Provider [phone] Reason for Visit * Reason Comments Follow Up Encounter Details Date Type Department Care Team (Late st Contact Info) Description 11/24/2023 10:30 AM EDT Office Visit Urology, [facility] [address] [place] [address] Ronan Cain MD [address] [place] [address] Urinary incontinence without sensory awareness* Allergies No known active allergiesdocumented as of this encounter (statuses as of 11/24/2023) Medications Medication Sig Dispensed Refills Start Date [...] as of this encounter (statuses as of 11/24/2023) Active Problems Problem Noted Date Diagnosed Date [...] as of this encounter (statuses as of 11/24/2023) Resolved Problems Problem Noted Date Diagnosed Date Resolved Date 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 She has previously been managed with Toviaz with good effect. It would seem she is currently using oxybutynin provided by primary care physician. She is using 1 ppd, not too wet. Urinary incontinence: Presented to Urology April 2022. Patient is being seen for urinary incontinence. Problem has been present for years. Severity is high. Problem is about the same. Urinary incontinence is without awareness. They were previously using 2 pads a day, soaked. They have used oxybutynin, stopped and then restarted. Down to safety pad a day on medication. Symptoms improved with solifenacin 10 mg. Unimproved with caffeine cessation. Patient notes chronic back issues. Cystoscopy July 2022 demonstrates no stress urinary incontinence, trabeculated bladder. Myrbetriq added July 2022 - overly expensive. Toviaz substituted with improvement at 8 mg, stopped, too expensive. Currently using oxybutynin with good effect.. Current [...] mouth in the morning. 45 Tablet 3 Iron-Vitamin C 65-125 MG Oral Tablet (Vitron C) Take 1 Tablet by mouth in the morning. Rosuvastatin Calcium 10 MG Oral Tablet (Crestor) Take 1 Tablet by mouth daily. (Patient not taking:Reported on 10/14/2023) 90 Tablet 3 oxyBUTYnin Chloride 5 MG Oral Tablet (Ditropan) TAKE 0.5 TABLETS BY MOUTH 2 TIMES A DAY IN THE MORNING AND AT BEDTIME. 90 Tablet 3 Clotrimazole 1 % External Cream (Lotrimin) Apply topically to affected area 2 times a day. Apply tolip edges 30 g 1 Zoster Vac Recomb Adjuvanted 50 MCG/0.5ML Intramuscular Suspension Reconstituted (Shingrix) Inject 0.5 mL into a large muscle now and repeat dose in 60 to 180 days 1 Each 1 No current facility-administered medications for this visit. Review of patient's allergies indicates: No Known Allergies Social History: Social History Tobacco Use Smoking status: Former Current packs/day: 0.00 Average packs/day: 1 pack/day for 20.0 years (20.0 ttl pk-yrs) Types: Cigarettes Start date: 12/16/1976 Quit date: 12/16/1996 Years since quittin.9 Smokeless tobacco: Never Substance Use Topics Alcohol use: Not Currently Vaping/E-Cigarette Use Vaping/E-Cigarette Use Never User Vaping/E-Cigarette Substances Nicotine No Other No Flavoring No THC No Cannabidiol (CBD) No Vaping/E-Cigarette Devices Disposable No Pre-filled or Refillable Cartridge No Refillable Tank No Pre-filled Pod No Family History Problem Relation Name Age of [...] performed by Jacky Otoole MD at [facility] COLONOSCOPY, DIAGNOSTIC (RECTUM) 01/25/2019 adenomatous polyps, diverticulosis/COLONOSCOPY FLEXIBLE PROXIMAL DIAGNOSTIC performed by Jacky Otoole MD at [facility] LUMBAR / SACRAL EPIDURAL, SINGLE LEVEL 08/24/2017 INJECTION TRANSFORAMINAL EPIDURAL LUMBAR OR SACRAL performed by Alcon Nye, DO at [facility] MAMMOGRAM - BILATERAL 07/07/2006 birad code 1, negative MI TOTAL HIP ARTHROPLASTY Left 10/2021 REMOVE CATARACT, [...] and foot Patient Active Problem List Diagnosis ADVANCE DIRECTIVE INFORMATION BMI 35-39 ISOLATED (SEE ACTUAL BMI) Trochanteric bursitis HTN, goal below 140/90 LBBB (left bundle branch block) Paroxysmal atrial fibrillation (HCC) Chronic kidney disease, stage 3a (HCC) Constitutional: (-) fever and (-) chills Eyes: (+) corrective lenses Female : (+) see HPI Musculoskeletal: (+) joint pain Psychiatry: (-) negative: no depression or anxiety Physical Exam Nursing note reviewed. Constitutional: General: She is not in acute distress. Appearance: She is not toxic-appearing. Comments: Using cane HENT: Head: Normocephalic and atraumatic. Right Ear: External ear normal. Left Ear: External ear normal. Nose: Nose normal. Mouth/Throat: Mouth: Mucous membranes are moist. Cardiovascular: Pulses: Normal pulses. Pulmonary: Effort: Pulmonary effort is normal. No respiratory distress. Abdominal: General: There is no distension. Musculoskeletal: General: Deformity (arthritic) present. Neurological: Mental Status: She is oriented to person, place, and time. Psychiatric: Behavior: Behavior normal. Thought Content: Thought content normal. Impression/Plan: 83-year-old female with a history of urinary incontinence. We are pleased with her improvement. Satisfied on her current regimen, has refills from PMD. She isoffered yearly check vs PRN f/u - opts for latter. Will therefore see back as needed. Above contentis personally reviewed. Patient vocalizes good understanding of the treatment plan. Ronan Cain MD 7:53 AM 11/24/2023 documented in this encounter Nursing Notes * Sonia Bhakta LPN - 11/24/2023 10:06 AM EDT 6 month ret Incontinence Oxybutynin No concerns documented in this encounter Plan of Treatment Upcoming Encounters Date Type Department Care Team (Late st Contact Info) Description 12/14/2023 11:00 AM EDT Office Visit Family Practice [facility] [address] [facility] [place] [address] Caitlin Cedillo III, MD [address] [facility] [place] [address] 12/18/2023 10:00 AM EDT Office Visit Cardiology, [facility] [address] [place] [address] Lin Chew PA-C [address] [place] [address] 08/24/2024 11:00 AM EDT Nurse Only Ancillary [facility] [address] [facility] [place] [address] Lizz Nurse Annual Wellness [facility] [address] [place] [address] Health Maintenance Due Date Last Done Comments CKD PHOS USE SMARTSET 45238 1957 COVID-19 Vaccine (2023- season) 2023 12/02/2022, 06/10/2021, 01/08/2021, Additional history exists Zoster Vaccines (3 of 3) 12/09/2023 10/14/2023, 05/08 GFR 03/18/2024 09/16/2023, 06/07, 11/03/2021, Additional history exists Adult Wellness Visit 08/23/2024 08/24/2023, 08/14/2022, 08/06/2021 Depression Screening 08/23/2024 08/24/2023 Albumin/Creatinine Ratio 09/15/2024 09/16/2023 CKD HGB USE SMARTSET 35082 09/15/202409/15, 06/17/2023, 11/03/2021, Additional history exists DXA [...] Documents on File Type Date Recorded Patient Clamp Operator Expl anation Power of Preparation Supervisor Freezing 05/23/2021 POWER OF A TTORNEY Care Teams Coil Inspector Relationship Specialty Start Date End Date Danilo CHARLES, Caitlin Wheeler MD [address] [place] [address] PCP - General 12/20/99 documented as of this encounter
--- OUTSIDE RECORDS SUMMARY | 2024-01-09 04:22 | External Medical Summary ---
Author Name Unknown Address Unknown Organization K09:[facility] [place] [address] Laboratory Report Ordering Provider Test Date Status CAITLINMAMADOU III 12/14/2023 11:38:35 Final Observation Date Value Abnormality Reference (Units ) Status WBC, Total 12/14/2023 11:38:35 7.17 4.00-10.8 0 (K/uL) Final RBC 12/14/2023 11:38:35 4.95 3.85-5.15 (M/uL) Final Hemoglobin 12/14/2023 11:38:35 12.9 12.0-15.3 (g/dL) Final HCT 12/14/2023 11:38:35 40.9 36.0-45.2 (%) Final MCV 12/14/2023 11:38:35 82.6 81.5-97.5 (fL) Final MCH 12/14/2023 11:38:35 26.1 27.0-34.0 (pg) Final MCHC 12/14/2023 11:38:35 31.5 32.0-36.0 (g/dL) Final RDW 12/14/2023 11:38:35 18.1 11.5-15.5 (%) Final Platelets 12/14/2023 11:38:35 369 140-400 (K /uL) Final MPV 12/14/2023 11:38:35 9.2 6.6-11.1 ( fL) Final Performing Location [facility] [place] [address]
--- OUTSIDE RECORDS SUMMARY | 2024-01-09 04:22 | External Medical Summary | Summary of Care ---
Author Name Unknown Organization [facility] Address [address] [place] [address] Phone [phone] Care Team Providers Care Roast Master Name Role Phone Danilo CHARLES MD, Efrain Wheeler Primary Care Provider [phone] Reason for Visit * Reason Comments Outpatient Testing Encounter Details Date Type Department Care Team (Late st Contact Info) Description 12/14/2023 11:40 AM EDT Laboratory Laboratory [facility] [address] [place] [phone] [facility] [address] [facility] [place] [address] Dyslipidemia, goal LDL below 100; Anemia, unspecified type; Chronic kidney disease, stage 3a (HCC) Allergies No known active allergiesdocumented as of this encounter (statuses as of 12/14/2023) Medications Medication Sig Dispensed Refills Start Date [...] Tablet by mouth in the morning. Active oxyBUTYnin Chloride 5 MG Oral Tablet [...] and 1 Drop before bedtime. 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 [address] [place] [address] Lin Chew PA-C [address] [address] 02/19/2024 8:00 AM EST Office Visit Interventional Pain Center, [facility] [address] [place] [address] Nichole David PA-C [address] [place] [address] 06/15/2024 8:40 AM EDT Office Visit Family Practice [facility] [place] [address] [place] [address] Efrain Carrasco III, MD [address] [place] [address] 08/24/2024 11:00 AM EDT Nurse Only Ancillary [facility] [place] [address] [place] [address] Lizz, Nurse Annual Wellness [facility] [address] [place] [address] Pending Results Name Type Priority Associated Diagnoses Date /Time LIPID PANEL WITH DIRECT LDL IF TG IS HIGH Lab Routine Dyslipidemia, goal LDL below 100 12/14/2023 11:38 AM EDT ALT Lab Routine Dyslipidemia, goal LDL below 100 12/14/2023 11:38 AM EDT FERRITIN Lab Routine Anemia, unspecified type 12/14/2023 11:38 AM EDT IRON SCREEN, INCLUDING TIBC Lab Routine Anemia, unspecified type 12/14/2023 11:38 AM EDT PHOSPHORUS Lab Routine Chronic kidney disease, stage 3a (HCC) 12/14/2023 11:38 AM EDT Health Maintenance Due Date Last Done Comments CKD PHOS USE SMARTSET 31647 1957 COVID-19 Vaccine ( season) 2023 12/02/2022, 06/10/2021, 01/08/2021, Additional history exists Zoster Vaccines (3 of 3) 12/09/2023 10/14/2023, 05/08 GFR 03/18/2024 09/16/2023, 06/07, 11/03/2021, Additional history exists Adult Wellness Visit 08/23/2024 08/24/2023, 08/14/2022, 08/06/2021 Depression Screening 08/23/2024 08/24/2023 Albumin/Creatinine Ratio 09/15/2024 09/16/2023 CKD HGB USE SMARTSET 32135 09/15/202412/13, 09/16/2023, 06/17/2023, Additional history exists DXA Scan 08/31/2025 09/01/2023, [...] Procedure Name Priority Date/Time Associated Diagnosis Comments CBC Routine 12/14/2023 11:38 AM EDT Anemia, unspecified type documented in this encounter Results * CBC (12/14/2023 11:38 AM EDT) WBC 7.17 4.00 - 10.80 K/uL 12/14/2023 11:49 AM EDT [facility] [place] [facility] RBC 4.95 3.85 - 5.15 M/uL 12/14/2023 11:49 AM EDT [facility] [place] [facility] HGB 12.9 12.0 - 15.3 g/dL 12/14/2023 11:49 AM EDT [facility] [place] 5602 HCT 40.9 36.0 - 45.2 % 12/14/2023 11:49 AM EDT [facility] [place] 56-02 MCV 82.6 81.5 - 97.5 fL 12/14/2023 11:49 AM EDT [facility] [place] 5602 MCH 26.1 27.0 - 34.0 pg 12/14/2023 11:49 AM EDT [facility] [place] 5602 MCHC 31.5 32.0 - 36.0 g/dL 12/14/2023 11:49 AM EDT [facility] [place] 56-02 RDW 18.1 11.5 - 15.5 % 12/14/2023 11:49 AM EDT [facility] [place] 56-02 PLT 369 140 - 400 K/uL 12/14/2023 11:49 AM EDT [facility] [place] 5602 MPV 9.2 6.6 - 11.1 fL 12/14/2023 11:49 AM EDT [facility] [place] 56-02 Blood Venous blood specimen / Unknown Venipuncture / Unknown 12/14/2023 11:38 AM EDT 12/14/2023 11:38 AM EDT Efrain Carrasco III, MD LAB BLOOD ORDERABLE S [facility] [place] 56[facility] [address] [facility] [address] documented in this encounter Visit Diagnoses Diagnosis Dyslipidemia, goal LDL below 100 Other and unspecified hyperlipidemia Anemia, unspecified type Chronic kidney disease, stage 3a (HCC) documented in this encounter Advance Directives Documents on File Type Date Recorded Patient Technician Terminal And Repeater Expl anation Power of Scheduler 05/23/2021 POWER OF A TTORNEY Care Teams Roast Master Relationship Specialty Start Date End Date Efrain Carrasco III, MD [address] [facility] [address] PCP - General 12/20/99 documented as of this encounter
--- OUTSIDE RECORDS SUMMARY | 2024-01-09 04:22 | External Medical Summary ---
Author Name Unknown Address Unknown Organization K09:[facility] [place] [address] Laboratory Report Ordering Provider Test Date Status MAMADOU TUCKER III 12/14/2023 11:38:35 Final Observation Date Value Abnormality Reference (Units ) Status Phosphate 12/14/2023 11:38:35 3.3 2.5-4.8 (m g/dL) Final Performing Location [facility] [place] [address]
--- OUTSIDE RECORDS SUMMARY | 2024-01-09 04:22 | External Medical Summary | Summary of Care ---
Author Name Unknown Organization [facility] Address [address] [place] [address] Phone [phone] Care Team Providers Care Perinatal Instructor Name Role Phone Danilo CHARLES MD, John E Primary Care Provider [phone] Reason for Visit * Reason Onset Date Comments Order Request 12/07/2023 Encounter Details Date Type Department Care Team (Late st Contact Info) Description 12/07/2023 Telephone Family Practice [facility] [address] [facility] [place] [address] Efrain Carrasco III, MD [address] [place] [address] Order Request Allergies No known active allergiesdocumented as of this encounter (statuses as of 12/09/2023) Medications Medication Sig Dispensed Refills Start Date [...] as of this encounter (statuses as of 12/09/2023) Active Problems Problem Noted Date Diagnosed Date [...] as of this encounter (statuses as of 12/09/2023) Resolved Problems Problem Noted Date Diagnosed Date Resolved Date 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 Overview: villous tissue repeat colonoscopy in 6 months Esophagitis 02/10/2019 Overview: ICD-10 update of inactive term documented as of this encounter (statuses as of 12/09/2023) Immunizations Name Administration Dates Next Due COVID-19 mRNA, LNP-s, No Pre serve, 2-Dose Series (Moderna) 05/03/2020,04/04/2020 COVID-19, MRNA-LNP, 23-24, P F, 30 MCG/0.3 mL, 12 YRS AND ABOVE, IM (PFIZER-Comirnaty) 12/02/2022 COVID-19, mRNA, LNP-s, PF, B ooster, 100mcg/0.5mg (Moderna) 06/10/2021,01/08/2021 H1N1 2008 Influenza, IM 03/22/2009 HEP A - Hepatitis [...] encounter Miscellaneous Notes * Telephone Encounter - Bushra Lu RN - 12/09/2023 11:18 AM EDT Ordered. * Telephone Encounter - Kyle Salguero OSA - 12/07/2023 9:57 AM EDT An order was requested for this patient. Name of Requesting Provider: Dr. Carrasco Order Requested: Shingles Vaccine Booster Diagnosis/Reason for Request: N/A If order request is for Mammogram: Is the patient having any breast symptoms? N/A Is there a chance of ? N/A Has the patient had any breast problems in the past? NA What location AND department does the patient wish to have their order completed at? Ancillary [facility] Fax Number, if applicable: N/A If the caller is not a current patient, please advise the patient to call their current PCP to havethe order's prior to being seen in our office. The patient was informed that our providers would not order anything (medication, labs, etc.) prior to being seen. documented in this encounter Plan of Treatment Upcoming Encounters Date Type Department Care Team (Late st Contact Info) Description 12/14/2023 11:00 AM EDT Office Visit Family Practice [facility] [address] [facility] [place] [address] Efrain Carrasco III, MD [address] [place] [address] 12/18/2023 10:00 AM EDT Office Visit Cardiology, [facility] [place] [address] Lin Chew PA-C [address] [place] [address] 08/24/2024 11:00 AM EDT Nurse Only Ancillary [facility] [place] [place] [address] [place] [address] Lizz Nurse Annual Wellness [facility] [address] [facility] [place] [address] Health Maintenance Due Date Last Done Comments CKD PHOS USE SMARTSET 20675 1957 COVID-19 Vaccine ( season) 2023 12/02/2022, 06/10/2021, 01/08/2021, Additional history exists Zoster Vaccines (3 of 3) 12/09/2023 10/14/2023, 05/08 GFR 03/18/2024 09/16/2023, 06/07, 11/03/2021, Additional history exists Adult Wellness Visit 08/23/2024 08/24/2023, 08/14/2022, 08/06/2021 Depression Screening 08/23/2024 08/24/2023 Albumin/Creatinine Ratio 09/15/2024 09/16/2023 CKD HGB USE SMARTSET 83953 09/15/202409/15, 06/17/2023, 11/03/2021, Additional history exists DXA [...] as of this encounter Visit Diagnoses Diagnosis Need for shingles vaccine- Primary Need for prophylactic vaccination and inoculation against other viral diseases documented in this encounter Advance Directives Documents on File Type Date Recorded Patient Near [place] Archeology Professor Expl anation Power of Collections Associate 05/23/2021 POWER OF A TTORNEY Care Teams Perinatal Instructor Relationship Specialty Start Date End Date Efrain Carrasco III, MD [address] [place] [address] PCP - General 12/20/99 documented as of this encounter
--- OUTSIDE RECORDS SUMMARY | 2024-01-09 04:22 | External Medical Summary | Summary of Care ---
Author Name Unknown Organization [facility] Address [address] [place] [address] Phone [phone] Care Team Providers Care Spinner Hydraulic Name Role Phone Danilo CHARLES MD, John E Primary Care Provider [phone] Reason for Visit * Reason Onset Date Comments Medication Refill 12/15/2023 Encounter Details Date Type Department Care Team (Late st Contact Info) Description 12/15/2023 Refill Family Practice [facility] 200 [facility] [place] [address] Caitlin Cedillo III, MD 200 [place] [address] Allergies No known active allergiesdocumented as of [...] the morning. 30 Tablet 3 12/16/2023 Active Iron-Vitamin C 65-125 MG Oral Tablet (Vitron C) Take 1 Tablet by mouth in the morning. 4 Discontinue d(Refill) documented as of this [...] Encounter - Caitlin Cedillo III, MD - 12/16/2023 10:41 AM EDTSigned Prescriptions: Disp Refills Iron-Vitamin C 65-125 MG Oral Tablet (Vitr*30 Tab*3 Sig: Take 1Tablet by mouth in the morning.Authorizing Provider: CAITLIN CEDILLO III * Telephone Encounter - Soraya Nolen LPN - 12/15/2023 3:53 PM EDT Patient called. Informed of message. Verbalized understanding. Asking for the iron to be sent to [facility]. Pending Prescriptions: Disp Refills Iron-Vitamin C 65-125 MG Oral Tablet (Vit*30 Tab*5 Sig: Take 1 Tablet by mouth in the morning. Last Visit: 12/14/2023 (in office), Visit date not found (telemedicine) Next Visit: 06/15/2024 Last date the medication was ordered: 7/19/24 Patient Active Problem List Diagnosis ADVANCE DIRECTIVE INFORMATION BMI 35-39 ISOLATED (SEE ACTUAL BMI) Trochanteric bursitis HTN, goal below 140/90 LBBB (left bundle branch block) Paroxysmal atrial fibrillation (HCC) Chronic kidney disease, stage 3a (HCC) Labs: Lab Results Component Value Date/Time CREATININE - [facility] 1.0 09/16/2023 09:38 AM CREATININE - [facility] 0.79 04/12/2018 12:00 AM CREATININE - [facility] 0.8 09/21/2009 10:21 AM CREATININE, RANDOM URINE - [facility] 107 09/16/2023 09:39 AM Lab Results Component Value Date/Time POTASSIUM - [facility] 4.3 09/16/2023 09:38 AM POTASSIUM - [facility] 4.0 10/28/2017 12:00 AM POTASSIUM - [facility] 4.4 09/21/2009 10:21 AM Lab Results Component Value Date/Time TSH - [facility] 1.43 09/16/2023 09:38 AM Lab Results Component Value Date/Time LDL CHOLESTEROL (CALCULATED) - [facility] 201 (H) 12/14/2023 11:38 AM LDL CHOLESTEROL (CALCULATED) - [facility] 204 (H) 09/16/2023 09:38 AM LDL CHOLESTEROL (CALCULATED) - [facility] 167 (H) 05/08/2014 10:18 AM LDL CHOLESTEROL (CALCULATED) - [facility] 166 (H) 09/21/2009 10:21 AM LDL CHOLESTEROL (DIRECT MEASURE) - [facility] NOT APPLICABLE 05/08/2014 10:18 AM Lab Results Component Value Date/Time ALT - [facility] 9 (L) 12/14/2023 11:38 AM ALT - [facility] 10 09/21/2009 10:21 AM Hemoglobin AIC Results: No results found for: "HEMOGLOBIN A1C" * Telephone Encounter - Soraya Nolen LPN - 12/15/2023 3:51 PM EDT ----- Message from Caitlin Cedillo MD sent at 12/15/2023 8:12 AM EDT ----- Call please hemoglobin now normal range iron studies are normal but low normal would probably be reasonable to take iron for 3 months or so if amenable documented in this encounter Plan of Treatment Upcoming Encounters Date Type Department Care Team (Late st Contact Info) Description 12/18/2023 10:00 AM EDT Office Visit Cardiology, [facility] [address] [place] [address] Lin Chew PA-C [address] [place] [address] 02/19/2024 8:00 AM EST Office Visit Interventional Pain Center, [facility] [address] [place] [address] Nichole David PA-C [address] [place] [address] 06/15/2024 8:40 AM EDT Office Visit Family Practice [facility] [place] [address] [facility] [place] [address] Caitlin Cedillo III, MD [address] [facility] [place] [address] 08/24/2024 11:00 AM EDT Nurse Only Ancillary [facility] [place] [address] [facility] [place] [address] [place], Nurse Annual Wellness [address] [facility] [place] [address] Health Maintenance Due Date Last Done Comments COVID-19 Vaccine ( season) 2023 12/02/2022, 06/10/2021, 01/08/2021, Additional history exists Zoster Vaccines (3 of 3) 12/09/2023 10/14/2023, /08/2007 GFR 03/18/2024 09/16/2023, 06/07, 11/03/2021, Additional history exists Adult Wellness Visit 08/23/2024 08/24/2023, 08/14/2022, 08/06/2021 Depression Screening 08/23/2024 08/24/2023 Albumin/Creatinine Ratio 09/15/2024 09/16/2023 CKD HGB USE SMARTSET 07830 12/13/202412/13, 09/16/2023, 06/17/2023, Additional history exists CKD PHOS USE SMARTSET 48241 12/13/2024 12/14/2023 DXA Scan 08/31/2025 09/01/2023, 08/08, [...] Documents on File Type Date Recorded Patient Hide Trimmer Expl anation Power of Incubator Machine Operator 05/23/2021 POWER OF A TTORNEY Care Teams Spinner Hydraulic Relationship Specialty Start Date End Date Caitlin Cedillo III, MD [address] [place] [address] PCP - General 12/20/99 documented as of this encounter
--- OUTSIDE RECORDS SUMMARY | 2024-01-09 04:22 | External Medical Summary ---
Author Name Unknown Address Unknown Organization [id number]:LABORATORY [facility] - [address] [facility] [address] Laboratory Report Ordering Provider Test Date Status JODY LEAL 12/14/2023 11:38:35 Final Observation Date Value Abnormality Reference (Units ) Status Triglyceride 12/14/2023 11:38:35 142 <=174 ( mg/dL) Final Triglyceride Reference Range s (mg/dL):
<150 Acceptable
150-174 Borderline high
175-499 High
>=500 Very high Cholesterol 12/14/2023 11:38:35 286 Above high normal <200 (mg/dL) Final Total Cholesterol Reference Ranges (mg/dL):
<200 Desirable
200-239 Borderline high
>=240 High HDL 12/14/2023 11:38:35 57 >49 (mg/dL ) Final HDL Cholesterol Reference Ra nges (mg/dL):
>=60 High (Desirable)
<50 Low (Undesirable) For Females
<40 Low (Undesirable) For Males NON-HDL CHOLESTEROL 12/14/2023 11:38:35 229 Above high normal <=159 (mg/dL) Final Non-HDL Cholesterol Referenc e Range (mg/dL):
<100 Target level for high risk ASCVD patient
<130 Optimal for general population
130-159 Near optimal for general population
160-189 Borderline High
190-219 High
>=220 Very High LDL, (calculated) 12/14/2023 11:38:35 201 Above high n ormal <=129 (mg/dL) Final LDL Cholesterol Reference Ra nges (mg/dL):
<70 Target level for high risk ASCVD patient
<100 Optimal for general population
100-129 Near optimal for general population
130-159 Borderline high
160-189 High
>=190 Very high Performing Location LABORATORY [facility] - [address] [facility] [address]
--- OUTSIDE RECORDS SUMMARY | 2024-01-09 04:22 | External Medical Summary ---
Author Name Unknown Address Unknown Organization [id number]:LABORATORY [facility] - [address] [facility] [place] [address] Laboratory Report Ordering Provider Test Date Status MAMADOU TUCKER III 12/14/2023 11:38:35 Final Observation Date Value Abnormality Reference (Units ) Status Ferritin 12/14/2023 11:38:35 20 13-150 (ng /mL) Final Postmenopausal women have hi gher ferritin levels than pre-menopausal women. The above reference interval is based on pre-menopausal women. Performing Location LABORATORY [facility] - [address] [place] [address]
--- OUTSIDE RECORDS SUMMARY | 2024-01-09 04:22 | External Medical Summary | Summary of Care ---
Author Name Unknown Organization [facility] Address [address] [place] [address] Phone [phone] Care Team Providers Care Fiberglass Boat Builder Name Role Phone Danilo CHARLES MD, John E Primary Care Provider [phone] Reason for Visit * Reason Comments eRx-Medication Refill Encounter Details Date Type Department Care Team (Late st Contact Info) Description 10/05/2023 Refill Family Practice [facility] [address] [facility] [place] [address] Caitlin Cedillo III, MD 200 [place] [address] Allergies No known active allergiesdocumented as of this encounter (statuses as of 10/07/2023) Medications Medication Sig Dispensed Refills Start Date End Date Status MULTIVITAMIN/MINE RAL FORMULA OR TABS 30 0 2 Active Clotrimazole 1 % External Cream (Lotrimin) 2 Active Xiidra 5 % Ophthalmic Solution [...] taking tablet. 13 Tablet 3 4 Active amLODIPine Besy-Benazepril HCl 2.5-10 MG Oral Capsule (Lotrel) TAKE 1 CAPSULE BY MOUTH EVERY DAY IN THE MORNING Strength: 2.5-10 MG 90 Capsule 1 4 Active Famotidine 20 MG Oral [...] the evening. 180 Tablet 2 4 Active Additional Information Patient not taking.Reported on 09/16/2023 Amiodarone HCl 200 MG Oral Tablet (Cordarone) Take 1 Tablet by mouth in the morning. 90 Tablet 3 4 Active Metoprolol Succinate ER 25 MG Oral Tablet Extended Release 24 Hour (toPROL XL) Take 0.5 Tablets by mouth in the morning. 45 Tablet 3 4 Active Iron-Vitamin C 65-125 MG Oral Tablet (Vitron C) Take 1 Tablet by mouth in the morning. Active Rosuvastatin Calcium 10 MG Oral Tablet (Crestor)Indicati ons:Dyslipidemia, goal LDL below 100 Take 1 Tablet by mouth daily. 90 Tablet 3 4 Active oxyBUTYnin Chloride 5 MG Oral Tablet (Ditropan) TAKE 0.5 TABLETS BY MOUTH 2 TIMES A DAY IN THE MORNING AND AT BEDTIME. 90 Tablet 3 4 Active Oxybutynin Chloride 5 MG Oral Tablet (Ditropan) Take 0.5 Tablets by mouth 2 times a day in the morning and at bedtime. 90 Tablet 3 3 10/07/19 24 Discontinued documented as of this encounter (statuses as of 10/07/2023) Active Problems Problem Noted Date Diagnosed Date LBBB (left bundle branch block) 06/17/2023 Paroxysmal atrial fibrillation 06/17/2023 HTN, goal below 140/90 11/08/2021 Trochanteric bursitis 12/09/2018 BMI 35-39 ISOLATED (SEE ACTUAL BMI) 08/20/2009 Overview: Per Obesity Protocol, #19 ADVANCE DIRECTIVE INFORMATION 10/24/2004 Overview: No, Advance Directive brochure given to patient. documented as of this encounter (statuses as of 10/07/2023) Resolved Problems Problem Noted Date Diagnosed Date Resolved Date 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 Overview: villous tissue repeat colonoscopy in 6 months Esophagitis 02/10/2019 Overview: ICD-10 update of inactive term documented as of this encounter (statuses as of 10/07/2023) Immunizations Name Administration Dates Next Due COVID-19 [...] Encounter - Caitlin Cedillo III, MD - 10/07/2023 9:03 AM EDTSigned Prescriptions: Disp Refills oxyBUTYnin Chloride 5 MG Oral Tablet (Ditr*90 Tab*3 Sig: TAKE 0.5 TABLETS BY MOUTH 2 TIMES A DAY IN THE MORNING AND AT BEDTIME.Authorizing Provider: CAITLIN CEDILLO III * Telephone Encounter - Raven Acosta LPN - 10/06/2023 10:17 AM EDTPending Prescriptions: Disp Refills oxyBUTYnin Chloride 5 MG Oral Tablet [Phar*90 Tab*3 Sig: Take 0.5 Tablets by mouth 2 times a day in the morning and at bedtime. * Telephone Encounter - Raven Acosta LPN - 10/06/2023 10:16 AM EDT Did you pend patient's preferred pharmacy and medication before forwarding?yes Pharmacy: [id number] Pending Prescriptions: Disp Refills oxyBUTYnin Chloride 5 MG Oral Tablet (Dit*90 Tab*3 Sig: TAKE 0.5 TABLETS BY MOUTH 2 TIMES A DAY IN THE MORNING AND AT BEDTIME. Last Visit: 06/12/2023 (in office), Visit date not found (telemedicine) Next Visit: 10/14/2023 If no future appointments scheduled, and last appointment is greater than a year ago, please schedule patient for a follow-up appointment Last date the medication was ordered: 09/20/22 Is this request for a controlled substance?No Urine Drug Screen:No results found for this or any previous visit. Patient Phone Numbers Labs: Lab Results Component Value Date/Time CREAT 1.0 09/16/2023 09:38 AM CREAT 0.79 04/12/2018 12:00 AM CREAT 0.8 09/21/2009 10:21 AM POTASSIUM 4.3 09/16/2023 09:38 AM POTASSIUM 4.0 10/28/2017 12:00 AM POTASSIUM 4.4 09/21/2009 10:21 AM TSH 1.43 09/16/2023 09:38 AM LDLCALC 204 (H) 09/16/2023 09:38 AM LDLCALC 167 (H) 05/08/2014 10:18 AM LDLDIRECT NOT APPLICABLE 05/08/2014 10:18 AM ALT 11 09/16/2023 09:38 AM ALT 10 09/21/2009 10:21 AM * Telephone Encounter - Jenn Martinze - 10/05/2023 7:35 PM EDTPending Prescriptions: Disp Refills oxyBUTYnin Chloride 5 MG Oral Tablet [Phar*90 Tab*3 Sig: Take 0.5 Tablets by mouth 2 times a day in the morning and at bedtime. documented in this encounter Plan of Treatment Upcoming Encounters Date Type Department Care Team (Late st Contact Info) Description 10/14/2023 10:20 AM EDT Office Visit Family Practice [facility] [place] [address] [place] [address] Caitlin Cedillo III, MD [address] [place] [address] 11/11/2023 8:00 AM EDT Imaging [facility] 2nd Floor Cardiology, [place] [address] [facility] [place] [phone] Gw, Excess Time Radiology 132 [facility] [place] [address] 11/24/2023 10:30 AM EDT Office Visit Urology, [facility] [address] [facility] [place] [address] Ronan Cain MD [address] [facility] [place] [address] 12/18/2023 10:00 AM EDT Office Visit Cardiology, [facility] [address] [facility] [place] [address] Lin Chew, PRINCESS 132 [facility] [place] [address] 08/24/2024 11:00 AM EDT Nurse Only Ancillary [facility] [address] [place] [address] Lizz, Nurse Annual Wellness [facility] [address] [place] [address] Health Maintenance Due Date Last Done Comments Zoster Vaccines (2 of 3) 07/28/2007 06/02/2007 COVID-19 Vaccine ( season) 2023 12/02/2022, 06/10/2021, 01/08/2021, Additional history exists *NEPHROLOGY REFERRAL DUE TO RESISTANT HTN 09/24/2023 Influenza Vaccine (FLU shot) (#1) 2023 11/13/2022, 11/08/2021, 11/27/2020, Additional history exists Depression Screening 08/23/2024 08/24/2023 GFR 09/15/2024 09/16/2023, 06/07, 11/03/2021, Additional history exists DXA Scan 08/31/2025 09/01/2023, 08/08, 09/03/2021, Additional history exists Albumin/Creatinine Ratio 09/15/2026 09/16/2023 DTaP,Tdap,and Td Vaccines (2 - Td or [...] Documents on File Type Date Recorded 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
--- OUTSIDE RECORDS SUMMARY | 2024-01-09 04:22 | External Medical Summary ---
Author Name Unknown Address Unknown Organization K09:[facility] [address] [place] [address] Laboratory Report Ordering Provider Test Date Status JODY LEAL 12/14/2023 11:38:35 Final Observation Date Value Abnormality Reference (Units ) Status ALT (Alanine aminotransferase) 12/14/2023 11:38:35 9 Below low normal 10-35 (U/L) Final Performing Location [facility] [place] [address] [place] [address]
--- OUTSIDE RECORDS SUMMARY | 2024-01-09 04:22 | External Medical Summary | Summary of Care ---
Author Name Unknown Organization [facility] Address [address] [place] [address] Phone [phone] Care Team Providers Care Lead Janitor Name Role Phone Danilo CHARLES MD, John E Primary Care Provider [phone] Reason for Referral * Evaluate & Treat - Unlimited Visits (Within 10 days (routine)) - Authorized Specialty Diagnoses / Procedures Referred By Contac t Referred To Contact Pain Management / Pain Medicine Diagnoses Post laminectomy syndrome Spinal stenosis of lumbar region, unspecified whether neurogenic claudication present Efrain Carrasco III, MD [address] [place] [address] Referral ID Status Reason Start Date Expiration Date Visits Requested Visits Authorized [id number] Authorized Specialty Services Required 12/14/[phone] Question Answer Referral Priority Within 10 days (routine) Where should this appointment be scheduled? [facility] Reason for referral? Interventional Pain Management - (Injection) What condition is the patient being referred for? Back Axial What is the preferred location to have this test performed? Non [facility] Site Comments Patient Name: Rebekah Leiva Date of : 1940 Department Phone Number: MRI or CT (if unable to have a MRI) is recommended if any of the following apply: 1. Patient has neck or back pain with radiation to extremities. A previous MRI will be accepted if symptoms unchanged since prior MRI. 2. Spinal surgery since last MRI. If yes, order a MRI with and without contrast. 3. Hx or ongoing cancer treatment. Patient will need spine x-ray (Ap/Lat) for axial neck or back pain if not done previously. Fax No. [facility] [phone] or contact front end manager [phone] Fax No. [facility] [phone] or contact front end manager [phone] Fax No. [facility] [phone] or contact front end manager [phone] Reason for Visit * Reason Comments Follow Up Encounter Details Date Type Department Care Team (Late st Contact Info) Description 12/14/2023 11:00 AM EDT Office Visit Family Practice [facility] [address] [facility] [place] [address] Efrain Carrasco III, MD [address] [facility] [place] [address] HTN, goal below 140/90*; Chronic kidney disease, stage 3a (HCC); Paroxysmal atrial fibrillation (HCC); Post laminectomy syndrome; Spinal stenosis of lumbar region, unspecified whether neurogenic claudication present Allergies No known active allergiesdocumented as of this encounter (statuses as of 12/18/2023) Medications Medication Sig Dispensed Refills Start Date End Date Status MULTIVITAMIN/ROVING TELLER AL FORMULA OR TABS 30 0 12/24/2001 Active Xiidra 5 % Ophthalmic Solution (Lifitegrast) Instill into eye. Acti ve Incontinence Supplies Dispense one large box or container, medium weight incontinence pad. Use as instructed. 24 Each 11 11/17/2022 Active Gabapentin 300 MG Oral Capsule (Neurontin) Take 1 Capsule by mouth at bedtime. 90 Capsule 3 06/12/2023 Active Alendronate Sodium 70 MG Oral Tablet (Fosamax)Indicatio ns:Age related osteoporosis, unspecified pathological fracture presence Take [...] Tablet by mouth in the morning. 4 Discontinu ed(Refill) Rosuvastatin Calcium 10 MG Oral Tablet (Crestor)Indicatio ns:Dyslipidemia, goal LDL below 100 Take 1 Tablet by mouth daily. 90 Tablet 3 09/28/2023 4 Discontinu ed(Patient preference /discontin uation) Zoster Vac Recomb Adjuvanted 50 MCG/0.5ML Intramuscular Suspension Reconstituted (Shingrix) Inject 0.5 mL into a large muscle now and repeat dose in 60 to 180 days 1 Each 1 10/14/2023 4 Discontinu ed(End of Procedure) documented as of this encounter (statuses as of 12/18/2023) Active Problems Problem Noted Date Diagnosed Date [...] as of this encounter (statuses as of 12/18/2023) Resolved Problems Problem Noted Date Diagnosed Date Resolved Date 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 Overview: villous tissue repeat colonoscopy in 6 months Esophagitis 02/10/2019 Overview: ICD-10 update of inactive term documented as of this encounter (statuses as of 12/18/2023) Immunizations Name Administration Dates Next Due COVID-19 [...] Sign Reading Time Taken Comments Blood Pressure 126/64 12/14/2023 10:56 AM EDT Pulse 88 12/14/2023 10:56 AM EDT Temperature 36.5 C (97.7 F) 12/14/2023 1 0:56 AM EDT Respiratory Rate 18 12/14/2023 10:5 6 AM EDT Oxygen Saturation 97% 12/14/2023 10: 56 AM EDT Inhaled Oxygen Concentration - - Weight 75.2 kg (165 lb 12.8 oz) 024 10:56 AM EDT Height - - Body Mass Index 29.37 08/24/2023 9:51 AM EDT documented in this encounter Progress Notes * Stutsman III, Efrain Wheeler MD - 12/14/2023 11:26 AM EDT Subjective: Rebekah Leiva is a 83 year old female. Chief Complaint Patient presents with Follow Up HPI: Follow-up hypertension chronic kidney disease 3a has chronic back pain will be going on a cruise would like to see pain management again last injection was quite helpful had nuclear stress test reviewed never started her rosuvastatin for dyslipidemia sees Cardiology in 4 days angular cheilitisneeds iron studies worsening anemia no bleeding urine or bowels denies chest pain shortness of breath no swelling of her ankles PMH: Patient Active Problem List Diagnosis ADVANCE DIRECTIVE INFORMATION BMI 35-39 ISOLATED (SEE ACTUAL BMI) Trochanteric bursitis HTN, goal below 140/90 LBBB (left bundle branch block) Paroxysmal atrial fibrillation (HCC) Chronic kidney disease, stage 3a (HCC) Current Outpatient Medications Medication Sig Dispense Refill [...] 1 Tablet by mouth in the morning. oxyBUTYnin Chloride 5 MG Oral Tablet (Ditropan) [...] 1 Drop before bedtime. 5 Each 10 No current facility-administered medications for this visit. [...] performed by Jacky Otoole MD at [facility] COLONOSCOPY, DIAGNOSTIC (RECTUM) 01/25/2019 adenomatous polyps, diverticulosis/COLONOSCOPY FLEXIBLE PROXIMAL DIAGNOSTIC performed by Jacky Otoole MD at [facility] LUMBAR / SACRAL EPIDURAL, SINGLE LEVEL 08/24/2017 INJECTION TRANSFORAMINAL EPIDURAL LUMBAR OR SACRAL performed by Alcon Nye, DO at OR [facility] MAMMOGRAM - BILATERAL 07/07/2006 birad code 1, negative DE TOTAL HIP ARTHROPLASTY Left 10/2021 REMOVE CATARACT, INSERT LENS PROSTH 08/20/[address] CHO REMOVE CATARACT, INSERT LENS PROSTH REMOVE TONSILS & ADENOIDS, UNDER 12 Tonsillectomy/Adenoids,<12 Y/O SPINAL FUSION, LUMBAR, COMBINED 2018 L234 Objective: The patient is a 83 year old female BP 126/64 | Pulse 88 | Temp 36.5 C (97.7 F) (Tympanic) | Resp 18 | Wt 75.2 kg (165 lb 12.8 oz) | SpO2 97% | BMI 29.37 kg/m | BSA 1.83 m General: alert, healthy, and no distress Eye Exam: PERRLA, extraocular movements intact, conjunctiva are pink and non- injected, sclera clear Oropharynx: no exudate, no erythema, lips, buccal mucosa, and tongue normal, and mucous membranes are moist Heart: regular rate & rhythm, no murmur, and no gallops Lungs: lungs clear to auscultation Extremities: no edema, no clubbing, no cyanosis ASSESSMENT: (I10) HTN, goal below 140/90 (primary encounter diagnosis) (N18.31) Chronic kidney disease, stage 3a (HCC) (I48.0) Paroxysmal atrial fibrillation (HCC) (M96.1) Post laminectomy syndrome (M48.061) Spinal stenosis of lumbar region, unspecified whether neurogenic claudication present PLAN: Check phosphorus ferritin transferrin saturation CBC continue present meds Follow up in 6 month(s). Efrain Carrasco III, MD documented in this encounter Nursing Notes * Mayra Ba LPN - 12/14/2023 10:56 AM EDT Rebekah Leiva presents for 6 month recheck. Medications & HM reviewed. documented in this encounter Plan of Treatment Upcoming Encounters Date Type Department Care Team (Late st Contact Info) Description 02/19/2024 8:00 AM EST Office Visit Interventional Pain Center, [facility] 132 [facility] [place] [address] Nichole David PA-C 132 [facility] [place] [address] 06/15/2024 8:40 AM EDT Office Visit Family Practice [facility] [address] [place] [address] Efrain Carrasco III, MD [address] [place] [address] 06/17/2024 8:30 AM EDT Office Visit Cardiology, [facility] 132 [facility] [place] [address] Lin Chew PA-C [address] [place] [address] 08/24/2024 11:00 AM EDT Nurse Only Ancillary [place] [address] [place] [address] [place], Nurse Annual Wellness [place] [address] [place] [address] Scheduled Referrals Name Type Priority Associated Diagnoses Orde r Schedule PAIN MEDICINE REFERRAL OP Referral Within 10 days (routine) Post laminectomy syndrome Spinal stenosis of lumbar region, unspecified whether neurogenic claudication present Ordered: 12/14/2023 Health Maintenance Due Date Last Done Comments COVID-19 Vaccine ( season) 2023 12/02/2022, 06/10/2021, 01/08/2021, Additional history exists Zoster Vaccines (3 of 3) 12/09/2023 10/14/2023, 05/08 GFR 03/18/2024 09/16/2023, 06/07, 11/03/2021, Additional history exists Adult Wellness Visit 08/23/2024 08/24/2023, 08/14/2022, 08/06/2021 Depression Screening 08/23/2024 08/24/2023 Albumin/Creatinine Ratio 09/15/2024 09/16/2023 CKD HGB USE SMARTSET 44073 12/13/202412/13, 09/16/2023, 06/17/2023, Additional history exists CKD PHOS USE SMARTSET 12078 12/13/2024 12/14/2023 DXA Scan 08/31/2025 09/01/2023, 08/08, [...] Not on filedocumented as of this encounter Results * PHOSPHORUS (12/14/2023 11:38 AM EDT) Phosphorus 3.3 2.5 - 4.8 mg/dL 12/14/2023 12:47 PM EDT [facility] 56-02 Blood Venous blood specimen / Unknown Venipuncture / Unknown 12/14/2023 11:38 AM EDT 12/14/2023 11:38 AM EDT Efrain Carrasco III, MD LAB BLOOD ORDERABLE S Performing Organization Address City/State/[facility] Co de Phone Number [phone] [facility] [address] documented in this encounter Visit Diagnoses Diagnosis HTN, goal below 140/90- Primary Unspecified essential hypertension Chronic kidney disease, stage 3a (HCC) Paroxysmal atrial fibrillation (HCC) Atrial fibrillation Post laminectomy syndrome Postlaminectomy syndrome, unspecified region Spinal stenosis of lumbar region, unspecified whether neurogenic claudication present documented in this encounter Advance Directives Documents on File Type Date Recorded Patient Clinical Laboratory Science Professor Expl anation Power of Regional Service Manager 05/23/2021 POWER OF A TTORNEY Care Teams Lead Janitor Relationship Specialty Start Date End Date Efrain Carrasco III, MD 200 [place] [address] PCP - General 12/20/99 documented as of this encounter"
--- OUTSIDE RECORDS SUMMARY | 2024-01-09 04:22 | External Medical Summary | Summary of Care ---
Author Name Unknown Organization [facility] Address [address] [place] [address] Phone [phone] Care Team Providers Care Paint Process Engineer Name Role Phone Danilo CHARLES MD, John E Primary Care Provider [phone] Reason for Visit * Reason Comments Re-Check Encounter Details Date Type Department Care Team (Late st Contact Info) Description 10/14/2023 10:20 AM EDT Office Visit Family Practice [facility] [address] [facility] [place] [address] Efrain Carrasco III, MD [address] [place] [address] Angular cheilitis*; Dystrophic nail; Paroxysmal atrial fibrillation (HCC); HTN, goal below 140/90; Anemia, unspecified type; Need for shingles vaccine Allergies No known active allergiesdocumented as of this encounter (statuses as of 10/19/2023) Medications Medication Sig Dispensed Refills Start Date End Date Status MULTIVITAMIN/FARM EQUIPMENT TECHNICIAN AL FORMULA OR TABS 30 0 12/24/2001 [...] Active Rosuvastatin Calcium 10 MG Oral Tablet (Crestor)Indicatio [...] 180 days 1 Each 1 10/14/2023 Active Clotrimazole 1 % External Cream (Lotrimin) 09/24/2021 4 Discontinu ed(Refill) documented as of this encounter (statuses as of 10/19/2023) Active Problems Problem Noted Date Diagnosed Date LBBB (left bundle branch block) 06/17/2023 Paroxysmal atrial fibrillation 06/17/2023 HTN, goal below 140/90 11/08/2021 Trochanteric bursitis 12/09/2018 BMI 35-39 ISOLATED (SEE ACTUAL BMI) 08/20/2009 Overview: Per Obesity Protocol, #19 ADVANCE DIRECTIVE INFORMATION 10/24/2004 Overview: No, Advance Directive brochure given to patient. 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 Overview: villous tissue repeat colonoscopy in 6 months Esophagitis 02/10/2019 Overview: ICD-10 update of inactive term documented as of this encounter (statuses as of 10/19/2023) Immunizations Name Administration Dates Next Due COVID-19 [...] Sign Reading Time Taken Comments Blood Pressure 108/55 10/14/2023 10:12 AM EDT Pulse 75 10/14/2023 10:12 AM EDT Temperature 37.2 C (99 F) 10/14/2023 10:12 AM EDT Respiratory Rate 16 10/14/2023 10:12 AM EDT Oxygen Saturation - - Inhaled Oxygen Concentration - - Weight 75.3 kg (166 lb) 10/14/2023 10:12 AM EDT Height - - Body Mass Index 29.41 08/24/2023 9:51 AM EDT documented in this encounter Progress Notes * Efrain Carrasco III, MD - 10/14/2023 11:08 AM EDT Subjective: Rebekah Leiva is a 83 year old female. Chief Complaint Patient presents with Re-Check HPI: follow-up hypertension paroxysmally atrial fibrillation concerns are her nails tried [id number] topical seemed to help 1 of the great toenails dyspnea on exertion does have anemia on Vitron C history of GI bleed dyslipidemia recently started on rosuvastatin will need lipid panel in another 2 months or so no current bleeding urine or bowels no swelling of her ankle PMH: Patient Active Problem List Diagnosis ADVANCE DIRECTIVE INFORMATION BMI 35-39 ISOLATED (SEE ACTUAL BMI) Trochanteric bursitis HTN, goal below 140/90 LBBB (left bundle branch block) Paroxysmal atrial fibrillation (HCC) Current Outpatient Medications Medication Sig Dispense [...] 60 to 180 days 1 Each 1 Rosuvastatin Calcium 10 MG Oral Tablet (Crestor) Take 1 Tablet by mouth daily. (Patient not taking:Reported on 10/14/2023) 90 Tablet 3 No current facility-administered medications [...] performed by Jacky Otoole MD at ENDOSCOPY [facility] COLONOSCOPY, DIAGNOSTIC (RECTUM) 01/25/2019 adenomatous polyps, diverticulosis/COLONOSCOPY FLEXIBLE PROXIMAL DIAGNOSTIC performed by Jacky Otoole MD at ENDOSCOPY [facility] LUMBAR / SACRAL EPIDURAL, SINGLE LEVEL 08/24/2017 INJECTION TRANSFORAMINAL EPIDURAL LUMBAR OR SACRAL performed by Alcon Nye DO at OR [facility] MAMMOGRAM - BILATERAL 07/07/2006 birad code 1, negative VT TOTAL HIP ARTHROPLASTY Left 10/2021 REMOVE CATARACT, INSERT LENS PROSTH 08/20/[address] CHO REMOVE CATARACT, INSERT LENS PROSTH REMOVE TONSILS & ADENOIDS, UNDER 12 Tonsillectomy/Adenoids,<12 Y/O SPINAL FUSION, LUMBAR, COMBINED 2018 L234 Objective: The patient is a 83 year old female BP 108/55 | Pulse 75 | Temp 37.2 C (99 F) | Resp 16 | Wt 75.3 kg (166 lb) | BMI 29.41 kg/m | BSA 1.83 m General: alert, healthy, and no distress Eye Exam: PERRLA, extraocular movements intact, conjunctiva are pink and non- injected, sclera clear Oropharynx: no exudate, no erythema, lips, buccal mucosa, and tongue normal, and mucous membranes are moist Heart: regular rate & rhythm, grade 1-2/6 murmur, and no gallops Lungs: lungs clear to auscultation Extremities: no edema, no clubbing, no cyanosis Multiple discolored dystrophic nails ASSESSMENT: (K13.0) Angular cheilitis (primary encounter diagnosis) (L60.3) Dystrophic nail (I48.0) Paroxysmal atrial fibrillation (HCC) (I10) HTN, goal below 140/90 (D64.9) Anemia, unspecified type (Z23) Need for shingles vaccine PLAN: Last labs reviewed will need transferrin saturation ferritin CBC 2 months lipids at that time as well shingles vaccine discussed will proceed Follow up in 2 month(s). Efrain Carrasco III, MD * Bushra Lu RN - 10/14/2023 10:12 AM EDT Pt has severe lumbar pain. Pt was having epidurals and it helps. documented in this encounter Plan of Treatment Upcoming Encounters Date Type Department Care Team (Late st Contact Info) Description 11/11/2023 8:00 AM EDT Imaging [facility] 2nd Floor Cardiology, [place] [address] [facility] [place] [phone] Gw, Excess Time Radiology [address] [facility] [place] [address] 11/24/2023 10:30 AM EDT Office Visit Urology, [facility] [address] [place] [address] Ronan Cain MD [address] [place] [address] 12/14/2023 12:40 PM EDT Office Visit [facility] Practice [facility] [address] [facility] [place] [address] PeñuelasEfrain earl III, MD 200 [facility] [place] [address] 12/18/2023 10:00 AM EDT Office Visit Cardiology, [facility] 132 [facility] [place] [address] Lin Chew PA-C [address] [place] [address] 08/24/2024 11:00 AM EDT Nurse Only Ancillary [facility] [address] [place] [address] [address] [place], Nurse Annual Wellness [facility] [address] [facility] [place] [address] Scheduled Orders Name Type Priority Associated Diagnoses Orde r Schedule CBC Lab Routine Anemia, unspecified type Expected: 10/14/2023 (Approximate), Expires: 10/13/2024 FERRITIN Lab Routine Anemia, unspecified type Expected: 10/14/2023 (Approximate), Expires: 10/13/2024 IRON SCREEN, INCLUDING TIBC Lab Routine Anemia, unspecified type Expected: 10/14/2023 (Approximate), Expires: 10/13/2024 Health Maintenance Due Date Last Done Comments COVID-19 Vaccine ( season) 2023 12/02/2022, 06/10/2021, 01/08/2021, Additional history exists Influenza Vaccine (FLU shot) (#1) 2023 11/13/2022, 11/08/2021, 11/27/2020, Additional history exists Zoster Vaccines (3 of 3) 12/09/2023 10/14/2023, 05/08 Adult Wellness Visit 08/23/2024 08/24/2023, 08/14/2022, 08/06/2021 Depression Screening 08/23/2024 08/24/2023 GFR 09/15/2024 09/16/2023, [...] as of this encounter Visit Diagnoses Diagnosis Angular cheilitis- Primary Diseases of lips Dystrophic nail Other specified disease of nail Paroxysmal atrial fibrillation (HCC) Atrial fibrillation HTN, goal below 140/90 Unspecified essential hypertension Anemia, unspecified type Need for shingles vaccine Need for prophylactic vaccination and inoculation against other viral diseases documented in this encounter Advance Directives Documents on File Type Date Recorded Patient Drilling Machine Runner Expl anation Power of Chain Testing Machine Operator 05/23/2021 POWER OF A TTORNEY Care Teams Paint Process Engineer Relationship Specialty Start Date End Date Efrain Carrasco III, MD [address] [place] [address] PCP - General 12/20/99 documented as of this encounter"
--- OUTSIDE RECORDS SUMMARY | 2024-01-09 04:23 | External Medical Summary | Summary of Care ---
Author Name Unknown Organization [facility] Address [address] [place] [address] Phone [phone] Care Team Providers Care Pyrotechnician Name Role Phone Danilo CHARLES MD, John E Primary Care Provider [phone] Reason for Visit * Reason Onset Date Comments Hospital Follow-Up 06/08/2023 Encounter Details Date Type Department Care Team (Late st Contact Info) Description 06/08/2023 Telephone General Internal Medicine [facility] 200 [facility] [place] [address] Efrain Carrasco III, MD [address] [place] [address] Hospital Follow-Up Allergies No known active allergiesdocumented as of this encounter (statuses as of 09/07/2023) Medications Medication Sig Dispensed Refills Start Date End Date Status MULTIVITAMIN/MIN ERAL FORMULA OR TABS 30 0 2 Active Clotrimazole 1 % External Cream (Lotrimin) 2 Active Xiidra 5 % Ophthalmic Solution (Lifitegrast) Instill into eye. Active Oxybutynin Chloride 5 MG Oral Tablet (Ditropan) Take 0.5 Tablets by mouth 2 times a day in the morning and at bedtime. 90 Tablet 3 3 Active Incontinence Supplies Dispense one large box or container, medium weight incontinence pad. Use as instructed. 24 Each 11 3 Active Metoprolol Succinate ER 25 MG Oral Tablet Extended Release 24 Hour (toPROL XL) Take 0.5 Tablets by mouth in the morning. 4 Active zoster vac recomb adjuvanted (SHINGRIX) 50 MCG/0.5ML injection Inject 0.5 mL into a large muscle now and repeat dose in 60 to 180 days 1 Each 1 9 06/12/19 24 Discontinued(Hi dication List Clean Up) Gabapentin 300 MG Oral Capsule (Neurontin) Take 1 Capsule by mouth at bedtime. 06/12/19 24 Discontinued(Re fill) amLODIPine Besy-Benazepril HCl 2.5-10 MG Oral Capsule (Lotrel) TAKE 1 CAPSULE BY MOUTH EVERY DAY IN THE MORNING Strength: 2.5-10 MG 90 Capsule 1 3 06/24/19 24 Discontinued(Re fill) Alendronate Sodium 70 MG Oral Tablet (Fosamax)Indicat ions:Age related osteoporosis, unspecified pathological fracture presence Take 1 Tablet by mouth once a week. with 8 oz. water 30 minutes before first meal of the day. Remain upright for 30 min after taking tablet. 12 Tablet 3 3 06/17/19 24 Discontinued(Re fill) Baclofen 10 MG Oral Tablet (Lioresal)Indica tions:Acute right-sided low back pain with right-sided sciatica 1/2 to 1 tablet by mouth as needed for pain 3 x daily 30 Tablet 4 06/30/19 24 Discontinued(Re fill) Amiodarone HCl 200 MG Oral Tablet (Cordarone) Take 1 Tablet by mouth in the morning and 1 Tablet before bedtime. 4 06/17/19 24 Discontinued Pantoprazole Sodium 40 MG Oral Tablet Delayed Release (Protonix) Take 1 Tablet by mouth in the morning and 1 Tablet in the evening. 4 08/24/19 24 Discontinued(Re fill) documented as of this encounter (statuses as of 09/07/2023) Active Problems Problem Noted Date Diagnosed Date LBBB (left bundle branch block) 06/17/2023 Paroxysmal atrial fibrillation 06/17/2023 HTN, goal below 140/90 11/08/2021 Trochanteric bursitis 12/09/2018 BMI 35-39 ISOLATED (SEE ACTUAL BMI) 08/20/2009 Overview: Per Obesity Protocol, #19 ADVANCE DIRECTIVE INFORMATION 10/24/2004 Overview: No, Advance Directive brochure given to patient. documented as of this encounter (statuses as of 09/07/2023) Resolved Problems Problem Noted Date Diagnosed Date Resolved Date 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 Overview: villous tissue repeat colonoscopy in 6 months Esophagitis 02/10/2019 Overview: ICD-10 update of inactive term documented as of this encounter (statuses as of 09/07/2023) Immunizations Name Administration Dates Next Due COVID-19 [...] encounter Miscellaneous Notes * Telephone Encounter - Moreno Shahid OSA - 06/09/2023 8:19 AM EDT Patient has been scheduled with Lin Chew on 06/17/23 at 1130 am * Telephone Encounter - Godfrey Millard RN - 06/08/2023 3:01 PM EDT Patient discharged to home on 06/07/23 from [facility]. Cardiology consulted for afib, recommends follow-up cardiology 2 to 3 weeks, EKG in 1 week if appointment not scheduled. Please assist with these recommendations. Thank you documented in this encounter Plan of Treatment Upcoming Encounters Date Type Department Care Team (Late st Contact Info) Description 09/16/2023 9:00 AM EDT Office Visit Cardiology, [facility] [address] [place] [address] Lin Chew PA-C [address] [place] [address] 10/13/2023 8:20 AM EDT Office Visit Family Practice [facility] 200 [facility] [place] [address] Efrain Carrasco III, MD 200 [facility] [place] [address] 11/24/2023 10:30 AM EDT Office Visit Urology, [facility] [address] [place] [address] Ronan Cain MD [address] [place] [address] 08/24/2024 11:00 AM EDT Nurse Only Ancillary [facility] [place] 200 [facility] [place] [address] Lizz Nurse Annual Wellness [address] [place] [address] Health Maintenance Due Date Last Done Comments Albumin/Creatinine Ratio 1957 Zoster Vaccines (2 of 3) 07/28/2007 06/02/2007 COVID-19 Vaccine ( season) 2023 12/02/2022, 06/10/2021, 01/08/2021, Additional history exists GFR 06/16/2024 06/17/2023, 10/08, 10/27/2021, Additional history exists Depression Screening 08/23/2024 08/24/2023 DXA Scan 08/31/2025 09/01/2023, 08/08, 09/03/2021, Additional history exists DTaP,Tdap,and Td Vaccines (2 - Td or Tdap) 10/10/2031 10/09/2021, 09/19/2009, 09/04/1999 Pneumococcal Vaccine: 65+ Years Completed 05/08/2014, 06/19/2006 Influenza Vaccine (FLU shot) Completed 09/2022, 11/08/2021, 11/27/2020, Additional history exists GARDASIL-HPV IMMUNIZATION SERIES Aged [...] Documents on File Type Date Recorded Patient Collar Shaper Operator Expl anation Power of Cook Italian Style Food 05/23/2021 POWER OF A TTORNEY Care Teams Pyrotechnician Relationship Specialty Start Date End Date Efrain Carrasco III, MD 200 [facility] [place] [address] PCP - General 12/20/99 documented as of this encounter
--- OUTSIDE RECORDS SUMMARY | 2024-01-09 04:23 | External Medical Summary | Summary of Care ---
Author Name Unknown Organization [facility] Address [address] [place] [address] Phone [phone] Care Team Providers Care Superintendent Construction Name Role Phone Danilo CHARLES MD, Efrain Wheeler Primary Care Provider [phone] Reason for Visit * Reason Comments Outpatient Testing Encounter Details Date Type Department Care Team (Late st Contact Info) Description 09/16/2023 9:40 AM EDT Laboratory Laboratory, [facility] [address] [place] [address] [facility] [address] [place] [address] HTN, goal below 140/90; LBBB (left bundle branch block); Paroxysmal atrial fibrillation (HCC); Elevated troponin; Gastroesophageal reflux disease with esophagitis and hemorrhage Allergies No known active allergiesdocumented as of this encounter (statuses as of 09/16/2023) Medications Medication Sig Dispensed Refills Start Date End Date Status MULTIVITAMIN/MINERA L FORMULA OR TABS 30 0 12/24/2001 Active Clotrimazole 1 % External Cream (Lotrimin) 09/24/2021 Active Xiidra 5 % Ophthalmic Solution (Lifitegrast) Instill into eye. Acti ve Oxybutynin Chloride 5 MG Oral Tablet (Ditropan) Take 0.5 Tablets by mouth 2 times a day in the morning and at bedtime. 90 Tablet 3 09/20/2022 Active Incontinence Supplies Dispense one large box or container, medium weight incontinence pad. Use as instructed. 24 Each 11/17/2022 Active Gabapentin 300 MG Oral Capsule [...] the evening. 180 Tablet 2 08/24/2023 Active Additional Information Patient not taking.Reported on 09/16/2023 Amiodarone HCl 200 MG Oral Tablet (Cordarone) Take 1 Tablet by mouth in the morning. 90 Tablet 3 09/16/2023 Active Metoprolol Succinate ER 25 MG Oral Tablet Extended Release 24 Hour (toPROL XL) Take 0.5 Tablets by mouth in the morning. 45 Tablet 3 09/16/2023 Active documented as of this encounter (statuses as of 09/16/2023) Active Problems Problem Noted Date Diagnosed Date LBBB (left bundle branch block) 06/17/2023 Paroxysmal atrial fibrillation 06/17/2023 HTN, goal below 140/90 11/08/2021 Trochanteric bursitis 12/09/2018 BMI 35-39 ISOLATED (SEE ACTUAL BMI) 08/20/2009 Overview: Per Obesity Protocol, #19 ADVANCE DIRECTIVE INFORMATION 10/24/2004 Overview: No, Advance Directive brochure given to patient. documented as of this encounter (statuses as of 09/16/2023) Resolved Problems Problem Noted Date Diagnosed Date Resolved Date 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 Overview: villous tissue repeat colonoscopy in 6 months Esophagitis 02/10/2019 Overview: ICD-10 update of inactive term documented as of this encounter (statuses as of 09/16/2023) Immunizations Name Administration Dates Next Due COVID-19 [...] EDT Office Visit Family Practice [facility] [place] [address] [place] [address] Efrain Carrasco III, MD [address] [place] [address] 11/24/2023 10:30 AM EDT Office Visit Urology, [facility] 132 [facility] [place] [address] Ronan Cain MD [address] [place] [address] 12/18/2023 10:00 AM EDT Office Visit Cardiology, [facility] [address] [place] [address] Lin Chew PA-C [address] [place] [address] 08/24/2024 11:00 AM EDT Nurse Only Ancillary [facility] [address] [place] [address] [place], Nurse Annual Wellness [facility] [address] [place] [address] Pending Results Name Type Priority Associated Diagnoses Date /Time ALBUMIN / CREATININE RATIO, URINE Lab Routine HTN, goal below 140/90 09/16/2023 9:39 AM EDT LIPID PANEL WITH DIRECT LDL IF TG IS HIGH Lab Routine LBBB (left bundle branch block) Paroxysmal atrial fibrillation (HCC) HTN, goal below 140/90 Elevated troponin Gastroesophageal reflux disease with esophagitis and hemorrhage 09/16/2023 9:38 AM EDT MAGNESIUM Lab Routine LBBB (left bundle branch block) Paroxysmal atrial fibrillation (HCC) HTN, goal below 140/90 Elevated troponin Gastroesophageal reflux disease with esophagitis and hemorrhage 09/16/2023 9:38 AM EDT TSH WITH FREE T4 IF INDICATED Lab Routine LBBB (left bundle branch block) Paroxysmal atrial fibrillation (HCC) HTN, goal below 140/90 Elevated troponin Gastroesophageal reflux disease with esophagitis and hemorrhage 09/16/2023 9:38 AM EDT COMPREHENSIVE METABOLIC PANEL Lab Routine LBBB (left bundle branch block) Paroxysmal atrial fibrillation (HCC) HTN, goal below 140/90 Elevated troponin Gastroesophageal reflux disease with esophagitis and hemorrhage 09/16/2023 9:38 AM EDT Scheduled Orders Name Type Priority Associated Diagnoses Orde r Schedule ALBUMIN / CREATININE RATIO, URINE Lab Routine HTN, goal below 140/90 Expected: 09/16/2023, Expires: 09/15/2024 Health Maintenance Due Date Last Done Comments Albumin/Creatinine Ratio 1957 Zoster Vaccines (2 of 3) 07/28/2007 06/02/2007 COVID-19 Vaccine ( season) 2023 12/02/2022, 06/10/2021, 01/08/2021, Additional history exists Influenza Vaccine (FLU shot) (#1) 2023 11/13/2022, 11/08/2021, 11/27/2020, Additional history exists GFR 06/16/2024 06/17/2023, 10/08, [...] Priority Date/Time Associated Diagnosis Comments CBC Routine 09/16/2023 9:38 AM EDT LBBB (left bundle branch block) Paroxysmal atrial fibrillation (HCC) HTN, goal below 140/90 Elevated troponin Gastroesophageal reflux disease with esophagitis and hemorrhage documented in this encounter Results * (ABNORMAL) CBC (09/16/2023 9:38 AM EDT) WBC 5.86 4.00 - 10.80 K/uL 09/16/2023 9:45 AM EDT [facility] 57-10 RBC 4.14 3.85 - 5.15 M/uL 09/16/2023 9:45 AM EDT [facility] [place] 57-10 HGB 9.9(L) 12.0 - 15.3 g/dL 09/16/2023 9:45 AM EDT [facility] [place] 57-10 HCT 32.7(L) 36.0 - 45.2 % 09/16/2023 9:45 AM EDT [facility] [place] 57-10 MCV 79.0 81.5 - 97.5 fL 09/16/2023 9:45 AM EDT [facility] [place] [facility] 57-10 MCH 23.9 27.0 - 34.0 pg 09/16/2023 9:45 AM EDT [facility] [place] 57-10 MCHC 30.3 32.0 - 36.0 g/dL 09/16/2023 9:45 AM EDT [facility] [place] 57-10 RDW 16.0 11.5 - 15.5 % 09/16/2023 9:45 AM EDT [facility] [place] 57-10 PLT 361 140 - 400 K/uL 09/16/2023 9:45 AM EDT [facility] [place] 57-10 MPV 9.0 6.6 - 11.1 fL 09/16/2023 9:45 AM EDT [facility] [place] 57-10 Blood Venous blood specimen / Unknown Venipuncture / Unknown 09/16/2023 9:38 AM EDT 09/16/2023 9:38 AM EDT Lin Chew PA-C LAB BLOOD [facility] Organization Address City/State/ZIP Co de Phone Number LAB[facility]ATORY [place] [phone] [place] [address] documented in this encounter Visit Diagnoses Diagnosis HTN, goal below 140/90 Unspecified essential hypertension LBBB (left bundle branch block) Other left bundle branch block Paroxysmal atrial fibrillation (HCC) Atrial fibrillation Elevated troponin Other abnormal blood chemistry Gastroesophageal reflux disease with esophagitis and hemorrhage documented in this encounter Advance Directives Documents on File Type Date Recorded Patient Medical Assistant Cardiology Expl anation Power of Limited Radiology Technician 05/23/2021 POWER OF A TTORNEY Care Teams Superintendent Construction Relationship Specialty Start Date End Date Efrain Carrasco III, MD [address] [place] [address] PCP - General 12/20/99 documented as of this encounter
--- OUTSIDE RECORDS SUMMARY | 2024-01-09 04:23 | External Medical Summary ---
Author Name Unknown Address Unknown Organization [id number]:LABORATORY [facility] [place] - [address] [facility] [address] Laboratory Report Ordering Provider Test Date Status JODY LEAL 09/16/2023 09:38:22 Final Observation Date Value Abnormality Reference (Units ) Status Triglyceride 09/16/2023 09:38:22 121 <=174 ( mg/dL) Final Triglyceride Reference Range s (mg/dL):
<150 Acceptable
150-174 Borderline high
175-499 High
>=500 Very high Cholesterol 09/16/2023 09:38:22 284 Above high normal <200 (mg/dL) Final Total Cholesterol Reference Ranges (mg/dL):
<200 Desirable
200-239 Borderline high
>=240 High HDL 09/16/2023 09:38:22 56 >49 (mg/dL ) Final HDL Cholesterol Reference Ra nges (mg/dL):
>=60 High (Desirable)
<50 Low (Undesirable) For Females
<40 Low (Undesirable) For Males NON-HDL CHOLESTEROL 09/16/2023 09:38:22 228 Above high normal <=159 (mg/dL) Final Non-HDL Cholesterol Referenc e Range (mg/dL):
<100 Target level for high risk ASCVD patient
<130 Optimal for general population
130-159 Near optimal for general population
160-189 Borderline High
190-219 High
>=220 Very High LDL, (calculated) 09/16/2023 09:38:22 204 Above high n ormal <=129 (mg/dL) Final LDL Cholesterol Reference Ra nges (mg/dL):
<70 Target level for high risk ASCVD patient
<100 Optimal for general population
100-129 Near optimal for general population
130-159 Borderline high
160-189 High
>=190 Very high Performing Location LABORATORY [facility] [place] - [address] [facility] [address]
--- OUTSIDE RECORDS SUMMARY | 2024-01-09 04:23 | External Medical Summary | Summary of Care ---
Author Name Unknown Organization [facility] Address [address] [place] [address] Phone [phone] Care Team Providers Care Health Information Clerk Name Role Phone Danilo CHARLES MD, Efrain Wheeler Primary Care Provider [phone] Reason for Referral * Evaluate & Treat - Unlimited Visits (Within 30 days (routine)) - Pending Review Specialty Diagnoses / Procedures Referred By Jovani sanchez Referred To Contact Physical Therapy / Physical Medicine And Rehab Diagnoses Low back pain without sciatica Efrain Carrasco III, MD [address] [facility] [place] [address] Referral ID Status Reason Start Date Expiration Date Visits Requested Visits Authorized [id number] Pending Review Specialty Services Required 08/24/[phone] Question Answer Referral Priority Within 30 days (routine) Where should this appointment be scheduled? External - Fit for play Encounter Details Date Type Department Care Team (Late st Contact Info) Description 08/24/2023 Orders Only Family Practice [facility] [place] [address] [place] [address] Efrain Carracso III, MD [address] [facility] [place] [address] Low back pain without sciatica* Allergies No known active allergiesdocumented as of this encounter (statuses as of 08/24/2023) Medications Medication Sig Dispensed Refills Start Date [...] as instructed. 24 Each 11 11/17/2022 Active Metoprolol Succinate ER 25 MG Oral Tablet Extended Release 24 Hour (toPROL XL) Take 0.5 Tablets by mouth in the morning. 06/07/2023 Active Pantoprazole Sodium 40 MG Oral Tablet Delayed Release (Protonix) Take 1 Tablet by mouth in the morning and 1 Tablet in the evening. 06/07/2023 Active Gabapentin 300 MG Oral Capsule (Neurontin) [...] taking tablet. 13 Tablet 3 06/17/2023 Active Amiodarone HCl 200 MG Oral Tablet (Cordarone) Continue 1 tablet in the morning and 1 tablet in the evening until July 08, 2023, then REDUCE to 1 tablet daily 06/17/2023 Active amLODIPine Besy-Benazepril HCl 2.5-10 MG Oral Capsule (Lotrel) TAKE 1 CAPSULE BY MOUTH EVERY DAY IN THE MORNING Strength: 2.5-10 MG 90 Capsule 1 06/24/2023 Active Famotidine 20 MG Oral Tablet (Pepcid) Take 1 Tablet by mouth at bedtime. Active Cyclobenzaprine HCl 10 MG Oral Tablet (Flexeril) Take 1 Tablet by mouth 3 times a day as needed. Active documented as of this encounter (statuses as of 08/24/2023) Active Problems Problem Noted Date Diagnosed Date LBBB (left bundle branch block) 06/17/2023 Paroxysmal atrial fibrillation 06/17/2023 HTN, goal below 140/90 11/08/2021 Trochanteric bursitis 12/09/2018 BMI 35-39 ISOLATED (SEE ACTUAL BMI) 08/20/2009 Overview: Per Obesity Protocol, #19 ADVANCE DIRECTIVE INFORMATION 10/24/2004 Overview: No, Advance Directive brochure given to patient. 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: villous tissue repeat colonoscopy in 6 months Esophagitis 02/10/2019 Overview: ICD-10 update of inactive term documented as of this encounter (statuses as of 08/24/2023) Immunizations Name Administration Dates Next Due COVID-19 [...] Care Team (Late st Contact Info) Description 09/01/2023 1:00 PM EDT Imaging Radiology, [place] [address] [facility] [place] [address] 09/16/2023 9:00 AM EDT Office Visit Cardiology, [facility] [address] [place] [address] Lin Chew PA-C [address] [place] [address] 10/13/2023 8:20 AM EDT Office Visit Family [facility] [address] [facility] [place] [address] Efrain Carrasco III, MD [address] [facility] [place] [address] 11/24/2023 10:30 AM EDT Office Visit Urology, [facility] [address] [facility] [place] [address] Ronan Cain MD [address] [place] [address] [place] [address] 08/24/2024 11:00 AM EDT Nurse Only Ancillary [facility] [place] [address] [facility] [place] [address] Lizz Nurse Annual Wellness [address] [facility] [place] [address] Scheduled Referrals Name Type Priority Associated Diagnoses Orde r Schedule PHYSICAL THERAPY REFERRAL OP Referral Within 30 days (routine) Low back pain without sciatica Ordered: 08/24/2023 Health Maintenance Due Date Last Done Comments Albumin/Creatinine Ratio 1957 Zoster Vaccines (2 of 3) 07/28/2007 06/02/2007 COVID-19 Vaccine ( season) 2023 12/02/2022, 06/10/2021, 01/08/2021, Additional history exists DXA Scan 09/04/2023 09/03/2021, 08/08, 05/01/2014, Additional history exists GFR 06/16/2024 06/17/2023, 10/08, 10/27/2021, Additional history exists Depression Screening 08/23/2024 08/24/2023 DTaP,Tdap,and Td Vaccines (2 - Td or [...] as of this encounter Visit Diagnoses Diagnosis Low back pain without sciatica- Primary Lumbago documented in this encounter Advance Directives Documents on File Type Date Recorded 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
--- OUTSIDE RECORDS SUMMARY | 2024-01-09 04:23 | External Medical Summary ---
Author Name Unknown Address Unknown Organization [id number]:LAB[facility]ORY [facility] - [address] [facility] [id number] Laboratory Report Ordering Provider Test Date Status JODY LEAL 09/16/2023 09:38:22 Final Observation Date Value Abnormality Reference (Units ) Status TSH 09/16/2023 09:38:22 1.43 0.27-4.20 (uIU/mL) Final Performing Location LAB[facility]ATORY [facility] [place] - [address] [facility] [address]
--- OUTSIDE RECORDS SUMMARY | 2024-01-09 04:23 | External Medical Summary ---
Author Name Unknown Address Unknown Organization [id number]:LAB[facility]ORY [facility] [place] [address] [place] [id number] Laboratory Report Ordering Provider Test Date Status JODY LEAL 09/16/2023 09:38:22 Final Observation Date Value Abnormality Reference (Units ) Status WBC, Total 09/16/2023 09:38:22 5.86 4.00-10.8 0 (K/uL) Final RBC 09/16/2023 09:38:22 4.14 3.85-5.15 (M/uL) Final Hemoglobin 09/16/2023 09:38:22 9.9 Below low normal 12 .0-15.3 (g/dL) Final HCT 09/16/2023 09:38:22 32.7 Below low normal 36. 0-45.2 (%) Final MCV 09/16/2023 09:38:22 79.0 81.5-97.5 (fL) Final MCH 09/16/2023 09:38:22 23.9 27.0-34.0 (pg) Final MCHC 09/16/2023 09:38:22 30.3 32.0-36.0 (g/dL) Final RDW 09/16/2023 09:38:22 16.0 11.5-15.5 (%) Final Platelets 09/16/2023 09:38:22 361 140-400 (K /uL) Final MPV 09/16/2023 09:38:22 9.0 6.6-11.1 ( fL) Final Performing Location LAB[facility]ATORY [facility] [place] [address] [place] [address]
--- OUTSIDE RECORDS SUMMARY | 2024-01-09 04:23 | External Medical Summary | Summary of Care ---
Author Name Unknown Organization [facility] Address [address] [place] [address] Phone [phone] Care Team Providers Care Supervisor Smoke Control Name Role Phone Danilo CHARLES MD, Efrain Wheeler Primary Care Provider [phone] Reason for Visit * Reason Onset Date Comments Adult Annual Wellness Visit, Subsequent Visit Encounter Details Date Type Department Care Team (Late st Contact Info) Description 08/24/2023 10:00 AM EDT Nurse Only Ancillary [facility] [address] [place] [address] [facility], Nurse Annual Wellness [facility] [address] [place] [address] Adult Annual Wellness Visit, Subsequent Visit Allergies No known active allergiesdocumented as of [...] incontinence pad. Use as instructed. 24 Each 3 Active Metoprolol Succinate ER 25 MG Oral Tablet Extended Release 24 Hour (toPROL XL) Take 0.5 Tablets by mouth in the morning. 4 Active Pantoprazole Sodium 40 MG Oral Tablet Delayed Release (Protonix) Take 1 Tablet by mouth in the morning and 1 Tablet in the evening. 4 Active Gabapentin 300 MG Oral Capsule (Neurontin) [...] taking tablet. 13 Tablet 3 4 Active Amiodarone HCl 200 MG Oral Tablet (Cordarone) Continue 1 tablet in the morning and 1 tablet in the evening until July 08, 2023, then REDUCE to 1 tablet daily 4 Active amLODIPine Besy-Benazepril HCl 2.5-10 MG Oral Capsule (Lotrel) TAKE 1 CAPSULE BY MOUTH EVERY DAY IN THE MORNING Strength: 2.5-10 MG 90 Capsule 1 4 Active Famotidine 20 MG Oral Tablet (Pepcid) Take 1 Tablet by mouth at bedtime. Active Cyclobenzaprine HCl 10 MG Oral Tablet (Flexeril) Take 1 Tablet by mouth 3 times a day as needed. Active Baclofen 10 MG Oral Tablet (Lioresal)Indicat ions:Acute right-sided low back pain with right-sided sciatica 1/2 to 1 tablet by mouth as needed for pain 3 x daily 30 Tablet 4 08/24/19 24 Discontinued documented as of this encounter [...] Sign Reading Time Taken Comments Blood Pressure 146/64 08/24/2023 9:51 AM EDT Pulse 76 08/24/2023 9:51 AM EDT Temperature 37.1 C (98.8 F) 08/24/2023 9:51 AM ED T Respiratory Rate - - Oxygen Saturation - - Inhaled Oxygen Concentration - - Weight 70.9 kg (156 lb 6.4 oz) 08/24/2023 9:51 A M EDT Height 160 cm (5' 3") 08/24/2023 9:51 AM EDT Body Mass Index 27.71 08/24/2023 9:51 AM EDT documented in this encounter Patient Instructions * Patient Instructions* Sammi Betancourt RN - 08/24/2023 9:43 AM EDT Hi Ms. Leiva, As your primary care physician, I know that regular visits with my patients who have several chronic conditions can go a long way in helping you stay healthy. Many times, the clinic team and I are in touch with you and/or other care team members between office visits to adjust medications, discuss any changes in your health, and review our care plan to make sure it is still meeting your needs. I am dedicated to helping you take a more active role in your overall care. It is important that there are resources available to you, so I created a personalized plan of care with a Health Calendar for you, which is included on the next page of this letter. Below is a list that summarizes your electronic health record: Health Maintenance Due: Health Maintenance Due Topic Date Due Albumin/Creatinine Ratio Never done Zoster Vaccines (2 of 3) 07/28/2007 COVID-19 Vaccine ( season) 2023 Depression Screening 08/14/2023 Current Medication List: (as of Visit date not found (in office), Visit date not found (telemedicine) ) Current Outpatient Medications Medication Sig Dispense Refill MULTIVITAMIN/MINERAL FORMULA OR TABS 30 0 Clotrimazole 1 % External Cream (Lotrimin) (Patient not taking: Reported on 06/17/2023) Xiidra 5 % Ophthalmic Solution (Lifitegrast) Instill into eye. Oxybutynin Chloride 5 MG Oral Tablet (Ditropan) Take 0.5 Tablets by mouth 2 times a day in the morning and at bedtime. 90 Tablet 3 Incontinence Supplies Dispense one large box or container, medium weight incontinence pad. Use as instructed. 24 Each 11 Metoprolol Succinate ER 25 MG Oral Tablet Extended Release 24 Hour (toPROL XL) Take 0.5 Tabletsby mouth in the morning. Pantoprazole Sodium 40 MG Oral Tablet Delayed Release (Protonix) Take 1 Tablet by mouth in the morning and 1 Tablet in the evening. Gabapentin 300 MG Oral Capsule (Neurontin) Take 1 Capsule by mouth at bedtime. 90 Capsule 3 Alendronate Sodium 70 MG Oral Tablet (Fosamax) Take 1 Tablet by mouth once a week. with 8 oz. water 30 minutes before first meal of the day. Remain upright for 30 min after taking tablet. 13 Tablet 3 Amiodarone HCl 200 MG Oral Tablet (Cordarone) Continue 1 tablet in the morning and 1 tablet in the evening until July 08, 2023, then REDUCE to 1 tablet daily amLODIPine Besy-Benazepril HCl 2.5-10 MG Oral Capsule (Lotrel) TAKE 1 CAPSULE BY MOUTH EVERY DAY IN THE MORNING Strength: 2.5-10 MG 90 Capsule 1 Baclofen 10 MG Oral Tablet (Lioresal) 1/2 to 1 tablet by mouth as needed for pain 3 x daily 30 Tablet 0 No current facility-administered medications for this visit. Current List of Allergies: (as of Visit date not found (in office), Visit date not found (telemedicine) ) Review of patient's allergies indicates: No Known Allergies Most Recent Lab Results: Results for orders placed or performed in visit on 06/17/23 CBC Result Value Ref Range WBC 6.47 4.00 - 10.80 K/uL RBC 3.97 3.85 - 5.15 M/uL HGB 10.6 (L) 12.0 - 15.3 g/dL HCT 33.6 (L) 36.0 - 45.2 % MCV 84.6 81.5 - 97.5 fL MCH 26.7 27.0 - 34.0 pg MCHC 31.5 32.0 - 36.0 g/dL RDW 13.3 11.5 - 15.5 % PLT 449 (H) 140 - 400 K/uL MPV 9.7 6.6 - 11.1 fL COMPREHENSIVE METABOLIC PANEL Result Value Ref Range BUN 24 (H) 6 - 20 mg/dL Creatinine 1.0 0.5 - 1.0 mg/dL Estimated Glomerular Filtration Rate 59 (L) >=60 mL/min Sodium 140 135 - 146 mmol/L Potassium 4.8 3.5 - 5.1 mmol/L Chloride 106 98 - 107 mmol/L CO2 24 22 - 32 mmol/L Anion Gap 10 7 - 15 mmol/L Glucose 91 70 - 120 mg/dL Albumin 4.0 3.8 - 5.0 g/dL AST 14 10 - 35 U/L Alkaline Phosphatase 67 35 - 130 U/L Bilirubin, Total 0.2 <=1.2 mg/dL Calcium 9.5 8.4 - 10.2 mg/dL Protein 6.3 6.0 - 8.3 g/dL ALT 8 (L) 10 - 35 U/L MAGNESIUM Result Value Ref Range Magnesium 2.2 1.5 - 2.6 mg/dL TSH WITH FREE T4 IF INDICATED Result Value Ref Range TSH 2.12 0.27 - 4.20 uIU/mL Sincerely, Efrain Carrasco III, MD 08/24/2023 [facility] (as of Visit date not found (in office), Visit date not found (telemedicine) ) Care needs Care needs Last completed Due next Urine albumin/creatinine test --- Never done Zoster (Shingles) Vaccine (2 of 3) 06/02/2007 07/28/2007 COVID-19 Vaccine (2022- season) 2022 04/03/2023 Bone Density 09/03/2021 09/04/2023 Kidney Function Test 06/17/2023 06/16/2024 Diphtheria, tetanus & pertussis vaccines (2 - Td or Tdap) 10/09/2021 10/10/2031 As you look over the recommended services, be sure to check with your insurance company to determine what's covered. [employer] is a great tool that helps you review your medical record online, including test results, doctor notes and your health summary. You can also schedule appointments with me and other members of your care team, request prescription refills and ask for advice related to your medical conditions at [email or web address]. Patient Instructions - Fall Prevention (This education is for all patients over 65 regardless of symptoms) Remember to take your current medications as prescribed. In order to prevent falls, you are encouraged to: Exercise Utilize assistive/adaptive devices Avoid multifocal lenses when walking Avoid hazards in home Maintain a regular toileting schedule Any questions please contact our office. Preventing Falls in the Home (This education is for all patients over 65 regardless of symptoms) As you get older, falls are more likely. Thats because your reaction time slows. Your muscles and joints may also get stiffer, making them less flexible. Illness, medications, and vision changes can also affect your balance. A fall could leave you unable to live on your own. To make your home safer, follow these tips: Floors Put nonskid pads under area rugs Remove throw rugs Replace worn floor coverings Tack carpets firmly to each step on carpeted stairs. Put nonskid strips on the edges of uncarpeted stairs Keep floors and stairs free of clutter and cords Arrange furniture so there are clear pathways Clean up any spills right away Bathrooms Install grab bars in the tub or shower Apply nonskid strips or put a nonskid rubber mat in the tub or shower Sit on a bath chair to bathe Use bathmats with nonskid backing Lighting Keep a flashlight in each room Put a nightlight along the pathway between the bedroom and the bathroom [employer] Patient Education Copyright 2008 - 2010 [employer] except where otherwise noted documented in this encounter Progress Notes * Sammi Betancourt RN - 08/24/2023 9:43 AM EDT Adult Annual Wellness Visit: Rebekah Leiva is a 83 year old female who presents for an Adult Annual Wellness Visit. Depression Screening: Did the patient complete the screening questionnaire for Depression? Yes Is the patient's total score for Depression 15 or greater? No, no further intervention needed, unless requested by patient. Did the patient answer positively to the suicide question? No, no further intervention needed, unless requested by patient. In general, compared to other people your age, what would you say that your health is? Very Good Ht Readings from Last 1 Encounters: 08/24/23 1.6 m (5' 3") Wt Readings from Last 1 Encounters: 08/24/23 70.9 kg (156 lb 6.4 oz) Body Mass Index: BMI Less than 30 Body mass index is 27.71 kg/m. BP Readings from Last 1 Encounters: 08/24/23 146/64 Medical/Surgical/Family History Reviewed: Yes Past Medical History: Diagnosis Date Benign neoplasm [...] performed by Jacky Otoole MD at ENDOSCOPY [facility] COLONOSCOPY, DIAGNOSTIC (RECTUM) 01/25/2019 adenomatous polyps, diverticulosis/COLONOSCOPY FLEXIBLE PROXIMAL DIAGNOSTIC performed by Jacky Otoole MD at ENDOSCOPY [facility] LUMBAR / SACRAL EPIDURAL, SINGLE LEVEL 08/24/2017 INJECTION TRANSFORAMINAL EPIDURAL LUMBAR OR SACRAL performed by Alcon Pozo Cousins, DO at OR [facility] MAMMOGRAM - BILATERAL 07/07/2006 birad code 1, negative HI TOTAL HIP ARTHROPLASTY Left 10/2021 REMOVE CATARACT, INSERT LENS PROSTH 08/20/[address] CHO REMOVE CATARACT, INSERT LENS PROSTH REMOVE TONSILS & ADENOIDS, UNDER 12 Tonsillectomy/Adenoids,<12 Y/O SPINAL FUSION, LUMBAR, COMBINED 2018 L234 Family History Problem Relation Name Age of Onset No Past Hx Father Mental Disorder Mother suicide Cancer Brother lymphoma No Known Problems Son Has patient ever had cancer? No Social History Tobacco Use Smoking status: Former Current packs/day: 0.00 Average packs/day: 1 pack/day for 20.0 years (20.0 ttl pk-yrs) Types: Cigarettes Start date: 12/16/1976 Quit date: 12/16/1996 Years since quittin.7 Smokeless tobacco: Never Substance Use Topics Alcohol use: Not Currently Vaping/E-Cigarette Use Vaping/E-Cigarette Use Never User Vaping/E-Cigarette Substances Nicotine No Other No Flavoring No THC No Cannabidiol (CBD) No Vaping/E-Cigarette Devices Disposable No Pre-filled or Refillable Cartridge No Refillable Tank No Pre-filled Pod No Tobacco/Alcohol screening completed today? Yes Hospital Care: Admissions (within the last year): Hospital, Location: [facility] Date of Admission: 05/31-06/06 ER within 30 days: No Does the patient have an Advance Directives/Living Will? Yes Last Physical Exam: Last physical exam: 06/2023 Does patient see primary provider regularly? Yes Does patient see other providers? Yes, Specialist Patient Care Team updated? Yes Review of patient's allergies indicates: No Known Allergies Immunization History Administered Date(s) Administered COVID-19 mRNA, LNP-s, No Preserve, 2-Dose Series (Moderna) 04/04/2020, 05/03/2020 COVID-19, MRNA-LNP, 23-24, PF, 30 MCG/0.3 mL, 12 YRS AND ABOVE, IM (PFIZER- Comirnaty) 12/02/2022 COVID-19, mRNA, LNP-s, PF, Booster, 100mcg/0.5mg (Moderna) 01/08/2021, 06/10/2021 H1N1 2009 Influenza, IM 03/22/2009 HEP A - Hepatitis A (Adult > 18 yrs) 10/19/2007, 03/14/2008 Pneumococcal Conjugate Vacc, 13 Valent (Prevnar) 05/08/2014 Pneumococcal Polysaccharide PPV23 (Pneumovax) 06/19/2006 RSV Vac., Bivalent, Perfusion F, Pf,0.5 Ml (Abrysvo) 04/10/2023 Season Influenza, Quad, PF, Adjuvanted, 65+ Yrs, IM (FLUAD) 01/24/2020 Seasonal Influenza, PF, 6 M & above, IM , (FluLaval or Fluzone) 02/09/2017, 11/24/2017, 12/09/2018 Seasonal Influenza, Quadrivalent Hd (Fluzone Hd) 11/27/2020, 11/08/2021, 11/13/2022 Seasonal Influenza, Quadrivalent, No Preserve, IM 12/23/2014, 12/22/2015 Seasonal Influenza, Split, IIV3, With Preserve, Inj 03/11/2000, 02/17/2001, 01/11/2003, 12/31/2005,12/23/2006, 12/16/2007, 01/27/2009, 12/17/2009, 11/22/2011, 11/20/2012, 12/10/2013 TD - Tetanus/Diptheria (ADULT) 09/04/1999 TD, Preservative Free 09/19/2009 TDAP (age 10 and older)(Boostrix) 10/09/2021 Varicella Zoster Vaccine (Adult) 06/02/2007 Current Outpatient Medications Medication Sig Dispense Refill MULTIVITAMIN/MINERAL FORMULA OR TABS 30 0 Clotrimazole 1 % External Cream (Lotrimin) Xiidra 5 % Ophthalmic Solution (Lifitegrast) Instill into eye. Oxybutynin Chloride 5 MG Oral Tablet (Ditropan) Take 0.5 Tablets by mouth 2 times a day in the morning and at bedtime. 90 Tablet 3 Incontinence Supplies Dispense one large box or container, medium weight incontinence pad. Use as instructed. 24 Each 11 Metoprolol Succinate ER 25 MG Oral Tablet Extended Release 24 Hour (toPROL XL) Take 0.5 Tablets by mouth in the morning. Pantoprazole Sodium 40 MG Oral Tablet Delayed Release (Protonix) Take 1 Tablet by mouth in the morning and 1 Tablet in the evening. Gabapentin 300 MG Oral Capsule (Neurontin) Take 1 Capsule by mouth at bedtime. 90 Capsule 3 Alendronate Sodium 70 MG Oral Tablet (Fosamax) Take 1 Tablet by mouth once a week. with 8 oz. water30 minutes before first meal of the day. Remain upright for 30 min after taking tablet. 13 Tablet 3 Amiodarone HCl 200 MG Oral Tablet (Cordarone) Continue 1 tablet in the morning and 1 tablet in the evening until July 08, 2023, then REDUCE to 1 tablet daily amLODIPine Besy-Benazepril HCl 2.5-10 MG Oral Capsule (Lotrel) TAKE 1 CAPSULE BY MOUTH EVERY DAY INTHE MORNING Strength: 2.5-10 MG 90 Capsule 1 Famotidine 20 MG Oral Tablet (Pepcid) Take 1 Tablet by mouth at bedtime. Cyclobenzaprine HCl 10 MG Oral Tablet (Flexeril) Take 1 Tablet by mouth 3 times a day as needed. No current facility-administered medications for this visit. Patient Active Problem List Diagnosis ADVANCE DIRECTIVE INFORMATION BMI 35-39 ISOLATED (SEE ACTUAL BMI) Trochanteric bursitis HTN, goal below 140/90 LBBB (left bundle branch block) Paroxysmal atrial fibrillation (HCC) Medication Compliance: Patient is able to obtain all of her medications? Yes Patient takes medications as prescribed? Yes Patient manages own medications: Yes Patient uses a pill box? No Dental Exam: Not Applicable Eye Screening: Yes: Every year Are you having trouble with hearing? No Do you use an assistive device to help your hearing? No Exercise Screening: does not exercise regularly Nutrition Assessment: Eats a balanced diet and Eats three meals a day Pain Screening: Are you having any pain? No Sleep Screening Tool 'STOP': Do you snore? No Do you feel fatigued during the day? No Do you wake up feeling like you haven't slept? No Have you been told you stop breathing at night? No Do you gasp for air or choke while sleeping? No Have you been told you have Sleep Apnea? No Do you have high blood pressure or are on medication(s) to control high blood pressure? Yes SCORE: If you check YES to two or more questions, make a referral for Obstructive Sleep Apnea Patient and Caregiver Support System: Patient lives alone Means of Transportation: Drives. Not a concern. Patient lives in Two Story - How many stairs: 14 to the 2nd floor with a railing and 11 to the basement with a railing part of the way down Community Resources: Not Applicable Functional Status and ADL Skills: Has patient ever had an amputation? No Functional Assessment: 90- Able to carry on normal activity, minor symptoms of disease Ambulation: Patient ambulates with assistive device. Cane Dressing: Gets clothes and dresses without any assistance: Independent Able to move freely in chair or bed including turning over: Independent Repositioning (bed or chair): Not applicable Transfers: Independent Toileting: Goes to bathroom, uses toilet, arranges clothes and returns without any assistance: Independent Toileting: continent of bladder and continent of bowel Feeding: Self Bathing: Self; tub/showier with a seat Requires none assistance with ADLs. Instrumental ADL's: Shopping: Independent Housekeeping: Independent Handling Finances: Independent DME Vendor Name: Not Applicable Fall Risk Assessment: Can the patient demonstrate that she can stand from a sitting position? Yes Has the patient had a fall within the last 6 months? No Does the patient have a problem with her gait or balance? Yes Does the patient take 4 or more prescription medicines? Yes Does the patient use sedatives or narcotics? Yes Fall Risk Factors Present: Uses more than 4 medications Uses sedatives or narcotics Older than age 70 Xmh-Ij-git-Go Test: Time began at 1000. Patient stood from sitting position and walked approximately 10 feet, returned and sat down. Total time for dnj-dv-auo-go test was 10 seconds. Hwr-Mq-yei-Go Test completed? Yes Gender Specific Preventative Plan: Health Maintenance Topic Date Due Albumin/Creatinine Ratio Never done Zoster Vaccines (2 of 3) 07/28/2007 COVID-19 Vaccine ( season) 2023 DXA Scan 09/04/2023 GFR 06/16/2024 Depression Screening 08/23/2024 DTaP,Tdap,and Td Vaccines (2 - Td or Tdap) 10/10/2031 Influenza Vaccine (FLU shot) Completed Pneumococcal Vaccine: 65+ Years Completed Hepatitis B Aged Out MENINGOCOCCAL (MENACTRA/MENVEO) Aged Out GARDASIL-HPV IMMUNIZATION SERIES Aged Out Follow Up/ Referrals/Handouts: No further action needed Routine general medical examination at a health care facility (Primary) Risk and functional assessment AWV completed today Osteoporosis - DEXA SCAN/BONE MINERAL AXIAL; Future; Expected date: 08/25/2023 HTN, goal below 140/90 - Med reconciliation completed and compliance discussed. - pt to continue present medications. BP Readings from Last 3 Encounters: 08/24/23 146/64 06/17/23 130/76 06/12/23 126/62 LBBB (left bundle branch block) -continue following with cardiology Paroxysmal atrial fibrillation (HCC) - Med reconciliation completed and compliance discussed. - pt to continue present medications. Follow Up: Return in 1 year (on 08/23/2024) for 12 month Subsequent Adult Wellness Visit. | For: 12 month Subsequent Adult Wellness Visit | Check-out note: 12 month Subsequent Adult Wellness Visit Would patient like to schedule next AWV visit? Yes Sammi Betancourt RN AD8 Dementia Screening Interview Person answering questions: patient Remember, "Yes, a change" indicates that there has been a change in the last several years caused by cognitive (thinking and memory) problems 1. Problems with judgement (eg: problems making decisions, bad financial decisions, problems with thinking). No (0) 2. Less interest in hobbies/activities. No (0) 3. Repeats the same things over and over (questions, stories, or statements). No (0) 4. Trouble learning how to use a tool, appliance, or gadget (eg: VCR, computer, microwave, remote control). No (0) 5. Forgets correct month or year. No (0) 6. Trouble handling complicated financial affairs (eg: balancing checkbook, income taxes, paying bills). No (0) 7. Trouble remembering appointments. No (0) 8. Daily problems with thinking and/or memory. No (0) TOTAL AD8: 0 - AD8 Dementia Screening Score The final score is a sum of the number items marked "Yes, A Change". 0 - 1: Normal cognition; 2 or greater: Cognitive impairments is likely to be present - further testing required documented in this encounter Miscellaneous Notes * Pt Handout (on AVS) - Sammi Betancourt RN - 08/24/2023 10:08 AM EDT [address] Preventing Falls: How to Prepare and What to Do Falling is not something you want to think about. But it can make a big difference to plan ahead. If you're prepared, you'll know how to get help. And you'll be less likely to panic if you fall. Thismeans you'll be able to do what's needed to get help right away. How to prepare Have someone check on you daily, either in person or by phone. Keep a list of emergency numbers near the phone. Always have a way to call for help. Keep a cell phone with you at all times. Or talk with your healthcare provider about how to set up a home monitoring service. This involves wearing a small device around your neck or wrist. If you fall, you can press the button on the device. This alerts emergency responders. Talk with your healthcare provider about an exercise program that's right for you. Regular exercise may reduce the risk of falling and the risk for injury related to a fall. Have good lighting in your home. Don't use throw rugs, because they can raise your risk of tripping and falling. Add grab bars in the bathroom to help reduce the risk of falling. Small changes canmake your home safer. Talk with your healthcare provider about making your home safer. What to do if you fall Above all, try to stay calm: If you start to fall, try to relax your body. This will reduce the impact of the fall. After you fall, press your monitor button, or use your phone to call for help. Don't medrano to get up. First, make sure you're not hurt. Roll onto your side, then crawl to a chair. Pull yourself up onto the chair slowly. Get checked if you struck your head, lost consciousness, were confused afterward, or have any other concerns for injury. Tell your healthcare provider that you fell. They can check you for injuries as needed, try to determine what made you fall, and help prevent you from falling again. A note to family and friends If you're with a loved one when they start to fall, don't try to stop the fall. Ease the person to the floor carefully, so neither of you gets hurt. Don't leave the person alone. And don't try to move them, especially if they may have hurt their head or neck. Check for injuries. If help is needed right away, call 911. Last Reviewed Date: 2022 [employer]. All rights reserved. This information is not intended as a substitute for professional medical care. Always follow your healthcare professional's instructions. * Pt Handout (on AVS) - Sammi Betancourt RN - 08/24/2023 10:07 AM EDT Images from the original note were not included. 65024 Exercises to Prevent Falls Certain types of exercises may help make you less likely to fall. Try the ones below or do other exercises that your healthcare provider suggests. Depending on your health, you may need to start slowly. Don't let that stop you. Even small amountsof exercise can help you. Talk with your healthcare provider before starting any exercise program. Improve balance Many types of exercise can help improve balance. Abby chi and yoga are good examples. Here's anotherone to try. You can do it anytime and almost anywhere. Stand next to a counter or solid support. Push yourself up onto your tiptoes. Hold for 5 seconds. If you start to lose your balance, hold on to the counter. Rest and repeat 5 times. Work up to holding for 20 to 30 seconds, if you can. Increase flexibility Being more flexible makes it easier for you to move around safely. Try exercises like the seatedhamstring stretch. o Sit in a chair and put one foot on a stool. o Straighten your leg and reach with both hands down either side of your leg. Reach as far down your leg as you can. o Hold for about 20 seconds. o Go back to the starting position. Then repeat 5 times. Switch legs. o o Build strength o Resistance exercises help build strength. You can do them without equipment. Or you can use weights, elastic bands, or special machines. One such exercise is called the biceps curl. You can hold a 1-pound weight or even a can of soup. Do this exercise at least 3 times a week. Strive for every day. Sit up straight in a chair. Keep your elbow close to your body and your wrist straight. Bend your arm, moving your hand up to your shoulder. Then slowly lower your arm. Repeat 5 times. Switch to the other arm. Build your staying power Aerobic exercises make your heart and lungs stronger so you can keep moving longer. Walking and swimming are 2 of the best types of exercises you can do. Using a stationary bike is great, too. Find an aerobic exercise that you enjoy. Start slowly and build up. Even 5 minutes is helpful. Aim for a goal of 30 minutes, at least 3 times a week. You don't have to do 30 minutes in 1 session. Break it up and walk a little throughout the day. Starting out safely and slowly Start easy. Slowly work up to doing more. Talk with your healthcare provider about the best exercises for you. Call senior centers or health clubs about exercise programs. If needed, have a family member watch you walk every so often to check your stability. Exercise with a friend. Choose an activity you both enjoy. Be sure to gently warm up and cool down. Drink fluids, such as water, to stay hydrated. If your provider recommended that you limit fluids, ask them how much is OK to drink while exercising. Consider abby chi or yoga to strengthen your balance. Try exercises that you can do anytime, anywhere. Here are 2 examples. Have someone with you whenyou first try these: o Practice walking by placing one foot right in front of the other. o Stand up and sit down 10 times. Repeat this throughout the day. Last Reviewed Date: 01/07/202219996843-0863 [employer]. All rights reserved. This information is not intended as a substitute for professional medical care. Always follow your healthcare professional's instructions. * Pt Handout (on AVS) - Sammi Betancourt RN - 08/24/2023 10:07 AM EDT Images from the original note were not included. [id number] Back Exercises: Lower Back Stretch To start, sit in a chair with your feet flat on the floor. Shift your weight slightly forward. Relax, and keep your ears, shoulders, and hips aligned while you do the following: Sit with your feet well apart. Bend forward and touch the floor with the backs of your hands. Relax and let your body drop. Hold for 20 seconds. Return to starting position. Repeat 2 times. An additional way to improve motion and stability is to push down into the floor while you are in the bent-over position. Push down for 5 seconds, relax 5 seconds. Repeat 3 to 5 times. Note: If you've had back or hip surgery, talk with your healthcare provider before doing this stretch. Last Reviewed Date: 02/06/202219998133-1042 [employer]. All rights reserved. This information is not intended as a substitute for professional medical care. Always follow your healthcare professional's instructions. documented in this encounter Plan of Treatment Upcoming Encounters Date Type Department Care Team (Late st Contact Info) Description 09/01/2023 1:00 PM EDT Imaging Radiology, [address] [place] [address] 09/16/2023 9:00 AM EDT Office Visit Cardiology, [facility] [address] [facility] [place] [address] Lin Chew PA-C 132 [facility] [place] [address] 10/13/2023 8:20 AM EDT Office Visit Family Practice [facility] [place] [address] Efrain Carrasco III, MD [address] [facility] [place] [address] 11/24/2023 10:30 AM EDT Office Visit Urology, [facility] [address] [facility] [place] [address] Ronan Cain MD [address] [place] [address] 08/24/2024 11:00 AM EDT Nurse Only Ancillary [facility] [employer] [address] [place] [employer] [address] [place], Nurse Annual Wellness [facility] [address] [place] [address] Scheduled Orders Name Type Priority Associated Diagnoses Orde r Schedule DEXA SCAN/BONE MINERAL AXIAL Medical Imaging Routine Osteoporosis Expected: 08/25/2023 (Approximate), Expires: 08/23/2024 Health Maintenance Due Date Last Done Comments [...] as of this encounter Visit Diagnoses Diagnosis Routine general medical examination at a health care facility- Primary Risk and functional assessment Screening for unspecified condition Osteoporosis Osteoporosis, unspecified HTN, goal below 140/90 Unspecified essential hypertension LBBB (left bundle branch block) Other left bundle branch block Paroxysmal atrial fibrillation (HCC) Atrial fibrillation documented in this encounter Advance Directives Documents on File Type Date Recorded Patient Estate Agent Expl anation Power of Mechanical Fitter 05/23/2021 POWER OF A TTORNEY Care Teams Supervisor Smoke Control Relationship Specialty Start Date End Date Efrain Carrasco III, MD 200 [facility] [place] [address] PCP - General 12/20/99 documented as of this encounter
--- OUTSIDE RECORDS SUMMARY | 2024-01-09 04:23 | External Medical Summary ---
Author Name Unknown Address Unknown Organization [id number]:[facility] [address] [place] [address] Laboratory Report Ordering Provider Test Date Status JODY LEAL 09/16/2023 09:38:22 Final Observation Date Value Abnormality Reference (Units ) Status BUN 09/16/2023 09:38:22 16 6-20 (mg/dL) Final Creatinine 09/16/2023 09:38:22 1.0 0.5-1.0 (mg/dL) Final Glomerular filtration rate/1.73 sq M.predicted [Volume Rate/Area] in Serum, Plasma or Blood by Creatinine-based formula (CKD-EPI) 09/16/2023 09:38:22 59 Below low normal >=60 (mL/min) Final eGFR is calculated based on the CKD-EPI 2020 equation Sodium 09/16/2023 09:38:22 141 135-146 (m mol/L) Final Potassium 09/16/2023 09:38:22 4.3 3.5-5.1 (m mol/L) Final Cl 09/16/2023 09:38:22 105 98-107 (mm ol/L) Final CO2 09/16/2023 09:38:22 25 22-32 (mmo l/L) Final Anion gap 09/16/2023 09:38:22 11 7-15 (mmol /L) Final Glucose 09/16/2023 09:38:22 97 70-120 (mg /dL) Final Albumin 09/16/2023 09:38:22 3.8 3.8-5.0 (g /dL) Final AST (Aspartate aminotransferase) 09/16/2023 09:38:22 15 10-35 (U/L) Final Alk Phos 09/16/2023 09:38:22 66 35-130 (U/ L) Final Bilirubin, Total 09/16/2023 09:38:22 0.3 <=1 .2 (mg/dL) Final Calcium 09/16/2023 09:38:22 9.3 8.4-10.2 ( mg/dL) Final Protein 09/16/2023 09:38:22 6.3 6.0-8.3 (g /dL) Final ALT (Alanine aminotransferase) 09/16/2023 09:38:22 11 10-35 (U/L) Final [facility] [address] [facility] [address]
--- OUTSIDE RECORDS SUMMARY | 2024-01-09 04:23 | External Medical Summary ---
Author Name Unknown Address Unknown Organization K01:[facility] [address] [place] [address] Laboratory Report Ordering Provider Test Date Status JODY LEAL 09/16/2023 09:38:22 Final Observation Date Value Abnormality Reference (Units ) Status Magnesium 09/16/2023 09:38:22 2.3 1.5-2.6 (m g/dL) Final Performing Location [facility] - [address] [place] [address]
--- OUTSIDE RECORDS SUMMARY | 2024-01-09 04:23 | External Medical Summary | Summary of Care ---
Author Name Unknown Organization [facility] Address [address] [place] [address] Phone [phone] Care Team Providers Care Mathematics Technician Name Role Phone Danilo CHARLES MD, Efrain Wheeler Primary Care Provider [phone] Encounter Details Date Type Department Care Team (Late st Contact Info) Description 06/03/2023 Telephone Gastroenterology, [facility] [address] [place] [address] James Dong MD [address] [employer] [place] [address] Allergies No known active allergiesdocumented as of this encounter (statuses as of 07/20/2023) Medications Medication Sig Dispensed Refills Start Date End Date Status MULTIVITAMIN/MINE RAL FORMULA OR TABS 30 0 12/24/2001 Active Clotrimazole 1 % External Cream (Lotrimin) 0 09/24/2021 Active Xiidra 5 % Ophthalmic Solution (Lifitegrast) Instill into eye. 0 Acti ve Oxybutynin Chloride 5 MG Oral Tablet (Ditropan) Take 0.5 Tablets by mouth 2 times a day in the morning and at bedtime. 90 Tablet 3 09/20/2022 Active Incontinence Supplies Dispense one large box or container, medium weight incontinence pad. Use as instructed. 24 Each 11 11/17/2022 Active zoster vac recomb adjuvanted (SHINGRIX) 50 MCG/0.5ML injection Inject 0.5 mL into a large muscle now and repeat dose in 60 to 180 days 1 Each 1 12/09/2018 4 Discontinue d(Medicatio n List Clean Up) Gabapentin 300 MG Oral Capsule (Neurontin) Take 1 Capsule by mouth at bedtime. 0 4 Discontinue d(Refill) amLODIPine Besy-Benazepril HCl 2.5-10 MG Oral Capsule (Lotrel) TAKE 1 CAPSULE BY MOUTH EVERY DAY IN THE MORNING Strength: 2.5-10 MG 90 Capsule 1 06/25/2022 4 Discontinue d(Refill) Alendronate Sodium 70 MG Oral Tablet (Fosamax)Indicati ons:Age related osteoporosis, unspecified pathological fracture presence Take 1 Tablet by mouth once a week. with 8 oz. water 30 minutes before first meal of the day. Remain upright for 30 min after taking tablet. 12 Tablet 3 07/11/2022 4 Discontinue d(Refill) Meloxicam 15 MG Oral Tablet (Mobic) TAKE 1 TABLET BY MOUTH EVERY DAY IN THE MORNING FOR PAIN 90 Tablet 0 02/23/2023 4 Discontinue d(Adverse reaction) Famotidine 20 MG Oral Tablet (Pepcid)Indicatio ns:Hoarseness of voice TAKE 1 TABLET BY MOUTH EVERYDAY AT BEDTIME 90 Tablet 1 04/08/2023 4 Discontinue d(Medicatio n/Dose Changed) Baclofen 10 MG Oral Tablet (Lioresal)Indicat ions:Acute right-sided low back pain with right-sided sciatica 1/2 to 1 tablet by mouth as needed for pain 3 x daily 30 Tablet 0 04/08/2023 4 Discontinue d(Refill) documented as of this encounter (statuses as of 07/20/2023) Active Problems Problem Noted Date Diagnosed Date LBBB (left bundle branch block) 06/17/2023 Paroxysmal atrial fibrillation 06/17/2023 HTN, goal below 140/90 11/08/2021 Trochanteric bursitis 12/09/2018 BMI 35-39 ISOLATED (SEE ACTUAL BMI) 08/20/2009 Overview: Per Obesity Protocol, #19 ADVANCE DIRECTIVE INFORMATION 10/24/2004 Overview: No, Advance Directive brochure given to patient. 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: villous tissue repeat colonoscopy in 6 months Esophagitis 02/10/2019 Overview: ICD-10 update of inactive term documented as of this encounter (statuses as of 07/20/2023) Immunizations Name Administration Dates Next Due COVID-19 [...] Influenza, Split, I IV3, With Preserve, Inj 12/10/2013,11/20/2012,11/22/2011,12/07,01/27/2009,12/16/2007,12/24/19 07,12/31/2005,01/11/2003,02/17/2001,0 03/11/2000 03/12/2001 TD - Tetanus/Diptheria (ADULT) 09/04/1999 TD, Preservative [...] encounter Miscellaneous Notes * Telephone Encounter - Sharon Levin OSA - 07/20/2023 3:23 PM EDT Lmm Pt will need OV prior to procedure d/t age ERNESTO Rodrigez 07/20/2023 3:23 PM * Telephone Encounter - Sharon Levin OSA - 07/10/2023 11:40 AM EDT Lmm ERNESTO Rodrigez 07/10/2023 11:40 AM * Telephone Encounter - Kay Shabazz OSA - 06/03/2023 3:14 PM EDT ----- Message from James Dong MD sent at 06/03/2023 2:32 PM EDT ----- Needs egd with me 6-8 weeks documented in this encounter Plan of Treatment Upcoming Encounters Date Type Department Care Team (Late st Contact Info) Description 08/24/2023 10:00 AM EDT Nurse Only Ancillary [facility] [address] [facility] [place] [address] [facility], Nurse Annual Wellness [facility] [address] [facility] [place] [address] 09/16/2023 9:00 AM EDT Office Visit Cardiology, [facility] [address] [facility] [place] [address] Lin Chew, PRINCESS 132 [facility] [place] [address] 10/13/2023 8:20 AM EDT Office Visit [facility] [address] Efrain [facility]rasco III, MD [facility] [address] 11/24/2023 10:30 AM EDT Office Visit Urology, [facility] 132 [facility] [place] [address] Ronan Cain MD [address] [place] [address] [place] [id number] Health Maintenance Due Date Last Done Comments Albumin/Creatinine Ratio 1957 Zoster Vaccines (2 of 3) 07/28/2007 06/02/2007 Depression Screening 08/14/2023 08/13/2022 GFR 06/16/2024 06/17/2023, 10/08, 10/27/2021, Additional history exists DXA Scan 09/03/2028 09/03/2021, 08/08, 05/01/2014, Additional [...] Documents on File Type Date Recorded Patient Discharge Rn Expl anation Power of Shop Estimator 05/23/2021 POWER OF A TTORNEY Care Teams Mathematics Technician Relationship Specialty Start Date End Date Efrain Carrasco III, MD [address] [place] [address] PCP - General 12/20/99 documented as of this encounter
--- OUTSIDE RECORDS SUMMARY | 2024-01-09 04:23 | External Medical Summary | Summary of Care ---
Author Name Unknown Organization [facility] Address [address] [place] [address] Phone [phone] Care Team Providers Care Energy Infrastructure Engineer Name Role Phone Danilo CHARLES MD, Efrain Wheeler Primary Care Provider [phone] Reason for Visit * Reason Onset Date Comments Test Results 09/25/2023 Encounter Details Date Type Department Care Team (Late st Contact Info) Description 09/25/2023 Telephone Cardiology, [facility] [address] [place] [address] Lin Chew PA-C [address] [place] [address] Test Results Allergies No known active allergiesdocumented as of this encounter (statuses as of 09/28/2023) Medications Medication Sig Dispensed Refills Start Date [...] mouth daily. 90 Tablet 3 09/28/2023 Active documented as of this encounter (statuses as of 09/28/2023) Active Problems Problem Noted Date Diagnosed Date LBBB (left bundle branch block) 06/17/2023 Paroxysmal atrial fibrillation 06/17/2023 HTN, goal below 140/90 11/08/2021 Trochanteric bursitis 12/09/2018 BMI 35-39 ISOLATED (SEE ACTUAL BMI) 08/20/2009 Overview: Per Obesity Protocol, #19 ADVANCE DIRECTIVE INFORMATION 10/24/2004 Overview: No, Advance Directive brochure given to patient. 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 Orders signed as requested for lipids and statin She should start vitron C and f/u with PCP and GI * Telephone Encounter - Mikhail Boone LPN - 09/25/2023 3:59 PM EDT Called patient and informed of Lin's message. Patient verbalized understanding. Patient is not taking an iron supplement at this time. Lab ordered. Prescription pended. ----- Message from Lin Chew sent at 09/24/2023 9:37 AM EDT ----- Cholesterol and LDL is significantly elevated Recommend starting crestor 10 mg - 1 tablet daily Repeat lipids and ALT in 3 months Normal renal function, electrolytes, liver function Hbg remains low s/p GI bleed. See if she is taking Iron supplements? If not taking, start Vitron C She has f/u appt with GI for EGD in October I believe. Please verify F/U with PCP as well Normal TSH Normal magnesium documented in this encounter Plan of Treatment Upcoming Encounters Date Type Department Care Team (Late st Contact Info) Description 10/14/2023 10:20 AM EDT Office Visit Family Practice [facility] [address] [facility] [place] [address] Efrain Carrasco III, MD [address] [facility] [place] [address] 11/11/2023 8:00 AM EDT Imaging [facility] [address] [place] [id number] Gw, Excess Time Radiology [address] [place] [address] 11/24/2023 10:30 AM EDT Office Visit Urology, [facility] [address] [place] [address] Ronan Cain MD [address] [place] [id number] 12/18/2023 10:00 AM EDT Office Visit Cardiology, [facility] [address] [place] [address] Lin Chew PA-C [address] [place] [address] 08/24/2024 11:00 AM EDT Nurse Only Ancillary [facility] [address] [place] [address] [place], Nurse Annual Wellness [facility] [address] [place] [address] Scheduled Orders Name Type Priority Associated Diagnoses Orde r Schedule LIPID PANEL WITH DIRECT LDL IF TG IS HIGH Lab Routine Dyslipidemia, goal LDL below 100 Expected: 12/26/2023 (Approximate), Expires: 09/24/2024 ALT Lab Routine Dyslipidemia, goal LDL below 100 Expected: 09/25/2023, Expires: 09/24/2024 Health Maintenance Due Date Last Done Comments [...] as of this encounter Visit Diagnoses Diagnosis Dyslipidemia, goal LDL below 100- Primary Other and unspecified hyperlipidemia documented in this encounter Advance Directives Documents on File Type Date Recorded Patient Infantryman Expl anation Power of Technology Instructor 05/23/2021 POWER OF A TTORNEY Care Teams Energy Infrastructure Engineer Relationship Specialty Start Date End Date Efrain Carrasco III, MD 200 [facility] [place] [address] PCP - General 12/20/99 documented as of this encounter
--- OUTSIDE RECORDS SUMMARY | 2024-01-09 04:23 | External Medical Summary | Summary of Care ---
Author Name Unknown Organization [facility] Address [address] [place] [address] Phone [phone] Care Team Providers Care Rn Manager Name Role Phone Danilo CHARLES MD, Efrain Wheeler Primary Care Provider [phone] Reason for Referral * Precert (Within 10 days (routine)) - Pending Review Specialty Diagnoses / Procedures Referred By Contac t Referred To Contact Radiology Diagnoses LBBB (left bundle branch block) Paroxysmal atrial fibrillation (HCC) HTN, goal below 140/90 Elevated troponin Procedures NM MYOCARD PERF IMG SPECT MULT STUDIES WITH PHARM INTERV Lin Chew PA-C [address] [place] [address] Referral ID Status Reason Start Date Expiration Date Visits Requested Visits Authorized [id number] Pending Review Precert 09/16/2023 999 999 Reason for Visit * Reason Comments Follow Up Follow up Encounter Details Date Type Department Care Team (Late st Contact Info) Description 09/16/2023 9:00 AM EDT Office Visit Cardiology, [facility] [address] [place] [address] Lin Chew PA-C [address] [place] [address] LBBB (left bundle branch block)*; Paroxysmal atrial fibrillation (HCC); HTN, goal below 140/90; Elevated troponin; Gastroesophageal reflux disease with esophagitis and hemorrhage Allergies No known active allergiesdocumented as of this encounter (statuses as of 09/24/2023) Medications Medication Sig Dispensed Refills Start Date [...] the morning. 45 Tablet 3 4 Active Metoprolol Succinate ER 25 MG Oral Tablet Extended Release 24 Hour (toPROL XL) Take 0.5 Tablets by mouth in the morning. 4 09/16/19 24 Discontinued(Re fill) Amiodarone HCl 200 MG Oral Tablet (Cordarone) Continue 1 tablet in the morning and 1 tablet in the evening until July 08, 2023, then REDUCE to 1 tablet daily *Pt is currently taking 2 tablets a day (09/16/23) 4 09/16/19 24 Discontinued documented as of this encounter (statuses as of 09/24/2023) Active Problems Problem Noted Date Diagnosed Date LBBB (left bundle branch block) 06/17/2023 Paroxysmal atrial fibrillation 06/17/2023 HTN, goal below 140/90 11/08/2021 Trochanteric bursitis 12/09/2018 BMI 35-39 ISOLATED (SEE ACTUAL BMI) 08/20/2009 Overview: Per Obesity Protocol, #19 ADVANCE DIRECTIVE INFORMATION 10/24/2004 Overview: No, Advance Directive brochure given to patient. 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 Overview: villous tissue repeat colonoscopy in 6 months Esophagitis 02/10/2019 Overview: ICD-10 update of inactive term documented as of this encounter (statuses as of 09/24/2023) Immunizations Name Administration Dates Next Due COVID-19 mRNA, LNP-s, No Pre serve, 2-Dose Series (Moderna) 05/03/2020,04/04/2020 COVID-19, MRNA-LNP, 23-24, P F, 30 MCG/0.3 mL, 12 YRS AND ABOVE, IM ([employer]Com[employer]) 12/02/2022 COVID-19, mRNA, LNP-s, PF, B ooster, [...] Sign Reading Time Taken Comments Blood Pressure 172/90 09/16/2023 8:48 AM EDT Pulse 72 09/16/2023 8:48 AM EDT Temperature - - Respiratory Rate 14 09/16/2023 8:48 AM EDT Oxygen Saturation - - Inhaled Oxygen Concentration - - Weight 73.8 kg (162 lb 12.8 oz) 09/16/2023 8:48 AM EDT Height - - Body Mass Index 28.84 08/24/2023 9:51 AM EDT documented in this encounter Patient Instructions * Patient Instructions* Lin Chew PA-C - 09/16/2023 9:17 AM EDT Reduce amiodarone 200 mg - only take 1 tablet daily Schedule nuclear stress test Blood work today documented in this encounter Progress Notes * Lin Chew PA-C - 09/16/2023 9:00 AM EDT Images from the original note [...] new at time of afib RVR Patient admitted to [facility] in May 2022 after being found to have atrial fibrillation with rapid ventricular response and new left bundle branch block as an outpatient. Upon arrival to ER, patient also commented on several days of black sputum production. Hemoglobin on arrival was 12.5 but quickly dropped to 9.0 the following day. She was transfused 2 units of packed red blood cells. She underwent EGD which demonstrated necrotizing esophagitis. She was started on PPI. Mobic was discontinued. Cardiology was consulted due to Afib RVR. High sensitivity troponin minimally elevated but flat at 22.She was started on metoprolol for rate control. She actually converted to normal sinus rhythm during admission. Anticoagulation was not initiated due to active GI bleeding. She was subsequently started on amiodarone 200 mg BID and remained in NSR. F/U EKG from [place] demonstrated NSR and LBBB had resolved. She was discharged on appropriate medical therapies with metoprolol succinate 12.5 mg daily andamio 200 mg BID and Protonix. She is to have f/u EGD in 6 weeks. Already ordered by PCP. Since last visit, patient was to reduce amiodarone from 200 twice daily to 1 tablet daily. Patient unfortunately failed to make this change. She remains on twice daily. EKG today confirms normal sinus rhythm with underlying left bundle branch block. Borderline prolonged QT QTC noted. Her blood pressure is elevated on arrival today, trending down on my repeat. She did not take her morning medications prior to this appointment. She notes generalized fatigue, but denies chest pain or dyspnea. No palpitations, dizziness, syncope or near syncope. [...] bundle branch block) Paroxysmal atrial fibrillation (HCC) Past Surgical History: Procedure Laterality Date [...] performed by Jacky Otoole MD at ENDOSCOPY [facility] COLONOSCOPY, DIAGNOSTIC (RECTUM) 01/25/2019 adenomatous polyps, diverticulosis/COLONOSCOPY FLEXIBLE PROXIMAL DIAGNOSTIC performed by Jacky Otoole MD at ENDOSCOPY [facility] LUMBAR / SACRAL EPIDURAL, SINGLE LEVEL 08/24/2017 INJECTION TRANSFORAMINAL EPIDURAL LUMBAR OR SACRAL performed by Alcon Nye DO at OR [facility] MAMMOGRAM - BILATERAL 07/07/2006 birad code 1, negative [place] TOTAL HIP ARTHROPLASTY Left 10/2021 REMOVE CATARACT, [...] 12/16/1996 Years since quittin.7 Smokeless tobacco: Never Vaping Use Vaping status: Never Used Substance and Sexual Activity Alcohol use: Not Currently Drug use: Not Currently Types: Marijuana Comment: occasional marijuana use reported by patient. Sexual activity: Not Currently Other Topics Concern Not on file Social History Narrative Lives alone. No family in the area. Social Determinants of Health Financial Resource Strain: Not on file Food Insecurity: No Food Insecurity (08/13/2022) Hunger Vital Sign Worried About Running Out of Food in the Last Year: Never true Ran Out of Food in the Last Year: Never true Transportation Needs: Not on file Social Connections: Unknown (08/25/2023) Social Connections How often do you feel lonely or isolated from those around you? (Adult - for ages 18 years and over): Not on file Housing Stability: Not on file Allergies: Patient has no known allergies. Medications: Current Outpatient Medications Medication Sig Dispense Refill MULTIVITAMIN/MINERAL FORMULA OR TABS 30 0 Clotrimazole 1 % External Cream (Lotrimin) Xiidra 5 % Ophthalmic Solution (Lifitegrast) Instill into eye. Oxybutynin Chloride 5 MG Oral Tablet (Ditropan) Take 0.5 Tablets by mouth 2 times a day in the morning and at bedtime. 90 Tablet 3 Gabapentin 300 MG Oral Capsule (Neurontin) Take [...] mouth 3 times a day as needed. Amiodarone HCl 200 MG Oral Tablet (Cordarone) Take 1 Tablet by mouth in the morning. 90 Tablet 3 Metoprolol Succinate ER 25 MG Oral Tablet Extended Release 24 Hour (toPROL XL) Take 0.5 Tablets by mouth in the morning. 45 Tablet 3 Incontinence Supplies Dispense one large box or container, medium weight incontinence pad. Use as instructed. 24 Each 11 Pantoprazole Sodium 40 MG Oral Tablet Delayed Release (Protonix) Take 1 Tablet by mouth in the morning and 1 Tablet in the evening. (Patient not taking: Reported on 09/16/2023) 180 Tablet 2 No current facility-administered medications for this visit. OBJECTIVE/PHYSICAL EXAMINATION: BP 172/90 | Pulse 72 | Resp 14 | Wt 73.8 kg (162 lb 12.8 oz) | BMI 28.84 kg/m | BSA 1.81 m Blood pressure my repeat 150/76 General: [...] exam Psych: appropriate affect and insight. Data: EKG performed today and reviewed personally: NSR LBBB QT/QTc 484/503 ms EKG performed June 27, 2023: NSR at 73 bmp LBBB QT/QTc for 32/475 milliseconds Compared with prior EKG, NSR has replaced atrial fibrillation Echocardiogram report reviewed dated 06/02/23 at [facility]: IMPRESSION: 83 year old female ICD-10-CM 1. LBBB (left bundle branch block) I44.7 2. Paroxysmal atrial fibrillation (HCC) I48.0 3. HTN, goal below 140/90 I10 4. Elevated troponin R79.89 5. Gastroesophageal reflux disease with esophagitis and hemorrhage K21.01 RECOMMENDATIONS/PLAN: Patient with recent admission for GI bleed and afib RVR. Currently NSR on low dose metoprolol and amiodarone. Patient was to reduce amiodarone to 200 mg daily, but did not make this change. Will proceed to reduce to 200 mg daily now. Instructions provided. Not started on anticoagulation due to recent GI bleed. She is to have f/u EGD later this summer. Ifno GI bleeding and she has recurrent PAF, may need to consider anticoagulation. We discussed her newly diagnosed LBBB which was noted when patient was sent to hospital with afib. HS troponin was minimally elevated at 22. Recommend proceeding with nuclear lexiscan stress test to R/O inducible ischemia. Will also need to wait until after EGD is complete Updated labs also requested today Will monitor BP. Elevated today given no AM meds Patient Instructions Reduce amiodarone 200 mg - only take 1 tablet daily Schedule nuclear stress test Blood work today Patient is being evaluated in the cardiology office for ongoing care/risk management for PAF; HTN; LBBB. I spent a total of 40 minutes on the date of service in preparation, delivery, and documentation ofthe care provided to Rebekah Leiva excluding any time spent in the performance of separately billed services. The patient agrees to the above plan and will call with additional questions or concerns. ER with all emergencies advised. Follow-up: Return in about 3 months (around 12/17/2023). | Check-out note: Print instructions Schedule nuclear stress test Blood work today Lin Chew PA-C Department of Cardiology This chart was completed in part utilizing [employer] Speech Voice Recognition Software. Grammatical errors, random word insertions, prounoun errors, and incomplete sentences are an occasional consequence of this system due to software limitations, ambient noise, and hardware issues. Any formal questions or concerns about the content, text, or information contained within the body of this dictation should be directly addressed to the provider for clarification. documented in this encounter Procedure Notes * Siddhartha Torres DO - 09/16/2023 9:11 AM EDTAssociated Order(s): EKG REASON FOR STUDY: CONCLUSIONS: Normal sinus rhythm Left bundle branch block Abnormal ECG When compared with ECG of 17-Jun-2023 11:15, No significant change was found Ventricular Rate: 65 Atrial Rate: 65 [place] Interval: 188 QRS Duration: 144 QT/QTc: 484/503 ms P-R-T [place]: 60 : 13 : 92 degrees documented in this encounter Nursing Notes * Isaura Lehman CMA - 09/16/2023 8:44 AM EDT Chief Complaint Patient presents with Follow Up Follow up Examination Room: 1 Name: Rebekah Leiva Date of : (1940). Reason for Visit: Follow up Interim Hospitalization(s): Denies Problems/Concerns: Denies Chest Pain/SOB: Denies [facility] Discussed: No My [facility] is a way you can talk to your provider online through e-mail. Would you like to sign up? I can activate it for you? ALREADY ACTIVE Patient was instructed to not get up [...] 10:20 AM EDT Office Visit Family Practice [facility] [address] [place] [place] [address] Efrain Carrasco III, MD [address] [facility] [place] [address] 11/11/2023 8:00 AM EDT [facility] [address] [place] [phone] Gw, Excess Time Radiology [address] [place] [address] 11/24/2023 10:30 AM EDT Office Visit Urology, [facility] [address] [place] [address] Ronan Cain MD [address] [place] [address] 12/18/2023 10:00 AM EDT Office Visit Cardiology, [facility] [address] [place] [address] Lin Chew PA-C [address] [place] [address] 08/24/2024 11:00 AM EDT Nurse Only Ancillary [facility] [address] [place] [address] [place], Nurse Annual Wellness [facility] [address] [facility] [place] [address] Scheduled Orders Name Type Priority Associated Diagnoses Orde r Schedule NM MYOCARD PERF IMG SPECT MULT STUDIES WITH PHARM INTERV Cardiology Routine LBBB (left bundle branch block) Paroxysmal atrial fibrillation (HCC) HTN, goal below 140/90 Elevated troponin Expected: 09/16/2023, Expires: 10/16/2024 Health Maintenance Due Date Last Done Comments [...] Procedure Name Priority Date/Time Associated Diagnosis Comments EKG Routine 09/16/2023 9:11 AM EDT LBBB (left bundle branch block) Paroxysmal atrial fibrillation (HCC) documented in this encounter Results * (ABNORMAL) COMPREHENSIVE METABOLIC PANEL (09/16/2023 9:38 AM EDT) BUN 16 6 - 20 mg/dL 09/16/2023 11:18 AM EDT [facility] [place] [facility] Creatinine 1.0 0.5 - 1.0 mg/dL 09/16/2023 11:18 AM EDT [facility] [place] [facility] Estimated Glomerular Filtration Rate 59(L) >=60 mL/min 09/16/2023 11:18 AM EDT [facility] [place] [facility] Comment:eGFR is calculated b ased on the CKD-EPI 2020 equation Sodium 141 135 - 146 mmol/L 09/16/2023 11:18 AM EDT [facility] [place] [facility] Potassium 4.3 3.5 - 5.1 mmol/L 09/16/2023 11:18 AM EDT [facility] [place] [facility] Chloride 105 98 - 107 mmol/L 09/16/2023 11:18 AM EDT [facility] [place] [facility] CO2 25 22 - 32 mmol/L 09/16/2023 11:18 AM EDT [facility] [place] [facility] Anion Gap 11 7 - 15 mmol/L 09/16/2023 11:18 AM EDT [facility] [place] [facility] Glucose 97 70 - 120 mg/dL 09/16/2023 11:18 AM EDT [facility] [place] [facility] Albumin 3.8 3.8 - 5.0 g/dL 09/16/2023 11:18 AM EDT [facility] [place] [facility] AST 15 10 - 35 U/L 09/16/2023 11:18 AM EDT [facility] [place] [facility] Alkaline Phosphatase 66 35 - 130 U/L 09/16/2023 11:18 AM EDT [facility] [place] [facility] Bilirubin, Total 0.3 <=1.2 mg/dL 09/16/2023 11:18 AM EDT [facility] [place] [facility] Calcium 9.3 8.4 - 10.2 mg/dL 09/16/2023 11:18 AM EDT [facility] [place] [facility] Protein 6.3 6.0 - 8.3 g/dL 09/16/2023 11:18 AM EDT [facility] [place] [facility] ALT 11 10 - 35 U/L 09/16/2023 11:18 AM EDT [facility] [place] [facility] Blood Venous blood specimen / Unknown Venipuncture / Unknown 09/16/2023 9:38 AM EDT 09/16/2023 9:38 AM EDT Lin Chew PA-C LAB BLOOD ORDSummer DAMIAN [facility] [address] [place] [address] * TSH WITH FREE T4 IF INDICATED (09/16/2023 9:38 AM EDT) TSH 1.43 0.27 - 4.20 uIU/mL 09/16/2023 5:06 PM EDT [facility] Blood Venous blood specimen / Unknown Venipuncture / Unknown 09/16/2023 9:38 AM EDT 09/16/2023 9:38 AM EDT Lin Chew PA-C LAB BLOOD ORDE NATI Performing Organization Address City/[facility]/ZIP Co de Phone Number [facility] [address] [place] [address] * MAGNESIUM (09/16/2023 9:38 AM EDT) Magnesium 2.3 1.5 - 2.6 mg/dL 09/16/2023 4:41 PM EDT [facility] Blood Venous blood specimen / Unknown Venipuncture / Unknown 09/16/2023 9:38 AM EDT 09/16/2023 9:38 AM EDT Lin Chew PA-C LAB BLOOD ORDE NATI [facility] [address] [place] [address] * (ABNORMAL) LIPID PANEL WITH DIRECT LDL IF TG IS HIGH (09/16/2023 9:38 AM EDT) Triglycerides 121 <=174 mg/dL 09/16/2023 4:41 PM EDT [facility] Comment: Triglyceride Reference Ranges (mg/dL): <150 Acceptable 150-174 Borderline high 175-499 High >=500 Very high Cholesterol 284(H) <200 mg/dL 09/16/2023 4:41 PM EDT [facility] Comment: Total Cholesterol Reference Ranges (mg/dL): <200 Desirable 200-239 Borderline high >=240 High HDL Cholesterol 56 >49 mg/dL 4:41 PM EDT [facility] Comment: HDL Cholesterol Reference Ranges (mg/dL): >=60 High (Desirable) <50 Low (Undesirable) For Females <40 Low (Undesirable) For Males Non-HDL Cholesterol 228(H) <=159 mg/dL 09/16/2023 4:41 PM EDT [facility] Comment: Non-HDL Cholesterol Reference Range (mg/dL): <100 Target level for high risk ASCVD patient <130 Optimal for general population 130-159 Near optimal for general population 160-189 Borderline High 190-219 High >=220 Very High LDL Cholesterol 204(H) <=129 mg/dL 09/16/2023 4:41 PM EDT [facility] Comment: LDL Cholesterol Reference Ranges (mg/dL): <70 Target level for high risk ASCVD patient <100 Optimal for general population 100-129 Near optimal for general population 130-159 Borderline high 160-189 High >=190 Very high Blood Venous blood specimen / Unknown Venipuncture / Unknown 09/16/2023 9:38 AM EDT 09/16/2023 9:38 AM EDT Lin Chew PA-C LAB BLOOD [place] DAMIAN [facility] [address] [place] [address] * (ABNORMAL) CBC (09/16/2023 9:38 AM EDT) WBC 5.86 4.00 - 10.80 K/uL 09/16/2023 9:45 AM EDT [facility] [place] [facility] RBC 4.14 3.85 - 5.15 M/uL 09/16/2023 9:45 AM EDT [facility] [place] [facility] HGB 9.9(L) 12.0 - 15.3 g/dL 09/16/2023 9:45 AM EDT [facility] [place] [facility] HCT 32.7(L) 36.0 - 45.2 % 09/16/2023 9:45 AM EDT [facility] [place] [facility] MCV 79.0 81.5 - 97.5 fL 09/16/2023 9:45 AM EDT [facility] MCH 23.9 27.0 - 34.0 pg 09/16/2023 9:45 AM EDT [facility] MCHC 30.3 32.0 - 36.0 g/dL 09/16/2023 9:45 AM EDT [facility] [place] RDW 16.0 11.5 - 15.5 % 09/16/2023 9:45 AM EDT [facility] PLT 361 140 - 400 K/uL 09/16/2023 9:45 AM EDT [facility] [place] MPV 9.0 6.6 - 11.1 fL 09/16/2023 9:45 AM EDT [facility] Blood Venous blood specimen / Unknown Venipuncture / Unknown 09/16/2023 9:38 AM EDT 09/16/2023 9:38 AM EDT Lin Chew PA-C LAB BLOOD ORDE [facility] Organization Address City/State/ZIP Co de Phone Number [facility] [place] [facility] [address] [facility] [place] [address] * EKG (09/16/2023 9:11 AM EDT) 09/16/2023 9:11 AM EDT Narrative Procedure Note Siddhartha Torres DO - 09/16/2023 9:11 AM EDT REASON FOR STUDY: CONCLUSIONS: Normal sinus rhythm Left bundle branch block Abnormal ECG When compared with ECG of 17-Jun-2023 11:15, No significant change was found Ventricular Rate: 65 Atrial Rate: 65 W[place] Interval: 188 QRS Duration: 144 QT/QTc: 484/503 ms P-R-T [place]: 60 : 13 : 92 degrees Lin Chew PA-C EKG [facility] documented in this encounter Visit Diagnoses Diagnosis LBBB (left bundle branch block)- Primary Other left bundle branch block Paroxysmal atrial fibrillation (HCC) Atrial fibrillation HTN, goal below 140/90 Unspecified essential hypertension Elevated troponin Other abnormal blood chemistry Gastroesophageal reflux disease with esophagitis and hemorrhage documented in this encounter Advance Directives Documents on File Type Date Recorded Patient Clinical Tech Expl anation Power of Clinical Studies Specialist 05/23/2021 POWER OF A TTORNEY Care Teams Rn Manager Relationship Specialty Start Date End Date Efrain Carrasco III, MD [address] [facility] [place] [address] PCP - General 12/20/99 documented as of this encounter"
--- OUTSIDE RECORDS SUMMARY | 2024-01-09 04:23 | External Medical Summary | Summary of Care ---
Author Name Unknown Organization [facility] Address [address] [place] [address] Phone [phone] Care Team Providers Care Information Technology Consultant Name Role Phone Danilo CHARLES MD, Efrain Wheeler Primary Care Provider [phone] Encounter Details Date Type Department Care Team (Late st Contact Info) Description 06/03/2023 Telephone Gastroenterology, [facility] [address] [place] [address] James Dong MD [address] [place] [address] Allergies No known active allergiesdocumented as of this encounter (statuses as of 07/27/2023) Medications Medication Sig Dispensed Refills Start Date [...] Take 1 Capsule by mouth at bedtime. 4 Discontinue d(Refill) amLODIPine Besy-Benazepril HCl 2.5-10 [...] IN THE MORNING FOR PAIN 90 Tablet 02/23/2023 4 Discontinue d(Adverse reaction) Famotidine 20 MG Oral Tablet (Pepcid)Indicatio ns:Hoarseness of voice TAKE 1 TABLET BY MOUTH EVERYDAY AT BEDTIME 90 Tablet 1 04/08/2023 4 Discontinue d(Medicatio n/Dose Changed) Baclofen 10 MG Oral Tablet (Lioresal)Indicat ions:Acute right-sided low back pain with right-sided sciatica 1/2 to 1 tablet by mouth as needed for pain 3 x daily 30 Tablet 04/08/2023 4 Discontinue d(Refill) documented as of this encounter (statuses as of 07/27/2023) Active Problems Problem Noted Date Diagnosed Date LBBB (left bundle branch block) 06/17/2023 Paroxysmal atrial fibrillation 06/17/2023 HTN, goal below 140/90 11/08/2021 Trochanteric bursitis 12/09/2018 BMI 35-39 ISOLATED (SEE ACTUAL BMI) 08/20/2009 Overview: Per Obesity Protocol, #19 ADVANCE DIRECTIVE INFORMATION 10/24/2004 Overview: No, Advance Directive brochure given to patient. documented as of this encounter (statuses as of 07/27/2023) Resolved Problems Problem Noted Date Diagnosed Date Resolved Date 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 Overview: villous tissue repeat colonoscopy in 6 months Esophagitis 02/10/2019 Overview: ICD-10 update of inactive term documented as of this encounter (statuses as of 07/27/2023) Immunizations Name Administration Dates Next Due COVID-19 [...] encounter Miscellaneous Notes * Telephone Encounter - Marielena Patten OSA - 07/27/2023 11:23 AM EDT Letter Sent. Patient did not return call and schedule. Second message left for patient 1 week ago. 07/27/2023 11:23 AM * Telephone Encounter - Sharon Levin OSA [...] 08/24/2023 10:00 AM EDT Nurse Only Ancillary [facility] [place] [address] [facility], Nurse Annual Wellness [facility] [address] [facility] [place] [address] 09/16/2023 9:00 AM EDT Office Visit Cardiology, [facility] [address] [facility] [place] [address] Lin Chew PA-C 132 [facility] [place] [address] 10/13/2023 8:20 AM EDT Office Visit Family Practice [facility] 200 [facility] [place] [address] Efrain Carrasco III, MD [address] [facility] [address] 11/24/2023 10:30 AM EDT Office Visit Urology, [facility] [address] [facility] [place] [address] Ronan Cain MD [address] [place] [address] Health Maintenance Due Date Last Done Comments Albumin/Creatinine Ratio 1957 Zoster Vaccines (2 of 3) 07/28/2007 06/02/2007 COVID-19 Vaccine (6 - 2023-24 season) 2023 12/02/2022, 06/10/2021, 01/08/2021, Additional history exists Depression Screening 08/14/2023 08/13/2022 GFR 06/16/2024 06/17/2023, [...] Documents on File Type Date Recorded Patient Document Improvement Specialist Expl anation Power of Tobacco Buyer 05/23/2021 POWER OF A TTORNEY Care Teams Information Technology Consultant Relationship Specialty Start Date End Date Efrain Carrasco III, MD [address] [facility] [place] [address] PCP - General 12/20/99 documented as of this encounter
--- OUTSIDE RECORDS SUMMARY | 2024-01-09 04:23 | External Medical Summary ---
Author Name Unknown Address Unknown Organization [id number]:[facility] [place] [facility] [place] [address] [place] [address] Laboratory Report Ordering Provider Test Date Status MAMADOU TUCKER III 09/16/2023 09:39:28 Final Normal: <30 mg/g creatinine< br/>High: 30-300 mg/g creatinine
Very High: >300 mg/g creatinine
Nephrotic: >2200 mg/g creatinine Observation Date Value Abnormality Reference (Units ) Status Albumin, Urine 09/16/2023 09:39:28 1.41 (mg/dL) Final Creatinine, Urine 09/16/2023 09:39:28 107 (mg/dL) Final Albumin/Creatinine [Mass Ratio] in Urine 09/16/2023 09:39:28 13 <30 (mg/g Creat) Final Performing Location [facility] [place] [address] [place] [id number]
--- OUTSIDE RECORDS SUMMARY | 2024-01-09 04:23 | External Medical Summary | Summary of Care ---
Author Name Unknown Organization [facility] Address [address] [place] [address] Phone [phone] Care Team Providers Care Poolroom Table Attendant Name Role Phone Danilo CHARLES MD, Efrain Wheeler Primary Care Provider [phone] Encounter Details Date Type Department Care Team (Late st Contact Info) Description 09/29/2023 Orders Only PATIENT PORTAL DO NOT DELETE THIS DEPT USED BY [place] [id number] Allergies No known active allergiesdocumented as of this encounter (statuses as of 09/29/2023) Medications Medication Sig Dispensed Refills Start Date [...] as of this encounter (statuses as of 09/29/2023) Active Problems Problem Noted Date Diagnosed Date LBBB (left bundle branch block) 06/17/2023 Paroxysmal atrial fibrillation 06/17/2023 HTN, goal below 140/90 11/08/2021 Trochanteric bursitis 12/09/2018 BMI 35-39 ISOLATED (SEE ACTUAL BMI) 08/20/2009 Overview: Per Obesity Protocol, #19 ADVANCE DIRECTIVE INFORMATION 10/24/2004 Overview: No, Advance Directive brochure given to patient. documented as of this encounter (statuses as of 09/29/2023) Resolved Problems Problem Noted Date Diagnosed Date Resolved Date 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 Overview: villous tissue repeat colonoscopy in 6 months Esophagitis 02/10/2019 Overview: ICD-10 update of inactive term documented as of this encounter (statuses as of 09/29/2023) Immunizations Name Administration Dates Next Due COVID-19 [...] 10:20 AM EDT Office Visit Family Practice [facility] [place] [address] [place] [address] DaniloEfrain earl III, MD [address] [facility] [place] [address] 11/11/2023 8:[address] [facility]nd [facility] [address] [place] [phone] Gw, Excess Time Radiology [address] [address] 11/24/2023 10:30 AM EDT Office Visit Urology, [facility] [address] [facility] [place] [address] Ronan Cain MD [address] [place] [address] 12/18/2023 10:00 AM EDT Office Visit Cardiology, [facility] [address] [facility] [place] [address] Lin Chew PA-C [address] [facility] [place] [address] 08/24/2024 11:00 AM EDT Nurse Only Ancillary [facility] [place] [address] [place] [address] [place], Nurse Annual [facility] [address] [place] [address] Health Maintenance Due Date Last Done Comments [...] Documents on File Type Date Recorded 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
[2024-01-09] MEDS: ENALAPRIL MALEATE 5 MG TAB PO SCH (08:12)
[2024-01-09] MEDS: METOPROLOL SUCC 25MG EXT REL TAB PO SCH (08:13)
[2024-01-09] MEDS: amLODIPine BESYLATE 5 MG TAB PO SCH (08:13)
[2024-01-09] MEDS: oxyBUTYnin chloride 5 MG TAB PO SCH (08:13)
[2024-01-09] MEDS: AMIODARONE 200 MG TAB PO SCH (08:14)
[2024-01-09] MEDS ORDERED: AMLODIPINE BENAZEPRIL PO SCH (09:00)
--- NOTE | 2024-01-09 09:48 | Orthopedic Consultation ---
Date of Consultation January 09, 2024 Assessment & Plan (1) Closed sacral fracture: Assessment sacral insufficiency fracture. Plan at this point would initiate course of physical therapy with a walker to see how she tolerates light activity. She should lift no more than 5 pounds. History of Present Illness Reason for Consultation: Patient was admitted with back pain. This morning she states the medications have improved her situation substantially. She feels markedly improved. She states she was able to ambulate to the bathroom without difficulty. Attending Physician: Michelle Pratt MD Allergies Allergy/AdvReac Type Severity Reaction Status Date / Time No Known Allergies Allergy Verified 01/09/24 08:27 Home Medications Medication Instructions Recorded Confirmed Type amlodipine 2.5 mg-benazepril 10 mg 1 cap PO DAILY 01/06/23 01/09/24 History capsule oxybutynin chloride 5 mg tablet 5 mg PO BID 01/06/23 01/09/24 History alendronate 70 mg tablet 70 mg PO WK 06/01/23 01/09/24 History gabapentin 300 mg capsule 300 mg PO HS 06/01/23 01/09/24 History lifitegrast 5 % eye drops in a 1 drp OPB AMPM 06/01/23 01/09/24 History dropperette (Xiidra) Patient History Medical History (Updated 01/09/24 @ 01:53 by Lyudmila Merritt PA-C) Thrush Oral thrush x 3 weeks (secondary to previous abx use). Following with PCP- using Nystatin rinse, clotrimazole lozenge, and salt water rinses- thrush slowly improving Pt will call if not resolved by DOS Surgical History (Updated 07/08/23 @ 00:08 by Edi Skelton) S/P lumbar fusion L2-4 Dr. Pierson 2018 History of bilateral tubal ligation History of colonoscopy History of tonsillectomy History of cataract surgery R/L Family History (Updated 06/01/23 @ 15:55 by Karie Rhoades PA-C) Other No known health problems Denies family history of Diabetes Coronary heart disease Cancer Stroke Social History (Updated 06/01/23 @ 15:56 by Karie Rhoades PA-C) Smoking Status: Never smoker Cigarettes Per Day: 1ppd x 48 yrs; Second Hand Exposure: No; Do You Dip or Chew Tobacco: No; Hx Alcohol Use: Yes Alcohol type: wine Alcohol Intake Frequency: 2-4 x/Month Hx Substance Use: No Preferred Language: Gambian Communication Ability: Effective Visual Impairment: No Limitations Hearing Ability: Normal [employer] Clearing Agent Required: No Beliefs That Will Affect Care: None marital status: Single Current Living Situation: Alone current occupational status: retired Feels Safe at Home: Yes Safety Concerns: Feels Safe At This Time Assistive Devices: Cane Physical Exam Physical Exam: On exam she has good strength testing. Sensory is intact. She appears comfortable. Results & Data Vital Signs (Past 12 Hours) Vital Signs Temp Pulse Pulse Pulse Resp BP BP 01/09/24 07:40 36.3 C L 69 16 130/70 01/09/24 03:38 36.4 C L 71 16 01/09/24 02:33 73 20 154/75 H 01/09/24 01:45 74 20 BP Pulse Ox O2 Del Method 01/09/24 07:40 99 Room Air 01/09/24 03:38 124/65 98 Room Air 01/09/24 02:33 97 Room Air 01/09/24 01:45 125/76 97 Room Air (1) Closed sacral fracture Encounter type: initial encounter Zone of sacrum fracture: unspecified portion of sacrum Qualified Code(s): S32.10XA - Unspecified fracture of sacrum, initial encounter for closed fracture
--- NOTE | 2024-01-09 10:10 | Hospitalist Progress Note ---
Date of Service January 09, 2024 Assessment & Plan (1) Closed sacral fracture: Plan Pt is an 83yoF with PMHx significant for PAF not on anticoagulation secondary to GI bleed, valvular heart disease (moderate AR, trace MR/TR), chronic LBBB, GERD, chronic back pain, past tobacco abuse who presented with left sided back pain and was found to have a sacral fracture. She denies a Hx of recent trauma. Lower back pain Sacral Fracture, closed Pt presenting with concern for lower left sided back pain Pt denies Hx of trauma CT lumbar spine and MRI lumbar spine concerning for sacral fracture Orthospine consulted, appreciate recs. Recommended/stated the following on 01/09/24: "Assessment sacral insufficiency fracture. Plan at this point would initiate course of physical therapy with a walker to see how she tolerates light activity. She should lift no more than 5 pounds." PRN pain control PT/OT as recommended by surgery Improving Hypertensive urgency Likely in setting of pain Facilitate home BP meds and titrate as needed On amlodpine-benazapril Also on metoprolol Improved Subconjunctival hemorrhage, right possibly secondary to above Currently painless PAF not on anticoagulation secondary to GI bleed Continue home amiodarone and metoprolol telemetry monitoring valvular heart disease (moderate AR, trace MR/TR) chronic LBBB Stable GERD stable on PPI Mild anemia hemoglobin drop from normal outpatient baseline hemoglobin last month Continue to monitor Diet: HH DVT prophylaxis. SCDs re: possible procedure, history GI bleed Dispo: per pt/ot recs Admission and Anticipated Discharge Date Admission Date: January 09, 2024 Subjective Pt was seen laying in bed. States that her back pain and all previous ailments have resolved with the use of the current pain meds. States that she was not aware that she had a sacral fracture. Otherwise denies acute concerns. Review of Systems Review of Systems: All systems reviewed & are unremarkable except as noted in Subjective Physical Exam Physical Exam: General: Alert, orientedx3. No acute distress Psych: Appropriate mood and affect Neuro: difficulty with lower extremity movements in the bed HEENT: NC/AT, right eye with painless conjunctival injection CV: RRR Resp: Breath sounds clear bilaterally, no increased effort of breathing Abdomen: Soft, nontender Extremities: No edema in lower extremities bilaterally. Results & Data Results & Data Vital Signs (Past 12 Hours) Vital Signs Temp Pulse Pulse Pulse Resp BP BP 01/09/24 07:40 36.3 C L 69 16 130/70 01/09/24 03:38 36.4 C L 71 16 01/09/24 02:33 73 20 154/75 H 01/09/24 01:45 74 20 BP Pulse Ox O2 Del Method 01/09/24 07:40 99 Room Air 01/09/24 03:38 124/65 98 Room Air 01/09/24 02:33 97 Room Air 01/09/24 01:45 125/76 97 Room Air Diagnostic Findings Hip/Pelvis X-Ray 01/08/24 21:27 Exam(s): XR PELVIS, XR LEFT HIP EXAM: XR Pelvis, 1 or 2 Views CLINICAL HISTORY: Reason for exam: pain. TECHNIQUE: Frontal view of the pelvis. COMPARISON: No relevant prior studies available. FINDINGS: Bones/joints: Moderate degenerative arthropathy of the right hip joint. Status post posterior decompression and fusion of the lumbar spine. No acute fracture. No dislocation. Soft tissues: Unremarkable. IMPRESSION: No evidence of acute pelvic pathology. EXAM: XR Left Hip With Pelvis When Performed, 2 or 3 Views CLINICAL HISTORY: Reason for exam: pain. TECHNIQUE: Two or three views of the left hip with pelvis when performed. COMPARISON: No relevant prior studies available. FINDINGS: Bones/joints: Moderate degenerative arthropathy of the right hip. There is a total left hip arthroplasty with expected postsurgical changes. No acute fracture. No dislocation. Soft tissues: Unremarkable. IMPRESSION: Status post left hip arthroplasty with expected postsurgical changes. Electronically signed by: Lakesha Romero MD 01/09/24 02:[address] 01/08/24 21:27 CR Exam(s): CT L SPINE EXAM: CT Lumbar Spine Without Intravenous Contrast CLINICAL HISTORY: Reason for exam: severe LBP, leg leg pain. TECHNIQUE: Axial computed tomography images of the lumbar spine without intravenous contrast. CTDI is 38.58 mGy and DLP is 1115.17 mGy-cm. Automated exposure control was utilized for the study. A dose lowering technique was utilized adhering to the principles of ALARA. COMPARISON: Prior plain film images of the lumbar spine from February 18, 2019 and MRI of the lumbar spine from April 15, 2018 FINDINGS: Vertebrae: There are 5 lumbar type vertebral body is with a mild levoscoliosis normal lumbar lordosis. There is a remote fracture deformity of the L1 superior endplate. Patient is status post posterior decompression and fusion of L2, L3 and L4 with transpedicular screws and connecting rods in place. No evidence of surgical hardware complication. There is a fracture of the S3 segment. There are bilateral sacral ala insufficiency fractures. Discs/spinal canal/neural foramina: No acute findings. No spinal canal stenosis. Soft tissues: Hepatic steatosis. IMPRESSION: There is an S3 fracture with bilateral sacral ala insufficiency fractures. Recommend MRI of the sacrum for further evaluation. These fractures may be amenable to sacroplasty. No evidence of acute lumbar spine pathology. Communications: Verify Receipt Electronically signed by: Lakesha Romero MD 01/09/24 01:50 AM Lumbar Spine MRI 01/09/24 01:53 MR lumbar spine wo con CLINICAL HISTORY: 83 years-old Female with back pain, abn ct. Chronic low back pain COMPARISON: CT lumbar spine 01/08/2024, MRI 04/15/2018 TECHNIQUE: Multiplanar, multi sequence MRI of the lumbar spine was performed without intravenous contrast. FINDINGS: Conus medullaris terminates at T12-L1. Posterior decompression with interbody mika and screw fusion L2-L4. L3-L4 discectomy. Lumbar levoscoliosis redemonstrated. Left hip arthroplasty. Colonic diverticulosis. Chronic L1 compression deformity. Minimal marrow edema of the sacrum relating with the insufficiency fractures. Subacute to chronic fracture at S3. No acute fracture, subluxation or significant marrow edema of the lumbar spine. T12-L1: Central canal is patent. Mild bilateral foraminal narrowing. L1-L2: Ligamentum flavum thickening with moderate facet arthrosis. Central canal and left neural foramen are patent. Huvx-nx-syaxukya right foraminal narrowing. Unchanged. L2-L3: No central canal or neural foraminal stenosis. L3-L4: No central canal or neural foraminal stenosis. L4-L5: Ligamentum flavum thickening with moderate facet arthrosis. Central canal is patent. Mild bilateral foraminal narrowing. Unchanged. L5-S1: Sxlu-vn-qrncfyms disc space narrowing. Small circumferential annular disc bulge with posterior annular fissuring. Ligamentum flavum thickening with moderate facet arthrosis. Central canal is patent. Qsqu-sr-gjpahixt bilateral foraminal narrowing has slightly progressed. IMPRESSION: 1. No acute fracture or subluxation of the lumbar spine. 2. Sacral fractures better seen on the comparison CT study. 3. Degenerative and postoperative changes of the lumbar spine as above, not significantly changed from the 2019 study. 4. Chronic L1 compression deformity. ACT 112: Negative or not required by law. The above report was generated using voice recognition software. It may contain grammatical, syntax or spelling errors. Electronically signed by: Zachary French M.D. 01/09/2024 2:16 PM (1) Closed sacral fracture Encounter type: initial encounter Zone of sacrum fracture: unspecified portion of sacrum Qualified Code(s): S32.10XA - Unspecified fracture of sacrum, initial encounter for closed fracture
--- NOTE | 2024-01-09 14:18 | Magnetic Resonance Report ---
MR lumbar spine wo con CLINICAL HISTORY: 83 years-old Female with back pain, abn ct. Chronic low back pain COMPARISON: CT lumbar spine 01/08/2024, MRI 04/15/2018 TECHNIQUE: Multiplanar, multi sequence MRI of the lumbar spine was performed without intravenous cont rast. FINDINGS: Conus medullaris terminates at T12-L1. Posterior decompression with interbody mika and screw fusion L2 -L4. L3-L4 discectomy. Lumbar levoscoliosis redemonstrated. Left hip arthroplasty. Colonic diverticul osis. Chronic L1 compression deformity. Minimal marrow edema of the sacrum relating with the insuffic iency fractures. Subacute to chronic fracture at S3. No acute fracture, subluxation or significant ma rrow edema of the lumbar spine. T12-L1: Central canal is patent. Mild bilateral foraminal narrowing. L1-L2: Ligamentum flavum thickening with moderate facet arthrosis. Central canal and left neural for amen are patent. Hzbt-sk-qeeruohn right foraminal narrowing. Unchanged. L2-L3: No central canal or neural foraminal stenosis. L3-L4: No central canal or neural foraminal stenosis. L4-L5: Ligamentum flavum thickening with moderate facet arthrosis. Central canal is patent. Mild obed ateral foraminal narrowing. Unchanged. L5-S1: Poiu-ee-tdhhqebj disc space narrowing. Small circumferential annular disc bulge with posterio r annular fissuring. Ligamentum flavum thickening with moderate facet arthrosis. Central canal is pat ent. Efpc-xa-dfsnwhjn bilateral foraminal narrowing has slightly progressed. IMPRESSION: 1. No acute fracture or subluxation of the lumbar spine. 2. Sacral fractures better seen on the comparison CT study. 3. Degenerative and postoperative changes of the lumbar spine as above, not significantly changed fro m the 2019 study. 4. Chronic L1 compression deformity. ACT 112: Negative or not required by law. The above report was generated using voice recognition software. It may contain grammatical, syntax o r spelling errors. Electronically signed by: Zachary French M.D. 01/09/2024 2:16 PM
[2024-01-09] MEDS: GABAPENTIN 300 MG CAP PO SCH (20:16)
[2024-01-09] MEDS: LIDOCAINE 5% 1 PATCH TD SCH (20:16)
--- NOTE | 2024-01-09 20:38 | Communication Note ---
Date of Service: January 09, 2024 Patient complaining of painful red areas at the corners of the mouth. Started at home weeks ago. PPE Skin irritation, both corners of the mouth AP Angular cheilitis Topical antifungal trial
[2024-01-09] MEDS: CLOTRIMAZOLE 1% CR 15 GM TUBE EXT SCH (21:49)
[2024-01-10 07:51] LABS: Hematocrit (blood only) 37.5 % (37.0-47.0); Hemoglobin 11.8 g/dl (12.0-16.0); Mean Corpuscular Hemoglobin 26.5 pg (25.0-34.0); Mean Corpuscular Hgb Conc 31.5 g/dL (32.0-36.0); Mean Corpuscular Volume 84.1 fL (80.0-100.0); Mean Platelet Volume 10.3 fL (9.4-12.4); Platelet Count 288 K/uL (130-400); RDW Coefficient of Variation 15.9 % (11.5-14.5); RDW Standard Deviation 48.4 fL (36.4-46.3); Red Blood Count 4.46 M/uL (4.20-5.40); White Blood Count 6.73 K/ul (4.8-10.8)
[2024-01-10 07:55] LABS: BUN Creatinine Ratio 16.7 (10-20); Calcium 9.1 mg/dl (8.6-10.3); Creatinine Clr Calc Pharmacy 41.8 ml/min; Potassium 4.3 mmol/L (3.5-5.1)
--- NOTE | 2024-01-10 12:21 | Hospitalist Progress Note ---
Date of Service January 10, 2024 Assessment & Plan (1) Closed sacral fracture: Plan Pt is an 83yoF with PMHx significant for PAF not on anticoagulation secondary to GI bleed, valvular heart disease (moderate AR, trace MR/TR), chronic LBBB, GERD, chronic back pain, past tobacco abuse who presented with left sided back pain and was found to have a sacral fracture. She denies a Hx of recent trauma. Lower back pain Sacral Fracture, closed Pt presenting with concern for lower left sided back pain Pt denies Hx of trauma CT lumbar spine and MRI lumbar spine concerning for sacral fracture Orthospine consulted, appreciate recs. Recommended/stated the following on 01/09/24: "Assessment sacral insufficiency fracture. Plan at this point would initiate course of physical therapy with a walker to see how she tolerates light activity. She should lift no more than 5 pounds." PRN pain control PT/OT as recommended by surgery Improving Hypertensive urgency Likely in setting of pain Facilitate home BP meds and titrate as needed On amlodpine-benazapril Also on metoprolol Improved Angular chelitis Overnight on 01/08 Was ordered lotrimin Subconjunctival hemorrhage, right possibly secondary to above Currently painless PAF not on anticoagulation secondary to GI bleed Continue home amiodarone and metoprolol telemetry monitoring valvular heart disease (moderate AR, trace MR/TR) chronic LBBB Stable GERD stable on PPI Mild anemia hemoglobin drop from normal outpatient baseline hemoglobin last month Continue to monitor Diet: HH DVT prophylaxis. SCDs re: possible procedure, history GI bleed Dispo: per pt/ot recs and orthopedic surgery Admission and Anticipated Discharge Date Admission Date: January 09, 2024 Subjective Pt was seen laying in bed. States that her back pain remains controlled with the use of the current pain meds. States she has been ambulating without issue with her cane and not walker. Working with PT Otherwise denies acute concerns. Review of Systems Review of Systems: All systems reviewed & are unremarkable except as noted in Subjective Physical Exam Physical Exam: General: Alert, orientedx3. No acute distress Psych: Appropriate mood and affect Neuro: difficulty with lower extremity movements in the bed HEENT: NC/AT, right eye with painless conjunctival injection CV: RRR Resp: Breath sounds clear bilaterally, no increased effort of breathing Abdomen: Soft, nontender Extremities: No edema in lower extremities bilaterally. Results & Data Results & Data Vital Signs (Past 12 Hours) Vital Signs Temp Pulse Resp BP Pulse Ox O2 Del Method 01/10/24 06:59 36.5 C 66 18 125/72 95 Room Air (1) Closed sacral fracture Encounter type: initial encounter Zone of sacrum fracture: unspecified portion of sacrum Qualified Code(s): S32.10XA - Unspecified fracture of sacrum, initial encounter for closed fracture
[2024-01-11 06:28] LABS: Hematocrit (blood only) 33.9 % (37.0-47.0); Hemoglobin 11.2 g/dl (12.0-16.0); Mean Corpuscular Hemoglobin 26.8 pg (25.0-34.0); Mean Corpuscular Volume 81.1 fL (80.0-100.0); Mean Platelet Volume 9.7 fL (9.4-12.4); Platelet Count 297 K/uL (130-400); RDW Coefficient of Variation 15.7 % (11.5-14.5); RDW Standard Deviation 46.7 fL (36.4-46.3); Red Blood Count 4.18 M/uL (4.20-5.40); White Blood Count 7.11 K/ul (4.8-10.8)
[2024-01-11 07:03] LABS: Calcium 8.7 mg/dl (8.6-10.3); Creatinine Clr Calc Pharmacy 37.9 ml/min; Potassium 4.1 mmol/L (3.5-5.1)
[2024-01-11 07:16] VITALS: RESP 16; O2SAT 94
--- NOTE | 2024-01-11 11:43 | Discharge Summary ---
Discharge Summary Date of Service January 11, 2024 Principal Dx & Hospital Course #1 = Principal Diagnosis (1) Closed sacral fracture: Plan Pt is an 83yoF with PMHx significant for PAF not on anticoagulation secondary to GI bleed, valvular heart disease (moderate AR, trace MR/TR), chronic LBBB, GERD, chronic back pain, past tobacco abuse who presented with left sided back pain and was found to have a sacral fracture. She denies a Hx of recent trauma. Lower back pain Sacral Fracture, closed Pt presenting with concern for lower left sided back pain Pt denies Hx of trauma CT lumbar spine and MRI lumbar spine concerning for sacral fracture Orthospine consulted, appreciate recs. Recommended/stated the following on 01/09/24: "Assessment sacral insufficiency fracture. Plan at this point would initiate course of physical therapy with a walker to see how she tolerates light activity. She should lift no more than 5 pounds." PRN pain control PT/OT as recommended by orthospine surgery. PT/OT recommended return home Pt did well with PT and per orthospine surgery on 01/10, can be discharged. Pt discharged home in stable condition with script to complete outpatient PT/OT. Her pain remained well control without use of medications other than her home regimen and prn Tylenol. Close PCP followup after discharge Hypertensive urgency Likely in setting of pain home BP meds used On amlodipine-benazapril Also on metoprolol BP improved on day of discharge Continue home regimen. Angular chelitis Overnight on 01/08 Was ordered lotrimin Resolved on discharge Subconjunctival hemorrhage, right possibly secondary to above Currently painless PCP follow up PAF not on anticoagulation secondary to GI bleed Continue home amiodarone and metoprolol telemetry monitoring PCP and cardiology follow up valvular heart disease (moderate AR, trace MR/TR) chronic LBBB Stable GERD stable on PPI Mild anemia hemoglobin drop from normal outpatient baseline hemoglobin last month PCP follow up Notes For Next Care Provider Please ensure continued adequate pain control Medication Changes From Visit None Admission HPI Per Admitting Provider History obtained from patient and records. Medical history significant for PAF not on anticoagulation secondary to GI bleed, valvular heart disease (moderate AR, trace MR/TR), chronic LBBB, GERD, chronic back pain, past tobacco abuse. 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 Home NSAID discontinued. Patient had sudden onset achy left-sided back pain going down the left leg without unusual weakness/numbness yesterday. No recollection of trauma. She woke up with a "pink" right eye. No eye drainage or pruritus. No headache or unusual blurred vision or cough symptoms. Denies unusual straining. Denies unusual chest pain or SOB. SBP 170s upon arrival at the ER. 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 No acute distress Psych: Appropriate mood and affect Neuro: difficulty with lower extremity movements in the bed HEENT: NC/AT, right eye with painless conjunctival injection CV: RRR Resp: Breath sounds clear bilaterally, no increased effort of breathing Abdomen: Soft, nontender Extremities: No edema in lower extremities bilaterally. Updated Medication List Medication Instructions Recorded Confirmed Type amlodipine 2.5 mg-benazepril 10 mg 1 cap PO DAILY 01/06/23 01/09/24 History capsule oxybutynin chloride 5 mg tablet 5 mg PO BID 01/06/23 01/09/24 History alendronate 70 mg tablet 70 mg PO WK 06/01/23 01/09/24 History gabapentin 300 mg capsule 300 mg PO HS 06/01/23 01/09/24 History lifitegrast 5 % eye drops in a 1 drp OPB AMPM 06/01/23 01/09/24 History dropperette (Xiidra) amiodarone 200 mg tablet 200 mg PO BID 01/11/24 01/11/24 History metoprolol succinate 25 mg 12.5 mg PO DAILY 01/11/24 01/11/24 History tablet,extended release 24 hr Hospital Stay Data Consultations 01/08/24 23:27 ED Decision to Admit Stat 01/09/24 06:27 Consult Orthopedic Spine Surgery Routine Diagnostic Imagining Performed 01/08/24 21:27 CT lumbar spine wo con Stat 01/09/24 01:53 MRI Lumbar Spine [MR lumbar spine wo con] Routine Hip/Pelvis X-Ray 01/08/24 21:27 Exam(s): XR PELVIS, XR LEFT HIP EXAM: XR Pelvis, 1 or 2 Views CLINICAL HISTORY: Reason for exam: pain. TECHNIQUE: Frontal view of the pelvis. COMPARISON: No relevant prior studies available. FINDINGS: Bones/joints: Moderate degenerative arthropathy of the right hip joint. Status post posterior decompression and fusion of the lumbar spine. No acute fracture. No dislocation. Soft tissues: Unremarkable. IMPRESSION: No evidence of acute pelvic pathology. EXAM: XR Left Hip With Pelvis When Performed, 2 or 3 Views CLINICAL HISTORY: Reason for exam: pain. TECHNIQUE: Two or three views of the left hip with pelvis when performed. COMPARISON: No relevant prior studies available. FINDINGS: Bones/joints: Moderate degenerative arthropathy of the right hip. There is a total left hip arthroplasty with expected postsurgical changes. No acute fracture. No dislocation. Soft tissues: Unremarkable. IMPRESSION: Status post left hip arthroplasty with expected postsurgical changes. Electronically signed by: Lakesha Romero MD 01/09/24 02:[address] 01/08/24 21:27 CR Exam(s): CT L SPINE EXAM: CT Lumbar Spine Without Intravenous Contrast CLINICAL HISTORY: Reason for exam: severe LBP, leg leg pain. TECHNIQUE: Axial computed tomography images of the lumbar spine without intravenous contrast. CTDI is 38.58 mGy and DLP is 1115.17 mGy-cm. Automated exposure control was utilized for the study. A dose lowering technique was utilized adhering to the principles of ALARA. COMPARISON: Prior plain film images of the lumbar spine from February 18, 2019 and MRI of the lumbar spine from April 15, 2018 FINDINGS: Vertebrae: There are 5 lumbar type vertebral body is with a mild levoscoliosis normal lumbar lordosis. There is a remote fracture deformity of the L1 superior endplate. Patient is status post posterior decompression and fusion of L2, L3 and L4 with transpedicular screws and connecting rods in place. No evidence of surgical hardware complication. There is a fracture of the S3 segment. There are bilateral sacral ala insufficiency fractures. Discs/spinal canal/neural foramina: No acute findings. No spinal canal stenosis. Soft tissues: Hepatic steatosis. IMPRESSION: There is an S3 fracture with bilateral sacral ala insufficiency fractures. Recommend MRI of the sacrum for further evaluation. These fractures may be amenable to sacroplasty. No evidence of acute lumbar spine pathology. Communications: Verify Receipt Electronically signed by: Lakesha Romero MD 01/09/24 01:50 AM Lumbar Spine MRI 01/09/24 01:53 MR lumbar spine wo con CLINICAL HISTORY: 83 years-old Female with back pain, abn ct. Chronic low back pain COMPARISON: CT lumbar spine 01/08/2024, MRI 04/15/2018 TECHNIQUE: Multiplanar, multi sequence MRI of the lumbar spine was performed without intravenous contrast. FINDINGS: Conus medullaris terminates at T12-L1. Posterior decompression with interbody mika and screw fusion L2-L4. L3-L4 discectomy. Lumbar levoscoliosis redemonstrated. Left hip arthroplasty. Colonic diverticulosis. Chronic L1 compression deformity. Minimal marrow edema of the sacrum relating with the insufficiency fractures. Subacute to chronic fracture at S3. No acute fracture, subluxation or significant marrow edema of the lumbar spine. T12-L1: Central canal is patent. Mild bilateral foraminal narrowing. L1-L2: Ligamentum flavum thickening with moderate facet arthrosis. Central canal and left neural foramen are patent. [id number] right foraminal narrowing. Unchanged. L2-L3: No central canal or neural foraminal stenosis. L3-L4: No central canal or neural foraminal stenosis. L4-L5: Ligamentum flavum thickening with moderate facet arthrosis. Central canal is patent. Mild bilateral foraminal narrowing. Unchanged. L5-S1: [id number] disc space narrowing. Small circumferential annular disc bulge with posterior annular fissuring. Ligamentum flavum thickening with moderate facet arthrosis. Central canal is patent. [id number] bilateral foraminal narrowing has slightly progressed. IMPRESSION: 1. No acute fracture or subluxation of the lumbar spine. 2. Sacral fractures better seen on the comparison CT study. 3. Degenerative and postoperative changes of the lumbar spine as above, not significantly changed from the 2019 study. 4. Chronic L1 compression deformity. ACT 112: Negative or not required by law. The above report was generated using voice recognition software. It may contain grammatical, syntax or spelling errors. Electronically signed by: Zachary French M.D. 01/09/2024 2:16 PM Discharge Instructions Given to Patient (Per Discharging Provider) Rebekah, You are admitted with concern for lower back pain and were found to have a sacral fracture. you are seen by the orthopedic surgeon who recommended that you just continue with physical therapy to help with your symptoms. Please continue with your as needed pain medications. Please keep close follow up with your primary care provider after discharge. Please do not hesitate to come back to the emergency room if your symptoms worsen or return. It was a pleasure taking care of you while you were here. Total Time Total Time Spent Total Time Spent (In Minutes): 65
[2024-01-11 14:12] VITALS: BP 120/63; PULSE 62; TEMP 97.9
== END 2024-01-11 16:54 | disposition home health service (06) ==
LOC: ED 21:21 → 3N 21:21